=== PATIENT | male | born 1960 | race African-American/Black ===

== ENCOUNTER 2017-09-13 05:10 | Inpatient (IN) | payer MEDICAID, MEDICARE ==
[~2017-09-13] VITALS: Ht 177.8 cm; Wt 122.4 kg
[2017-09-13] VITALS (29 sets, daily range): BP systolic 115–197; BP diastolic 78–128; PULSE 125–150; RESP 14–25; TEMP 98.2–98.6; O2SAT 92–100
[~2017-09-13 05:10] MED LIST: ALDA50TA PO; ASPI325T PO; LISI20 PO; PRAV40 PO
[2017-09-13] MEDS ORDERED: SODIUM CHLORIDE 0.9% FLUSH 10 ML FLUSH IVF PRN (05:15)
--- NOTE | 2017-09-13 05:22 | PD ---
HPI Chief Complaint: Respiratory Distress Time Seen by Provider: 05:11 Travel History International Travel<30 days: No Contact w/Intl Traveler<30days: No Traveled to known affect area: No History of Present Illness HPI Patient is a 56-year-old male with history of CHF presents emergency department for evaluation for evaluation of shortness of breath. Patient obviously short of breath on arrival saturating 85% limiting history. Patient states he has been on blood thinners in the past presumably for atrial fibrillation. Denies any history of long trips long periods of stasis history of blood clots in his legs or chest. Patient states she's never taken any of his blood pressure medicine heart medicine or anticoagulation since his last admission 2 years ago which appears to be for acute stroke. After resuscitation the patient states he is chest pain-free and has not been having any chest pain. This is been short of breath over the past few days and gradually worsened until tonight when he couldn't stand it anymore. PFSH Past Medical History Heart Rhythm Problems: No Cancer: No Cardiovascular Problems: Yes High Cholesterol: Yes Congestive Heart Failure: No Cerebrovascular Accident: Yes Endocrine: No Genitourinary: No Hypertension: Yes Immune Disorder: No Musculoskeletal: No Neurologic: Yes Psychiatric: No Reproductive: No Respiratory: Yes Migraines: No Social History Alcohol Use: Yes (2 times a week) Tobacco Use: Yes (smokes one pack of cigarettes a day) Substance Use: No Allergies-Medications (Allergen,Severity, Reaction): Coded Allergies: No Known Allergies (Verified Allergy, Unknown, 09/13/17) Reported Meds & Prescriptions Reported Meds & Active Scripts Active No Active Prescriptions or Reported Medications Review of Systems Except as stated in HPI: all other systems reviewed are Neg Physical Exam Narrative GENERAL: Well-developed well-nourished, tripod position pursed lip breathing. SKIN: Focused skin assessment warm/dry. HEAD: Atraumatic. Normocephalic. EYES: Pupils equal and round. No scleral icterus. No injection or drainage. ENT: No nasal bleeding or discharge. Mucous membranes pink and moist. NECK: Trachea midline. No JVD. CARDIOVASCULAR: Regular rhythm with tachycardia.. No murmur appreciated. RESPIRATORY: No accessory muscle use. rales throughout all lung wells.. Breath sounds equal bilaterally. GASTROINTESTINAL: Abdomen soft, non-tender, nondistended. Hepatic and splenic margins not palpable. MUSCULOSKELETAL: No obvious deformities. No clubbing. No cyanosis. No edema. NEUROLOGICAL: Awake and alert. No obvious cranial nerve deficits. Motor grossly within normal limits. Normal speech. PSYCHIATRIC: Appropriate mood and affect; insight and judgment normal. Data Data Last Documented VS Vital Signs Date Time Temp Pulse Resp B/P (MAP) Pulse Ox O2 Delivery O2 Flow Rate FiO2 09/13/17 07:18 133 18 156/85 (108) 98 Nasal Cannula 4.00 09/13/17 05:13 98.6 Orders Orders Electrocardiogram (09/13/17 05:12) B-Type Natriuretic Peptide (09/13/17 05:12) Ckmb (Isoenzyme) Profile (09/13/17 05:12) Complete Blood Count With Diff (09/13/17 05:12) Comprehensive Metabolic Panel (09/13/17 05:12) Magnesium (Mg) (09/13/17 05:12) Prothrombin Time / Inr (Pt) (09/13/17 05:12) Act Partial Throm Time (Ptt) (09/13/17 05:12) Troponin I (09/13/17 05:12) Chest, Single Ap (09/13/17 05:12) Ecg Monitoring (09/13/17 05:12) Iv Access Insert/Monitor (09/13/17 05:12) Oximetry (09/13/17 05:12) Oxygen Administration (09/13/17 05:12) Sodium Chloride 0.9% Flush (Ns Flush) (09/13/17 05:15) Diltiazem Inj (Cardizem Inj) (09/13/17 06:00) Nitroglycerin Sl (Nitrostat Sl) (09/13/17 06:00) Nitroglycerin 2% Oint (Nitroglycerin 2% (09/13/17 06:00) Furosemide Inj (Lasix Inj) (09/13/17 06:00) CKMB (09/13/17 05:15) CKMB% (09/13/17 05:15) Aspirin Chew (Aspirin Chew) (09/13/17 06:15) Metoprolol Tartrate Inj (Lopressor Inj) (09/13/17 06:15) Dextrose 5% In Wate... W/Amiodarone Inj (09/13/17 07:03) Dextrose 5% In Wate... W/Amiodarone Inj (09/13/17 07:18) Admit Order (Ed Use Only) (09/13/17 ) Labs Laboratory Tests Test 09/13/17 05:15 White Blood Count 9.5 TH/MM3 Red Blood Count 4.77 MIL/MM3 Hemoglobin 12.4 GM/DL Hematocrit 38.7 % Mean Corpuscular Volume 81.2 FL Mean Corpuscular Hemoglobin 26.0 PG Mean Corpuscular Hemoglobin Concent 32.1 % Red Cell Distribution Width 16.5 % Platelet Count 258 TH/MM3 Mean Platelet Volume 8.3 FL Neutrophils (%) (Auto) 61.7 % Lymphocytes (%) (Auto) 27.4 % Monocytes (%) (Auto) 8.5 % Eosinophils (%) (Auto) 1.6 % Basophils (%) (Auto) 0.8 % Neutrophils # (Auto) 5.9 TH/MM3 Lymphocytes # (Auto) 2.6 TH/MM3 Monocytes # (Auto) 0.8 TH/MM3 Eosinophils # (Auto) 0.2 TH/MM3 Basophils # (Auto) 0.1 TH/MM3 CBC Comment DIFF FINAL Differential Comment Prothrombin Time 12.5 SEC Prothromb Time International Ratio 1.1 RATIO Activated Partial Thromboplast Time 25.6 SEC Blood Urea Nitrogen 11 MG/DL Creatinine 1.38 MG/DL Random Glucose 129 MG/DL Total Protein 7.5 GM/DL Albumin 3.5 GM/DL Calcium Level 8.7 MG/DL Magnesium Level 2.0 MG/DL Alkaline Phosphatase 64 U/L Aspartate Amino Transf (AST/SGOT) 49 U/L Alanine Aminotransferase (ALT/SGPT) 41 U/L Total Bilirubin 0.8 MG/DL Sodium Level 143 MEQ/L Potassium Level 4.5 MEQ/L Chloride Level 107 MEQ/L Carbon Dioxide Level 27.2 MEQ/L Anion Gap 9 MEQ/L Estimat Glomerular Filtration Rate 65 ML/MIN Total Creatine Kinase 438 U/L Creatine Kinase MB 5.4 NG/ML Creatine Kinase MB % 1.2 % Troponin I 0.07 NG/ML B-Type Natriuretic Peptide 229 PG/ML [facility] Medical Decision Making Medical Screen Exam Complete: Yes Emergency Medical Condition: Yes Differential Diagnosis ACS, MD, CHF, acute pulmonary edema. Narrative Course Patient roomed in emergency department, EKG consistent with atrial flutter with RVR, rales in bilateral lung wells and hypertensive consistent with acute pulmonary edema. Chest x-ray does show some pulmonary infiltrates. He was given Lasix nitroglycerin by paste and sublingual. Nasal cannula oxygen is holding his sats greater than 95%. Heart rate patient was given a loading dose of Cardizem 30 mg which had no effect on his heart rate, he was then given Lopressor 5 mg IV which again had no effect on his heart rate. Patient will be loaded therefore on amiodarone. Labs do show elevated troponin to 0.07 as well as elevations of BNP. Assessment is severe CHF with flash pulmonary edema overall status in the emergency department is improving. Awaiting [facility] to return page for placement to [facility]. Discussed with Dr. Harden for admission and he is agreeable. Amiodarone bolusing is in process. Diagnosis Primary Impression: Acute pulmonary edema Additional Impressions: Hypertensive emergency CHF (congestive heart failure) Atrial flutter with rapid ventricular response Admitting Information Admitting Physician Requests: Admit Scripts No Active Prescriptions or Reported Meds Condition: Stable Gaudencio Richter MD Sep 13, 2017 05:22
[2017-09-13 05:28] LABS: AUTOMATED NEUTROPHIL # 5.9 TH/MM3 (1.8-7.7); BASOPHIL # 0.1 TH/MM3 (0-0.2); BASOPHIL % 0.8 % (0.0-2.0); EOSINOPHIL # 0.2 TH/MM3 (0-0.4); EOSINOPHIL % 1.6 % (0.0-4.0); HEMATOCRIT 38.7 % (39.0-51.0); HEMO FLAGS DIFF FINAL; LYMPH % 27.4 % (9.0-44.0); LYMPHOCYTE # 2.6 TH/MM3 (1.0-4.8); MEAN CELL VOLUME 81.2 FL (80.0-100.0); MEAN CORPUSCULAR HGB CONC 32.1 % (32.0-36.0); MONO % 8.5 % (0.0-8.0); NEUT % 61.7 % (16.0-70.0); PLATELET COUNT 258 TH/MM3 (150-450); RED BLOOD COUNT 4.77 MIL/MM3 (4.50-5.90); RED CELL DISTRIBUTION WIDTH 16.5 % (11.6-17.2); WHITE BLOOD COUNT 9.5 TH/MM3 (4.0-11.0)
[2017-09-13 05:38] LABS: APTT (PATIENT) 25.6 SEC (24.3-30.1); INTERNATIONAL NORMALIZED RATIO 1.1 RATIO; PROTHROMBIN TIME - PATIENT 12.5 SEC (9.8-11.6)
[2017-09-13 05:47] LABS: ALT (GPT) 41 U/L (12-78)
[2017-09-13 05:54] LABS: ALKALINE PHOSPHATASE 64 U/L (45-117); ANION GAP 9 MEQ/L (5-15); AST (GOT) 49 U/L (15-37); BICARBONATE 27.2 MEQ/L (21.0-32.0); BLOOD UREA NITROGEN 11 MG/DL (7-18); CHLORIDE 107 MEQ/L (98-107); CREATINE KINASE 438 U/L (39-308); GLOMERULAR FILTRATION RATE 65 ML/MIN (>89); POTASSIUM 4.5 MEQ/L (3.5-5.1); SODIUM (NA) 143 MEQ/L (136-145); TOTAL BILIRUBIN ADULT 0.8 MG/DL (0.2-1.0)
[2017-09-13] MEDS ORDERED: DILTIAZEM HCL 25 MG/5 ML VIAL IV PUSH ONE (06:00)
[2017-09-13] MEDS ORDERED: NITROGLYCERIN 2% OINT 1 GM PACKET TOPICAL ONE (06:00)
[2017-09-13] MEDS ORDERED: FUROSEMIDE 40 MG/4 ML VIAL IV PUSH ONE (06:00)
[2017-09-13] MEDS ORDERED: NITROGLYCERIN 0.4 MG SL 25 TABS/BTL SL ONE (06:00)
--- NOTE | 2017-09-13 06:02 | RADRPT ---
EXAM DATE/TIME: 09/13/2017 05:41 [place] COMPARISON: CHEST PA & LAT, January 28, 2014, 9:01. INDICATIONS : Shortness of breath. MEDICAL HISTORY : Hypertension. Chronic obstructive pulmonary disease. SURGICAL HISTORY : None. ENCOUNTER: Initial ACUITY: 1 day PAIN SCORE: 0/10 LOCATION: Bilateral chest FINDINGS: A single AP erect view of the chest was obtained and demonstrates new hazy opacity at both lung bases . The heart size is mildly prominent with atherosclerotic changes again noted in the aorta. There is paramount blunting of left costophrenic angle. Overlying retrocardiac region noted. The bony thorax r emains intact with no pneumothorax. CONCLUSION: New infiltrate at both lung bases and possible small effusion on the left. The findin gs could represent mild congestive heart failure. Kaden Peacock MD on September 13, 2017 at 5:59 Board Certified Radiologist. This report was verified electronically.
[2017-09-13 06:06] LABS: CKMB 5.4 NG/ML (0.5-3.6)
[2017-09-13] MEDS ORDERED: ASPIRIN 81 MG CHEW TAB CHEW ONE (06:15)
[2017-09-13] MEDS ORDERED: METOPROLOL TARTRATE 5 MG/5 ML VIAL IV PUSH ONE ×2 (06:15→08:15)
[2017-09-13] MEDS ORDERED: AMIODARONE INJ 150 MG in DEXTROSE 5% IN WATER 100ML INJ 97 ML IV ONE ×2 (07:03)
[2017-09-13] MEDS ORDERED: AMIODARONE INJ 450 MG in DEXTROSE 5% IN WATE(EXCEL) INJ 241 ML IV SCH ×2 (07:18)
--- NOTE | 2017-09-13 07:59 | HHI.HP ---
[facility] No Primary Care Physician Admission Diagnosis CHF, Hypoxic Respiratory failure, Aflutter RVR Diagnoses: Chief Complaint: Shortness of breath Travel History International Travel<30 Days: No Contact w/Intl Traveler <30 Da: No Traveled to Known Affected Are: No History of Present Illness Mr. Boo is a pleasant 56-year-old [place] male with a history of hypertension, CVA who presents to the emergency department due to shortness of breath. About 2 days ago he started having dyspnea both at rest and on exertion. He reports orthopnea but no chest pain, cough, fever or chills. Apparently he was supposed to be on blood pressure medication as well as a medication for anticoagulation. However, he has not taken this medication because he does not have a primary care physician. He denies any changes in bowel or bladder habits. On arrival patient's heart rate was 150, respiration 25, temperature 98.6, blood pressure 146/98. R and his blood pressure went up to 197/128. CBC unremarkable. Chemistry panel shows BUN 11 and creatinine 1.38. BNP 229. Chest x-ray shows new infiltrates at both lung bases and possible small effusion on the left. Review of Systems Except as stated in HPI: all other systems reviewed are Neg Past Family Social History Past Medical History Hypertension CVA Past Surgical History No significant major surgery Allergies: Coded Allergies: No Known Allergies (Verified Allergy, Unknown, 09/13/17) Family History Mother - breast cancer Social History Smokes about 1 pack a day, drinks socially. Denies using any illicit drugs. Physical Exam Vital Signs Vital Signs Date Time Temp Pulse Resp B/P (MAP) Pulse Ox O2 Delivery O2 Flow Rate FiO2 09/13/17 07:18 133 18 156/85 (108) 98 Nasal Cannula 4.00 09/13/17 06:28 131 14 160/99 (119) 92 Nasal Cannula 3.00 09/13/17 06:15 135 14 170/100 (123) 93 Nasal Cannula 3.00 09/13/17 06:05 135 15 169/113 (131) 93 Nasal Cannula 3.00 09/13/17 06:01 130 15 185/109 (134) 95 Nasal Cannula 3.00 09/13/17 05:54 135 17 197/128 (151) 95 Nasal Cannula 3.00 09/13/17 05:20 137 25 96 Nasal Cannula 3.00 09/13/17 05:18 96 Nasal Cannula 3.00 09/13/17 05:18 25 96 Nasal Cannula 3.00 09/13/17 05:13 98.6 150 25 146/98 (114) 96 Physical Exam GENERAL: This is a well-nourished, well-developed patient, in no apparent distress. SKIN: No rashes, ecchymoses or lesions. Warm and dry. HEAD: Atraumatic. Normocephalic. No temporal or scalp tenderness. EYES: Pupils equal round and reactive. No injection or drainage. ENT: Nose without bleeding, purulent drainage or septal hematoma. Airway patent. NECK: Trachea midline. No lymphadenopathy. Supple, nontender, no meningeal signs. CARDIOVASCULAR: Regular rhythm, tachycardic without murmurs, gallops, or rubs. No JVD. RESPIRATORY: Clear to auscultation. Breath sounds equal bilaterally. No wheezes , rales, or rhonchi. Bibasilar crackles GASTROINTESTINAL: Abdomen soft, non-tender, nondistended. No guarding. MUSCULOSKELETAL: Extremities without clubbing, cyanosis. 1+ edema in lower extremities. NEUROLOGICAL: Awake and alert. Cranial nerves II through XII intact. No focal neurological deficits. Normal speech. Laboratory Laboratory Tests Test 09/13/17 05:15 White Blood Count 9.5 Red Blood Count 4.77 Hemoglobin 12.4 Hematocrit 38.7 Mean Corpuscular Volume 81.2 Mean Corpuscular Hemoglobin 26.0 Mean Corpuscular Hemoglobin Concent 32.1 Red Cell Distribution Width 16.5 Platelet Count 258 Mean Platelet Volume 8.3 Neutrophils (%) (Auto) 61.7 Lymphocytes (%) (Auto) 27.4 Monocytes (%) (Auto) 8.5 Eosinophils (%) (Auto) 1.6 Basophils (%) (Auto) 0.8 Neutrophils # (Auto) 5.9 Lymphocytes # (Auto) 2.6 Monocytes # (Auto) 0.8 Eosinophils # (Auto) 0.2 Basophils # (Auto) 0.1 CBC Comment DIFF FINAL Differential Comment Prothrombin Time 12.5 Prothromb Time International Ratio 1.1 Activated Partial Thromboplast Time 25.6 Blood Urea Nitrogen 11 Creatinine 1.38 Random Glucose 129 Total Protein 7.5 Albumin 3.5 Calcium Level 8.7 Magnesium Level 2.0 Alkaline Phosphatase 64 Aspartate Amino Transf (AST/SGOT) 49 Alanine Aminotransferase (ALT/SGPT) 41 Total Bilirubin 0.8 Sodium Level 143 Potassium Level 4.5 Chloride Level 107 Carbon Dioxide Level 27.2 Anion Gap 9 Estimat Glomerular Filtration Rate 65 Total Creatine Kinase 438 Creatine Kinase MB 5.4 Creatine Kinase MB % 1.2 Troponin I 0.07 B-Type Natriuretic Peptide 229 Result Diagram: 09/13/1751409/13/17514 Imaging Last Impressions Chest X-Ray 09/13/17511 Signed Impressions: Service Date/Time: Friday, September 13, 2017 05:41 - CONCLUSION: New infiltrate at both lung bases and possible small effusion on the left. The findings could represent mild congestive heart failure. Kaden Peacock MD - MRI 12/10/2015 - Multifocal areas of acute infarction throughout the left parietal lobe. - Echo 12/10/2015 - moderate LVH. EF 50-55%. Caprini VTE Risk Assessment Caprini VTE Risk Assessment: Mod/High Risk (score >= 2) Caprini Risk Assessment Model Point Value = 1 Point Value = 2 Point Value = 3 Point Value = 5 Age 41-60 Minor surgery BMI > 25 kg/m2 Swollen legs Varicose veins or History of unexplained or recurrent spontaneous Oral contraceptives or hormone replacement Sepsis (< 1 month) Serious lung disease, including pneumonia (< 1 month) Abnormal pulmonary function Acute myocardial infarction Congestive heart failure (< 1 month) History of inflammatory bowel disease Medical patient at bed rest Age 61-74 Arthroscopic surgery Major open surgery (> 45 min) Laparoscopic surgery (> 45 min) Malignancy Confined to bed (> 72 hours) Immobilizing plaster cast Central venous access Age >= 75 History of VTE Family history of VTE Factor V Leiden Prothrombin [id number] Lupus anticoagulant Anticardiolipin antibodies Elevated serum homocysteine Heparin-induced thrombocytopenia Other congenital or acquired thrombophilia Stroke (< 1 month) Elective arthroplasty Hip, pelvis, or leg fracture Acute spinal cord injury (< 1 month) Prophylaxis Regimen Total Risk Factor Score Risk Level Prophylaxis Regimen 0-1 Low Early ambulation 2 Moderate Order ONE of the following: *Sequential Compression Device (SCD) *Heparin 5000 units SQ BID 3-4 Higher Order ONE of the following medications: *Heparin 5000 units SQ TID *Enoxaparin/Lovenox 40 mg SQ daily (WT < 150 kg, CrCl > 30 mL/min) *Enoxaparin/Lovenox 30 mg SQ daily (WT < 150 kg, CrCl > 10-29 mL/min) *Enoxaparin/Lovenox 30 mg SQ BID (WT < 150 kg, CrCl > 30 mL/min) AND/OR *Sequential Compression Device (SCD) 5 or more Highest Order ONE of the following medications: *Heparin 5000 units SQ TID (Preferred with Epidurals) *Enoxaparin/Lovenox 40 mg SQ daily (WT < 150 kg, CrCl > 30 mL/min) *Enoxaparin/Lovenox 30 mg SQ daily (WT < 150 kg, CrCl > 10-29 mL/min) *Enoxaparin/Lovenox 30 mg SQ BID (WT < 150 kg, CrCl > 30 mL/min) AND *Sequential Compression Device (SCD) Assessment and Plan Problem List: (1) Acute pulmonary edema ICD Code: J81.0 - Acute pulmonary edema Status: Acute (2) Atrial flutter with rapid ventricular response ICD Code: I48.92 - Unspecified atrial flutter Status: Acute (3) HTN (hypertension) ICD Code: I10 - Essential (primary) hypertension Status: Chronic Assessment and Plan Mr. Boo is a pleasant 56-year-old [place] male with a history of hypertension, CVA who presents to the emergency department due to 2 day duration of shortness of breath. He reports orthopnea. Physical exam shows 1+ lower extremity edema as well. Chest x-ray shows bilateral pulmonary edema. - Acute pulmonary edema - Probable acute congestive heart failure, diastolic - BNP 229. Pulmonary edema is possibly due to CHF. - Slight elevation in Troponin is likely due RUPERT, HTN, CHF (Supply demand mismatch). - CXR reviewed by me on 09/13/2017 -- shows bibasilar opacity, effusion. - Patient received Lasix IV 40 mg. We'll continue Lasix IV 40 mg twice a day. - Upon discharge, we'll consider torsemide by mouth. - We'll obtain 2-D Echo Limited to evaluate LV function. Previous echo from shows EF 50-55%. - Continue O2 to maintain O2 sat > 90%. - Atrial flutter with rapid ventricular response - EKG reviewed by me on 09/13/2017 - shows Atrial flutter with RVR. - Patient received metoprolol 5 mg IV once. - Heart rate is is still in the 130s. We'll provide another 5 mg metoprolol IV. - Start metoprolol 25 mg every 8 hours. - [id number] score 3 (CVA, HTN) - We will start patient on Apixaban 5mg BID. Discussed with patient regarding Warfarin and Apixaban. Patient opted for Apixaban. - Acute kidney injury - Creatinine 1.38. Previously creatinine was 1.11 - 1.14. - Will monitor. May get worse transiently due to diuresis. - Avoid nephrotoxins. - Hypertension - After lasix, blood pressure is within reasonable range. Currently systolic BP in the 130s. - If needed, we will consider calcium channel blockers such as Amlodipine. - Tobacco abuse - Counselled patient regarding smoking. He is interested to quit smoking. - Will start him on Nicotine patch. Full code. Apixaban 5 mg twice a day. Physician Certification 2 Midnight Certification Type: Admission for Inpatient Services Order for Inpatient Services The services are ordered in accordance with Medicare regulations or non- Medicare payer requirements, as applicable. In the case of services not specified as inpatient-only, they are appropriately provided as inpatient services in accordance with the 2-midnight benchmark. Estimated LOS (days): 2 days is the estimated time the patient will need to remain in the hospital, assuming treatment plan goals are met and no additional complications. Post-Hospital Plan: Home Willis Harden DO Sep 13, 2017 7:59 am
[2017-09-13] MEDS ORDERED: ONDANSETRON HCL 4 MG/2 ML VIAL IVP PRN (08:00)
[2017-09-13] MEDS ORDERED: MAGNESIUM HYDROXIDE SUSP 30 ML CUP PO PRN (08:00)
[2017-09-13] MEDS ORDERED: ENOXAPARIN SODIUM 40 MG/0.4 ML SYRINGE SQ SCH (08:00)
[2017-09-13] MEDS ORDERED: BISACODYL 10 MG SUPP RECTAL PRN (08:00)
[2017-09-13] MEDS ORDERED: NALOXONE HCL 0.4 MG/ML AMP IV PUSH PRN (08:00)
[2017-09-13] MEDS ORDERED: ACETAMINOPHEN 325 MG TAB PO PRN (08:00)
[2017-09-13] MEDS ORDERED: SENNOSIDES 8.6 MG TAB PO PRN (08:00)
[2017-09-13] MEDS ORDERED: LACTULOSE SYRUP 20 GM/30 ML CUP PO PRN (08:00)
[2017-09-13] MEDS ORDERED: SODIUM CHLORIDE 0.9% FLUSH 10 ML FLUSH IV FLUSH PRN (08:00)
[2017-09-13] MEDS: SODIUM CHLORIDE 0.9% FLUSH 10 ML FLUSH IV FLUSH SCH ×2 (08:17→20:07)
[2017-09-13] MEDS ORDERED: METOPROLOL TARTRATE 25 MG TAB PO ONE (08:30)
[2017-09-13] MEDS: APIXABAN 5 MG TABLET PO SCH ×2 (08:48→20:07)
[2017-09-13] MEDS: NICOTINE 14 MG/24 HR PATCH T-DERMAL SCH (08:48)
[2017-09-13] MEDS ORDERED: FUROSEMIDE 40 MG/4 ML VIAL IV PUSH SCH (09:00)
[2017-09-13] MEDS: DILTIAZEM INJ 125 MG in SODIUM CHLORIDE 0.9% INJ 100 ML IV PRN ×2 (12:03→20:10)
[2017-09-13] MEDS: METOPROLOL TARTRATE 25 MG TAB PO SCH ×2 (14:13→20:07)
--- NOTE | 2017-09-13 14:31 | EKG ---
Date Performed: 09/13/2017 Time Performed: 05:13:22 PTAGE: 56 years EKG: ATRIAL FLUTTER/TACHYCARDIA WITH RAPID VENTRICULAR RESPONSE NONSPECIFIC ST & T-WAVE ABNORMAL ITY ABNORMAL RHYTHM ECG PREVIOUS TRACING : 12/10/2015 04.55 Compared to the previous tracing, previously in Sinus rhyth m DOCTOR: Devon Manzo Interpretating Date/Time 09/13/2017 14:30:34
[2017-09-13] MEDS ORDERED: DILTIAZEM HCL 60 MG TAB PO ONE (14:45)
[2017-09-13] MEDS: FUROSEMIDE 40 MG/4 ML VIAL IV PUSH SCH (17:34)
[2017-09-13] MEDS: DILTIAZEM HCL 60 MG TAB PO SCH ×2 (17:34→23:40)
[2017-09-14] VITALS (26 sets, daily range): BP systolic 97–144; BP diastolic 68–80; PULSE 60–124; RESP 18–22; TEMP 97.3–98.3; O2SAT 92–96
[2017-09-14] MEDS: METOPROLOL TARTRATE 25 MG TAB PO SCH (05:18)
[2017-09-14] MEDS: DILTIAZEM HCL 60 MG TAB PO SCH ×4 (05:18→23:56)
[2017-09-14 06:20] LABS: AUTOMATED NEUTROPHIL # 7.3 TH/MM3 (1.8-7.7); BASOPHIL # 0.1 TH/MM3 (0-0.2); BASOPHIL % 0.7 % (0.0-2.0); EOSINOPHIL % 0.4 % (0.0-4.0); HEMATOCRIT 39.7 % (39.0-51.0); HEMO FLAGS DIFF FINAL; LYMPH % 24.1 % (9.0-44.0); LYMPHOCYTE # 2.7 TH/MM3 (1.0-4.8); MEAN CELL VOLUME 81.6 FL (80.0-100.0); MEAN CORPUSCULAR HEMOGLOBIN 25.6 PG (27.0-34.0); MEAN CORPUSCULAR HGB CONC 31.3 % (32.0-36.0); MONO % 9.7 % (0.0-8.0); NEUT % 65.1 % (16.0-70.0); PLATELET COUNT 261 TH/MM3 (150-450); RED BLOOD COUNT 4.86 MIL/MM3 (4.50-5.90); WHITE BLOOD COUNT 11.1 TH/MM3 (4.0-11.0)
[2017-09-14 06:52] LABS: BICARBONATE 26.8 MEQ/L (21.0-32.0); POTASSIUM 4.4 MEQ/L (3.5-5.1)
[2017-09-14] MEDS: FUROSEMIDE 40 MG/4 ML VIAL IV PUSH SCH ×2 (08:25→19:14)
[2017-09-14] MEDS: APIXABAN 5 MG TABLET PO SCH (08:25)
[2017-09-14] MEDS: NICOTINE 14 MG/24 HR PATCH T-DERMAL SCH (08:26)
[2017-09-14] MEDS: SODIUM CHLORIDE 0.9% FLUSH 10 ML FLUSH IV FLUSH SCH ×2 (08:26→21:00)
--- NOTE | 2017-09-14 08:57 | HHI.PR ---
Subjective Remarks Follow up for Atrial flutter, pulmonary edema, HTN. Patient is currently doing well. Denies any chest pain. He is requiring 2L of O2 via NC to maintain O2 sat > 88%. No fever, chills. He wants to go home today. Objective Vitals Vital Signs Date Time Temp Pulse Resp B/P (MAP) Pulse Ox O2 Delivery O2 Flow Rate FiO2 09/14/17 06:00 117 09/14/17 05:00 121 09/14/17 04:00 Nasal Cannula 4.00 09/14/17 04:00 121 09/14/17 04:00 98.3 121 22 144/80 (101) 92 09/14/17 03:00 122 09/14/17 02:00 120 09/14/17 01:00 122 09/14/17 00:00 98.1 123 22 116/68 (84) 93 09/14/17 00:00 123 09/14/17 00:00 Nasal Cannula 4.00 09/13/17 23:00 128 09/13/17 22:00 125 09/13/17 21:00 128 09/13/17 20:10 129 115/86 09/13/17 20:00 98.2 125 22 115/86 (96) 92 09/13/17 20:00 Nasal Cannula 4.00 09/13/17 20:00 129 09/13/17 18:02 129 09/13/17 17:00 128 09/13/17 16:32 127 22 125/79 (94) 94 09/13/17 16:00 127 09/13/17 15:00 98.6 130 22 123/84 (97) 95 09/13/17 15:00 130 09/13/17 14:00 127 09/13/17 14:00 138/88 (105) 09/13/17 13:00 129 22 135/101 (112) 98 09/13/17 13:00 129 09/13/17 13:00 128 135/101 09/13/17 12:34 129 21 151/99 (116) 97 09/13/17 12:30 128 22 164/98 (120) 97 09/13/17 12:30 128 164/98 09/13/17 12:29 128 09/13/17 12:16 129 21 164/108 (126) 96 09/13/17 12:03 129 143/78 09/13/17 12:01 130 21 143/78 (99) 96 09/13/17 11:45 127 22 146/103 (117) 95 09/13/17 11:00 98.2 129 20 138/88 (105) 99 09/13/17 11:00 99 Nasal Cannula 4.00 09/13/17 11:00 129 09/13/17 10:45 128 20 155/109 (124) 100 09/13/17 09:18 125 24 135/83 (100) 95 Nasal Cannula 4.00 I/O 09/13/17 09/13/17 09/13/17 09/14/17 09/14/17 09/14/17 07:00 15:00 23:00 07:00 15:00 23:00 Intake Total 870 ml 240 ml Output Total 125 ml 900 ml Balance 745 ml -660 ml Intake Oral 720 ml 240 ml IV Total 150 ml Output Urine Total 125 ml 900 ml # Bowel Movements 0 Result Diagram: 09/14/1759 09/14/1759 Imaging Last Impressions Chest X-Ray 09/13/17511 Signed Impressions: Service Date/Time: Friday, September 13, 2017 05:41 - CONCLUSION: New infiltrate at both lung bases and possible small effusion on the left. The findings could represent mild congestive heart failure. Kaden Peacock MD Objective Remarks GENERAL: Alert, Oriented x 3, NAD. SKIN: Warm and dry. HEAD: Normocephalic. EYES: No scleral icterus. No injection or drainage. NECK: Supple, trachea midline. No JVD or lymphadenopathy. CARDIOVASCULAR: Regular rate and rhythm without murmurs, gallops, or rubs. RESPIRATORY: Breath sounds equal bilaterally. No accessory muscle use. Mild bibasilar crackles appreciated. GASTROINTESTINAL: Abdomen soft, non-tender, nondistended. MUSCULOSKELETAL: No cyanosis. 1+ lower ext edema. BACK: Nontender without obvious deformity. No CVA tenderness. Procedures None. A/P Problem List: (1) Acute pulmonary edema ICD Code: J81.0 - Acute pulmonary edema Status: Acute (2) Atrial flutter with rapid ventricular response ICD Code: I48.92 - Unspecified atrial flutter Status: Acute (3) HTN (hypertension) ICD Code: I10 - Essential (primary) hypertension Status: Chronic Assessment and Plan Mr. Boo is a pleasant 56-year-old [place] male with a history of hypertension, CVA who presents to the emergency department due to 2 day duration of shortness of breath. He reports orthopnea. Physical exam shows 1+ lower extremity edema as well. Chest x-ray shows bilateral pulmonary edema. - Acute pulmonary edema - Probable acute congestive heart failure, diastolic - BNP 229. Pulmonary edema is possibly due to CHF. - Slight elevation in Troponin is likely due RUPERT, HTN, CHF (Supply demand mismatch). - CXR reviewed by me on 09/13/2017 -- shows bibasilar opacity, effusion. - continue Lasix IV 40 mg twice a day. - Upon discharge, we'll consider torsemide by mouth. - We'll obtain 2-D Echo Limited to evaluate LV function. Previous echo from shows EF 50-55%. - Continue O2 to maintain O2 sat > 88%. - Atrial flutter with rapid ventricular response - EKG reviewed by me on 09/13/2017 - shows Atrial flutter with RVR. - Patient received metoprolol 5 mg IV twice - Heart rate is still in the 120s range. - Increase metoprolol frm 25 mg every 8 hours to 50mg Q8hrs. Continue Cardizem drip and PO. - [id number] score 3 (CVA, HTN) - Continue Apixaban 5mg BID. - Will consult Cardiology. Patient may need an EP evaluation which we may not be able to get before 09/15/2017. - Acute kidney injury - Creatinine 1.38. Previously creatinine was 1.11 - 1.14. - Creatinine 1.38 --> 1.43, likely due to diuresis. - Avoid nephrotoxins. - Hypertension - If needed, we will consider calcium channel blockers such as Amlodipine. - Currently systolic BP is in the low 100s range. - Tobacco abuse - Counselled patient regarding smoking. He is interested to quit smoking. - Nicotine patch. Full code. Apixaban 5 mg twice a day. Discharge plan: It would be inadvisable for the patient to leave the hospital without further work up and treatment as well as possible home O2 arrangements. Patient understands that leaving hospital AMA will carry significant health risks including increased morbidity and mortality. If he leaves, he can always come back for any medical concerns. Patient states that he will go home this evening. I have again told patient that it would be not advisable to leave hospital prematurely. Willis Harden DO Sep 14, 2017 8:57 am
[2017-09-14] MEDS ORDERED: METOPROLOL TARTRATE 25 MG TAB PO ONE (09:00)
--- NOTE | 2017-09-14 09:50 | PD.PN.STU ---
Subjective Remarks Patient feeling better today and wants to go home. Denies SOB, chest pain, palpitations. States he has been up and walking in his room. Still on 4 L O2 nasal canula. Per nurse, this had been temporarily decreased to 2L but O2sat dropped to less than 90 so patient was put back on 4 L. Objective Vitals Vital Signs Date Time Temp Pulse Resp B/P (MAP) Pulse Ox O2 Delivery O2 Flow Rate FiO2 09/14/17 07:30 95 Nasal Cannula 4.00 09/14/17 07:30 118 09/14/17 07:30 97.3 118 18 105/78 (87) 95 09/14/17 06:00 117 09/14/17 05:00 121 09/14/17 04:00 Nasal Cannula 4.00 09/14/17 04:00 121 09/14/17 04:00 98.3 121 22 144/80 (101) 92 09/14/17 03:00 122 09/14/17 02:00 120 09/14/17 01:00 122 09/14/17 00:00 98.1 123 22 116/68 (84) 93 09/14/17 00:00 123 09/14/17 00:00 Nasal Cannula 4.00 09/13/17 23:00 128 09/13/17 22:00 125 09/13/17 21:00 128 09/13/17 20:10 129 115/86 09/13/17 20:00 98.2 125 22 115/86 (96) 92 09/13/17 20:00 Nasal Cannula 4.00 09/13/17 20:00 129 09/13/17 18:02 129 09/13/17 17:00 128 09/13/17 16:32 127 22 125/79 (94) 94 09/13/17 16:00 127 09/13/17 15:00 98.6 130 22 123/84 (97) 95 09/13/17 15:00 130 09/13/17 14:00 127 09/13/17 14:00 138/88 (105) 09/13/17 13:00 129 22 135/101 (112) 98 09/13/17 13:00 129 09/13/17 13:00 128 135/101 09/13/17 12:34 129 21 151/99 (116) 97 09/13/17 12:30 128 22 164/98 (120) 97 09/13/17 12:30 128 164/98 09/13/17 12:29 128 09/13/17 12:16 129 21 164/108 (126) 96 09/13/17 12:03 129 143/78 09/13/17 12:01 130 21 143/78 (99) 96 09/13/17 11:45 127 22 146/103 (117) 95 09/13/17 11:00 98.2 129 20 138/88 (105) 99 09/13/17 11:00 99 Nasal Cannula 4.00 09/13/17 11:00 129 09/13/17 10:45 128 20 155/109 (124) 100 I/O 09/13/17 09/13/17 09/13/17 09/14/17 09/14/17 09/14/17 07:00 15:00 23:00 07:00 15:00 23:00 Intake Total 870 ml 240 ml Output Total 125 ml 900 ml Balance 745 ml -660 ml Intake Oral 720 ml 240 ml IV Total 150 ml Output Urine Total 125 ml 900 ml # Bowel Movements 0 Result Diagram: 09/14/17 0559 09/14/17 0559 Other Results Laboratory Tests Test 09/14/17 05:59 White Blood Count 11.1 TH/MM3 (4.0-11.0) Red Blood Count 4.86 MIL/MM3 (4.50-5.90) Hemoglobin 12.4 GM/DL (13.0-17.0) Hematocrit 39.7 % (39.0-51.0) Mean Corpuscular Volume 81.6 FL (80.0-100.0) Mean Corpuscular Hemoglobin 25.6 PG (27.0-34.0) Mean Corpuscular Hemoglobin Concent 31.3 % (32.0-36.0) Red Cell Distribution Width 17.0 % (11.6-17.2) Platelet Count 261 TH/MM3 (150-450) Mean Platelet Volume 8.4 FL (7.0-11.0) Neutrophils (%) (Auto) 65.1 % (16.0-70.0) Lymphocytes (%) (Auto) 24.1 % (9.0-44.0) Monocytes (%) (Auto) 9.7 % (0.0-8.0) Eosinophils (%) (Auto) 0.4 % (0.0-4.0) Basophils (%) (Auto) 0.7 % (0.0-2.0) Neutrophils # (Auto) 7.3 TH/MM3 (1.8-7.7) Lymphocytes # (Auto) 2.7 TH/MM3 (1.0-4.8) Monocytes # (Auto) 1.1 TH/MM3 (0-0.9) Eosinophils # (Auto) 0.0 TH/MM3 (0-0.4) Basophils # (Auto) 0.1 TH/MM3 (0-0.2) CBC Comment DIFF FINAL Differential Comment Blood Urea Nitrogen 17 MG/DL (7-18) Creatinine 1.43 MG/DL (0.60-1.30) Random Glucose 104 MG/DL (74-106) Calcium Level 8.3 MG/DL (8.5-10.1) Sodium Level 139 MEQ/L (136-145) Potassium Level 4.4 MEQ/L (3.5-5.1) Chloride Level 105 MEQ/L (98-107) Carbon Dioxide Level 26.8 MEQ/L (21.0-32.0) Anion Gap 7 MEQ/L (5-15) Estimat Glomerular Filtration Rate 62 ML/MIN (>89) Objective Remarks GENERAL: Patient sitting in chair at bedside in no apparent distress. SKIN: Warm and dry. HEAD: Normocephalic. EYES: No scleral icterus. No injection or drainage. NECK: Supple, trachea midline. No JVD or lymphadenopathy. CARDIOVASCULAR: Regular rate and rhythm without murmurs, gallops, or rubs. RESPIRATORY: Breath sounds equal bilaterally. No accessory muscle use. Few crackles in lung bases bilaterally. GASTROINTESTINAL: Abdomen soft, non-tender, nondistended. MUSCULOSKELETAL: No cyanosis. +1 pitting edema in lower extremities bilaterally. BACK: Nontender without obvious deformity. Medications and IVs Current Medications Sodium Chloride (NS Flush) 2 ml UNSCH PRN IVF FLUSH AFTER USING IV ACCESS; Start 09/13/17 at 05:15; Stop 09/13/17 at 07:53; Status DC Diltiazem HCl (Cardizem Inj) 30 mg BOLUS ONCE IV PUSH Last administered on t 06:00; Start 09/13/17 at 06:00; Stop 09/13/17 at 06:01; Status DC Nitroglycerin (Nitrostat Sl) 0.4 mg ONCE ONCE SL Last administered on 05:59; Start 09/13/17 at 06:00; Stop 09/13/17 at 06:01; Status DC Nitroglycerin (Nitroglycerin 2% Oint) 1 inch ONCE ONCE TOPICAL Last administered on 09/13/17 05:59; Start 09/13/17 at 06:00; Stop 09/13/17 at 06 :01; Status DC Furosemide (Lasix Inj) 40 mg ONCE ONCE IV PUSH Last administered on 06:07; Start 09/13/17 at 06:00; Stop 09/13/17 at 06:01; Status DC Aspirin (Aspirin Chew) 324 mg ONCE ONCE CHEW Last administered on 09/13/17 06:16; Start 09/13/17 at 06:15; Stop 09/13/17 at 06:16; Status DC Metoprolol Tartrate (Lopressor Inj) 5 mg ONCE ONCE IV PUSH Last administered on 09/13/17 06:17; Start 09/13/17 at 06:15; Stop 09/13/17 at 06:16; Status DC Amiodarone HCl 150 mg/Dextrose 100 ml @ 600 mls/hr Q10M ONCE IV Last administered on 09/13/17 08:07; Start 09/13/17 at 07:03; Stop 09/13/17 at 07 :12; Status DC Amiodarone HCl 450 mg/Dextrose 250 ml @ 33 mls/hr Q7H35M IV ; Start 09/13/17 at 07:18; Stop 09/13/17 at 08:45; Status DC Sodium Chloride (NS Flush) 2 ml UNSCH PRN IV FLUSH FLUSH AFTER USING IV ACCESS ; Start 09/13/17 at 08:00 Sodium Chloride (NS Flush) 2 ml BID IV FLUSH Last administered on 09/14/17 08 :26; Start 09/13/17 at 09:00 Acetaminophen (Tylenol) 650 mg Q4H PRN PO HEADACHE, FEVER, PAIN 1-4; Start at 08:00 Ondansetron HCl (Zofran Inj) 4 mg Q6H PRN IVP NAUSEA OR VOMITING; Start at 08:00 Enoxaparin Sodium (Lovenox Inj) 40 mg Q24H SQ ; Start 09/13/17 at 08:00; Stop 09/13/17 at 08:18; Status DC Naloxone HCl (Narcan Inj) 0.4 mg UNSCH PRN IV PUSH SEE LABEL COMMENTS; Start 09/13/17 at 08:00 Magnesium Hydroxide (Milk Of Magnesia Liq) 30 ml Q12H PRN PO Mild constipation ; Start 09/13/17 at 08:00 Sennosides (Senokot) 17.2 mg Q12H PRN PO Moderate constipation; Start at 08:00 Bisacodyl (Dulcolax Supp) 10 mg DAILY PRN RECTAL SEVERE CONSITIPATION; Start 09/13/17 at 08:00 Lactulose (Lactulose Liq) 30 ml DAILY PRN PO SEVERE CONSITIPATION; Start 09/13 at 08:00 Furosemide (Lasix Inj) 40 mg BID@18 IV PUSH ; Start 09/13/17 at 09:00; Stop 09/13/17 at 09:00; Status DC Metoprolol Tartrate (Lopressor Inj) 5 mg ONCE ONCE IV PUSH Last administered on 09/13/17 08:47; Start 09/13/17 at 08:15; Stop 09/13/17 at 08:30; Status DC Metoprolol Tartrate (Lopressor) 25 mg Q8HR PO Last administered on 09/14/17 05:18; Start 09/13/17 at 14:00; Stop 09/14/17 at 08:51; Status DC Metoprolol Tartrate (Lopressor) 25 mg ONCE ONCE PO Last administered on 08:47; Start 09/13/17 at 08:30; Stop 09/13/17 at 08:31; Status DC Apixaban (Eliquis) 5 mg BID PO Last administered on 09/14/17 08:25; Start at 09:00 Nicotine (Habitrol 14 Mg Patch.24 Hr) 1 patch DAILY T-DERMAL Last administered on 09/13/17 08:48; Start 09/13/17 at 09:00 Miscellaneous Information 1 DAILY T-DERMAL ; Start 09/14/17 at 09:00 Furosemide (Lasix Inj) 40 mg BID@09,18 IV PUSH Last administered on 09/14/17 08:25; Start 09/13/17 at 18:00 Diltiazem HCl 125 mg/Sodium Chloride 125 ml @ 5 mls/hr TITRATE PRN IV Tachycardia Last administered on 09/13/17 20:10; Start 09/13/17 at 11:30 Diltiazem HCl (Cardizem) 60 mg Q6HR PO Last administered on 09/14/17 05:18; Start 09/13/17 at 18:00 Diltiazem HCl (Cardizem) 60 mg ONCE ONCE PO Last administered on 09/13/17 14 :50; Start 09/13/17 at 14:45; Stop 09/13/17 at 14:46; Status DC Metoprolol Tartrate (Lopressor) 50 mg Q8HR PO ; Start 09/14/17 at 14:00 Metoprolol Tartrate (Lopressor) 25 mg ONCE ONCE PO Last administered on 09:14; Start 09/14/17 at 09:00; Stop 09/14/17 at 09:01; Status DC A/P Assessment and Plan Patient is a 56 yo male with a history of CHF, CVA and noncompliance with meds who presented on 09/13 with atrial flutter with RVR and pulmonary edema after several days of progressive dyspnea. Patient is adamant about discharge but counseled that he would have to leave against medical advice as his heart rate and oxygenation is not under control. Atrial flutter: persistent on telemetry, HR around 120 which is decreased from yesterday. -consider increasing metoprolol for better rate control -continue apixaban for emboli prevention -cardiology consult to evaluate persistent tachycardia, CHF, and possibility for future cardioversion - Acute pulmonary edema due to probable acute congestive heart failure: Patient appears to better clinically today. Lungs sound clearer but still with fluid in bases. - BNP 229 on admission. Pulmonary edema is possibly due to CHF. - Slight elevation in Troponin is likely due RUPERT, HTN, CHF (Supply demand mismatch). - CXR on admission showed bibasilar opacity, effusion. - Continue Lasix IV 40 mg twice a day. - Obtain Echo to evaluate CHF. - Continue O2 to maintain O2 sat > 90%. Try on 2L again.. - Acute kidney injury - Creatinine 1.43, slightly up from 1.38 yesterday. Previously creatinine was 1.11 - 1.14. - Will monitor. May be getting worse transiently due to diuresis. - Hypertension - Currently BP is under control with recent BP 105/78. -Monitor for hypotension after increase in metoprolol. - Tobacco abuse - Continue on nicotine patch Alli Menchaca M3 Sep 14, 2017 09:50
[2017-09-14] MEDS: DILTIAZEM INJ 125 MG in SODIUM CHLORIDE 0.9% INJ 100 ML IV PRN (12:26)
[2017-09-14] MEDS: METOPROLOL TARTRATE 50 MG TAB PO SCH ×2 (14:26→22:00)
[2017-09-14] MEDS ORDERED: IOHEXOL 350 MG/ML 10 ML VIAL (for RAD DIAG) IVCONTRAST ONE (18:44)
--- NOTE | 2017-09-14 18:47 | RADRPT ---
EXAM DATE/TIME: 09/14/2017 18:22 [facility] COMPARISON: No previous studies available for comparison. INDICATIONS : Shortness of breath. IV CONTRAST: 75 cc Omnipaque 350 (iohexol) IV RADIATION DOSE: 21.62 CTDIvol (mGy) MEDICAL HISTORY : Congestive heart failure. Cardiovascular disease SURGICAL HISTORY : None. ENCOUNTER: Initial ACUITY: 1 day PAIN SCALE: 8/10 LOCATION: Bilateral chest TECHNIQUE: Volumetric scanning of the chest was performed using a pulmonary embolism protocol MIP images were re constructed. Using automated exposure control and adjustment of the mA and/or kV according to patien t size, radiation dose was kept as low as reasonably achievable to obtain optimal diagnostic quality images. DICOM format image data is available electronically for review and comparison. Follow-up recommendations for detected pulmonary nodules are based at a minimum on nodule size and pa tient risk factors according to Fleischner Society Guidelines. FINDINGS: Contrast bolus is suboptimal no central filling defects are identified. There is a small right-sided pleural effusion with right basilar lung consolidation. Differential christopher gnosis includes pneumonia with parapneumonic effusion. Trace left pleural fluid and minimal atelectas is. CONCLUSION: 1. Suboptimal contrast bolus but no central pulmonary emboli identified. 2. Small to moderate right pleural effusion with right basilar lung consolidation and air bronchogram s. Differential diagnosis includes infection. Heart size enlarged. Mild anasarca. Ward Sibley MD on September 14, 2017 at 18:41 Board Certified Radiologist. This report was verified electronically.
--- NOTE | 2017-09-14 18:47 | MB ---
cc: LYNETTE JEFFREY M.D. DATE OF CONSULTATION: 09/14/2017. HISTORY OF PRESENT ILLNESS: Eamon is a very pleasant 56-year-old gentleman who presents with a chief complaint of shortness of breath. According to Kaden, the nurse, at the bedside the patient has a change in mental status. The patient is complaining of shortness of breath. He is on nasal cannula. He is oriented x3 but appears to be lethargic. He has difficulty in giving history. He denies any chest pain, fevers, chills, cough, GI or bleeding, paroxysmal nocturnal dyspnea, orthopnea, syncope or dizziness. His saturations were noted to be 85% on arrival in the emergency room. He was found to be in supraventricular tachycardia which was thought to be atrial fibrillation. He was put on a Cardizem drip. Currently he is in normal sinus rhythm. PAST MEDICAL HISTORY: His past medical history is per the history of present illness. 1. CVA. 2. Hypertension. SOCIAL HISTORY Drinks alcohol two times a week. Smokes a pack of cigarettes a day. ALLERGIES: None. MEDICATIONS IN THE HOSPITAL: 1. Toprol 50 q. 8 hours. 2. Furosemide 40 milligrams IV q. 12 hours. 3. Cardizem 60 p.o. q. 6 hours. 4. Cardizem drip IV PRN. 5. Eliquis 5 milligrams twice a day. 6. Nicotine patch. PHYSICAL EXAMINATION: VITAL SIGNS: Last recorded blood pressure 97/75, pulse is 75, normal sinus rhythm on telemetry. Saturations last recorded at 1528 were 92% on two liters nasal cannula. GENERAL: He is lethargic, oriented times three and in mild to moderate distress. NECK: The neck is supple. No jugular venous distention. No bruits. CARDIOVASCULAR EXAM: S1-S2. No murmurs, rubs or gallops. LUNGS: Decreased air movement at the bases bilaterally. ABDOMEN: The abdomen is soft, nontender and nondistended with positive bowel sounds. EXTREMITIES: Hyperpigmentation below the knee bilaterally with 1 to 2+ lower extremity edema. IMAGING STUDIES: Chest x-ray shows new infiltrate at both lung bases. possible small effusion on the left. EKGS: EKG has a lot of baseline artifact. It is a ventricular rhythm at a rate of 142 beats per minute and it appears regular. It is difficult to determine whether this is atrial flutter or sinus tach. LABORATORY DATA: White count 11.1, hemoglobin 12.4, hematocrit 39.7, platelet count 261,000. Troponin 0.07, 0.06 and 0.07. BNP is 229. AST 49, ALT 41. Sodium 143, potassium 4.5, chloride 107, bicarbonate 27.2, BUN 11, creatinine 1.38. INR 101. DIAGNOSES: He has the following diagnoses: 1. NSTEMI. 2. Congestive heart failure. 3. Decompensated congestive heart failure. 4. Hypoxia. 5. Altered mental status. 6. Tobacco use. 7. Elevated white count. 8. Anemia. 9. Chronic renal insufficiency. 10. Elevated liver function tests. DISCUSSION: At this point in time, I have discussed with Kaden the nurse at the bedside to get an social media content manager consult, a neurology consult, do a CT of the chest to rule out PE. I recommended to the patient to get a left heart catheterization and right heart catheterization. He appears to understand. He tells me he can cooperate and lie flat. As long as there are no neurologic contraindications or presence of PE, will proceed with right and left heart catheterization tomorrow. Anticoagulation will depend on his neurologic workup and the presence or absence of PE. Otherwise, agree with diuresis. I am not quite sure he has atrial fibrillation versus supraventricular tachycardia and therefore his indication for long-term anticoagulation is somewhat questionable from an atrial fibrillation standpoint. Recommend follow up BNP and will keep him NPO after midnight except for medications. MD CARO Hays/TERI /6:16 PM /6:40 PM
--- NOTE | 2017-09-14 20:45 | EKG ---
Date Performed: 09/14/2017 Time Performed: 17:47:54 PTAGE: 56 years EKG: Sinus rhythm with PAC(s). rSr'(V1) - probable normal variant Early transition Ant/septal and lateral ST-T changes are nonspecific Abnormal ECG PREVIOUS TRACING : 09/13/2017 05.13 Compared to previous tracing, sinus rhythm has replaced pos sible atrial tachycardia with 2:1 AV conduction, nonspecific anteroseptal and lateral T wave changes are now present. DOCTOR: Douglas Barrow Interpretating Date/Time 09/14/2017 20:44:14
[2017-09-15] VITALS (26 sets, daily range): BP systolic 113–134; BP diastolic 70–86; PULSE 60–82; RESP 17–20; TEMP 97.9–98.7; O2SAT 90–97
[2017-09-15] MEDS: METOPROLOL TARTRATE 50 MG TAB PO SCH ×3 (05:10→22:03)
[2017-09-15] MEDS: DILTIAZEM HCL 60 MG TAB PO SCH ×4 (05:10→23:13)
--- NOTE | 2017-09-15 08:11 | HHI.PR ---
Subjective Remarks Follow up for Atrial flutter, pulmonary edema, HTN. Patient is doing well. No chest pain, SOB, fever, chills. He is on nasal cannula. Objective Vitals Vital Signs Date Time Temp Pulse Resp B/P (MAP) Pulse Ox O2 Delivery O2 Flow Rate FiO2 09/15/17 07:45 98.0 77 17 116/85 (95) 95 09/15/17 07:45 Nasal Cannula 3.00 09/15/17 07:00 77 09/15/17 06:00 74 09/15/17 05:00 69 09/15/17 04:00 Nasal Cannula 4.00 09/15/17 04:00 67 09/15/17 04:00 98.6 67 18 113/83 (93) 95 09/15/17 03:00 69 09/15/17 02:00 65 09/15/17 01:00 61 09/15/17 00:00 98.1 60 20 115/81 (92) 93 09/15/17 00:00 Nasal Cannula 4.00 09/15/17 00:00 60 09/14/17 23:00 63 09/14/17 22:00 61 09/14/17 21:00 67 09/14/17 20:00 98.3 75 22 105/68 (80) 92 09/14/17 20:00 75 09/14/17 20:00 Nasal Cannula 4.00 09/14/17 18:33 2.00 09/14/17 18:00 60 09/14/17 17:15 78 09/14/17 17:00 120 09/14/17 16:00 122 09/14/17 15:28 123 09/14/17 15:28 98.0 123 18 97/75 (82) 92 09/14/17 15:28 92 Nasal Cannula 2.00 09/14/17 15:00 122 09/14/17 14:00 124 09/14/17 13:00 122 09/14/17 12:26 121 114/78 09/14/17 12:00 122 09/14/17 11:30 93 Nasal Cannula 2.00 09/14/17 11:30 98.0 122 18 114/76 (89) 93 09/14/17 11:30 122 09/14/17 11:00 120 09/14/17 10:00 120 09/14/17 09:00 120 I/O 09/14/17 09/14/17 09/14/17 09/15/17 09/15/17 09/15/17 07:00 15:00 23:00 07:00 15:00 23:00 Intake Total 240 ml 360 ml 1355 ml 240 ml Output Total 900 ml 400 ml 1000 ml 800 ml Balance -660 ml -40 ml 355 ml -560 ml Intake Oral 240 ml 360 ml 1200 ml 240 ml IV Total 155 ml Output Urine Total 900 ml 400 ml 1000 ml 800 ml # Bowel Movements 0 0 1 1 Result Diagram: 09/14/1759 09/14/1759 Imaging Last Impressions Chest X-Ray 09/13/17511 Signed Impressions: Service Date/Time: Friday, September 13, 2017 05:41 - CONCLUSION: New infiltrate at both lung bases and possible small effusion on the left. The findings could represent mild congestive heart failure. Kaden Peacock MD Objective Remarks GENERAL: Alert, Oriented x 3, NAD. SKIN: Warm and dry. HEAD: Normocephalic. EYES: No scleral icterus. No injection or drainage. NECK: Supple, trachea midline. No JVD or lymphadenopathy. CARDIOVASCULAR: Regular rate and rhythm without murmurs, gallops, or rubs. RESPIRATORY: Breath sounds equal bilaterally. No accessory muscle use. Mild bibasilar crackles appreciated. GASTROINTESTINAL: Abdomen soft, non-tender, nondistended. MUSCULOSKELETAL: No cyanosis. 1+ lower ext edema. BACK: Nontender without obvious deformity. No CVA tenderness. Procedures None. A/P Problem List: (1) Acute pulmonary edema ICD Code: J81.0 - Acute pulmonary edema Status: Acute (2) Atrial flutter with rapid ventricular response ICD Code: I48.92 - Unspecified atrial flutter Status: Acute (3) HTN (hypertension) ICD Code: I10 - Essential (primary) hypertension Status: Chronic Assessment and Plan Mr. Boo is a pleasant 56-year-old [place] male with a history of hypertension, CVA who presents to the emergency department due to 2 day duration of shortness of breath. He reports orthopnea. Physical exam shows 1+ lower extremity edema as well. Chest x-ray shows bilateral pulmonary edema. - Acute pulmonary edema - Probable acute congestive heart failure, diastolic - BNP 229. Pulmonary edema is possibly due to CHF. - Initial troponins were 0.07. However, earlier this AM, his troponins are elevated to 0.13, 0.21. - CXR reviewed by me on 09/13/2017 -- shows bibasilar opacity, effusion. - continue Lasix IV 40 mg twice a day. - Upon discharge, we'll consider torsemide by mouth. - We'll obtain 2-D Echo Limited to evaluate LV function. Previous echo from shows EF 50-55%. - Continue O2 to maintain O2 sat > 88%. - Atrial flutter with rapid ventricular response - EKG reviewed by me on 09/13/2017 - shows Atrial flutter with RVR. Heart rate is better controlled today - around 70-80. - Patient received metoprolol 5 mg IV twice - Continue metoprolol 50mg Q8hrs, Cardizem PO 60mg Q6hrs. Wean off Cardizem drip. - [id number] score 3 (CVA, HTN) - Continue Apixaban 5mg BID (Currently on hold due to catheterization). - Cardiology is following. - Acute kidney injury - Creatinine 1.38. Previously creatinine was 1.11 - 1.14. - Creatinine 1.38 --> 1.43, likely due to diuresis. - Avoid nephrotoxins. - Hypertension - If needed, we will consider calcium channel blockers such as Amlodipine. - Currently systolic BP is in the low 100s range. - Tobacco abuse - Counselled patient regarding smoking. He is interested to quit smoking. - Nicotine patch. Full code. Apixaban 5 mg twice a day (On hold by cardiology today). Willis Harden DO Sep 15, 2017 8:11 am
--- NOTE | 2017-09-15 08:18 | EKG ---
Date Performed: 09/15/2017 Time Performed: 05:43:06 PTAGE: 56 years EKG: Sinus rhythm Possible left atrial abnormality rSr'(V1) - probable normal variant Anterolateral T wave changes are nonspecific Borderline ECG PREVIOUS TRACING : 09/14/2017 23.50 No significant change from previous tracing noted. DOCTOR: Douglas Barrow Interpretating Date/Time 09/15/2017 08:17:35
--- NOTE | 2017-09-15 08:19 | EKG ---
Date Performed: 09/14/2017 Time Performed: 23:50:08 PTAGE: 56 years EKG: Sinus rhythm Possible left atrial abnormality rSr'(V1) - probable normal variant Anterolateral T wave changes are nonspecific Borderline ECG PREVIOUS TRACING : 09/14/2017 17.47 Compared to previous tracing, lateral T wave changes have i mproved. DOCTOR: Douglas Barrow Interpretating Date/Time 09/15/2017 08:18:41
[2017-09-15] MEDS: NICOTINE 14 MG/24 HR PATCH T-DERMAL SCH (08:58)
[2017-09-15] MEDS: REMOVE OLD PATCH T-DERMAL SCH (08:59)
[2017-09-15] MEDS: FUROSEMIDE 40 MG/4 ML VIAL IV PUSH SCH ×2 (09:03→18:00)
[2017-09-15] MEDS: SODIUM CHLORIDE 0.9% FLUSH 10 ML FLUSH IV FLUSH SCH ×3 (09:03→21:00)
[2017-09-15] MEDS ORDERED: IOHEXOL 350 MG/ML 100 ML BTL (for Cath Lab) OTHER ONE (16:14)
[2017-09-15] MEDS ORDERED: HEPARIN-NS/PF INJ 500 ML ONE (16:20)
[2017-09-15] MEDS ORDERED: MIDAZOLAM HCL 2 MG/2 ML VIAL ONE (16:20)
[2017-09-15] MEDS ORDERED: HEPARIN SODIUM - IV 10,000 UNITS/10 ML VIAL ONE (16:54)
[2017-09-15] MEDS ORDERED: FUROSEMIDE 40 MG/4 ML VIAL ONE (17:07)
[2017-09-15] MEDS ORDERED: CLOPIDOGREL 300 MG TAB ONE (17:07)
[2017-09-15] MEDS ORDERED: TIROFIBAN INFUSION INJ 250 ML IV ONE (17:08)
[2017-09-15] MEDS: TIROFIBAN INFUSION INJ 250 ML IV SCH (17:15)
[2017-09-15] MEDS ORDERED: ASPIRIN 81 MG CHEW TAB ONE (17:27)
[2017-09-15] MEDS ORDERED: MISC INFORMATION XX ONE (17:30)
[2017-09-15] MEDS ORDERED: CLOPIDOGREL 300 MG TAB PO ONE (17:30)
[2017-09-15] MEDS ORDERED: SODIUM CHLORIDE 0.9% FLUSH 10 ML FLUSH IV FLUSH PRN (17:30)
--- NOTE | 2017-09-15 17:30 | CATHPROC ---
[facility] Report Study Information Study Number Admission Scheduled Start Study Start [id number] Sep 13 2017 7:36AM 09/15/2017 Sep 15 2017 4:14PM [place] [facility] Cardiac Catheterization Admit Source Facility Department Other [facility] - Executive Sales Assistant Physician and Clinical Staff Initial Lenny Monge Grass Cutter Lisa Mcmanus BSN Other cathlab, cathlab Recorder Zach Ashford,COOLER WORKER(BS) Recorder Manfred Coleman,RT(R) Scrub Yue Luna RCIS TECH2 Procedures Performed Procedure Location (Site) Vessel Name Coronary Angiograms LCA Left Coronary Coronary Angiograms RCA Right Coronary LV Gram-hand inj. LV LV Ventricle Stent RCA Prox Right Coronary Wire insertion Fem Art (right) Femoral Art Equipment Time Records Associate Description Size Mfg Part Number Used/Scraped [id number] 17:01 [employer] CRITICAL CARE WIRE, ASASquarespace PROWATER 180CM 180CM Used *[id number] CATHETER, FR5 SWAN BLAYNE 16:15 ORLANDO KUMAR FR 5 [id number] *[id number] Used MONITOR TRANSDUCER, TRUWAVE [id number] 16:15 ORLANDO KUMAR * Used W/STOCKCOCK *[id number] 538-420 *[id number] 538-422 *[id number] *[id number] [id number] *[id number] 16:15 [employer] INDUSTRIES PACK, CCL CUSTOM * Used *[id number] 16:15 [employer] PACER PEN, SKIN DUAL W/ RULER * Used *[id number] 17:05 [employer] STENT, 3.5 12 INTEGRITY 3.5 12 Used *[id number] 17:07 [employer] MEDICAL 30 VINITA INDEFLATOR Used *[id number] 16:15 [employer] MEDICAL SHEATH, FR5.5 PRELUDE 11CM FR 5.5 Used [id number] 17:01 [employer] MEDICAL SHEATH, FR6.5 PRELUDE 11CM FR 6.5 038ACT Used *[id number] 16:25 [employer] MEDICAL WIRE, EXCHANGE 260CM .035 260CM Used *[id number] 16:15 NAMIC MANIFOLD, 4 PORT * Used *[id number] 16:15 NYCOMED OMNIPAQUE, 350 MG, 150ML 150ML [id number] Used [id number] 16:15 [employer] MEDICAL BLANKET,WARM AIR CCL * Used *[id number] 16:15 TERUMO MEDICAL SHEATH, FR4 TERUMO (10CM) FR 4 Used *[id number] Equipment Model, Serial, Lot Number and Expiration Data Description Model Number Serial Number Lot Number Expiration Date STENT, 3.5 12 INTEGRITY [id number] 02-17-2019 History: Current Medications Medication Dosage/Unit Route Frequency Last Date/Time Taken Beta Qiana History: Allergies Allergy Reaction No Known Allergies History: Risk Factors Family History of Hypertension Dyslipidemia Previous TN Previous Heart Failure Premature CAD Yes Yes No No No Prior Valve Prior PCI Prior CABG Surgery No No No Cerebrovascular Peripheral Artery Chronic Lung On Dialysis Diabetes Disease Disease Disease No Yes No No No History: Risk Factors Selection Items Current Smoker History: Symptoms/Diagnosis Selection Items SOB History: Stress Tests Stress or Imaging Studies Performed No History: Other Disease Selection Items HTN History: Other Current Smoker Yes Labs Hgb (g/dl) Hct (%) WBC (l/cumm) Platelets (thousands) 11.60-17.00 35.00-51.00 4.00-11.00 150.00-450.00 12.4 39.7 11.1 261 Glucose (mg/dl) BUN (mg/dl) Creatinine (mg/dl) BUN:Creatinine (1:x) 74.00-106.00 7.00-18.00 0.50-1.30 10.00-20.00 104 17 1.4 12.1 Na (meq/l) K (meq/l) 136.00-145.00 3.50-5.10 139 4.4 INR (PTT:PT) 0.90-1.10 1.1 Troponin I (ng/ml) CPK-MB (ng/ML) 0.02-0.05 0.50-3.60 0.21 Not Drawn Medication Medication Total Dose (Bolus/Oral) Medication Total Dosage/Unit 1% XYLOCAINE 20 mL AGGRASTAT BOLUS 62 mL ASPIRIN 162 mg FENTANYL 12.5 mcg HEPARIN 8500 units LASIX 40 mg PLAVIX 600 mg Medications (Bolus/Oral) Medication Time Given Dosage/Unit Administered By Reason 1% XYLOCAINE 09/15/2017 4:40:53 PM 20 mL Lenny Barbosa 20 mL 1% XYLOCAINE given in lab by Lenny Barbosa in Right Groin via Subcutaneous. HEPARIN 09/15/2017 5:00:34 PM 8500 units Lisa Mcmanus 8500 units HEPARIN given in lab by Lisa Mcmanus BSN via Peripheral IV. FENTANYL 09/15/2017 5:05:39 PM 12.5 mcg Lisa Mcmanus 12.5 mcg FENTANYL given in lab by Lisa Mcmanus BSN via Peripheral IV. LASIX 09/15/2017 5:10:25 PM 40 mg Lisa Mcmanus 40 mg LASIX given in lab by Lisa Mcmanus BSN via Peripheral IV. AGGRASTAT BOLUS 09/15/2017 5:11:48 PM 62 mL Lisa Mcmanus 62 mL AGGRASTAT BOLUS given in lab by Lisa Mcmanus BSN via Peripheral IV. PLAVIX 09/15/2017 5:20:00 PM 600 mg Lisa Mcmanus 600 mg PLAVIX given in lab by Lisa Mcmanus BSN via Oral. ASPIRIN 09/15/2017 5:29:38 PM 162 mg Lisa Mcmanus 162 mg ASPIRIN given in lab by Lisa Mcmanus BSN via Oral. Medication (Drip) Medication Time Given Dosage/Unit Concentration/Unit Diluent (ml) Solutio n AGGRASTAT DRIP 09/15/2017 5:15:13 PM 0.155 mcg/kg/min 12.5 mg 250 NaCl .9 0.155 mcg/kg/min AGGRASTAT DRIP given in lab by Lisa Mcmanus BSN via Peripheral IV. Pump/Drip Flow = 22.5 ml/hr using NaCl .9 with a concentration of 12.5 mg in 250 ml. IV Solutions 09/15/2017 4:14:10 PM 0 mL (IV) 500 NaCl .9 Patient arrived on IV Solutions given by red moon in Left Antecubital via Peripheral IV. Pump /Drip Flow = 20 ml/hr using NaCl .9. Ordered by Lenny Barbosa. Initial Case Assessment Cardiovascular HR Rhythm NIBP Chest Pain 70 nsr 131/83 0 Edema Present Skin color Skin Moderate Normal Warm Circulatory - Right Pulses Dorsalis Pedis Femoral 1 1 Scale (0,1,2,3,4,d) Circulatory - Left Pulses Dorsalis Pedis Femoral 1 2 Scale (0,1,2,3,4,d) Neurological State Oriented to time-place- Alert Moves all extremities person Respiration - General Respiration Rate SpO2 (%) (B/min) 16 100 Final Case Assessment Cardiovascular HR Rhythm NIBP Chest Pain 77 Sinus 124/84 0 Edema Present Skin color Skin None Normal Warm Dry Circulatory - Right Pulses Dorsalis Pedis Femoral 1 1 Scale (0,1,2,3,4,d) Circulatory - Left Pulses Dorsalis Pedis Femoral 1 2 Scale (0,1,2,3,4,d) Neurological State Oriented to time-place- Alert Moves all extremities person Respiration - General Respiration Rate SpO2 (%) O2 (lpm) (B/min) 9 95 0 Chronological Log Time Study Chronological Log 16:14:02 Patient arrived via Bed. 16:14:02 Patient Name, D.O.B, / Armband Verified By R.N. 16:14:03 Consent signed by the physician and the patient and verified by the Executive Sales Assistant staff. 16:14:04 Pre-op and post- op instructions given; patient acknowledges understanding of instructions. 16:14:04 Verbal Stimulation=2 Physical Stimulation=2 Airway=2 Respiration=2 TOTAL=8. (0=absent, 1=li mited, 2=present) 16:14:05 Presedation assessment performed by Executive Sales Assistant RN. 16:14:06 Immediate Presedation assesment performed by physician. 16:14:06 Patient has been NPO for More than 6Hrs. 16:14:07 Skin Breakdown- none per patient 16:14:08 Patient Warmer Placed on the Table. 16:14:08 Jerson Prominences Protected 16:14:10 A # 18 IV was noted in the Antecubital (left). Grade = 0 Patient arrived on IV Solutions given by cathlab, cathalyssa in Left Antecubital via Peripheral IV . Pump/Drip Flow = 20 16:14:10 ml/hr using NaCl .9. Ordered by Lenny Barbosa. 16:14:12 History and physical on the chart or being dictated. Vitals capture started with the following parameters, Patient=Adult, Interval=5 min, Initial Pr tsdiil=373 mmHg, 16:16:48 Deflation Rate=5 mmHg, Cuff placed on Left Arm 16:17:29 HR=76 bpm, KCVN=088/77 mmhg, SpO2=99.0 %, Pain=0, Stiven=10, Rodriguez=2 16:22:28 HR=75 bpm, UAQU=095/83 mmhg, PzN7=973.0 %, Resp=8 B/min, Pain=0, Stiven=10, Rodriguez=2 Assessment: Initial Case, HR=70 BPM, Rhythm=nsr, IYEW=767/83 mmhg, Chest Pain=0, Edema=Mod, Col or=Normal, Skin = Warm Right Pulses: Marcos Ped=1, Femoral=1 16:22:36 Left Pulses: Marcos Ped=1, Femoral=2 Neurological: State=Alert, Ox3, CASTELLON Respiration: Resp=16 B/min, WsE6=746 % 16:25:15 Bilateral groins prepped with 2% chlorhexidine, and draped after a 3 minute waiting time. 16:27:25 HR=65 bpm, AAZO=939/86 mmhg, BoN3=497.0 %, Resp=8 B/min, Pain=0, Stiven=10, Rodriguez=2 16:32:32 Pressure channel 1 zeroed. 16:32:49 MD paged 16:33:03 HR=70 bpm, ZOGQ=946/82 mmhg, HoI8=948.0 %, Resp=8 B/min, Pain=0, Stiven=10, Rodriguez=2 16:34:46 MD responded 16:35:24 MD arrived. 16:35:27 Contrast Scanned 16:35:28 Immediate Presedation assesment performed by physician. 16:37:27 HR=79 bpm, RPLP=133/87 mmhg, SpO2=98.0 %, Resp=8 B/min, Pain=0, Stiven=10, Rodriguez=2 16:38:37 Reference ECG taken Time Out. Correct patient, correct procedure, correct physician, power injector not loaded with contrast with surgical 16:40:33 team present. Time Out Concurred by MD and individual staff in procedure. 16:40:48 Case Start 16:40:48 Verbal Stimulation=2 Physical Stimulation=2 Airway=2 Respiration=2 TOTAL=8. (0=absent, 1=li mited, 2=present) 16:40:53 20 mL 1% XYLOCAINE given in lab by Lenny Barbosa in Right Groin via Subcutaneous. 16:41:31 Access site was Right Femoral Artery. 16:41:36 A SHEATH, FR4 TERUMO (10CM) FR 4 was advanced into the Fem Art (right) using the Percutaneo us technique. 16:41:41 Access site was Right Femoral Vein. 16:41:46 A SHEATH, FR5.5 PRELUDE 11CM FR 5.5 was advanced into the Fem Vein (right) using the Percut aneous technique. 16:42:02 A CATHETER, FR5 SWAN BLAYNE MONITOR FR 5 was inserted via Fem Vein (right) 16:42:26 HR=71 bpm, VIXC=967/77 mmhg, SpO2=96.0 %, Resp=8 B/min, Pain=0, Stiven=10, Rodriguez=2 Recorded Pressure: PCW, HR=74, Condition=Condition 1 16:46:14 (Pulmonary Capillary Wedge) PCW 3030/28 16:47:27 HR=73 bpm, BJQL=581/82 mmhg, SpO2=94.0 %, Resp=8 B/min, Pain=0, Stiven=10, Rodriguez=2 Recorded Pressure: MPA, HR=85, Condition=Condition 1 16:47:46 (Main Pulmonary Artery) MPA 16:48:18 Saturation: Site=PA (Pulmonary Artery) , O2=54.2 %, Hgb=39.7 gm/dl, Condition=Condition 1. Used in calculation. Recorded Pressure: RV, HR=74, Condition=Condition 1 16:48:44 (Right Ventricle) RV Recorded Pressure: RA, HR=75, Condition=Condition 1 16:49:04 (Right Atrium) RA 16:49:46 Saturation: Site=FA (Femoral Artery) , O2=91 %, Hgb=39.7 gm/dl, Condition=Condition 1. Used in calculation. 16:50:03 Le Claire Blayne Catheter Removed A JR 4.0 INFINITI CATHETER FR 4 was advanced over a wire. OMNIPAQUE, 350 MG, 150ML 150ML was us ed for 16:50:45 injections. 16:51:00 The LV was manually injected with 8 cc's and visualized. contrast used. Recorded Pressure: LV, HR=87, Condition=Condition 1 16:51:10 (Left Ventricle) LV 115/12/25 Recorded Pressure: LV, Ao, HR=67, Condition=Condition 1 16:51:15 (Left Ventricle) LV 118/5/26, (Aorta) Ao 101/57/84 16:51:38 The RCA was injected and visualized at various angles. OMNIPAQUE, 350 MG, 150ML 150ML used . 16:52:30 HR=70 bpm, JDOL=688/83 mmhg, SpO2=91.0 %, Resp=8 B/min, Pain=0, Stiven=10, Rodriguez=2 16:53:20 Catheter was removed A JL 4.0 INFINITI CATHETER FR 4 was advanced over a wire. OMNIPAQUE, 350 MG, 150ML 150ML was us ed for 16:54:00 injections. Recorded Pressure: Ao, HR=84, Condition=Condition 1 16:54:57 (Aorta) Ao 115/88/100 16:55:11 The LCA was injected and visualized at various angles. OMNIPAQUE, 350 MG, 150ML 150ML used . After removing the current catheter a JL 5.0 INFINITI CATHETER FR 4 was advanced over a WIRE, E XCHANGE 260CM 16:55:18 .035 260CM. 16:56:55 The LCA was injected and visualized at various angles. OMNIPAQUE, 350 MG, 150ML 150ML used . 16:57:09 Catheter was removed 16:57:29 HR=75 bpm, PLUG=100/78 mmhg, SpO2=95.0 %, Resp=8 B/min, Pain=0, Stiven=10, Rodriguez=2 A SHEATH, FR6.5 PRELUDE 11CM FR 6.5 was exchanged in the Fem Art (right). This was necessary in order to 16:58:57 accomodate a larger catheter. 17:00:34 8500 units HEPARIN given in lab by Lisa Mcmanus BSN via Peripheral IV. A JR 4.0 GUIDE CATHETER FR 6 was advanced over a wire. OMNIPAQUE, 350 MG, 150ML 150ML was used for 17:02:00 injections. 17:02:33 HR=71 bpm, SSUA=501/75 mmhg, SpO2=92.0 %, Resp=8 B/min, Pain=0, Stiven=10, Rodriguez=2 17:04:25 A WIRE, ASAHI PROWATER 180CM 180CM was inserted via Fem Art (right). 17:04:32 Interventional wire has crossed the lesion 17:05:39 12.5 mcg FENTANYL given in lab by Lisa Mcmanus BSN via Peripheral IV. An STENT, 3.5 12 INTEGRITY 3.5 12 Bare Metal Stent was inserted through a JR 4.0 GUIDE CATHETER FR 6 over a 17:06:02 WIRE, ASAHI PROWATER 180CM 180CM. A STENT, 3.5 12 INTEGRITY 3.5 12 was deployed using a 30 VINITA INDEFLATOR at 16 atmospheres for 1 4 seconds in 17:06:22 the RCA Prox. 17:07:07 Delivery device removed 17:07:16 Wire removed 17:07:19 Catheter was removed 17:07:23 Case End 17:07:27 HR=75 bpm, TPRC=960/84 mmhg, SpO2=93.0 %, Resp=8 B/min, Pain=0, Stiven=10, Rodriguez=2 17:08:00 Activated Clotting Time Drawn 17:09:10 In the Fem Art (right) the SHEATH, FR6.5 PRELUDE 11CM FR 6.[address] by Yue Luna RCIS TECH2. 17:09:27 In the Fem Vein (right) the SHEATH, FR5.5 PRELUDE 11CM FR 5.[address] by Yue Harman COOLER WORKER TECH2. 17:09:42 No case complications noted. 17:09:45 Cine recording checked. 17:10:01 A Left and Right Heart Cath was performed. Assessment: Final Case, HR=77 BPM, Rhythm=Sinus, WGAQ=813/84 mmhg, Chest Pain=0, Edema=None, Color=Normal, Skin = Warm, Dry Right Pulses: Marcos Ped=1, Femoral=1 17:10:10 Left Pulses: Marcos Ped=1, Femoral=2 Neurological: State=Alert, Ox3, CASTELLON Respiration: Resp=9 B/min, SpO2=95 %, O2=0 lpm 17:10:25 40 mg LASIX given in lab by Lisa Mcmanus BSN via Peripheral IV. 17:11:48 62 mL AGGRASTAT BOLUS given in lab by Lisa Mcmanus BSN via Peripheral IV. 17:12:29 HR=74 bpm, WMGI=475/89 mmhg, SpO2=94.0 %, Resp=8 B/min, Pain=0, Stiven=10, Rodriguez=2 17:13:48 ACT (Normal Range 90-180) = 303 0.155 mcg/kg/min AGGRASTAT DRIP given in lab by Lisa Mcmanus BSN via Peripheral IV. Pu mp/Drip Flow = 17:15:13 22.5 ml/hr using NaCl .9 with a concentration of 12.5 mg in 250 ml. 17:17:32 HR=68 bpm, VYLY=647/81 mmhg, SpO2=90.0 %, Resp=8 B/min, Pain=0, Stiven=10, Rodriguez=2 17:20:00 600 mg PLAVIX given in lab by Lisa Mcmanus BSN via Oral. 17:22:31 HR=79 bpm, QZKG=476/89 mmhg, SpO2=93.0 %, Resp=30 B/min, Pain=0, Stiven=10, Rodriguez=2 17:24:54 Sterile dressing applied to site 17:27:27 Bedside Report will be given. 17:27:29 Patient moved to stretcher 17:27:32 Vitals capture stopped. 17:29:38 162 mg ASPIRIN given in lab by Lisa Mcmanus BSN via Oral. End Study - Contrast Media Used In Study Contrast Total Opened (mL) Total Used (mL) Total Wasted (mL) Omnipaque 150 60 90 End Study - Maximum Contrast Load Max Contrast Load (mL) 432.1 End Study - Radiation Exposure Fluoro Time (minutes) 6.3 End Study - Patient Disposition Complications Transferred To Interventional Outcome No Telemetry Bed successful
--- NOTE | 2017-09-15 17:44 | ECHRPT ---
Indication: EF assessment of CHF CONCLUSIONS The left ventricular systolic function is severely reduced with an estimated ejection fraction in th e range of 30-35%. Normal left ventricular size. Mild concentric left ventricular hypertrophy. There is diffuse global hypokinesis with distinct regional wall motion abnormalities. The left atrial size is uzwo-if-lyqrxrtviw dilated. Wrion-db-bkqb mitral valve regurgitation. There is mild to moderate tricuspid valve regurgitation. The estimated pulmonary arterial pressure is 37 mmHg. No pulmonary valve regurgitation. BP: 113 / 83 HR: Rhythm: Atrial fibrillation MEASUREMENTS (Male / Female) Normal Values Technical Quality:Technically difficult study 2D ECHO LV Diastolic Diameter PLAX 5.7 cm 4.2 - 5.9 / 3.9 - 5.3 cm LV Systolic Diameter PLAX 4.2 cm IVS Diastolic Thickness 1.1 cm 0.6 - 1.0 / 0.6 - 0.9 cm LVPW Diastolic Thickness 1.1 cm 0.6 - 1.0 / 0.6 - 0.9 cm LV Relative Wall Thickness 0.4 RV Internal Dim ED PLAX 4.0 cm LVOT Diameter 1.9 cm Aortic Root Diameter 3.4 cm LA Systolic Diameter LX 5.1 cm 3.0 - 4.0 / 2.7 - 3.8 cm M-MODE AV Cusp Separation MM 2.3 cm DOPPLER AV Peak Velocity 88.2 cm/s AV Peak Gradient 3.1 mmHg AV Mean Gradient 2.0 mmHg AV Velocity Time Integral 9.9 cm LVOT Peak Velocity 57.9 cm/s LVOT Peak Gradient 1.3 mmHg LVOT Velocity Time Integral 7.6 cm AV Area Cont Eq vti 2.2 cm AV Area Cont Eq pk 1.9 cm Mitral E Point Velocity 114.0 cm/s Mitral A Point Velocity 28.1 cm/s Mitral E to A Ratio 4.1 LV E' Lateral Velocity 7.2 cm/s Mitral E to LV E' Lateral Ratio 15.7 LV E' Septal Velocity 6.3 cm/s Mitral E to LV E' Septal Ratio 18.0 TR Peak Velocity 258.0 cm/s TR Peak Gradient 26.6 mmHg Right Atrial Pressure 10.0 mmHg Pulmonary Artery Systolic Pressu 36.6 mmHg Right Ventricular Systolic Press 36.6 mmHg PV Peak Velocity 37.6 cm/s PV Peak Gradient 0.6 mmHg FINDINGS LEFT VENTRICLE The left ventricular systolic function is severely reduced with an estimated ejection fraction in th e range of 30-35%. Normal left ventricular size. Mild concentric left ventricular hypertrophy. There is diffuse global hypokinesis with distinct regional wall motion abnormalities. RIGHT VENTRICLE Normal right ventricular size and systolic function. LEFT ATRIUM The left atrial size is pfpi-lu-aqjatvkmtz dilated. RIGHT ATRIUM The right atrial size is normal. ATRIAL SEPTUM Normal atrial septal thickness without atrial level shunting by limited color doppler interrogation. AORTA The aortic root and proximal ascending aorta are normal in size on limited imaging. MITRAL VALVE Jzddk-cp-qxxg mitral valve regurgitation. AORTIC VALVE Trileaflet aortic valve. No aortic valve stenosis or regurgitation. TRICUSPID VALVE There is mild to moderate tricuspid valve regurgitation. The estimated pulmonary arterial pressure is 37 mmHg. PULMONARY VALVE No pulmonary valve regurgitation or stenosis. No pulmonary valve regurgitation. VESSELS The inferior vena cava is normal in size. PERICARDIUM No pericardial effusion. Dawson Field MD (Electronically Signed) Final Date:15 September 2017 17:43
--- NOTE | 2017-09-15 20:26 | MA ---
cc: LYNETTE JEFFREY M.D. DATE 09/15/17 PROCEDURES PERFORMED 1. Right heart catheterization. 2. left heart catheterization. 3. Left ventriculography. 4. Left coronary angiography. 5. Direct bare metal stent to the ostial right coronary artery. INDICATIONS Non-STEMI, congestive heart failure, coronary artery disease. PROCEDURE IN DETAIL The patient was brought to the cardiac catheterization laboratory, prepped and draped in the usual sterile fashion. 10 cc of 1% lidocaine was used to locally anesthetize the right common femoral artery. 4-Azerbaijani sheath placed in the right common femoral artery. 5-Azerbaijani sheath placed in the right common femoral vein. Right heart catheterization was performed first with the following findings: The pulmonary capillary wedge pressure 30/30-28. PA pressure 45/24-34. RV pressure is 47/ 10-23. RA pressure 25/24-22. On room air the FA sat 91.0%. PA sat 54.2%, RA sat 47.7%. Cardiac output by Marcela 4.8 liters per minute. Cardiac index by Marcela 2.0 liters per meter squared per minute and SVR 1043.4 dynes. Left heart catheterization was then performed with 4-Azerbaijani JR-4 and JL-5 diagnostic catheter with the following findings: LV pressure 120/24-27, EF 30,% global hypokinesis. The right coronary artery is dominant. The patient was very difficult to image due to his large body habitus. There appeared to be a preexisting long dissection in the ostial proximal segment of the right coronary artery with a 60% stenosis of the ostial proximal right coronary artery. Otherwise, there is mild disease in the mid segment up to 10% angiographically. There is a somewhat atypical anatomy with a early bifurcation of the right coronary with what looks like a ISAEL coming off the mid RCA and then a small right PDA and a secondary right posterolateral artery. Left main coronary artery is large with no significant disease angiographically. The left circumflex vessel has no significant disease angiographically. The first obtuse marginal vessel is a large vessel, approaching the apex with an ostial 75% stenosis. It has about a 45 degrees angulation off the left circumflex vessel. The distal left circumflex vessel gives off two small posterolateral arteries which were probably 1 mm in diameter. LAD is transapical. The mid-LAD has a 50% stenosis ___ medium-sized diagonal artery. The diagonal artery has an ostial 40% stenosis and a proximal 50% stenosis. DISCUSSION Due to the patient's severe cardiomyopathy with EF of 30%, cardiac index of 2.0, uncertain length of time this dissection existed in the ostial proximal right coronary artery with a 60% stenosis in the ostial proximal right coronary, I did think it was medically necessary to perform PCI as I felt that this lesion was a very high risk lesion for dissection and vessel occlusion and/or plaque rupture and instability and STEMI which again in the context of severely reduced ejection fraction cardiac index of 2.0 would be very life-threatening. Therefore, I exchanged the 4 Azerbaijani sheath with a 6-Azerbaijani sheath, 70 units per kilo of heparin was given, ACT 303. 6 Azerbaijani JR-4 guide, 0.014 guidewire and a 3 5 12 Integrity stent was used to directly stent the ostial proximal right coronary artery with one inflation 16 atmospheres for 20-seconds. Stenosis went from 60% to 0% with PAPO-III flow and there is no evidence of dissection status post stenting. CONCLUSION 1. [place] Heart Association class IV congestive heart failure with nonischemic cardiomyopathy, EF of 30-35%. Cardiac index of 2.0 liters per meter squared per minute. 2. Moderate to severe three-vessel coronary artery disease in right dominant system as detailed above. 3. 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 4. Ejection fraction of 30-35% with LV pressure 127/24-27. 5. ___ PCI bare metal stent of the ostial proximal right coronary artery from 60% to 0% with PAPO-III flow and complete resolution of the dissection. 6. Recommend diuresis until the patient is euvolemic, then initiate beta ludy and SILVA inhibitor therapy. If the patient remains short of breath on optimal medical therapy will consider PCI of the first obtuse marginal vessel, could also consider myocardial perfusion scintigraphy to assess the severity and the size of jeopardized myocardium. Strongly advised the patient stop smoking multiple times. Otherwise, will check fasting lipids, ____ NCEP guidelines. The patient will be placed on aspirin 162 milligrams daily. Will do Plavix 600 milligrams p.o. load then 75 milligrams a day for least 12 to 15 months and will need to strongly consider continuing him on Eliquis as he also has a-fib with a CHADS A2 V2 Vasc score of 3. MD CARO Hays/DRE /5:11 PM /7:43 PM
--- NOTE | 2017-09-15 21:19 | MB ---
cc: EMORY NEGRON MD DATE OF CONSULTATION 09/15/17 REASON FOR CONSULTATION Altered mental status. HISTORY OF PRESENT ILLNESS Mr. Boo is a 56-year-old -[place] male with past medical history of hypertension and stroke who presented to the [facility] Emergency Room due to shortness of breath, admitted for cardiac workup. The patient is not adherent to his blood pressure medication. The patient's heart rate on arrival was 150, respiration 25, blood pressure 197/128. The patient was noted yesterday during the daytime to have been confused and unaware of the whereabouts after he had a morning nap. He woke up and he was not sure where he was. There was no reported double vision, blurred vision, headache, speech difficulties, slurring of speech, facial droop, convulsions or weakness of extremity. The patient states that he has an abnormal sleep pattern where he has stays all night up playing video games at his [employer] and sleeps during most of the day. He was told that he snores and he has a very disturbed sleep pattern and he relates his disorientation to the lack of oxygen and disturbed sleep pattern. Neurology was consulted to further evaluate the condition. REVIEW OF SYSTEMS A 12-point review of systems is negative except for what is stated in the HPI. PAST MEDICAL HISTORY Hypertension and stroke. PAST SURGICAL HISTORY Noncontributory. ALLERGIES No known allergies. FAMILY HISTORY Noncontributory. Mother with breast cancer. SOCIAL HISTORY Smokes one-pack per day. Drinks socially one beer one to twice a week. Denies use of illicit drugs. MEDICATIONS Does no followup or take medication because he does not have a primary care physician. PHYSICAL EXAMINATION GENERAL: Awake, alert, sits on a chair, anxious with nasal canula in his nostril HEENT: Atraumatic, normocephalic. Intact hearing, intact vision. NECK: Supple. No rigidity CARDIOVASCULAR: Regular rate and rhythm, sinus tachycardia. RESPIRATORY: Clear to auscultation. No wheezes. MUSCULOSKELETAL: No cyanosis. Bilateral leg edema. NEUROLOGIC: Awake, alert, oriented to time, person and place. No dysarthria or dysphasia. Cranial nerves II-XII are grossly intact. No ptosis. No nystagmus. No diplopia. No facial asymmetry. Intact facial sensation bilateral upper and lower extremities 5/5. No abnormal movement, normal tone. Gcryct-at-bmol, kdig-vs-jyme is intact. Intact sensation throughout. PSYCHIATRIC: Normal mood and behavior. No visual hallucinations. DIAGNOSTIC STUDIES LABORATORY DATA White blood cell 11.1, hemoglobin 12.4, platelet 261. Chemistry, sodium 139, potassium 4.4, anion gap 7, BUN 17, creatinine 1.43, calcium 8.3. Troponin 0.21 , INR 1.1. DIAGNOSTIC IMPRESSION 1. Encephalopathy, resolved. Likely related to abnormal sleep pattern, sleep apnea, possible etiology is hypoxic/metabolic encephalopathy, an unlikely etiology is a central nervous system lesion or a seizure disorder. 2. Atrial flutter with RVR. 3. Hypertension. PLAN 1. Neuro checks q. four hourly. 2. Given the nonfocal neurological examination and no clinical indication of a central nervous system lesion there is no need for further neurologic workup. Please call for questions. Thank you for the opportunity to participate in the care of your patient. MD IZABELA Mayfield/DRE /8:44 PM /8:55 PM ALEX
[2017-09-16] VITALS (17 sets, daily range): BP systolic 115–124; BP diastolic 75–80; PULSE 67–77; RESP 17–18; TEMP 97.8–98; O2SAT 94–100
[2017-09-16 04:32] LABS: AUTOMATED NEUTROPHIL # 5.7 TH/MM3 (1.8-7.7); BASOPHIL # 0.1 TH/MM3 (0-0.2); BASOPHIL % 0.9 % (0.0-2.0); EOSINOPHIL # 0.1 TH/MM3 (0-0.4); EOSINOPHIL % 0.8 % (0.0-4.0); HEMATOCRIT 35.3 % (39.0-51.0); HEMO FLAGS DIFF FINAL; LYMPH % 29.5 % (9.0-44.0); LYMPHOCYTE # 2.9 TH/MM3 (1.0-4.8); MEAN CELL VOLUME 80.3 FL (80.0-100.0); MEAN CORPUSCULAR HEMOGLOBIN 26.3 PG (27.0-34.0); MEAN CORPUSCULAR HGB CONC 32.8 % (32.0-36.0); MONO % 10.1 % (0.0-8.0); NEUT % 58.7 % (16.0-70.0); PLATELET COUNT 250 TH/MM3 (150-450); RED BLOOD COUNT 4.39 MIL/MM3 (4.50-5.90); RED CELL DISTRIBUTION WIDTH 16.4 % (11.6-17.2); WHITE BLOOD COUNT 9.8 TH/MM3 (4.0-11.0)
[2017-09-16 05:07] LABS: BICARBONATE 33.6 MEQ/L (21.0-32.0); HDL CHOLESTEROL 27.5 MG/DL (40.0-60.0); POTASSIUM 3.5 MEQ/L (3.5-5.1)
[2017-09-16] MEDS: DILTIAZEM HCL 60 MG TAB PO SCH ×2 (05:36→11:36)
[2017-09-16] MEDS: METOPROLOL TARTRATE 50 MG TAB PO SCH ×2 (05:36→13:10)
[2017-09-16] MEDS: TIROFIBAN INFUSION INJ 250 ML IV SCH (05:36)
--- NOTE | 2017-09-16 08:45 | HHI.PR ---
Subjective Remarks Follow up for Atrial flutter, pulmonary edema, HTN. Objective Vitals Vital Signs Date Time Temp Pulse Resp B/P (MAP) Pulse Ox O2 Delivery O2 Flow Rate FiO2 09/16/17 08:06 2.00 09/16/17 08:06 98.0 72 18 115/75 (88) 94 09/16/17 08:00 73 09/16/17 07:00 73 09/16/17 06:02 69 09/16/17 05:00 77 09/16/17 04:00 74 09/16/17 03:00 97.8 74 124/77 (93) 100 09/16/17 03:00 75 09/16/17 02:00 70 09/16/17 01:00 70 09/16/17 00:00 72 09/15/17 23:00 98.2 77 134/70 (91) 90 09/15/17 23:00 66 09/15/17 22:55 95 09/15/17 22:00 76 09/15/17 21:00 80 09/15/17 20:00 78 09/15/17 20:00 Nasal Cannula 3.00 09/15/17 19:00 98.7 82 132/77 (95) 92 09/15/17 19:00 73 09/15/17 18:00 80 09/15/17 15:48 98.1 74 18 113/75 (88) 94 09/15/17 15:00 79 09/15/17 14:00 76 09/15/17 13:03 75 09/15/17 12:00 82 09/15/17 11:51 97.9 76 18 133/86 (102) 97 09/15/17 11:07 76 09/15/17 10:00 76 09/15/17 09:00 80 I/O 09/15/17 09/15/17 09/15/17 09/16/17 09/16/17 09/16/17 07:00 15:00 23:00 07:00 15:00 23:00 Intake Total 240 ml 0 ml 240 ml Output Total 800 ml 1100 ml 2000 ml Balance -560 ml -1100 ml -1760 ml Intake Oral 240 ml 0 ml 240 ml Output Urine Total 800 ml 1100 ml 2000 ml # Bowel Movements 1 0 Result Diagram: 09/16/1735509/16/17[address] Angiography 09/14/17 0000 Signed Impressions: Service Date/Time: Thursday, September 14, 2017 18:22 - CONCLUSION: 1. Suboptimal contrast bolus but no central pulmonary emboli identified. 2. Small to moderate right pleural effusion with right basilar lung consolidation and air bronchograms. Differential diagnosis includes infection. Heart size enlarged. Mild anasarca. Ward Sibley MD Chest X-Ray 09/13/17 0512 Signed Impressions: Service Date/Time: Wednesday, September 13, 2017 05:41 - CONCLUSION: New infiltrate at both lung bases and possible small effusion on the left. The findings could represent mild congestive heart failure. Kaden Peacock MD Objective Remarks GENERAL: Alert, Oriented x 3, NAD. SKIN: Warm and dry. HEAD: Normocephalic. EYES: No scleral icterus. No injection or drainage. NECK: Supple, trachea midline. No JVD or lymphadenopathy. CARDIOVASCULAR: Regular rate and rhythm without murmurs, gallops, or rubs. RESPIRATORY: Breath sounds equal bilaterally. No accessory muscle use. Mild bibasilar crackles appreciated. GASTROINTESTINAL: Abdomen soft, non-tender, nondistended. MUSCULOSKELETAL: No cyanosis. 1+ lower ext edema. BACK: Nontender without obvious deformity. No CVA tenderness. Procedures Cardiac catheterization 09/15/2017. 1. [place] Heart Association class IV congestive heart failure with nonischemic cardiomyopathy, EF of 30-35%. Cardiac index of 2.0 liters per meter squared per minute. 2. Moderate to severe three-vessel coronary artery disease in right dominant system as detailed above. 3. 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 4. Ejection fraction of 30-35% with LV pressure 127/24-27. 5. ___ PCI bare metal stent of the ostial proximal right coronary artery from 60% to 0% with PAPO-III flow and complete resolution of the dissection. 6. Recommend diuresis until the patient is euvolemic, then initiate beta ludy and SILVA inhibitor therapy. If the patient remains short of breath on optimal medical therapy will consider PCI of the first obtuse marginal vessel, could also consider myocardial perfusion scintigraphy to assess the severity and the size of jeopardized myocardium. Strongly advised the patient stop smoking multiple times. Otherwise, will check fasting lipids, ____ NCEP guidelines. The patient will be placed on aspirin 162 milligrams daily. Will do Plavix 600 milligrams p.o. load then 75 milligrams a day for least 12 to 15 months and will need to strongly consider continuing him on Eliquis as he also has a-fib with a CHADS A2 V2 Vasc score of 3. A/P Problem List: (1) Acute pulmonary edema ICD Code: J81.0 - Acute pulmonary edema Status: Acute (2) Atrial flutter with rapid ventricular response ICD Code: I48.92 - Unspecified atrial flutter Status: Acute (3) HTN (hypertension) ICD Code: I10 - Essential (primary) hypertension Status: Chronic Assessment and Plan Mr. Boo is a pleasant 56-year-old [place] male with a history of hypertension, CVA who presents to the emergency department due to 2 day duration of shortness of breath. He reports orthopnea. Physical exam shows 1+ lower extremity edema as well. Chest x-ray shows bilateral pulmonary edema. - Acute pulmonary edema - Probable acute congestive heart failure, diastolic - BNP 229. Pulmonary edema is possibly due to CHF. - Initial troponins were 0.07. However, earlier this AM, his troponins are elevated to 0.13, 0.21. - CXR reviewed by me on 09/13/2017 -- shows bibasilar opacity, effusion. - We'll discontinue IV Lasix and start patient on torsemide 10 mg twice a day. - echo from 11/2015 shows EF 50-55%. Echo on 09/15/2017 shows ejection fraction 30-35%. - Patient will likely need a repeat Echo outpatient to determine if he needs AICD. - Continue O2 to maintain O2 sat > 88%. - Atrial flutter with rapid ventricular response - EKG reviewed by me on 09/13/2017 - shows Atrial flutter with RVR. Heart rate is better controlled today - around 70-80. - Patient received metoprolol 5 mg IV twice - Continue metoprolol 50mg Q8hrs, Cardizem PO 60mg Q6hrs. Continue long acting Cardizem on discharge. - [id number] score 3 (CVA, HTN) - Continue Apixaban 5mg BID - Cardiology is following. - Acute kidney injury - Creatinine 1.38. Previously creatinine was 1.11 - 1.14. - Creatinine 1.38 --> 1.43 ==> 1.56. Could be due to diuresis and cath. - Avoid nephrotoxins. Will check renal function this afternoon. - If creatinine trends up, we will consider a nephrology consultation. - Hypertension - If needed, we will consider calcium channel blockers such as Amlodipine. - Currently BP 115/75. - Tobacco abuse - Counselled patient regarding smoking. He is interested to quit smoking. - Nicotine patch. Full code. Apixaban 5 mg twice a day Discharge Plan: If cleared by cardiology, we will discharge patient today. If cardiology does not clear patient and patient still wants to leave the hospital , he understands that he would have to leave the hospital against medical advice. Willis Harden DO Sep 16, 2017 8:45 am
[2017-09-16] MEDS ORDERED: DILT240C44 PO (08:52)
[2017-09-16] MEDS ORDERED: RAMI2.5C PO (08:52)
[2017-09-16] MEDS ORDERED: ASPI81 PO (08:52)
[2017-09-16] MEDS ORDERED: METO-309 PO (08:52)
[2017-09-16] MEDS ORDERED: PLAV75TA29 PO (08:52)
[2017-09-16] MEDS ORDERED: TORS5TAB2 PO (08:52)
[2017-09-16] MEDS ORDERED: APIX5TAB PO (08:52)
[2017-09-16] MEDS ORDERED: LIPI80TA PO (08:53)
[2017-09-16] MEDS: SODIUM CHLORIDE 0.9% FLUSH 10 ML FLUSH IV FLUSH SCH ×2 (09:00)
[2017-09-16] MEDS ORDERED: CLOPIDOGREL 75 MG TAB PO SCH (09:00)
[2017-09-16] MEDS: REMOVE OLD PATCH T-DERMAL SCH (09:00)
[2017-09-16] MEDS ORDERED: ASPIRIN 81 MG CHEW TAB PO SCH (09:00)
[2017-09-16] MEDS: NICOTINE 14 MG/24 HR PATCH T-DERMAL SCH (09:00)
[2017-09-16] MEDS ORDERED: TORSEMIDE 5 MG TAB PO SCH (09:00)
[2017-09-16] MEDS ORDERED: ATORVASTATIN 80 MG TAB PO ONE (09:00)
[2017-09-16] MEDS ORDERED: RAMIPRIL 2.5 MG CAP PO SCH (09:00)
[2017-09-16] MEDS ORDERED: APIXABAN 5 MG TABLET PO ONE (13:00)
--- NOTE | 2017-09-16 13:23 | PD.CARD.PN ---
Subjective Subjective Remarks alert in nad, denies chest pain or dyspnea Objective Medications Current Medications Medications (Trade) Dose Ordered Sig/Carline Route Start Time Stop Time Status Last Admin (NS Flush) 2 ml UNSCH PRN IV FLUSH 09/13/17 08:00 (NS Flush) 2 ml BID IV FLUSH 09/13/17 09:00 09/15/17 21:00 (Tylenol) 650 mg Q4H PRN PO 09/13/17 08:00 (Zofran Inj) 4 mg Q6H PRN IVP 09/13/17 08:00 (Narcan Inj) 0.4 mg UNSCH PRN IV PUSH 09/13/17 08:00 (Milk Of Magnesia Liq) 30 ml Q12H PRN PO 09/13/17 08:00 (Senokot) 17.2 mg Q12H PRN PO 09/13/17 08:00 (Dulcolax Supp) 10 mg DAILY PRN RECTAL 09/13/17 08:00 (Lactulose Liq) 30 ml DAILY PRN PO 09/13/17 08:00 (Eliquis) 5 mg BID PO 09/13/17 09:00 Future hold 09/14/17 08:25 (Habitrol 14 Mg Patch.24 Hr) 1 patch DAILY T-DERMAL 09/13/17 09:00 09/13/17 08:48 Miscellaneous Information 1 DAILY T-DERMAL 09/14/17 09:00 Diltiazem HCl 125 mg/Sodium Chloride 125 ml @ 5 mls/hr TITRATE PRN IV 09/13/17 11:30 09/14/17 12:26 (Cardizem) 60 mg Q6HR PO 09/13/17 18:00 09/16/17 11:36 (Lopressor) 50 mg Q8HR PO 09/14/17 14:00 09/16/17 13:10 (NS Flush) 2 ml UNSCH PRN IV FLUSH 09/15/17 17:30 (NS Flush) 2 ml BID IV FLUSH 09/15/17 21:00 (Aspirin Chew) 81 mg DAILY PO 09/16/17 09:00 09/16/17 10:03 (Plavix) 75 mg DAILY PO 09/16/17 09:00 09/16/17 10:02 (Altace) 2.5 mg DAILY PO 09/16/17 09:00 09/16/17 10:02 (Demadex) 10 mg BID@09,18 PO 09/16/17 09:00 09/16/17 10:04 (Lipitor) 80 mg HS PO 09/17/17 21:00 (Eliquis) 5 mg BID PO 09/16/17 21:00 Vital Signs / I&O Vital Signs Date Time Temp Pulse Resp B/P (MAP) Pulse Ox O2 Delivery O2 Flow Rate FiO2 09/16/17 12:22 97.9 67 17 123/80 (94) 94 09/16/17 11:00 67 09/16/17 08:06 2.00 09/16/17 08:06 98.0 72 18 115/75 (88) 94 09/16/17 08:00 73 09/16/17 07:00 73 09/16/17 06:02 69 09/16/17 05:00 77 09/16/17 04:00 74 09/16/17 03:00 97.8 74 124/77 (93) 100 09/16/17 03:00 75 09/16/17 02:00 70 09/16/17 01:00 70 09/16/17 00:00 72 09/15/17 23:00 98.2 77 134/70 (91) 90 09/15/17 23:00 66 09/15/17 22:55 95 09/15/17 22:00 76 09/15/17 21:00 80 09/15/17 20:00 78 09/15/17 20:00 Nasal Cannula 3.00 09/15/17 19:00 98.7 82 132/77 (95) 92 09/15/17 19:00 73 09/15/17 18:00 80 09/15/17 15:48 98.1 74 18 113/75 (88) 94 09/15/17 15:00 79 09/15/17 14:00 76 I/O 09/15/17 09/15/17 09/15/17 09/16/17 09/16/17 09/16/17 07:00 15:00 23:00 07:00 15:00 23:00 Intake Total 240 ml 0 ml 240 ml Output Total 800 ml 1100 ml 2000 ml Balance -560 ml -1100 ml -1760 ml Intake Oral 240 ml 0 ml 240 ml Output Urine Total 800 ml 1100 ml 2000 ml # Bowel Movements 1 0 Laboratory GENERAL: SKIN: Warm and dry. HEAD: Normocephalic. EYES: No scleral icterus. No injection or drainage. NECK: Supple, trachea midline. No JVD or lymphadenopathy. CARDIOVASCULAR: Regular rate and rhythm without murmurs, gallops, or rubs. RESPIRATORY: Breath sounds equal bilaterally. No accessory muscle use. GASTROINTESTINAL: Abdomen soft, non-tender, nondistended. MUSCULOSKELETAL: No cyanosis, or edema. BACK: Nontender without obvious deformity. No CVA tenderness. Laboratory Tests Test 09/16/17 03:56 White Blood Count 9.8 TH/MM3 Red Blood Count 4.39 MIL/MM3 Hemoglobin 11.6 GM/DL Hematocrit 35.3 % Mean Corpuscular Volume 80.3 FL Mean Corpuscular Hemoglobin 26.3 PG Mean Corpuscular Hemoglobin Concent 32.8 % Red Cell Distribution Width 16.4 % Platelet Count 250 TH/MM3 Mean Platelet Volume 8.6 FL Neutrophils (%) (Auto) 58.7 % Lymphocytes (%) (Auto) 29.5 % Monocytes (%) (Auto) 10.1 % Eosinophils (%) (Auto) 0.8 % Basophils (%) (Auto) 0.9 % Neutrophils # (Auto) 5.7 TH/MM3 Lymphocytes # (Auto) 2.9 TH/MM3 Monocytes # (Auto) 1.0 TH/MM3 Eosinophils # (Auto) 0.1 TH/MM3 Basophils # (Auto) 0.1 TH/MM3 CBC Comment DIFF FINAL Differential Comment Blood Urea Nitrogen 33 MG/DL Creatinine 1.56 MG/DL Random Glucose 97 MG/DL Calcium Level 8.3 MG/DL Sodium Level 141 MEQ/L Potassium Level 3.5 MEQ/L Chloride Level 102 MEQ/L Carbon Dioxide Level 33.6 MEQ/L Anion Gap 5 MEQ/L Estimat Glomerular Filtration Rate 56 ML/MIN Total Creatine Kinase 232 U/L B-Type Natriuretic Peptide 155 PG/ML Triglycerides Level 114 MG/DL Cholesterol Level 138 MG/DL LDL Cholesterol 88 MG/DL HDL Cholesterol 27.5 MG/DL Cholesterol/HDL Ratio 5.01 RATIO Assessment and Plan Problem List: (1) CAD (coronary artery disease) ICD Codes: I25.10 - Atherosclerotic heart disease of [place] coronary artery without angina pectoris (2) NSTEMI (non-ST elevated myocardial infarction) ICD Codes: I21.4 - Non-ST elevation (NSTEMI) myocardial infarction (3) CHF (congestive heart failure) ICD Codes: I50.9 - Heart failure, unspecified Status: Acute (4) Atrial flutter with rapid ventricular response ICD Codes: I48.92 - Unspecified atrial flutter Status: Acute Assessment and Plan 1.) CAD - pod #1 bms rcs, assymptomatic, continue aspirin, plavix, lipitor 2.) AF - rate controlled, assymptomatic, [id number] score = 4; restart eliquis 5 mg bid, lopressor, cardizem 3.) CHF - euvolemic, continue lopressor, altace, torsemide 4.) ok to dc from cv standpoint, f/u with me 09/17/17, d/w patient and nurse @ bedside Lenny Barbosa MD Sep 16, 2017 13:23
--- NOTE | 2017-09-16 14:41 | HHI.DS ---
Discharge Summary Admission Date Sep 13, 2017 at 7:36 am Discharge Date: Sep 16, 2017 Admitting Diagnosis CHF, Hypoxic Respiratory failure, Aflutter RVR (1) Acute pulmonary edema ICD Code: J81.0 - Acute pulmonary edema Status: Acute (2) Atrial flutter with rapid ventricular response ICD Code: I48.92 - Unspecified atrial flutter Status: Acute (3) HTN (hypertension) ICD Code: I10 - Essential (primary) hypertension Status: Chronic Procedures Cardiac catheterization 09/15/2017. 1. [place] Heart Association class IV congestive heart failure with nonischemic cardiomyopathy, EF of 30-35%. Cardiac index of 2.0 liters per meter squared per minute. 2. Moderate to severe three-vessel coronary artery disease in right dominant system as detailed above. 3. 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 4. Ejection fraction of 30-35% with LV pressure 127/24-27. 5. ___ PCI bare metal stent of the ostial proximal right coronary artery from 60% to 0% with PAPO-III flow and complete resolution of the dissection. 6. Recommend diuresis until the patient is euvolemic, then initiate beta ludy and SILVA inhibitor therapy. If the patient remains short of breath on optimal medical therapy will consider PCI of the first obtuse marginal vessel, could also consider myocardial perfusion scintigraphy to assess the severity and the size of jeopardized myocardium. Strongly advised the patient stop smoking multiple times. Otherwise, will check fasting lipids, ____ NCEP guidelines. The patient will be placed on aspirin 162 milligrams daily. Will do Plavix 600 milligrams p.o. load then 75 milligrams a day for least 12 to 15 months and will need to strongly consider continuing him on Eliquis as he also has a-fib with a CHADS A2 V2 Vasc score of 3. Brief History - From Admission Mr. Boo is a pleasant 56-year-old [place] male with a history of hypertension, CVA who presents to the emergency department due to shortness of breath. About 2 days ago he started having dyspnea both at rest and on exertion. He reports orthopnea but no chest pain, cough, fever or chills. Apparently he was supposed to be on blood pressure medication as well as a medication for anticoagulation. However, he has not taken this medication because he does not have a primary care physician. He denies any changes in bowel or bladder habits. On arrival patient's heart rate was 150, respiration 25, temperature 98.6, blood pressure 146/98. R and his blood pressure went up to 197/128. CBC unremarkable. Chemistry panel shows BUN 11 and creatinine 1.38. BNP 229. Chest x-ray shows new infiltrates at both lung bases and possible small effusion on the left. CBC/BMP: 09/16/17 0356 09/16/17 0356 Significant Findings Laboratory Tests Test 09/14/17 05:59 09/14/17 19:24 09/15/17 00:54 09/15/17 05:08 White Blood Count 11.1 TH/MM3 (4.0-11.0) Hemoglobin 12.4 GM/DL (13.0-17.0) Mean Corpuscular Hemoglobin 25.6 PG (27.0-34.0) Mean Corpuscular Hemoglobin Concent 31.3 % (32.0-36.0) Monocytes (%) (Auto) 9.7 % (0.0-8.0) Monocytes # (Auto) 1.1 TH/MM3 (0-0.9) Creatinine 1.43 MG/DL (0.60-1.30) Calcium Level 8.3 MG/DL (8.5-10.1) Estimat Glomerular Filtration Rate 62 ML/MIN (>89) Troponin I 0.07 NG/ML (0.02-0.05) 0.13 NG/ML (0.02-0.05) 0.21 NG/ML (0.02-0.05) Test 09/16/17 03:56 Red Blood Count 4.39 MIL/MM3 (4.50-5.90) Hemoglobin 11.6 GM/DL (13.0-17.0) Hematocrit 35.3 % (39.0-51.0) Mean Corpuscular Hemoglobin 26.3 PG (27.0-34.0) Monocytes (%) (Auto) 10.1 % (0.0-8.0) Monocytes # (Auto) 1.0 TH/MM3 (0-0.9) Blood Urea Nitrogen 33 MG/DL (7-18) Creatinine 1.56 MG/DL (0.60-1.30) Calcium Level 8.3 MG/DL (8.5-10.1) Carbon Dioxide Level 33.6 MEQ/L (21.0-32.0) Estimat Glomerular Filtration Rate 56 ML/MIN (>89) B-Type Natriuretic Peptide 155 PG/ML (0-100) HDL Cholesterol 27.5 MG/DL (40.0-60.0) PE at Discharge GENERAL: Alert, Oriented x 3, NAD. SKIN: Warm and dry. HEAD: Normocephalic. EYES: No scleral icterus. No injection or drainage. NECK: Supple, trachea midline. No JVD or lymphadenopathy. CARDIOVASCULAR: Regular rate and rhythm without murmurs, gallops, or rubs. RESPIRATORY: Breath sounds equal bilaterally. No accessory muscle use. Mild bibasilar crackles appreciated. GASTROINTESTINAL: Abdomen soft, non-tender, nondistended. MUSCULOSKELETAL: No cyanosis. 1+ lower ext edema. BACK: Nontender without obvious deformity. No CVA tenderness. Pt update on day of discharge Patient is doing well. No acute concerns. Denies any CP, SOB, fever, chills. Hospital Course Mr. Boo is a pleasant 56-year-old [place] male with a history of hypertension, CVA who presents to the emergency department due to 2 day duration of shortness of breath. He reports orthopnea. Physical exam shows 1+ lower extremity edema as well. Chest x-ray shows bilateral pulmonary edema. - Acute pulmonary edema - Probable acute congestive heart failure, diastolic - BNP 229. Pulmonary edema is possibly due to CHF. - Initial troponins were 0.07. However, earlier this AM, his troponins are elevated to 0.13, 0.21. - CXR reviewed by me on 09/13/2017 -- shows bibasilar opacity, effusion. - We'll discontinue IV Lasix and start patient on torsemide 10 mg twice a day. - echo from 11/2015 shows EF 50-55%. Echo on 09/15/2017 shows ejection fraction 30-35%. - Patient will likely need a repeat Echo outpatient to determine if he needs AICD. - Continue O2 to maintain O2 sat > 88%. - We walked patient without oxygen. He remains completely asymptomatic and walked at a decent speed. His O2 sat never went down below 92-93% on room air while walking. - Atrial flutter with rapid ventricular response - EKG reviewed by me on 09/13/2017 - shows Atrial flutter with RVR. Heart rate is better controlled today - around 70-80. - Patient received metoprolol 5 mg IV twice - Continue metoprolol 50mg Q8hrs, Cardizem PO 60mg Q6hrs. Continue long acting Cardizem on discharge. - [id number] score 4 (, Heart failureCVA, HTN) - Continue Apixaban 5mg BID - Cardiology cleared for discharge. - Acute kidney injury - Creatinine 1.38. Previously creatinine was 1.11 - 1.14. - Creatinine 1.38 --> 1.43 ==> 1.56. Could be due to diuresis and cath. - Avoid nephrotoxins. - Hypertension - If needed, we will consider calcium channel blockers such as Amlodipine. - Currently BP 115/75. - Tobacco abuse - Counselled patient regarding smoking. He is interested to quit smoking. - Nicotine patch. Full code. Apixaban 5 mg twice a day Pt Condition on Discharge: Good Discharge Disposition: Discharge Home Discharge Time: > 30 minutes Discharge Instructions DIET: Follow Instructions for: Heart Healthy Diet Activities you can perform: Regular-No Restrictions Follow up Referrals: Cardiology - 2 Weeks with Lenny Barbosa MD PCP Follow-up - 1 Week New Medications: Atorvastatin (Lipitor) 80 Mg Tab 80 MG PO HS for Cholesterol Management, #90 TAB 3 Refills Diltiazem CD 24 HR (Diltiazem CD 24 HR) 240 Mg Caper 240 MG PO DAILY, #30 CAP 5 Refills Apixaban (Eliquis) 5 Mg Tab 5 MG PO BID for Atrial Flutter, #60 TAB 5 Refills Aspirin (Tgt Aspirin) 81 Mg Chw 81 MG PO DAILY for Blood Clot Prevention, #30 EA Clopidogrel (Plavix) 75 Mg Tab 75 MG PO DAILY for Heart, #90 TAB 3 Refills Metoprolol Tartrate (Lopressor) 50 Mg Tab 50 MG PO Q8HR for Atrial flutter, #90 TAB 3 Refills Ramipril (Ramipril) 2.5 Mg Cap 2.5 MG PO DAILY for Heart, #90 CAP 3 Refills Torsemide (Torsemide) 5 Mg Tab 10 MG PO BID@,18 for Heart, #60 TAB 5 Refills Willis Harden DO Sep 16, 2017 14:41
[2017-09-16 16:16] LABS: BICARBONATE 32.9 MEQ/L (21.0-32.0); POTASSIUM 3.9 MEQ/L (3.5-5.1)
--- NOTE | 2017-09-16 16:30 | EKG ---
Date Performed: 09/16/2017 Time Performed: 05:28:14 PTAGE: 56 years EKG: Sinus rhythm rSr'(V1) - probable normal variant Anterior T wave changes are nonspecific Borderline ECG No signifi cant change from prior electrocardiogram. PREVIOUS TRACING : 09/15/2017 05.43 DOCTOR: Willis Chavarria Interpretating Date/Time 09/16/2017 16:30:14
[2017-09-16] MEDS ORDERED: APIXABAN 5 MG TABLET PO SCH (21:00)
[2017-09-17] MEDS ORDERED: ATORVASTATIN 80 MG TAB PO SCH (21:00)
--- NOTE | 2017-09-23 15:40 | PQ ---
Physician Query Response Document PATIENT: SALMA HEALY : 1960 ADMIT DATE: 09/13/2017 7:36 AM DISCH DATE: 09/16/2017 4:36 PM RESPONDING PROVIDER #: [email or web address] QUERY TEXT: Clarification of Clinical Diagnostic Findings Please clarify documentation or clinical relevance for the clinical / diagnostic findings or whether those are insignificant or unable to be further specified. CONCERNIG ELEVATED TROPONIN LEVELS 1)patient did not have NSTEMI 2)patient had NSTEMI present on admission 3)patient had NSTEMI after admission 4)elevated troponin due to other reason(PLEASE SPECIFY) 5)elevated troponin/unknown etiology The patient's Clinical Indicators include: Dr. Harden, please clarify. Your discharge summary documentes increased troponin.Troponin on admission was 0.07 and increased to a maximun of 0.21. Cardiology documents NSTEMI as reason for heart catherization. Attending does not mention NSTEMI. please review the question below and answer to the best of your ability THANK YOU Query created by: Jimmy Hill on 09/17/2017 8:28 AM RESPONSE TEXT: Patient had NSTEMI (elevated troponins) after admission. Initial troponins 0.06, 0.07 thought to be u nremarkable. However, later on troponin elevated to 0.21 - this was significant and likely NSTEMI. Electronically signed by: Ezequiel Harden DO 09/23/2017 3:36 PM
== END 2017-09-16 16:36 | disposition home or self-care (01) | DRG 248 ==
LOC: NEPC 05:10 → NEDA 07:36 → HCPC 10:45
PROVIDERS: ADMIT Hospitalist; ATTEND Hospitalist
PROC: 3E0F7GC Introduction of Other Therapeutic Substance into Respiratory Tract, Via Natural or Artificial Opening (ICD-10-PCS; principal; 2017-09-13)
PROC: 02703DZ Dilation of Coronary Artery, One Artery with Intraluminal Device, Percutaneous Approach (ICD-10-PCS; 2017-09-15)
PROC: 4A023N8 Measurement of Cardiac Sampling and Pressure, Bilateral, Percutaneous Approach (ICD-10-PCS; 2017-09-15)
PROC: B2111ZZ Fluoroscopy of Multiple Coronary Arteries using Low Osmolar Contrast (ICD-10-PCS; 2017-09-15)
PROC: B2151ZZ Fluoroscopy of Left Heart using Low Osmolar Contrast (ICD-10-PCS; 2017-09-15)
DX: I50.31 Acute diastolic (congestive) heart failure (principal); J96.91 Respiratory failure, unspecified with hypoxia; I21.4 Non-ST elevation (NSTEMI) myocardial infarction; I11.0 Hypertensive heart disease with heart failure; G93.40 Encephalopathy, unspecified; I16.1 Hypertensive emergency; N17.9 Acute kidney failure, unspecified; I48.92 Unspecified atrial flutter; I42.9 Cardiomyopathy, unspecified; I13.0 Hypertensive heart and chronic kidney disease with heart failure and stage 1 through stage 4 chronic kidney disease, or unspecified chronic kidney disease; F17.210 Nicotine dependence, cigarettes, uncomplicated; Z86.73 Personal history of transient ischemic attack (TIA), and cerebral infarction without residual deficits; E78.00 Pure hypercholesterolemia, unspecified; I48.91 Unspecified atrial fibrillation; G47.30 Sleep apnea, unspecified; I25.10 Atherosclerotic heart disease of native coronary artery without angina pectoris; I25.2 Old myocardial infarction; Z91.14 Patient's other noncompliance with medication regimen; Z80.3 Family history of malignant neoplasm of breast; N18.9 Chronic kidney disease, unspecified
CPT/HCPCS: 71010; 71275; 76937; 80048; 80053; 80061; 80069; 82550; 82552; 82810; 83735; 83880; 84484; 85002; 85025; 85610; 85730; 92928; 93005; 93308; 93460; 94620; 96374; 96375; C1769; C1876; C1887; C1893; J0282; J1644; J1940; J2250; J3010; J3246; Q9967

== ENCOUNTER 2017-10-26 14:08 | Inpatient (IN) | payer MEDICAID, MEDICARE ==
[2017-10-26] VITALS (17 sets, daily range): BP systolic 79–130; BP diastolic 52–67; PULSE 19–148; RESP 19–28; TEMP 98.6–101.3; O2SAT 96–100
[~2017-10-26] VITALS: Ht 182.9 cm; Wt 113.0 kg
[~2017-10-26 14:08] MED LIST changes: -ALDA50TA PO; +APIX5TAB PO; -ASPI325T PO; +ASPI81 PO; +DILT240C44 PO; +LIPI80TA PO; -LISI20 PO; +METO-309 PO; +PLAV75TA29 PO; -PRAV40 PO; +RAMI2.5C PO; +TORS5TAB2 PO
[2017-10-26] MEDS ORDERED: PIPERACIL-TAZO 3.375 GM PREMIX 50 ML IV ONE (14:45)
[2017-10-26] MEDS ORDERED: ACETAMINOPHEN 650 MG SUPP RECTAL ONE (14:45)
[2017-10-26] MEDS ORDERED: DILTIAZEM HCL 25 MG/5 ML VIAL IV ONE ×2 (14:45→16:45)
[2017-10-26] MEDS ORDERED: ACETAMINOPHEN 325 MG SUPP RECTAL ONE (14:45)
--- NOTE | 2017-10-26 14:49 | PD ---
HPI Chief Complaint: Respiratory Distress Time Seen by Provider: 14:25 Travel History International Travel<30 days: No Contact w/Intl Traveler<30days: No Traveled to known affect area: No History of Present Illness HPI This patient is brought in by paramedics complaining of shortness of breath. Duration is 2 days. He's had a dry hacking cough and fever. Current temp 101. Denies chest pain. He presents in A. fib with RVR with a rate of 160. He is minimally verbal and not really able to provide much in the way of review of systems or history beyond that. Symptoms are severe. PFSH Past Medical History Medical History: Unable to Obtain Anxiety: No Depression: No Heart Rhythm Problems: No Cancer: No Cardiovascular Problems: Yes High Cholesterol: Yes Chest Pain: No Congestive Heart Failure: No Cerebrovascular Accident: Yes (2013) Endocrine: No Genitourinary: No Hypertension: Yes Immune Disorder: No Musculoskeletal: No Neurologic: Yes Psychiatric: No Reproductive: No Respiratory: Yes Migraines: No Sleep Apnea: No Tetanus Vaccination: Unknown Past Surgical History Surgical History: Unable to Obtain Other Surgery: No Social History Alcohol Use: Yes (2 times a week) Tobacco Use: Yes (smokes one pack of cigarettes a day) Substance Use: No Allergies-Medications (Allergen,Severity, Reaction): Coded Allergies: No Known Allergies (Verified Allergy, Unknown, 09/13/17) Reported Meds & Prescriptions Reported Meds & Active Scripts Active Lipitor (Atorvastatin Calcium) 80 Mg Tab 80 Mg PO HS Torsemide 5 Mg Tab 10 Mg PO BID@09,18 Tgt Aspirin (Aspirin) 81 Mg Chw 81 Mg PO DAILY Ramipril 2.5 Mg Cap 2.5 Mg PO DAILY Diltiazem CD 24 HR 240 Mg Caper 240 Mg PO DAILY Lopressor (Metoprolol Tartrate) 50 Mg Tab 50 Mg PO Q8HR Plavix (Clopidogrel Bisulfate) 75 Mg Tab 75 Mg PO DAILY Eliquis (Apixaban) 5 Mg Tab 5 Mg PO BID Review of Systems ROS Limitations: Clinical Condition, Altered Mental Status, Poor Historian Physical Exam Narrative GENERAL: Well-nourished, well-developed patient with tachycardia and fever and decreased mental status . SKIN: Focused skin assessment reveals no rash and nodules. Skin is Warm and dry. HEAD: Atraumatic. Normocephalic. EYES: Pupils equal and round. No scleral icterus. No injection or drainage. ENT: No nasal bleeding or discharge. Mucous membranes pink and moist. NECK: Trachea midline. No JVD. CARDIOVASCULAR: Irregularly irregular rhythm. No murmur appreciated. Heart rate 160 RESPIRATORY: No accessory muscle use. Clear to auscultation. Breath sounds equal bilaterally. GASTROINTESTINAL: Abdomen soft, non-tender, nondistended. Hepatic and splenic margins not palpable. MUSCULOSKELETAL: No obvious deformities. No clubbing. No cyanosis. No edema. NEUROLOGICAL: Awake but lethargic. Normal gag reflex. Controlling his airway. No obvious cranial nerve deficits. Motor and sensory exams challenging to obtain given limited participation from the patient. Difficult to understand speech. Does some grunting. PSYCHIATRIC: Difficult to assess mood and affect; insight and judgment poor . Data Data Last Documented VS Vital Signs Date Time Temp Pulse Resp B/P (MAP) Pulse Ox O2 Delivery O2 Flow Rate FiO2 10/26/17 15:46 144 117/64 10/26/17 15:06 28 96 Nasal Cannula 2.00 10/26/17 14:15 101.3 Orders Orders Iv Access Insert/Monitor (10/26/17 14:37) Complete Blood Count With Diff (10/26/17 14:37) Basic Metabolic Panel (Bmp) (10/26/17 14:37) Ckmb (Isoenzyme) Profile (10/26/17 14:37) Troponin I (10/26/17 14:37) Lactic Acid (10/26/17 14:37) Blood Culture (10/26/17 14:37) Chest, Single Ap (10/26/17 ) Electrocardiogram (10/26/17 ) Welder First Class / Telemetry OCHOA.Q8H (10/26/17 14:37) Diltiazem Inj (Cardizem Inj) (10/26/17 14:45) Acetaminophen Supp (Tylenol Supp) (10/26/17 14:45) Acetaminophen Supp (Tylenol Supp) (10/26/17 14:45) Piperacil-Tazo 3.375 Gm Premix (Zosyn 3. (10/26/17 14:45) Diltiazem Inj (Cardizem Inj) (10/26/17 15:30) Digoxin Inj (Lanoxin Inj) (10/26/17 15:30) CKMB (10/26/17 14:40) CKMB% (10/26/17 14:40) Type And Screen (10/26/17 15:28) Red Blood Cells (Rbc) (10/26/17 15:40) Blood Product Administration (10/26/17 15:40) Sodium Chlor 0.9% 250 Ml Inj (Ns 250 Ml (10/26/17 15:45) Admit Order (Ed Use Only) (10/26/17 15:45) Labs Laboratory Tests Test 10/26/17 14:40 White Blood Count 13.5 TH/MM3 Red Blood Count 1.81 MIL/MM3 Hemoglobin 4.3 GM/DL Hematocrit 13.9 % Mean Corpuscular Volume 76.7 FL Mean Corpuscular Hemoglobin 23.8 PG Mean Corpuscular Hemoglobin Concent 31.0 % Red Cell Distribution Width 16.2 % Platelet Count 175 TH/MM3 Mean Platelet Volume 8.9 FL Neutrophils (%) (Auto) 80.5 % Lymphocytes (%) (Auto) 12.5 % Monocytes (%) (Auto) 6.5 % Eosinophils (%) (Auto) 0.1 % Basophils (%) (Auto) 0.4 % Neutrophils # (Auto) 10.9 TH/MM3 Lymphocytes # (Auto) 1.7 TH/MM3 Monocytes # (Auto) 0.9 TH/MM3 Eosinophils # (Auto) 0.0 TH/MM3 Basophils # (Auto) 0.0 TH/MM3 CBC Comment DIFF FINAL Differential Comment Blood Urea Nitrogen 44 MG/DL Creatinine 1.23 MG/DL Random Glucose 134 MG/DL Calcium Level 8.0 MG/DL Sodium Level 153 MEQ/L Potassium Level 3.7 MEQ/L Chloride Level 115 MEQ/L Carbon Dioxide Level 31.2 MEQ/L Anion Gap 7 MEQ/L Estimat Glomerular Filtration Rate 74 ML/MIN Lactic Acid Level 3.6 mmol/L Total Creatine Kinase 145 U/L Creatine Kinase MB 1.3 NG/ML Troponin I 0.14 NG/ML [facility] Medical Decision Making Medical Screen Exam Complete: Yes Emergency Medical Condition: Yes Medical Record Reviewed: Yes Differential Diagnosis A. fib with RVR, CHF, pneumonia Narrative Course I have reviewed the patient's electronic medical record. Patient has extensive complicated medical history. Was admitted in August and had heart catheterization. He has stage IV [place] heart associated classification classification heart failure.. And stenting in August. 2 IVs placed I gave him 20 g IV Cardizem to try to achieve rate control Blood pressure initially 112 systolic and will be watched closely Holding off on IV fluid given his severe heart failure with some lower extremity edema already CBC shows critical hemoglobin of 4.3 Metabolic profile shows hypernatremia and elevated BUN CK is normal Troponin is 0.14 I reviewed his chest x-ray which shows cardiomegaly with some bibasilar infiltrates suggesting edema or pneumonia. I reviewed his EKG which shows A. fib with RVR at 160 Extended cardiac monitoring reveals A. fib with RVR Lactate elevated at 3.6 Rectal exam shows prominent melena in the rectal vault Patient is unstable critically ill and has GI bleed on anticoagulants so I have ordered 4 units of emergency release blood He is on a second unit now Blood pressure is holding steady at twin 110 and 120 systolic However he remains in A. fib with RVR despite Cardizem drip I'm ordering a second bolus of 20 mg IV Cardizem Gave him a dose of IV digoxin Placed a call to the visual merchandiser for intensive care admission This is a complex critically ill patient After about 90 minutes of the above care the patient is significantly improved from a mental status standpoint He is now alert and talking and answering questions appropriately He he is quite definitive that he does not want to be coded should his heart stop. He does not want a ventilator or CPR or defibrillation. Given his extensive severe chronic diseases this is not unreasonable. I have made him a DO NOT RESUSCITATE patient. Critical Care Narrative Aggregate critical care time was 82 minutes. Time to perform other separately billable procedures was not included in the critical care time. My time did not include minutes spent treating any other patients simultaneously or on activities that did not directly contribute to the patient's treatment. The services I provided to this patient were to treat and/or prevent clinically significant deterioration that could result in: Cardiopulmonary arrest, cardiac arrhythmia, respiratory collapse I provided critical care services requiring my management, as noted below: Chart data review, documentation time, medication orders and management, vital sign assessments/reviewing monitor data, ordering and reviewing lab tests, ordering and interpreting/reviewing x-rays and diagnostic studies, care of the patient and discussion of the patient with the admitting physicians. Diagnosis Primary Impression: Atrial fibrillation with RVR Additional Impressions: GI bleed Qualified Codes: K92.1 - Melena Anemia Qualified Codes: D64.9 - Anemia, unspecified Altered mental status, unspecified Qualified Codes: R40.0 - Somnolence Acute hypernatremia Admitting Information Admitting Physician Requests: Admit David Currie MD Oct 26, 2017 14:49
[2017-10-26 15:05] LABS: AUTOMATED NEUTROPHIL # 10.9 TH/MM3 (1.8-7.7); BASOPHIL % 0.4 % (0.0-2.0); EOSINOPHIL % 0.1 % (0.0-4.0); LYMPH % 12.5 % (9.0-44.0); LYMPHOCYTE # 1.7 TH/MM3 (1.0-4.8); MEAN CELL VOLUME 76.7 FL (80.0-100.0); MEAN CORPUSCULAR HEMOGLOBIN 23.8 PG (27.0-34.0); MEAN PLATELET VOLUME 8.9 FL (7.0-11.0); MONO % 6.5 % (0.0-8.0); MONOCYTE # 0.9 TH/MM3 (0-0.9); NEUT % 80.5 % (16.0-70.0); PLATELET COUNT 175 TH/MM3 (150-450); RED BLOOD COUNT 1.81 MIL/MM3 (4.50-5.90); RED CELL DISTRIBUTION WIDTH 16.2 % (11.6-17.2); WHITE BLOOD COUNT 13.5 TH/MM3 (4.0-11.0)
[2017-10-26 15:24] LABS: BICARBONATE 31.2 MEQ/L (21.0-32.0); BLOOD UREA NITROGEN 44 MG/DL (7-18); CHLORIDE 115 MEQ/L (98-107); CREATININE 1.23 MG/DL (0.60-1.30); GLOMERULAR FILTRATION RATE 74 ML/MIN (>89); GLUCOSE,RANDOM 134 MG/DL (74-106); SODIUM (NA) 153 MEQ/L (136-145)
[2017-10-26 15:26] LABS: HEMATOCRIT 13.9 % (39.0-51.0); HEMOGLOBIN 4.3 GM/DL (13.0-17.0)
[2017-10-26 15:27] LABS: TROPONIN I 0.14 NG/ML (0.02-0.05)
[2017-10-26] MEDS ORDERED: DILTIAZEM INJ 125 MG in SODIUM CHLORIDE 0.9% INJ 100 ML IV PRN (15:30)
[2017-10-26] MEDS ORDERED: DIGOXIN 0.5 MG/2 ML VIAL IV PUSH ONE ×2 (15:30→19:00)
[2017-10-26] MEDS ORDERED: SODIUM CHLOR 0.9% 250 ML INJ 250 ML IV ONE (15:45)
--- NOTE | 2017-10-26 16:25 | RADRPT ---
EXAM DATE/TIME: 10/26/2017 15:13 [facility] COMPARISON: CHEST SINGLE AP, September 13, 2017, 5:41. INDICATIONS : Shortness of breath MEDICAL HISTORY : Myocardial infarction. Hypercholesterolemia. Hypertension. Stroke. SURGICAL HISTORY : None. ENCOUNTER: Initial ACUITY: 1 day PAIN SCORE: Non-responsive. LOCATION: Bilateral chest FINDINGS: The cardiac silhouette is enlarged in transverse diameter. There is bibasilar edema versus pneumonia. No pleural effusions are identified. Upper lung zones are clear. CONCLUSION: 1. Cardiomegaly. Bibasilar edema versus pneumonia Lex Burdick MD on October 26, 2017 at 16:22 Board Certified Radiologist. This report was verified electronically.
[2017-10-26] MEDS ORDERED: POTASSIUM PHOSPHATE INJ 30 MMOL in SODIUM CHLOR 0.9% 250 ML INJ 250 ML IV PRN (17:00)
[2017-10-26] MEDS ORDERED: POTASSIUM PHOSPHATE MONOBASIC 500 MG TAB PO/TUBE PRN (17:00)
[2017-10-26] MEDS ORDERED: POTASSIUM PHOSPHATE MONOBASIC 500 MG TAB PO PRN (17:00)
[2017-10-26] MEDS ORDERED: POTASSIUM CHLORIDE 25 MEQ EFFERVESCENT TAB PO PRN (17:00)
[2017-10-26] MEDS ORDERED: POTASSIUM CHLOR 20 MEQ PREMIX 100 ML IV PRN ×2 (17:00)
[2017-10-26] MEDS ORDERED: CHLORHEXIDINE GLUCONATE 2 % 1 PACK (2 CLOTHS) TOP PRN (17:00)
[2017-10-26] MEDS ORDERED: MAGNESIUM OXIDE 400 MG TAB PO PRN (17:00)
[2017-10-26] MEDS ORDERED: POTASSIUM CHLOR 40 MEQ PREMIX 100 ML IV PRN ×2 (17:00)
[2017-10-26] MEDS ORDERED: RESP: ALBUTEROL 2.5 MG/IPRATROPIUM 0.5 MG NEB (PRN) INH (17:00)
[2017-10-26] MEDS ORDERED: MAGNESIUM SULFATE INJ 4 GM in SODIUM CHLORIDE 0.9% INJ 92 ML IV PRN (17:00)
[2017-10-26] MEDS ORDERED: ONDANSETRON HCL 4 MG/2 ML VIAL IV PUSH PRN (17:00)
[2017-10-26] MEDS ORDERED: MAGNESIUM SULFATE INJ 2 GM in SODIUM CHLORIDE 0.9% INJ 96 ML IV PRN (17:00)
[2017-10-26] MEDS ORDERED: MISCELLANEOUS NURSING INFORMATION XX SCH (17:00)
[2017-10-26] MEDS ORDERED: SODIUM PHOSPHATE INJ 30 MMOL in SODIUM CHLOR 0.9% 250 ML INJ 240 ML IV PRN (17:00)
--- NOTE | 2017-10-26 18:54 | HHI.HP ---
[facility] Service Critical Care Medicine Primary Care Physician Lenny Barbosa MD Admission Diagnosis afib with rvr,gi bleed on anticoagulation,AMS Diagnosis: Chief Complaint: fatigue Travel History International Travel<30 Days: No Contact w/Intl Traveler <30 Da: No Traveled to Known Affected Are: No History of Present Illness this is a 56yM with baseline NYHA Class IV heart failure with EF 30% who sees Dr. Barbosa who has felt worse over the last few days with worsening shortness of breath. he also describes having bloody bowel movements with dark black and some bloody stools. he states it is hard to eat and he loses his appetite with some associated nausea and epigastric pain. denies vomiting. states his dyspnea at rest has not changed significantly. denies fever, chills. denies productive sputum or cough. states he cannot afford to follow up with any of his outpatient doctors, so he does not have additional appointments scheduled. he states he has felt short of breath for a "long time", even before his recent hospitalizations. In the emergency room, he was found to have a hgb 4, tachycardic in afib RVR, and per the ER physician report, he had a large amount of surekha melena in the rectal vault. he was given 4 units prbc in the ER. he states his fatigue may be "some better." The patient is a very poor historian, and a full history and ROS is difficult to obtain. he is admitted for active and hemodynamically significant GI bleed. Review of Systems ROS Limitations: Poor Historian Constitutional: DENIES: Diaphoretic episodes, Fatigue, Fever, Chills Respiratory: COMPLAINS OF: Shortness of breath, DENIES: Cough, Wheezing, Hemoptysis, Sputum production Cardiovascular: COMPLAINS OF: Dyspnea on Exertion, PND, Lower Extremity Edema, Orthopnea, DENIES: Chest pain, Palpitations, Syncope, Claudication Gastrointestinal: COMPLAINS OF: Abdominal pain, Black stools, Bloody stools, Nausea, Anorexia, DENIES: Constipation, Diarrhea, Vomiting, Difficulty Swallowing Neurologic: DENIES: Abnormal gait, Headache Past Family Social History Allergies: Coded Allergies: No Known Allergies (Verified Allergy, Unknown, 09/13/17) Past Medical History Hypertension CVA x 2 prior Hyperlipidemia atrial fibrillation NYHA Class IV CHF, EF 30% Past Surgical History No significant major surgery Reported Medications Lipitor (Atorvastatin Calcium) 80 Mg Tab 80 Mg PO HS Torsemide 5 Mg Tab 10 Mg PO BID@,18 Tgt Aspirin (Aspirin) 81 Mg Chw 81 Mg PO DAILY Ramipril 2.5 Mg Cap 2.5 Mg PO DAILY Diltiazem CD 24 HR 240 Mg Caper 240 Mg PO DAILY Lopressor (Metoprolol Tartrate) 50 Mg Tab 50 Mg PO Q8HR Plavix (Clopidogrel Bisulfate) 75 Mg Tab 75 Mg PO DAILY Eliquis (Apixaban) 5 Mg Tab 5 Mg PO BID Active Ordered Medications See MAR Family History reviewed and found to be noncontributory to his acute illness Social History Smokes about 1 pack a day, drinks socially. Denies using any illicit drugs. Physical Exam Vital Signs Vital Signs Date Time Temp Pulse Resp B/P (MAP) Pulse Ox O2 Delivery O2 Flow Rate FiO2 10/26/17 18:00 10/26/17 17:30 99.2 141 24 109/56 10/26/17 17:15 99.2 141 24 109/58 97 10/26/17 17:06 142 106/57 10/26/17 17:00 99.0 142 22 106/57 10/26/17 16:45 99.0 143 23 101/56 98 10/26/17 16:31 99.0 144 24 130/63 98 10/26/17 16:15 99.3 144 20 121/67 10/26/17 16:11 143 124/67 10/26/17 16:00 100.0 143 24 124/67 97 10/26/17 15:48 144 24 117/64 (81) 100 Nasal Cannula 2.00 10/26/17 15:46 144 117/64 10/26/17 15:06 145 28 113/63 (80) 96 Nasal Cannula 2.00 10/26/17 14:40 145 28 96 Nasal Cannula 2.00 10/26/17 14:15 101.3 148 28 112/65 (81) 100 Physical Exam GENERAL: Obese middle-aged male, lying in bed, mild distress due to dyspnea HEENT: Normocephalic. Atraumatic. Pupils equal, round, reactive, conjugate. Mucous membranes are moist NECK: Trachea is midline. +JVD CHEST: Equal chest rise. Mildly tachypneic. Mildly labored. Nasal cannula oxygen CARDIOVASCULAR: Tachycardic rate, irregularly irregular rhythm. A. fib by telemetry. Heart rate in the 140s ABDOMEN: Soft, nontender, nondistended. No guarding. MUSCULOSKELETAL: Pulses 2+. 3+ peripheral edema NEUROLOGICAL: RASS 0. CAM -. Follows commands. GCS 15. No focal deficits. Laboratory Laboratory Tests Test 10/26/17 14:40 White Blood Count 13.5 Red Blood Count 1.81 Hemoglobin 4.3 Hematocrit 13.9 Mean Corpuscular Volume 76.7 Mean Corpuscular Hemoglobin 23.8 Mean Corpuscular Hemoglobin Concent 31.0 Red Cell Distribution Width 16.2 Platelet Count 175 Mean Platelet Volume 8.9 Neutrophils (%) (Auto) 80.5 Lymphocytes (%) (Auto) 12.5 Monocytes (%) (Auto) 6.5 Eosinophils (%) (Auto) 0.1 Basophils (%) (Auto) 0.4 Neutrophils # (Auto) 10.9 Lymphocytes # (Auto) 1.7 Monocytes # (Auto) 0.9 Eosinophils # (Auto) 0.0 Basophils # (Auto) 0.0 CBC Comment DIFF FINAL Differential Comment Blood Urea Nitrogen 44 Creatinine 1.23 Random Glucose 134 Calcium Level 8.0 Sodium Level 153 Potassium Level 3.7 Chloride Level 115 Carbon Dioxide Level 31.2 Anion Gap 7 Estimat Glomerular Filtration Rate 74 Lactic Acid Level 3.6 Total Creatine Kinase 145 Creatine Kinase MB 1.3 Troponin I 0.14 Date/Time Source Procedure Growth Status 10/26/17 14:45 Blood Peripheral Aerobic Blood Culture Pending Received 10/26/17 14:45 Blood Peripheral Anaerobic Blood Culture Pending Received Result Diagram: 10/26/17 1440 10/26/17 1440 Imaging Last Impressions Chest X-Ray 10/26/17 0000 Signed Impressions: Service Date/Time: Thursday, October 26, 2017 15:13 - CONCLUSION: 1. Cardiomegaly. Bibasilar edema versus pneumonia Lex Burdick MD Septic Shock Reassessment Septic shock perfusion: reassessment completed Caprini VTE Risk Assessment Caprini VTE Risk Assessment: Mod/High Risk (score >= 2) VTE Pharm Contraindication: Active bleeding Caprini Risk Assessment Model Point Value = 1 Point Value = 2 Point Value = 3 Point Value = 5 Age 41-60 Minor surgery BMI > 25 kg/m2 Swollen legs Varicose veins or History of unexplained or recurrent spontaneous Oral contraceptives or hormone replacement Sepsis (< 1 month) Serious lung disease, including pneumonia (< 1 month) Abnormal pulmonary function Acute myocardial infarction Congestive heart failure (< 1 month) History of inflammatory bowel disease Medical patient at bed rest Age 61-74 Arthroscopic surgery Major open surgery (> 45 min) Laparoscopic surgery (> 45 min) Malignancy Confined to bed (> 72 hours) Immobilizing plaster cast Central venous access Age >= 75 History of VTE Family history of VTE Factor V Leiden Prothrombin [id number] Lupus anticoagulant Anticardiolipin antibodies Elevated serum homocysteine Heparin-induced thrombocytopenia Other congenital or acquired thrombophilia Stroke (< 1 month) Elective arthroplasty Hip, pelvis, or leg fracture Acute spinal cord injury (< 1 month) Prophylaxis Regimen Total Risk Factor Score Risk Level Prophylaxis Regimen 0-1 Low Early ambulation 2 Moderate Order ONE of the following: *Sequential Compression Device (SCD) *Heparin 5000 units SQ BID 3-4 Higher Order ONE of the following medications: *Heparin 5000 units SQ TID *Enoxaparin/Lovenox 40 mg SQ daily (WT < 150 kg, CrCl > 30 mL/min) *Enoxaparin/Lovenox 30 mg SQ daily (WT < 150 kg, CrCl > 10-29 mL/min) *Enoxaparin/Lovenox 30 mg SQ BID (WT < 150 kg, CrCl > 30 mL/min) AND/OR *Sequential Compression Device (SCD) 5 or more Highest Order ONE of the following medications: *Heparin 5000 units SQ TID (Preferred with Epidurals) *Enoxaparin/Lovenox 40 mg SQ daily (WT < 150 kg, CrCl > 30 mL/min) *Enoxaparin/Lovenox 30 mg SQ daily (WT < 150 kg, CrCl > 10-29 mL/min) *Enoxaparin/Lovenox 30 mg SQ BID (WT < 150 kg, CrCl > 30 mL/min) AND *Sequential Compression Device (SCD) Assessment and Plan Assessment and Plan Assessment: 56-year-old male with [place] Heart Association class IV symptoms and at baseline EF of 30% without significant access to follow-up medical care presents with hemodynamically significant GI bleed on aspirin, Plavix, therapeutic oral anticoagulation. Unclear if his lactate elevation is secondary to severe anemia, or CHF with cardiac shock, versus septic shock. Clinically he does not appear to be septic, and his extremities are cool and poorly perfused, and his clinical history is one of new-onset GI bleed in the setting of recent addition of anticoagulation. Will consult GI, check serial h&h , keep NPO. unclear exactly his volume status, and may need additional lasix with the significant volume of blood product administration. agree with admission to ICU for close monitoring as he is high risk for decompensation. Per the discussions with Dr. Limon the ER physician, the patient would want aggressive medical care, but would prefer to be DNR/DNI in case he should clinically decline, which given his baseline CHF symptoms, I think is an appropriate decision. Active GI bleed s/p 4 units prbc serial h&h hold anticoagulation GI consult protonix drip Atrial Fibrillation with Rapid Ventricular Response s/p cardizem bolus continue cardizem drip continue home cardizem and metoprolol received digoxin 0.25mg iv push x 1 in ER, will repeat one additional 0.25mg iv x 1. NYHA Class IV CHF, systolic type sees Dr. Barbosa as outpatient. will consult to follow along. hold ACEI given renal insufficiency and active gi bleed Lactic Acidosis most likely secondary to severe anemia and poor oxygen delivery repeat after blood transfusion unlikely to be sepsis given clinical scenario hold abx for now Hyperlipidemia continue home statin Prior CVA certainly at risk of additional strokes, I have explained this to the patient and he and his expressed understanding. given hemodynamically significant GI bleed, will hold ASA, Plavix, anticoagulation for afib. SCDs, protonix drip, hold pharmacologic DVT prophylaxis given GI bleed Admit to ICU. Prieto Mackay MD Oct 26, 2017 18:54
[2017-10-26] MEDS: PANTOPRAZOLE INJ 80 MG in SODIUM CHLORIDE 0.9% INJ 100 ML IV SCH (21:47)
[2017-10-26] MEDS: METOPROLOL TARTRATE 50 MG TAB PO SCH (21:50)
[2017-10-26] MEDS: ATORVASTATIN 80 MG TAB PO SCH (22:05)
[2017-10-26] MEDS: CHLORHEXIDINE GLUCONATE 2 % 1 PACK (2 CLOTHS) TOP SCH (22:06)
[2017-10-26 22:13] LABS: HEMATOCRIT 21.2 % (39.0-51.0); HEMOGLOBIN 7.1 GM/DL (13.0-17.0)
[2017-10-27] VITALS (38 sets, daily range): BP systolic 87–145; BP diastolic 47–94; PULSE 103–135; RESP 11–29; TEMP 97.3–99.4; O2SAT 63–100
[2017-10-27] MEDS ORDERED: TERBUTALINE INJ 1 MG/ML AMP SQ PRN
[2017-10-27] MEDS ORDERED: PHENYLEPHRINE INJ 40 MG in DEXTROSE 5% IN WATE 500 ML INJ 496 ML IV PRN ×2
[2017-10-27] MEDS: SODIUM CHLOR 0.9% 1000 ML INJ 1,000 ML IV SCH ×2 (00:15→01:00)
--- NOTE | 2017-10-27 00:28 | PD.PROCEDR ---
Procedure Note Procedure Sense line placement A time-out was completed verifying correct patient, procedure, site, positioning , and special equipment if applicable. The patient was placed in a dependent position appropriate for central line placement based on the vein to be cannulated. The patients right neck was prepped and draped in sterile fashion. 1% Lidocaine was used to anesthetize the surrounding skin area. A triple lumen 9 -Anguillan Cordis catheter was introduced into the the internal jugular vein using the Seldinger technique and under ultrasound guidance. The catheter was threaded smoothly over the guide wire and appropriate blood return was obtained. Each lumen of the catheter was evacuated of air and flushed with sterile saline. The catheter was then sutured in place to the skin and a sterile dressing applied. Perfusion to the extremity distal to the point of catheter insertion was checked and found to be adequate. Estimated Blood Loss: 1ml The patient tolerated the procedure well and there were no complications. Neil Cifuentes MD Oct 27, 2017 00:28
--- NOTE | 2017-10-27 00:51 | RADRPT ---
EXAM DATE/TIME: 10/27/2017 00:25 [facility] COMPARISON: CHEST SINGLE AP, October 26, 2017, 15:13. INDICATIONS : Right internal jugular central line placement. MEDICAL HISTORY : Myocardial infarction. Hypercholesterolemia. Hypertension. Stroke SURGICAL HISTORY : None. ENCOUNTER: Subsequent ACUITY: 2 days PAIN SCORE: 0/10 LOCATION: Right chest FINDINGS: The cardiac silhouette is enlarged in transverse diameter. There is right lower lobe atelectasis vers us pneumonia. The findings have worsened when compared with the prior examination. A right sided inte rnal jugular vein catheter is in place without pneumothorax with its tip in the superior vena cava. CONCLUSION: 1. Uncomplicated line placement. No evidence of pneumothorax. 2. Right lower lobe atelectasis versus pneumonia. The findings have worsened when compared with the p rior examination. Lex Burdick MD on October 27, 2017 at 0:49 Board Certified Radiologist. This report was verified electronically.
[2017-10-27 03:39] LABS: MEAN CELL VOLUME 75.7 FL (80.0-100.0); MEAN CORPUSCULAR HEMOGLOBIN 24.6 PG (27.0-34.0); MEAN CORPUSCULAR HGB CONC 32.6 % (32.0-36.0); MEAN PLATELET VOLUME 8.8 FL (7.0-11.0); PLATELET COUNT 150 TH/MM3 (150-450); RED BLOOD COUNT 2.66 MIL/MM3 (4.50-5.90); RED CELL DISTRIBUTION WIDTH 19.4 % (11.6-17.2); WHITE BLOOD COUNT 14.8 TH/MM3 (4.0-11.0)
[2017-10-27 04:04] LABS: HEMATOCRIT 20.1 % (39.0-51.0); HEMOGLOBIN 6.6 GM/DL (13.0-17.0)
[2017-10-27 04:24] LABS: BICARBONATE 32.4 MEQ/L (21.0-32.0); CALCIUM 7.3 MG/DL (8.5-10.1); CREATININE 0.91 MG/DL (0.60-1.30)
[2017-10-27 04:40] LABS: CALCIUM-PROTEIN CORRECTED 8.5 MG/DL (8.5-10.1)
[2017-10-27] MEDS: METOPROLOL TARTRATE 50 MG TAB PO SCH ×2 (05:38→14:42)
[2017-10-27] MEDS ORDERED: DEXTROSE 5% IN WATE 1000ML INJ 1,000 ML IV SCH (08:15)
--- NOTE | 2017-10-27 08:34 | HHI.CCPN ---
Subjective Remarks/Hospital Course this is a 56yM with baseline NYHA Class IV heart failure with EF 30% who sees Dr. Barbosa who has felt worse over the last few days with worsening shortness of breath. he also describes having bloody bowel movements with dark black and some bloody stools. he states it is hard to eat and he loses his appetite with some associated nausea and epigastric pain. denies vomiting. states his dyspnea at rest has not changed significantly. denies fever, chills. denies productive sputum or cough. states he cannot afford to follow up with any of his outpatient doctors, so he does not have additional appointments scheduled. he states he has felt short of breath for a "long time", even before his recent hospitalizations. In the emergency room, he was found to have a hgb 4, tachycardic in afib RVR, and per the ER physician report, he had a large amount of surekha melena in the rectal vault. he was given 4 units prbc in the ER. he states his fatigue may be "some better." The patient is a very poor historian, and a full history and ROS is difficult to obtain. he is admitted for active and hemodynamically significant GI bleed. 10/27 Patient was given 2L NS blouses overnight for hypotension , right IJ CVP line placed. Hgb 6.6 this morning scheduled to 3 units PRBC total. For EGD today / On Protonix drip. Objective Vital Signs Date Time Temp Pulse Resp B/P (MAP) Pulse Ox O2 Delivery O2 Flow Rate FiO2 10/27/17 06:26 97.3 135 23 102/70 10/27/17 06:00 100 10/26/17 20:56 Nasal Cannula 2.00 Intake and Output 10/27/17 10/27/17 10/27/17 07:59 15:59 23:59 Intake Total 1205 ml Output Total 800 ml Balance 405 ml Result Diagram: 10/27/17 0251 10/27/17 0310 Other Results Laboratory Tests Test 10/26/17 14:40 10/26/17 18:10 10/26/17 21:17 10/27/17 02:51 White Blood Count 13.5 TH/MM3 14.8 TH/MM3 Red Blood Count 1.81 MIL/MM3 2.66 MIL/MM3 Hemoglobin 4.3 GM/DL 7.1 GM/DL 6.6 GM/DL Hematocrit 13.9 % 21.2 % 20.1 % Mean Corpuscular Volume 76.7 FL 75.7 FL Mean Corpuscular Hemoglobin 23.8 PG 24.6 PG Mean Corpuscular Hemoglobin Concent 31.0 % 32.6 % Red Cell Distribution Width 16.2 % 19.4 % Platelet Count 175 TH/MM3 150 TH/MM3 Mean Platelet Volume 8.9 FL 8.8 FL Neutrophils (%) (Auto) 80.5 % Lymphocytes (%) (Auto) 12.5 % Monocytes (%) (Auto) 6.5 % Eosinophils (%) (Auto) 0.1 % Basophils (%) (Auto) 0.4 % Neutrophils # (Auto) 10.9 TH/MM3 Lymphocytes # (Auto) 1.7 TH/MM3 Monocytes # (Auto) 0.9 TH/MM3 Eosinophils # (Auto) 0.0 TH/MM3 Basophils # (Auto) 0.0 TH/MM3 CBC Comment DIFF FINAL Differential Comment Blood Urea Nitrogen 44 MG/DL Creatinine 1.23 MG/DL Random Glucose 134 MG/DL Calcium Level 8.0 MG/DL Sodium Level 153 MEQ/L Potassium Level 3.7 MEQ/L Chloride Level 115 MEQ/L Carbon Dioxide Level 31.2 MEQ/L Anion Gap 7 MEQ/L Estimat Glomerular Filtration Rate 74 ML/MIN Lactic Acid Level 3.6 mmol/L 1.1 mmol/L Total Creatine Kinase 145 U/L Creatine Kinase MB 1.3 NG/ML Troponin I 0.14 NG/ML Nasal Screen MRSA (PCR) MRSA NOT DETECTED Test 10/27/17 03:10 Blood Urea Nitrogen 35 MG/DL Creatinine 0.91 MG/DL Random Glucose 88 MG/DL Total Protein 5.0 GM/DL Calcium Level 7.3 MG/DL Sodium Level 156 MEQ/L Potassium Level 4.3 MEQ/L Chloride Level 120 MEQ/L Carbon Dioxide Level 32.4 MEQ/L Anion Gap 4 MEQ/L Estimat Glomerular Filtration Rate 104 ML/MIN Protein Corrected Calcium 8.5 MG/DL Imaging Last Impressions Chest X-Ray 10/27/17 0000 Signed Impressions: Service Date/Time: Friday, October 27, 2017 00:25 - CONCLUSION: 1. Uncomplicated line placement. No evidence of pneumothorax. 2. Right lower lobe atelectasis versus pneumonia. The findings have worsened when compared with the prior examination. Lex Burdick MD Objective Remarks GENERAL: Obese middle-aged male, lying in bed, mild distress due to dyspnea HEENT: Normocephalic. Atraumatic. Pupils equal, round, reactive, conjugate. Mucous membranes are moist NECK: Trachea is midline. +JVD CHEST: Equal chest rise. Mildly tachypneic. Mildly labored. Nasal cannula oxygen CARDIOVASCULAR: Tachycardic rate, irregularly irregular rhythm. A. fib by telemetry. ABDOMEN: Soft, nontender, nondistended. No guarding. MUSCULOSKELETAL: Pulses 2+. 3+ peripheral edema NEUROLOGICAL: RASS 0. CAM -. Follows commands. GCS 15. No focal deficits. A/P Assessment and Plan 1) Resp Insuff 2)GI bleed 3)Severe anemia 2nd acute blood loss 4)CMP- EF 30% 5)Afib RVR 6)Lactic acidemia- resolved 7)Hypernatremia 8)Leukocytosis.. 9)Hyperlipidemia 10)Hx CVA Plan Neuro: Awake and alert. Pulm: Continue with oxygen keep sat >92% Bronchodilators CV: Monitor HR and BP keep MAP>65mmHg On Cardizem CD 240mg daily, Lopressor 50mg Q8, Lipitor 80mg qhs Echo from 09/05 showed EF 30-35%. Cards consulted - Dr. Barbosa Hold ACEI given renal insufficiency ASA,Plavix, AC for Afib held for GI bleed. GI: Active GI bleed s/p 4 units prbc, scheduled to recieve 3 additional units PRBC serial h&h. Continue with Protonix drip. GI consulted for EGD today. : Monitor renal function, electrolytes replacement as needed, Place on D5W@84ml/hr, monitor sodium level. ID: Monitor for signs of infections ( Fever, WBC). Add Zosyn given worsening leukocytosis and CXR this morning showed RLL atelectasis vs pneumonia BC 10/26: NGTD. Check UA with cx if indicated, check sputum cx Heme: Monitor CBC, check coags. For additional transfusion 3units PRBC this morning Endo: SSI if needed for glycemic control GI prophylaxis- on Protonix drip. DVT prophylaxis- SCD.. Not on chemical AC prophylaxis due to GI bleed Lines: Right IJ placed this morning. Level 3 Katiuska Fregoso MD Oct 27, 2017 08:34
[2017-10-27] MEDS ORDERED: DEXTROSE 50% IN WATER 50 ML VIAL(D50) IV PUSH PRN (08:45)
[2017-10-27] MEDS ORDERED: GLUCAGON 1 MG/ML VIAL OTHER PRN (08:45)
[2017-10-27] MEDS: PANTOPRAZOLE INJ 80 MG in SODIUM CHLORIDE 0.9% INJ 100 ML IV SCH ×2 (08:46→20:40)
[2017-10-27] MEDS ORDERED: DILTIAZEM-CD 240 MG CAP ER PO SCH (09:00)
--- NOTE | 2017-10-27 09:38 | PD.CONS ---
HPI History of Present Illness This is a 56 year old male with NYHA class IV heart failure who presented with worsening SOB and 1 week history of blood in stool and black tarry stool. Prior to onset 1 week ago he has never had GIB before. Per EMR he was found to be tachycardic in AF with RVR and melanotic stool found on rectal exam. He is s/p 4 x PRBC. Has never had EGD or colonoscopy. Denies abd pain, n/v, blood thinners, NSAIDs. Pt is poor historian, hx mostly obtained from EMR. PFS Past Medical History denies any medical problems but per EMR has NYHA class IV heart failure Past Surgical History denies Coded Allergies: No Known Allergies (Verified Allergy, Unknown, 09/13/17) Family History unk Social History hx drinking and cigarettes but denies recent use no illicit drug use Review of Systems Gastrointestinal: COMPLAINS OF: Black stools, Bloody stools, DENIES: Abdominal pain, Nausea, Vomiting, Hematemesis otherwise noncontributory GI Exam Vitals I&O Vital Signs Date Time Temp Pulse Resp B/P (MAP) Pulse Ox O2 Delivery O2 Flow Rate FiO2 10/27/17 09:14 98.2 132 26 112/58 10/27/17 09:02 132 16 96/63 10/27/17 06:26 97.3 135 23 102/70 10/27/17 06:00 97.4 135 20 105/58 (74) 100 10/27/17 06:00 132 10/27/17 05:00 134 17 108/68 (81) 99 10/27/17 04:00 134 10/27/17 04:00 98.2 134 14 105/68 (80) 97 10/27/17 03:00 133 11 109/64 (79) 99 10/27/17 02:00 133 10/27/17 02:00 132 16 107/71 (83) 100 10/27/17 01:00 132 17 106/69 (81) 100 10/27/17 00:33 132 98/54 10/27/17 00:00 132 21 137/94 (108) 100 10/27/17 00:00 132 10/26/17 23:24 133 79/58 10/26/17 23:03 133 99/53 10/26/17 23:00 132 21 79/52 (61) 100 10/26/17 23:00 132 10/26/17 22:00 139 10/26/17 22:00 140 25 104/59 (74) 99 10/26/17 21:00 138 22 100/57 (71) 100 10/26/17 20:56 100 Nasal Cannula 2.00 10/26/17 20:00 98.6 140 10/26/17 20:00 140 10/26/17 20:00 98.6 19 19 95/54 (68) 100 10/26/17 19:00 98.6 141 20 94/60 (71) 100 10/26/17 18:15 98.7 142 22 98/59 (72) 100 10/26/17 18:00 10/26/17 17:30 99.2 141 24 109/56 10/26/17 17:15 99.2 141 24 109/58 97 10/26/17 17:06 142 106/57 10/26/17 17:00 99.0 142 22 106/57 10/26/17 16:45 99.0 143 23 101/56 98 10/26/17 16:31 99.0 144 24 130/63 98 10/26/17 16:15 99.3 144 20 121/67 10/26/17 16:11 143 124/67 10/26/17 16:00 100.0 143 24 124/67 97 10/26/17 15:48 144 24 117/64 (81) 100 Nasal Cannula 2.00 10/26/17 15:46 144 117/64 10/26/17 15:06 145 28 113/63 (80) 96 Nasal Cannula 2.00 10/26/17 14:40 145 28 96 Nasal Cannula 2.00 10/26/17 14:15 101.3 148 28 112/65 (81) 100 I/O 10/26/17 10/26/17 10/26/17 10/27/17 10/27/17 10/27/17 07:00 15:00 23:00 07:00 15:00 23:00 Intake Total 2050 ml 1205 ml 100 ml Output Total 350 ml 800 ml Balance 1700 ml 405 ml 100 ml Intake Oral 50 ml IV Total 100 ml 1105 ml 100 ml Packed Cells 1600 ml Blood Product IV Normal Saline Flush 350 ml 50 ml Output Urine Total 350 ml 800 ml Stool Total 0 ml # Voids 1 Imaging Last Impressions Chest X-Ray 10/27/17 0000 Signed Impressions: Service Date/Time: Friday, October 27, 2017 00:25 - CONCLUSION: 1. Uncomplicated line placement. No evidence of pneumothorax. 2. Right lower lobe atelectasis versus pneumonia. The findings have worsened when compared with the prior examination. Lex Burdick MD Laboratory Test 10/26/17 14:40 10/26/17 18:10 10/26/17 21:17 10/27/17 02:51 White Blood Count 13.5 TH/MM3 14.8 TH/MM3 Red Blood Count 1.81 MIL/MM3 2.66 MIL/MM3 Hemoglobin 4.3 GM/DL 7.1 GM/DL 6.6 GM/DL Hematocrit 13.9 % 21.2 % 20.1 % Mean Corpuscular Volume 76.7 FL 75.7 FL Mean Corpuscular Hemoglobin 23.8 PG 24.6 PG Mean Corpuscular Hemoglobin Concent 31.0 % 32.6 % Red Cell Distribution Width 16.2 % 19.4 % Platelet Count 175 TH/MM3 150 TH/MM3 Mean Platelet Volume 8.9 FL 8.8 FL Neutrophils (%) (Auto) 80.5 % Lymphocytes (%) (Auto) 12.5 % Monocytes (%) (Auto) 6.5 % Eosinophils (%) (Auto) 0.1 % Basophils (%) (Auto) 0.4 % Neutrophils # (Auto) 10.9 TH/MM3 Lymphocytes # (Auto) 1.7 TH/MM3 Monocytes # (Auto) 0.9 TH/MM3 Eosinophils # (Auto) 0.0 TH/MM3 Basophils # (Auto) 0.0 TH/MM3 CBC Comment DIFF FINAL Differential Comment Blood Urea Nitrogen 44 MG/DL Creatinine 1.23 MG/DL Random Glucose 134 MG/DL Calcium Level 8.0 MG/DL Sodium Level 153 MEQ/L Potassium Level 3.7 MEQ/L Chloride Level 115 MEQ/L Carbon Dioxide Level 31.2 MEQ/L Anion Gap 7 MEQ/L Estimat Glomerular Filtration Rate 74 ML/MIN Lactic Acid Level 3.6 mmol/L 1.1 mmol/L Total Creatine Kinase 145 U/L Creatine Kinase MB 1.3 NG/ML Troponin I 0.14 NG/ML Nasal Screen MRSA (PCR) MRSA NOT DETECTED Test 10/27/17 03:10 Blood Urea Nitrogen 35 MG/DL Creatinine 0.91 MG/DL Random Glucose 88 MG/DL Total Protein 5.0 GM/DL Calcium Level 7.3 MG/DL Sodium Level 156 MEQ/L Potassium Level 4.3 MEQ/L Chloride Level 120 MEQ/L Carbon Dioxide Level 32.4 MEQ/L Anion Gap 4 MEQ/L Estimat Glomerular Filtration Rate 104 ML/MIN Protein Corrected Calcium 8.5 MG/DL Date/Time Source Procedure Growth Status 10/26/17 14:45 Blood Peripheral Aerobic Blood Culture Pending Received 10/26/17 14:45 Blood Peripheral Anaerobic Blood Culture Pending Received Physical Examination HEENT: PERRL; normocephalic; atraumatic; no jaundice. CHEST: Coarse CARDIAC: tachy ABDOMEN: Soft,distended, nontender; bowel sounds are present in all four quadrants. EXTREMITIES: No clubbing, cyanosis, or edema. SKIN: Normal; no rash; no jaundice. WINDOWS SERVER ADMINISTRATOR: No focal deficits; alert and oriented times three. Assessment and Plan Plan ASSESSMENT - anemia with 1 week hx melena, hematochezia - hypochromic microcytic anemia. UGIB. hgb 4.3 on admission. denies blood thinners, NSAIDS will do EGD. on protonix gtt - AF RVR, respiratory insufficiency, hypernatremia, heart failure, per [facility] PLAN - EGD today with cardiac clearance - obtain consent - NPO - continue protonix - monitor labs - transfuse as needed - further recs to follow pt seen by myself and Dr Strickland and this note on her behalf Claudia Noonan Oct 27, 2017 09:38
[2017-10-27] MEDS ORDERED: KETAMINE HCL 500 MG/5 ML VIAL ONE (12:02)
--- NOTE | 2017-10-27 12:22 | GIPROC ---
[facility] [address] [facility]. [facility], [address] EGD PROCEDURE REPORT EXAM DATE: 10/27/2017 PATIENT NAME: Eamon Boo MR #: [id number] BIRTHDATE: 1960 ATTENDING: Sarah Strickland MD ORDER #: [id number] DIETETIC INTERN: Isabel Kan RN STATUS: inpatient INDICATIONS: The patient is a 56 yr old male here for an EGD due to severe anemia, gi bleeding PROCEDURE PERFORMED: EGD w/ biopsy MEDICATIONS: None and Per Anesthesia. TOPICAL ANESTHETIC: none CONSENT: The patient understands the risks and benefits of the procedure and understands that these risks include, but are not limited to: sedation, allergic reaction, infection, perforation and/or bleeding. Alternative means of evaluation and treatment include, among others: physical exam, x-rays, and/or surgical intervention. The patient elects to proceed with this endoscopic procedure. medical equipment was checked for proper function. Hand hygiene and appropriate measures for infection prevention was taken. After the risks, benefits and alternatives of the procedure were thoroughly explained, Informed consent was verified, confirmed and timeout was successfully executed by the treatment team. The patient was anesthetized with topical anesthesia and the endoscope was introduced through the mouth and advanced to the second portion of the duodenum. Retroflexed views revealed a hiatal hernia The gastroscope was then slowly withdrawn and removed. Clean base ulcer antrum-1 cm -biopsy no active bleeding , no vissible vessel gastritis antrum portal gastropathy blood in oropharynx. ADVERSE EVENTS: There were no complications. IMPRESSIONS: 1. Clean base ulcer antrum-1 cm -biopsy no active bleeding , no vissible vessel gastritis antrum portal gastropathy blood in oropharynx 2. Retroflexed views revealed a hiatal hernia RECOMMENDATIONS: 1. Await biopsy results. Biopsy results will not be ready for 7-10 days. If you don't hear from us in two weeks, call our office for biopsy results. 2. Anti-reflux regimen 3. Continue PPI 4. Carafate 1 gm po bid ent consult clear liquid diet colonoscopy in 1-[address] abdomen/pelvis PATIENT CONDITION: stable DISPOSITION: Inpatient REPEAT EXAM: Return 6 weeks EGD Sarah Strickland MD eSigned: Sarah Strickland MD 10/27/2017 12:22 PM cc: PATIENT NAME: Eamon Boo MR#: [id number]
[2017-10-27] MEDS: INSULIN NovoLIN REGULAR SUPPLEMENTAL SCALE SQ SCH ×4 (12:45→23:48)
[2017-10-27 12:54] LABS: HEMATOCRIT 24.8 % (39.0-51.0); HEMOGLOBIN 8.3 GM/DL (13.0-17.0)
[2017-10-27 13:00] LABS: INTERNATIONAL NORMALIZED RATIO 1.2 RATIO
--- NOTE | 2017-10-27 13:10 | PD.CONS ---
HPI Consult Requested By Primary Care Physician Lenny Barbosa MD History of Present Illness 56-year-old male with a past medical history of CHF (nonischemic cardiomyopathy per chart), A. fib, CAD, HLD who presented for GI bleeding. Previous catheterization with bare metal stent by Dr. Barbosa in August. Was started on Eliquis at that time for atrial fibrillation. The patient presented with GI bleeding. Anticoagulants and antiplatelets currently held. Currently transfused 5 units PRBCs. Had EGD with GI today. The patient denies any chest pain, shortness of breath, or palpitations. He feels well and is asking to go home. Telemetry shows sinus tachycardia versus atrial flutter with rate 130. (Poli Marquez) Review of Systems Negative except as stated in the history of present illness. (Poli Marquez) Past Family Social History Allergies: Coded Allergies: No Known Allergies (Verified Allergy, Unknown, 09/13/17) Past Medical History Hypertension CVA x 2 prior Hyperlipidemia atrial fibrillation NYHA Class IV CHF, EF 30% Past Surgical History Cardiac catheterization 09/15/17 with direct bare metal stent to the ostial right coronary artery Reported Medications Reported Meds & Active Scripts Active Lipitor (Atorvastatin Calcium) 80 Mg Tab 80 Mg PO HS Torsemide 5 Mg Tab 10 Mg PO BID@09,18 Tgt Aspirin (Aspirin) 81 Mg Chw 81 Mg PO DAILY Ramipril 2.5 Mg Cap 2.5 Mg PO DAILY Diltiazem CD 24 HR 240 Mg Caper 240 Mg PO DAILY Lopressor (Metoprolol Tartrate) 50 Mg Tab 50 Mg PO Q8HR Plavix (Clopidogrel Bisulfate) 75 Mg Tab 75 Mg PO DAILY Eliquis (Apixaban) 5 Mg Tab 5 Mg PO BID Active Ordered Medications Current Medications Medications (Trade) Dose Ordered Sig/Carline Route Start Time Stop Time Status Last Admin Potassium Chloride 100 ml @ 50 mls/hr Q2H PRN IV 10/26/17 17:00 Potassium Chloride 100 ml @ 50 mls/hr Q2H PRN IV 10/26/17 17:00 (K-Lyte Cl Eff) 50 meq UNSCH PRN PO 10/26/17 17:00 Potassium Chloride 100 ml @ 25 mls/hr UNSCH PRN IV 10/26/17 17:00 Potassium Chloride 100 ml @ 50 mls/hr Q2H PRN IV 10/26/17 17:00 Magnesium Sulfate 4 gm/Sodium Chloride 100 ml @ 50 mls/hr UNSCH PRN IV 10/26/17 17:00 (Mag-Ox) 800 mg UNSCH PRN PO 10/26/17 17:00 Magnesium Sulfate 2 gm/Sodium Chloride 100 ml @ 50 mls/hr UNSCH PRN IV 10/26/17 17:00 (K-Phos) 2,000 mg Q4H PRN PO 10/26/17 17:00 Sodium Phosphate 30 mmol/Sodium Chloride 250 ml @ 42 mls/hr UNSCH PRN IV 10/26/17 17:00 (K-Phos) 2,000 mg UNSCH PRN PO/TUBE 10/26/17 17:00 Potassium Phosphate 30 mmol/ Sodium Chloride 260 ml @ 42 mls/hr UNSCH PRN IV 10/26/17 17:00 (Zofran Inj) 4 mg Q6H PRN IV PUSH 10/26/17 17:00 (Duoneb Neb) 1 ampule Q2HR NEB PRN INH 10/26/17 17:00 Miscellaneous Information 1 Q361D XX 10/26/17 17:00 (Chlorhexidine 2% Cloth) 3 pack Taper DAILY@04 TOP 10/27/17 04:00 10/23/18 03:59 10/26/17 22:06 (Chlorhexidine 2% Cloth) 3 pack UNSCH PRN TOP 10/26/17 17:00 (Lipitor) 80 mg HS PO 10/26/17 21:00 10/26/17 22:05 (Cardizem Cd) 240 mg DAILY PO 10/27/17 09:00 10/27/17 08:19 (Lopressor) 50 mg Q8HR PO 10/26/17 22:00 10/27/17 05:38 Pantoprazole Sodium 80 mg/ Sodium Chloride 100 ml @ 10 mls/hr Q10H IV 10/26/17 21:00 10/27/17 08:46 Phenylephrine HCl 40 mg/Dextrose 500 ml @ 30 mls/hr TITRATE PRN IV 10/27/17 00:00 10/27/17 00:33 (Brethine Inj) 1 mg UNSCH PRN SQ 10/27/17 00:00 Dextrose 1,000 ml @ 84 mls/hr [id number] IV 10/27/17 08:15 Piperacillin Sod/ Tazobactam Sod 100 ml @ 200 mls/hr Q6H IV 10/27/17 09:00 (D50w (Vial) Inj) 50 ml UNSCH PRN IV PUSH 10/27/17 08:45 (Glucagon Inj) 1 mg UNSCH PRN OTHER 10/27/17 08:45 (NovoLIN R SUPPLEMENTAL SCALE) 1 Q4H SQ 10/27/17 08:45 (Carafate Liq) 1 gm ACHS PO 10/27/17 17:00 Family History Noncontributory Social History Smokes about 1 pack a day, drinks socially. Denies using any illicit drugs. (Poli Marquez) Physical Exam Vital Signs Vital Signs Date Time Temp Pulse Resp B/P (MAP) Pulse Ox O2 Delivery O2 Flow Rate FiO2 10/27/17 11:46 97.5 133 16 95/66 97 10/27/17 11:44 97.5 133 16 95/66 98 10/27/17 10:30 132 10/27/17 10:30 132 17 105/61 (76) 100 10/27/17 10:30 132 10/27/17 10:00 131 10/27/17 10:00 131 24 95/50 (65) 100 10/27/17 10:00 131 10/27/17 09:30 132 10/27/17 09:30 132 17 99/57 (71) 97 10/27/17 09:30 132 10/27/17 09:14 98.2 132 26 112/58 10/27/17 09:02 132 16 96/63 10/27/17 09:00 132 10/27/17 09:00 132 18 96/63 (74) 10/27/17 09:00 132 10/27/17 08:30 130 10/27/17 08:30 130 17 100/73 (82) 10/27/17 08:30 130 10/27/17 08:00 100 Nasal Cannula 2.00 10/27/17 08:00 133 10/27/17 08:00 98.1 133 21 93/47 (62) 10/27/17 08:00 133 10/27/17 07:30 135 10/27/17 07:30 135 15 94/58 (70) 100 10/27/17 07:30 135 10/27/17 07:00 135 10/27/17 07:00 135 11 102/71 (81) 100 10/27/17 07:00 135 10/27/17 06:26 97.3 135 23 102/70 10/27/17 06:00 97.4 135 20 105/58 (74) 100 10/27/17 06:00 132 10/27/17 05:00 134 17 108/68 (81) 99 10/27/17 04:00 134 10/27/17 04:00 98.2 134 14 105/68 (80) 97 10/27/17 03:00 133 11 109/64 (79) 99 10/27/17 02:00 133 10/27/17 02:00 132 16 107/71 (83) 100 10/27/17 01:00 132 17 106/69 (81) 100 10/27/17 00:33 132 98/54 10/27/17 00:00 132 21 137/94 (108) 100 10/27/17 00:00 132 10/26/17 23:24 133 79/58 10/26/17 23:03 133 99/53 10/26/17 23:00 132 21 79/52 (61) 100 10/26/17 23:00 132 10/26/17 22:00 139 10/26/17 22:00 140 25 104/59 (74) 99 10/26/17 21:00 138 22 100/57 (71) 100 10/26/17 20:56 100 Nasal Cannula 2.00 10/26/17 20:00 98.6 140 10/26/17 20:00 140 10/26/17 20:00 98.6 19 19 95/54 (68) 100 10/26/17 19:00 98.6 141 20 94/60 (71) 100 10/26/17 18:15 98.7 142 22 98/59 (72) 100 10/26/17 18:00 10/26/17 17:30 99.2 141 24 109/56 10/26/17 17:15 99.2 141 24 109/58 97 10/26/17 17:06 142 106/57 10/26/17 17:00 99.0 142 22 106/57 10/26/17 16:45 99.0 143 23 101/56 98 10/26/17 16:31 99.0 144 24 130/63 98 10/26/17 16:15 99.3 144 20 121/67 10/26/17 16:11 143 124/67 10/26/17 16:00 100.0 143 24 124/67 97 10/26/17 15:48 144 24 117/64 (81) 100 Nasal Cannula 2.00 10/26/17 15:46 144 117/64 10/26/17 15:06 145 28 113/63 (80) 96 Nasal Cannula 2.00 10/26/17 14:40 145 28 96 Nasal Cannula 2.00 10/26/17 14:15 101.3 148 28 112/65 (81) 100 Physical Exam GENERAL: Well-developed well-nourished. In no acute distress. NECK: No carotid bruits. No JVD. CARDIOVASCULAR: Regular tachycardic rate and regular rhythm. No murmur appreciated. RESPIRATORY: No accessory muscle use. Clear to auscultation. Breath sounds equal bilaterally. MUSCULOSKELETAL: No clubbing or cyanosis. No edema. NEUROLOGICAL: Awake and alert. Normal speech. Laboratory Laboratory Tests Test 10/26/17 14:40 10/26/17 18:10 10/26/17 21:17 10/27/17 02:51 White Blood Count 13.5 14.8 Red Blood Count 1.81 2.66 Hemoglobin 4.3 7.1 6.6 Hematocrit 13.9 21.2 20.1 Mean Corpuscular Volume 76.7 75.7 Mean Corpuscular Hemoglobin 23.8 24.6 Mean Corpuscular Hemoglobin Concent 31.0 32.6 Red Cell Distribution Width 16.2 19.4 Platelet Count 175 150 Mean Platelet Volume 8.9 8.8 Neutrophils (%) (Auto) 80.5 Lymphocytes (%) (Auto) 12.5 Monocytes (%) (Auto) 6.5 Eosinophils (%) (Auto) 0.1 Basophils (%) (Auto) 0.4 Neutrophils # (Auto) 10.9 Lymphocytes # (Auto) 1.7 Monocytes # (Auto) 0.9 Eosinophils # (Auto) 0.0 Basophils # (Auto) 0.0 CBC Comment DIFF FINAL Differential Comment Blood Urea Nitrogen 44 Creatinine 1.23 Random Glucose 134 Calcium Level 8.0 Sodium Level 153 Potassium Level 3.7 Chloride Level 115 Carbon Dioxide Level 31.2 Anion Gap 7 Estimat Glomerular Filtration Rate 74 Lactic Acid Level 3.6 1.1 Total Creatine Kinase 145 Creatine Kinase MB 1.3 Troponin I 0.14 Nasal Screen MRSA (PCR) MRSA NOT DETECTED Test 10/27/17 03:10 10/27/17 11:15 Blood Urea Nitrogen 35 Creatinine 0.91 Random Glucose 88 Total Protein 5.0 Calcium Level 7.3 Sodium Level 156 Potassium Level 4.3 Chloride Level 120 Carbon Dioxide Level 32.4 Anion Gap 4 Estimat Glomerular Filtration Rate 104 Protein Corrected Calcium 8.5 Hemoglobin 8.3 Hematocrit 24.8 Prothrombin Time 12.0 Prothromb Time International Ratio 1.2 Activated Partial Thromboplast Time 27.2 Date/Time Source Procedure Growth Status 10/26/17 14:45 Blood Peripheral Aerobic Blood Culture - Preliminary NO GROWTH IN 1 DAY Resulted 10/26/17 14:45 Blood Peripheral Anaerobic Blood Culture - Preliminary NO GROWTH IN 1 DAY Resulted (Poli Marquez) Result Diagram: 10/27/17 1115 10/27/17 0310 Imaging Last Impressions Chest X-Ray 10/27/17 0000 Signed Impressions: Service Date/Time: Friday, October 27, 2017 00:25 - CONCLUSION: 1. Uncomplicated line placement. No evidence of pneumothorax. 2. Right lower lobe atelectasis versus pneumonia. The findings have worsened when compared with the prior examination. Lex Burdick MD (Poli Marquez) Assessment and Plan Assessment and Plan 56-year-old male with a past medical history of CHF (nonischemic cardiomyopathy per chart), A. fib, CAD, HLD who presented for GI bleeding. Previous catheterization with bare metal stent by Dr. Barbosa in August. Was started on Eliquis at that time for atrial fibrillation. The patient presented with GI bleeding. GI bleeding/anemia: Status post transfusion 5 units PRBCs with no signs of volume overload at this time. Anticoagulant/antiplatelet on hold. Hemoglobin is improving. GI workup in progress. History of atrial fibrillation: Chadsvasc 2 for hypertension and prior stroke. Eliquis on hold with bleeding as above. Currently on diltiazem 240 mg daily and metoprolol 50 mg 3 times a day. Chronic systolic CHF/nonischemic cardiomyopathy: Previous echo in August with EF 30-35%. Watch for signs of volume overload transfusions, diuresis needed. CAD: Status post stenting 09/05. Aspirin and Plavix currently on hold with bleeding as above. Continue statin and beta ludy. (Poli Marquez) Assessment and Plan Agree with above. Predominetly non-ischemic cardiomyopathy per report. EF 30%. CAD s/p PCI BMS by Dr. Barbosa in Aug 2017 5 weeks since BMS placed. Ok to hold plavix for now, but restart as soon as cleared to do so by GI. There is risk for stent thrombosis and myocardial infarction, although > 4 weeks post BMS should be endothelialized. Now with gastric ulcer and GIB. aflutter - RVR. DC BB due to hypotension. Change CCB to q6hrs to avoid long acting antihypertensive therapy in setting of GIB. no anticoagulant. Digoxin IV +PO. Cr normal. Follow dig level (Flex Fuentes MD) Poli Marquez Oct 27, 2017 13:10 Flex Fuentes MD Oct 27, 2017 16:29
[2017-10-27] MEDS ORDERED: SODIUM CHLOR 0.9% 1000 ML INJ 1,000 ML IV SCH (13:33)
[2017-10-27] MEDS ORDERED: oxyCODONE/ACETAMINOPHEN 5 MG/325 MG TAB PO PRN ×2 (13:45)
[2017-10-27] MEDS ORDERED: ATROPINE SULFATE 1 MG/ML VIAL IV PUSH PRN (13:45)
[2017-10-27] MEDS ORDERED: BACITRACIN OINT 0.9 GM PKT TOP ONE (13:45)
[2017-10-27] MEDS ORDERED: LIDOCAINE HCL 1% 50 ML VIAL INFIL PRN (13:45)
[2017-10-27] MEDS ORDERED: SODIUM CHLOR 0.9% 250 ML INJ 250 ML IV PRN (13:45)
[2017-10-27] MEDS ORDERED: LORazepam 2 MG/ML VIAL IV PUSH PRN (13:45)
[2017-10-27] MEDS ORDERED: MISC INFORMATION XX ONE (13:45)
[2017-10-27] MEDS: PIPERACIL-TAZO 4.5 GM PREMIX 100 ML IV SCH ×2 (14:42→20:40)
[2017-10-27] MEDS ORDERED: DIGOXIN 0.5 MG/2 ML VIAL IVS STA (16:21)
[2017-10-27 16:45] LABS: HEMATOCRIT 26.2 % (39.0-51.0); HEMOGLOBIN 8.9 GM/DL (13.0-17.0)
[2017-10-27] MEDS: SUCRALFATE 1 GM/10 ML CUP PO SCH ×2 (17:33→20:40)
[2017-10-27] MEDS ORDERED: DIATRIZOATE MEGLUM/DIATRIZOATE SOD 9 ML CUP PO ONE (18:29)
[2017-10-27] MEDS: DILTIAZEM HCL 90 MG TAB PO SCH ×2 (18:54→23:48)
--- NOTE | 2017-10-27 19:12 | EKG ---
Date Performed: 10/26/2017 Time Performed: 14:16:07 PTAGE: 56 years EKG: ATRIAL FLUTTER/TACHYCARDIA WITH RAPID VENTRICULAR RESPONSE WITH ABERRANT CONDUCTION OR VENT RICULAR PREMATURE COMPLEXES POSSIBLE RIGHT VENTRICULAR CONDUCTION DELAY NONSPECIFIC ST & T-WAVE ABNOR MALITY Compared to previous tracing, the patient is now in atrial flutter with rapid ventricular rate ABNORMAL ECG PREVIOUS TRACING : 09/16/2017 05.28 DOCTOR: Trixie Urban Interpretating Date/Time 10/27/2017 19:10:37
[2017-10-27] MEDS: ATORVASTATIN 80 MG TAB PO SCH (20:40)
[2017-10-28] VITALS (26 sets, daily range): BP systolic 89–160; BP diastolic 57–107; PULSE 102–130; RESP 15–25; TEMP 97.7–98.7; O2SAT 87–99
[2017-10-28] MEDS ORDERED: IOHEXOL 350 MG/ML 10 ML VIAL (for RAD DIAG) IVCONTRAST ONE (02:03)
--- NOTE | 2017-10-28 02:13 | RADRPT ---
EXAM DATE/TIME: 10/28/2017 01:40 [facility] COMPARISON: No previous studies available for comparison. INDICATIONS : Anemia; possible GI bleed. IV CONTRAST: 97 cc Omnipaque 350 (iohexol) IV ORAL CONTRAST: Partial prescribed oral contrast ingested. RADIATION DOSE: 18.80 CTDIvol (mGy) MEDICAL HISTORY : Cardiovascular disease. Cerebrovascular disease. Hypertension. SURGICAL HISTORY : None. ENCOUNTER: Initial ACUITY: 2 days PAIN SCALE: 5/10 LOCATION: abdomen TECHNIQUE: Volumetric scanning of the abdomen and pelvis was performed. Using automated exposure control and ad justment of the mA and/or kV according to patient size, radiation dose was kept as low as reasonably achievable to obtain optimal diagnostic quality images. DICOM format image data is available electro nically for review and comparison. FINDINGS: A small right sided effusion is present. There is bilateral lower lobe atelectasis versus pneumonia right greater than left. Small amount of ascites is present over the dome of the liver. The liver and spleen are normal in size and no focal defects are identified. The gallbladder and pancreas are unre markable. No intrahepatic or extrahepatic ductal dilatation is seen. The adrenal glands and kidneys a ppear normal bilaterally. No hydronephrosis or mass lesions are identified. Examination of the pelvis demonstrates no evidence of free fluid or pelvic mass. No abnormally enlarg ed inguinal or retroperitoneal lymph nodes are present. The bladder is unremarkable. CONCLUSION: 1. No evidence of acute abdominal or pelvic process. No masses are identified. 2. Trace ascites 3. Right lower lobe atelectasis versus pneumonia. Lex Burdick MD on October 28, 2017 at 2:07 Board Certified Radiologist. This report was verified electronically.
[2017-10-28] MEDS: CHLORHEXIDINE GLUCONATE 2 % 1 PACK (2 CLOTHS) TOP SCH (02:28)
[2017-10-28] MEDS: PANTOPRAZOLE INJ 80 MG in SODIUM CHLORIDE 0.9% INJ 100 ML IV SCH (03:00)
[2017-10-28] MEDS: INSULIN NovoLIN REGULAR SUPPLEMENTAL SCALE SQ SCH ×5 (04:06→20:45)
[2017-10-28] MEDS: PIPERACIL-TAZO 4.5 GM PREMIX 100 ML IV SCH ×4 (04:06→22:04)
[2017-10-28 04:51] LABS: HEMATOCRIT 26.4 % (39.0-51.0); HEMOGLOBIN 8.6 GM/DL (13.0-17.0); MEAN CELL VOLUME 78.8 FL (80.0-100.0); MEAN CORPUSCULAR HEMOGLOBIN 25.6 PG (27.0-34.0); MEAN CORPUSCULAR HGB CONC 32.5 % (32.0-36.0); MEAN PLATELET VOLUME 8.7 FL (7.0-11.0); PLATELET COUNT 145 TH/MM3 (150-450); RED BLOOD COUNT 3.36 MIL/MM3 (4.50-5.90); RED CELL DISTRIBUTION WIDTH 19.4 % (11.6-17.2); WHITE BLOOD COUNT 12.8 TH/MM3 (4.0-11.0)
[2017-10-28] MEDS: DILTIAZEM HCL 90 MG TAB PO SCH ×4 (05:30→23:42)
[2017-10-28 05:39] LABS: BICARBONATE 30.2 MEQ/L (21.0-32.0); CALCIUM 7.7 MG/DL (8.5-10.1); CREATININE 0.95 MG/DL (0.60-1.30); DIGOXIN 1.1 NG/ML (0.8-2.0)
--- NOTE | 2017-10-28 08:00 | HHI.CCPN ---
Subjective Remarks/Hospital Course this is a 56yM with baseline NYHA Class IV heart failure with EF 30% who sees Dr. Barbosa who has felt worse over the last few days with worsening shortness of breath. he also describes having bloody bowel movements with dark black and some bloody stools. he states it is hard to eat and he loses his appetite with some associated nausea and epigastric pain. denies vomiting. states his dyspnea at rest has not changed significantly. denies fever, chills. denies productive sputum or cough. states he cannot afford to follow up with any of his outpatient doctors, so he does not have additional appointments scheduled. he states he has felt short of breath for a "long time", even before his recent hospitalizations. In the emergency room, he was found to have a hgb 4, tachycardic in afib RVR, and per the ER physician report, he had a large amount of surekha melena in the rectal vault. he was given 4 units prbc in the ER. he states his fatigue may be "some better." The patient is a very poor historian, and a full history and ROS is difficult to obtain. he is admitted for active and hemodynamically significant GI bleed. 10/27 Patient was given 2L NS blouses overnight for hypotension , right IJ CVP line placed. Hgb 6.6 this morning scheduled to 3 units PRBC total. For EGD today / On Protonix drip. 10/28 No events overnight, s/p EGD yesterday showed clean base ulcer antrum-1 cm - biopsy no active bleeding , no visible vessel, gastritis, portal gastropathy and hiatal hernia. Remains on Protonix drip. Hgb 8.6 this morning. Objective Vital Signs Date Time Temp Pulse Resp B/P (MAP) Pulse Ox O2 Delivery O2 Flow Rate FiO2 10/28/17 06:00 129 10/28/17 04:00 97.7 20 114/78 (90) 92 10/28/17 03:59 Nasal Cannula 4.00 Intake and Output 10/28/17 10/28/17 10/29/17 08:00 16:00 00:00 Intake Total 1700 ml Output Total 225 ml Balance 1475 ml Result Diagram: 10/28/17 0400 10/28/17 0400 Other Results Laboratory Tests Test 10/27/17 11:15 10/27/17 15:56 10/28/17 04:00 Hemoglobin 8.3 GM/DL 8.9 GM/DL 8.6 GM/DL Hematocrit 24.8 % 26.2 % 26.4 % Prothrombin Time 12.0 SEC Prothromb Time International Ratio 1.2 RATIO Activated Partial Thromboplast Time 27.2 SEC White Blood Count 12.8 TH/MM3 Red Blood Count 3.36 MIL/MM3 Mean Corpuscular Volume 78.8 FL Mean Corpuscular Hemoglobin 25.6 PG Mean Corpuscular Hemoglobin Concent 32.5 % Red Cell Distribution Width 19.4 % Platelet Count 145 TH/MM3 Mean Platelet Volume 8.7 FL Blood Urea Nitrogen 18 MG/DL Creatinine 0.95 MG/DL Random Glucose 105 MG/DL Calcium Level 7.7 MG/DL Sodium Level 146 MEQ/L Potassium Level 3.9 MEQ/L Chloride Level 110 MEQ/L Carbon Dioxide Level 30.2 MEQ/L Anion Gap 6 MEQ/L Estimat Glomerular Filtration Rate 99 ML/MIN Digoxin Level 1.1 NG/ML Imaging Last Impressions Chest X-Ray 10/27/17 0000 Signed Impressions: Service Date/Time: Friday, October 27, 2017 00:25 - CONCLUSION: 1. Uncomplicated line placement. No evidence of pneumothorax. 2. Right lower lobe atelectasis versus pneumonia. The findings have worsened when compared with the prior examination. Lex Burdick MD Abdomen/Pelvis CT 10/27/17 0000 Signed Impressions: Service Date/Time: Saturday, October 28, 2017 01:40 - CONCLUSION: 1. No evidence of acute abdominal or pelvic process. No masses are identified. 2. Trace ascites 3. Right lower lobe atelectasis versus pneumonia. Lex Burdick MD Objective Remarks GENERAL: Obese middle-aged male, lying in bed, mild distress due to dyspnea HEENT: Normocephalic. Atraumatic. Pupils equal, round, reactive, conjugate. Mucous membranes are moist NECK: Trachea is midline. +JVD CHEST: Equal chest rise. Mildly tachypneic. Mildly labored. Nasal cannula oxygen CARDIOVASCULAR: Tachycardic rate, irregularly irregular rhythm. A. fib by telemetry. ABDOMEN: Soft, nontender, nondistended. No guarding. MUSCULOSKELETAL: Pulses 2+. 3+ peripheral edema NEUROLOGICAL: RASS 0. CAM -. Follows commands. GCS 15. No focal deficits. A/P Assessment and Plan 1) Resp Insuff 2)GI bleed 3)Anemia 2nd acute blood loss 4)CMP- EF 30% 5)Afib RVR 6)Lactic acidemia- resolved 7)Hypernatremia- improved 8)Leukocytosis.. 9)Hyperlipidemia 10)Hx CVA Plan Neuro: Awake and alert. Pulm: Continue with oxygen keep sat >92% Bronchodilators CV: Monitor HR and BP keep MAP>65mmHg On Cardizem 90mg Q6, Digoxin 0.25mg daily, Lipitor 80mg qhs Echo from 09/05 showed EF 30-35%. Cards is following-Dr. Fuentes Hold ACEI given renal insufficiency ASA,Plavix, AC for Afib held for GI bleed. GI: Active GI bleed s/p 7 units prbc total since admission Change Protonix drip to 40mg IV BID. s/p EGD yesterday showed clean base ulcer antrum-1 cm -biopsy no active bleeding , no visible vessel, gastritis, portal gastropathy and hiatal hernia. : Monitor renal function, electrolytes replacement as needed, d/c IVF, on clear liquid diet ID: Monitor for signs of infections ( Fever, WBC). On Zosyn, CXR yesterday showed RLL atelectasis vs pneumonia BC 10/26: NGTD., check sputum cx Heme: Monitor CBC, coags. s/p transfusion 7u PRBC total. Endo: SSI if needed for glycemic control GI prophylaxis- on Protonix drip. DVT prophylaxis- SCD.. Not on chemical AC prophylaxis due to GI bleed Lines: Right IJ placed 10/28 Level 3 Katiuska Fregoso MD Oct 28, 2017 08:00
--- NOTE | 2017-10-28 08:18 | PD.CARD.PN ---
Subjective Subjective Remarks No chest pain, shortness breath, palpitations, leg swelling. Heart rate remains atrial flutter rate 127. Objective Medications Current Medications Medications (Trade) Dose Ordered Sig/Carline Route Start Time Stop Time Status Last Admin Potassium Chloride 100 ml @ 50 mls/hr Q2H PRN IV 10/26/17 17:00 Potassium Chloride 100 ml @ 50 mls/hr Q2H PRN IV 10/26/17 17:00 (K-Lyte Cl Eff) 50 meq UNSCH PRN PO 10/26/17 17:00 Potassium Chloride 100 ml @ 25 mls/hr UNSCH PRN IV 10/26/17 17:00 Potassium Chloride 100 ml @ 50 mls/hr Q2H PRN IV 10/26/17 17:00 Magnesium Sulfate 4 gm/Sodium Chloride 100 ml @ 50 mls/hr UNSCH PRN IV 10/26/17 17:00 (Mag-Ox) 800 mg UNSCH PRN PO 10/26/17 17:00 Magnesium Sulfate 2 gm/Sodium Chloride 100 ml @ 50 mls/hr UNSCH PRN IV 10/26/17 17:00 (K-Phos) 2,000 mg Q4H PRN PO 10/26/17 17:00 Sodium Phosphate 30 mmol/Sodium Chloride 250 ml @ 42 mls/hr UNSCH PRN IV 10/26/17 17:00 (K-Phos) 2,000 mg UNSCH PRN PO/TUBE 10/26/17 17:00 Potassium Phosphate 30 mmol/ Sodium Chloride 260 ml @ 42 mls/hr UNSCH PRN IV 10/26/17 17:00 (Zofran Inj) 4 mg Q6H PRN IV PUSH 10/26/17 17:00 (Duoneb Neb) 1 ampule Q2HR NEB PRN INH 10/26/17 17:00 Miscellaneous Information 1 Q361D XX 10/26/17 17:00 (Chlorhexidine 2% Cloth) 3 pack Taper DAILY@04 TOP 10/27/17 04:00 10/23/18 03:59 10/28/17 02:28 (Chlorhexidine 2% Cloth) 3 pack UNSCH PRN TOP 10/26/17 17:00 (Lipitor) 80 mg HS PO 10/26/17 21:00 10/27/17 20:40 (Brethine Inj) 1 mg UNSCH PRN SQ 10/27/17 00:00 Piperacillin Sod/ Tazobactam Sod 100 ml @ 200 mls/hr Q6H IV 10/27/17 09:00 10/28/17 04:06 (D50w (Vial) Inj) 50 ml UNSCH PRN IV PUSH 10/27/17 08:45 (Glucagon Inj) 1 mg UNSCH PRN OTHER 10/27/17 08:45 (NovoLIN R SUPPLEMENTAL SCALE) 1 Q4H SQ 10/27/17 08:45 10/27/17 20:58 (Carafate Liq) 1 gm ACHS PO 10/27/17 17:00 10/27/17 20:40 (Lanoxin) 0.25 mg DAILY PO 10/28/17 09:00 (Cardizem) 90 mg Q6HR PO 10/27/17 18:00 10/28/17 05:30 (Protonix Inj) 40 mg Q12H IV PUSH 10/28/17 09:00 Vital Signs / I&O Vital Signs Date Time Temp Pulse Resp B/P (MAP) Pulse Ox O2 Delivery O2 Flow Rate FiO2 10/28/17 06:00 129 10/28/17 04:00 123 10/28/17 04:00 97.7 123 20 114/78 (90) 92 10/28/17 03:59 95 Nasal Cannula 4.00 10/28/17 02:00 120 10/28/17 00:00 98.4 124 18 108/70 (83) 95 10/28/17 00:00 124 10/27/17 23:59 97 Nasal Cannula 4.00 10/27/17 22:00 103 10/27/17 20:00 121 10/27/17 20:00 99.4 121 24 109/59 (76) 97 10/27/17 19:45 98 Nasal Cannula 4.00 10/27/17 18:00 119 22 87/49 (62) 90 10/27/17 18:00 119 10/27/17 17:30 120 28 104/67 (79) 92 10/27/17 17:00 124 15 96/60 (72) 92 10/27/17 17:00 125 10/27/17 16:00 126 10/27/17 16:00 98.6 126 18 112/66 (81) 89 10/27/17 15:00 129 10/27/17 15:00 129 19 109/90 (96) 10/27/17 14:43 131 18 145/77 (99) 10/27/17 14:00 130 10/27/17 14:00 130 29 101/77 (85) 10/27/17 13:00 129 15 89/65 (73) 10/27/17 13:00 129 10/27/17 12:38 130 21 99/70 (80) 100 10/27/17 12:36 98.4 130 23 112/63 (79) 100 10/27/17 11:46 97.5 133 16 95/66 97 10/27/17 11:44 97.5 133 16 95/66 98 10/27/17 11:44 133 16 95/66 (76) 95 10/27/17 11:30 133 26 109/68 (82) 63 10/27/17 11:00 131 10/27/17 11:00 131 15 104/79 (87) 100 10/27/17 10:30 132 10/27/17 10:30 132 17 105/61 (76) 100 10/27/17 10:30 132 10/27/17 10:00 131 10/27/17 10:00 131 24 95/50 (65) 100 10/27/17 10:00 131 10/27/17 09:30 132 10/27/17 09:30 132 17 99/57 (71) 97 10/27/17 09:30 132 10/27/17 09:14 98.2 132 26 112/58 10/27/17 09:02 132 16 96/63 10/27/17 09:00 132 10/27/17 09:00 132 18 96/63 (74) 10/27/17 09:00 132 10/27/17 08:30 130 10/27/17 08:30 130 17 100/73 (82) 10/27/17 08:30 130 I/O 10/27/17 10/27/17 10/27/17 10/28/17 10/28/17 10/28/17 07:00 15:00 23:00 07:00 15:00 23:00 Intake Total 1205 ml 900 ml 2880 ml 1700 ml Output Total 800 ml 800 ml 225 ml Balance 405 ml 900 ml 2080 ml 1475 ml Intake Oral 50 ml 2880 ml 1200 ml IV Total 1105 ml 100 ml 500 ml Packed Cells 800 ml Blood Product IV Normal Saline Flush 50 ml Output Urine Total 800 ml 800 ml 225 ml Stool Total 0 ml 0 ml # Voids 1 # Bowel Movements 1 Physical Exam GENERAL: Well-developed well-nourished. In no acute distress. NECK: No carotid bruits. No JVD. CARDIOVASCULAR: Tachycardic irregular rate and irregular rhythm. No murmur appreciated. RESPIRATORY: No accessory muscle use. Clear to auscultation. Breath sounds equal bilaterally. MUSCULOSKELETAL: No clubbing or cyanosis. No edema. NEUROLOGICAL: Awake and alert. Normal speech. Laboratory Laboratory Tests Test 10/27/17 11:15 10/27/17 15:56 10/28/17 04:00 Hemoglobin 8.3 GM/DL 8.9 GM/DL 8.6 GM/DL Hematocrit 24.8 % 26.2 % 26.4 % Prothrombin Time 12.0 SEC Prothromb Time International Ratio 1.2 RATIO Activated Partial Thromboplast Time 27.2 SEC White Blood Count 12.8 TH/MM3 Red Blood Count 3.36 MIL/MM3 Mean Corpuscular Volume 78.8 FL Mean Corpuscular Hemoglobin 25.6 PG Mean Corpuscular Hemoglobin Concent 32.5 % Red Cell Distribution Width 19.4 % Platelet Count 145 TH/MM3 Mean Platelet Volume 8.7 FL Blood Urea Nitrogen 18 MG/DL Creatinine 0.95 MG/DL Random Glucose 105 MG/DL Calcium Level 7.7 MG/DL Sodium Level 146 MEQ/L Potassium Level 3.9 MEQ/L Chloride Level 110 MEQ/L Carbon Dioxide Level 30.2 MEQ/L Anion Gap 6 MEQ/L Estimat Glomerular Filtration Rate 99 ML/MIN Digoxin Level 1.1 NG/ML Imaging Last Impressions Chest X-Ray 10/27/17 0000 Signed Impressions: Service Date/Time: Friday, October 27, 2017 00:25 - CONCLUSION: 1. Uncomplicated line placement. No evidence of pneumothorax. 2. Right lower lobe atelectasis versus pneumonia. The findings have worsened when compared with the prior examination. Lex Burdick MD Abdomen/Pelvis CT 10/27/17 0000 Signed Impressions: Service Date/Time: Saturday, October 28, 2017 01:40 - CONCLUSION: 1. No evidence of acute abdominal or pelvic process. No masses are identified. 2. Trace ascites 3. Right lower lobe atelectasis versus pneumonia. Lex Burdick MD Assessment and Plan Assessment and Plan 56-year-old male with a past medical history of CHF (nonischemic cardiomyopathy per chart), A. fib, CAD, HLD who presented for GI bleeding. Previous catheterization with bare metal stent by Dr. Barbosa in August. Was started on Eliquis at that time for atrial fibrillation. The patient presented with GI bleeding. GI bleeding/anemia: Status post transfusion 6 units PRBCs with no signs of volume overload at this time. Anticoagulant/antiplatelet on hold. Hemoglobin improved. Workup in progress. Atrial flutter with RVR: Diltiazem 90 mg. Digoxin loaded, continue oral. No anticoagulant with bleeding. BP soft.?tavares/dcc an option if tachycardia persists. Chronic systolic CHF/nonischemic cardiomyopathy: Predominately nonischemic cardiomyopathy per report. Previous echo in August with EF 30-35%. Watch for signs of volume overload transfusions, diuresis as needed. CAD: Status post stenting 09/05. hold plavix for now, but will need to restart Plavix as soon as cleared to do so to reduce risk of in-stent thrombosis. Continue statin. Poli Marquez Oct 28, 2017 08:18
[2017-10-28] MEDS: SUCRALFATE 1 GM/10 ML CUP PO SCH ×4 (08:58→22:04)
[2017-10-28] MEDS: DIGOXIN 0.25 MG TAB PO SCH (08:58)
[2017-10-28] MEDS: PANTOPRAZOLE SODIUM 40 MG VIAL IV PUSH SCH ×2 (08:59→22:04)
--- NOTE | 2017-10-28 13:17 | HHI.GIFU ---
Subjective Remarks Pt resting in bed, wants lunch (Claudia Noonan) Objective Vitals I&O Vital Signs Date Time Temp Pulse Resp B/P (MAP) Pulse Ox O2 Delivery O2 Flow Rate FiO2 10/28/17 10:00 124 20 100/65 (77) 95 10/28/17 10:00 126 10/28/17 09:22 97 Nasal Cannula 3.00 10/28/17 09:00 125 10/28/17 09:00 125 15 120/58 (78) 96 10/28/17 08:00 126 10/28/17 08:00 98.5 127 20 113/82 (92) 97 10/28/17 07:00 127 10/28/17 07:00 127 22 126/89 (101) 99 10/28/17 06:00 129 10/28/17 04:00 123 10/28/17 04:00 97.7 123 20 114/78 (90) 92 10/28/17 03:59 95 Nasal Cannula 4.00 10/28/17 02:00 120 10/28/17 00:00 98.4 124 18 108/70 (83) 95 10/28/17 00:00 124 10/27/17 23:59 97 Nasal Cannula 4.00 10/27/17 22:00 103 10/27/17 20:00 121 10/27/17 20:00 99.4 121 24 109/59 (76) 97 10/27/17 19:45 98 Nasal Cannula 4.00 10/27/17 18:00 119 22 87/49 (62) 90 10/27/17 18:00 119 10/27/17 17:30 120 28 104/67 (79) 92 10/27/17 17:00 124 15 96/60 (72) 92 10/27/17 17:00 125 10/27/17 16:00 126 10/27/17 16:00 98.6 126 18 112/66 (81) 89 10/27/17 15:00 129 10/27/17 15:00 129 19 109/90 (96) 10/27/17 14:43 131 18 145/77 (99) 10/27/17 14:00 130 10/27/17 14:00 130 29 101/77 (85) I/O 1/8/18 110/27/17 10/28/17 10/28/17 10/28/17 07:00 15:00 23:00 07:00 15:00 23:00 Intake Total 1205 ml 900 ml 2880 ml 1700 ml Output Total 800 ml 800 ml 225 ml Balance 405 ml 900 ml 2080 ml 1475 ml Intake Oral 50 ml 2880 ml 1200 ml IV Total 1105 ml 100 ml 500 ml Packed Cells 800 ml Blood Product IV Normal Saline Flush 50 ml Output Urine Total 800 ml 800 ml 225 ml Stool Total 0 ml 0 ml # Voids 1 # Bowel Movements 1 Laboratory Laboratory Tests Test 10/27/17 15:56 10/28/17 04:00 Hemoglobin 8.9 8.6 Hematocrit 26.2 26.4 White Blood Count 12.8 Red Blood Count 3.36 Mean Corpuscular Volume 78.8 Mean Corpuscular Hemoglobin 25.6 Mean Corpuscular Hemoglobin Concent 32.5 Red Cell Distribution Width 19.4 Platelet Count 145 Mean Platelet Volume 8.7 Blood Urea Nitrogen 18 Creatinine 0.95 Random Glucose 105 Calcium Level 7.7 Sodium Level 146 Potassium Level 3.9 Chloride Level 110 Carbon Dioxide Level 30.2 Anion Gap 6 Estimat Glomerular Filtration Rate 99 Digoxin Level 1.1 Date/Time Source Procedure Growth Status 10/26/17 14:45 Blood Peripheral Aerobic Blood Culture - Preliminary NO GROWTH IN 2 DAYS Resulted 10/26/17 14:45 Blood Peripheral Anaerobic Blood Culture - Preliminary NO GROWTH IN 2 DAYS Resulted Imaging Last Impressions Chest X-Ray 10/27/17 0000 Signed Impressions: Service Date/Time: Friday, October 27, 2017 00:25 - CONCLUSION: 1. Uncomplicated line placement. No evidence of pneumothorax. 2. Right lower lobe atelectasis versus pneumonia. The findings have worsened when compared with the prior examination. Lex Burdick MD Abdomen/Pelvis CT 10/27/17 0000 Signed Impressions: Service Date/Time: Saturday, October 28, 2017 01:40 - CONCLUSION: 1. No evidence of acute abdominal or pelvic process. No masses are identified. 2. Trace ascites 3. Right lower lobe atelectasis versus pneumonia. Lex Burdick MD Physical Exam HEENT: PERRL; normocephalic; atraumatic; no jaundice. CHEST: CTA CARDIAC: RRR ABDOMEN: Soft,distended, nontender; no hepatosplenomegaly; bowel sounds are present in all four quadrants. EXTREMITIES: No clubbing, cyanosis, or edema. SKIN: Normal; no rash; no jaundice. 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 UGIB. hgb 4.3 on admission. denies blood thinners, NSAIDS s/p EGD found clean based ulcer no bleeding or visible vessel, portal gastropathy, blood in oropharynx, ENT consulted. colonoscopy recommended but pt refusing. CT showed trace ascites, no acute abd findings. no active bleeding. - AF RVR, respiratory insufficiency, hypernatremia, heart failure, per [facility] - await ENT consult - continue protonix - monitor labs - transfuse as needed -supportive care pt seen by myself and Dr Strickland and this note on her behalf (Claudia Noonan) Claudia Noonan Oct 28, 2017 13:16 Sarah Strickland MD Oct 28, 2017 18:46
[2017-10-28] MEDS ORDERED: FUROSEMIDE 40 MG/4 ML VIAL IV PUSH ONE (14:30)
[2017-10-28] MEDS: ATORVASTATIN 80 MG TAB PO SCH (22:04)
[2017-10-29] VITALS (30 sets, daily range): BP systolic 100–178; BP diastolic 53–93; PULSE 105–135; RESP 11–33; TEMP 98.7–99.5; O2SAT 79–100
[2017-10-29] MEDS: INSULIN NovoLIN REGULAR SUPPLEMENTAL SCALE SQ SCH ×6 (00:45→20:45)
[2017-10-29] MEDS: PIPERACIL-TAZO 4.5 GM PREMIX 100 ML IV SCH ×4 (03:29→21:39)
[2017-10-29] MEDS: CHLORHEXIDINE GLUCONATE 2 % 1 PACK (2 CLOTHS) TOP SCH (03:29)
[2017-10-29 03:46] LABS: AUTOMATED NEUTROPHIL # 8.5 TH/MM3 (1.8-7.7); BASOPHIL # 0.1 TH/MM3 (0-0.2); BASOPHIL % 0.6 % (0.0-2.0); EOSINOPHIL # 0.4 TH/MM3 (0-0.4); EOSINOPHIL % 3.3 % (0.0-4.0); HEMATOCRIT 29.6 % (39.0-51.0); HEMOGLOBIN 9.6 GM/DL (13.0-17.0); LYMPH % 15.1 % (9.0-44.0); LYMPHOCYTE # 1.8 TH/MM3 (1.0-4.8); MEAN CELL VOLUME 79.1 FL (80.0-100.0); MEAN CORPUSCULAR HEMOGLOBIN 25.6 PG (27.0-34.0); MEAN CORPUSCULAR HGB CONC 32.4 % (32.0-36.0); MEAN PLATELET VOLUME 7.4 FL (7.0-11.0); MONO % 9.7 % (0.0-8.0); MONOCYTE # 1.1 TH/MM3 (0-0.9); NEUT % 71.3 % (16.0-70.0); PLATELET COUNT 182 TH/MM3 (150-450); RED BLOOD COUNT 3.74 MIL/MM3 (4.50-5.90); RED CELL DISTRIBUTION WIDTH 19.3 % (11.6-17.2); WHITE BLOOD COUNT 11.9 TH/MM3 (4.0-11.0)
[2017-10-29 04:00] LABS: BICARBONATE 32.8 MEQ/L (21.0-32.0); CALCIUM 7.8 MG/DL (8.5-10.1); CREATININE 0.97 MG/DL (0.60-1.30)
[2017-10-29] MEDS: DILTIAZEM HCL 90 MG TAB PO SCH ×4 (05:02→23:55)
--- NOTE | 2017-10-29 08:09 | PD.CARD.PN ---
Subjective Subjective Remarks No chest pain, shortness breath, palpitations, leg swelling. Heart rate remains atrial flutter rate ~130. Ready to try full diet today. Wants to go home. (Poli Marquez) Objective Medications Current Medications Medications (Trade) Dose Ordered Sig/Carline Route Start Time Stop Time Status Last Admin Potassium Chloride 100 ml @ 50 mls/hr Q2H PRN IV 10/26/17 17:00 Potassium Chloride 100 ml @ 50 mls/hr Q2H PRN IV 10/26/17 17:00 (K-Lyte Cl Eff) 50 meq UNSCH PRN PO 10/26/17 17:00 Potassium Chloride 100 ml @ 25 mls/hr UNSCH PRN IV 10/26/17 17:00 Potassium Chloride 100 ml @ 50 mls/hr Q2H PRN IV 10/26/17 17:00 Magnesium Sulfate 4 gm/Sodium Chloride 100 ml @ 50 mls/hr UNSCH PRN IV 10/26/17 17:00 (Mag-Ox) 800 mg UNSCH PRN PO 10/26/17 17:00 Magnesium Sulfate 2 gm/Sodium Chloride 100 ml @ 50 mls/hr UNSCH PRN IV 10/26/17 17:00 (K-Phos) 2,000 mg Q4H PRN PO 10/26/17 17:00 Sodium Phosphate 30 mmol/Sodium Chloride 250 ml @ 42 mls/hr UNSCH PRN IV 10/26/17 17:00 (K-Phos) 2,000 mg UNSCH PRN PO/TUBE 10/26/17 17:00 Potassium Phosphate 30 mmol/ Sodium Chloride 260 ml @ 42 mls/hr UNSCH PRN IV 10/26/17 17:00 (Zofran Inj) 4 mg Q6H PRN IV PUSH 10/26/17 17:00 (Duoneb Neb) 1 ampule Q2HR NEB PRN INH 10/26/17 17:00 Miscellaneous Information 1 Q361D XX 10/26/17 17:00 (Chlorhexidine 2% Cloth) 3 pack Taper DAILY@04 TOP 10/27/17 04:00 10/23/18 03:59 10/29/17 03:29 (Chlorhexidine 2% Cloth) 3 pack UNSCH PRN TOP 10/26/17 17:00 (Lipitor) 80 mg HS PO 10/26/17 21:00 1/9/18 22:04 (Brethine Inj) 1 mg UNSCH PRN SQ 10/27/17 00:00 Piperacillin Sod/ Tazobactam Sod 100 ml @ 200 mls/hr Q6H IV 10/27/17 09:00 10/29/17 03:29 (D50w (Vial) Inj) 50 ml UNSCH PRN IV PUSH 10/27/17 08:45 (Glucagon Inj) 1 mg UNSCH PRN OTHER 10/27/17 08:45 (NovoLIN R SUPPLEMENTAL SCALE) 1 Q4H SQ 10/27/17 08:45 10/27/17 20:58 (Carafate Liq) 1 gm ACHS PO 10/27/17 17:00 10/28/17 22:04 (Lanoxin) 0.25 mg DAILY PO 10/28/17 09:00 10/28/17 08:58 (Cardizem) 90 mg Q6HR PO 10/27/17 18:00 10/29/17 05:02 (Protonix Inj) 40 mg Q12H IV PUSH 10/28/17 09:00 10/28/17 22:04 Vital Signs / I&O Vital Signs Date Time Temp Pulse Resp B/P (MAP) Pulse Ox O2 Delivery O2 Flow Rate FiO2 10/29/17 06:00 127 10/29/17 04:00 132 10/29/17 04:00 98.8 132 21 128/76 (93) 93 10/29/17 02:00 132 10/29/17 00:03 98.8 132 23 144/92 (109) 94 10/29/17 00:00 132 10/28/17 22:00 129 10/28/17 20:01 98.7 105 23 89/57 (68) 87 10/28/17 20:00 126 10/28/17 19:50 93 21 10/28/17 18:00 130 10/28/17 17:00 129 17 134/86 (102) 93 10/28/17 17:00 129 10/28/17 16:30 127 22 119/58 (78) 93 10/28/17 16:00 102 10/28/17 16:00 98.1 102 15 118/61 (80) 92 10/28/17 15:00 127 24 118/85 (96) 88 10/28/17 15:00 127 10/28/17 14:30 129 24 108/60 (76) 89 10/28/17 14:00 126 20 124/60 (81) 91 10/28/17 14:00 126 10/28/17 13:00 130 10/28/17 13:00 130 19 121/69 (86) 89 10/28/17 12:30 129 24 146/97 (113) 91 10/28/17 12:30 129 10/28/17 12:00 98.4 129 25 132/88 (103) 96 10/28/17 12:00 129 10/28/17 11:30 127 25 130/90 (103) 95 10/28/17 11:30 127 10/28/17 11:00 124 10/28/17 11:00 124 22 122/66 (84) 94 10/28/17 10:00 124 20 100/65 (77) 95 10/28/17 10:00 126 10/28/17 09:22 97 Nasal Cannula 3.00 10/28/17 09:00 125 10/28/17 09:00 125 15 120/58 (78) 96 I/O 10/28/17 10/28/17 10/28/17 10/29/17 10/29/17 10/29/17 07:00 15:00 23:00 07:00 15:00 23:00 Intake Total 1700 ml 200 ml 1960 ml 820 ml Output Total 225 ml 2075 ml 1650 ml Balance 1475 ml 200 ml -115 ml -830 ml Intake Oral 1200 ml 1860 ml 720 ml IV Total 500 ml 200 ml 100 ml 100 ml Output Urine Total 225 ml 2075 ml 1650 ml # Voids 1 4 # Bowel Movements 1 1 Physical Exam GENERAL: Well-developed well-nourished. In no acute distress. NECK: No carotid bruits. No JVD. CARDIOVASCULAR: Tachycardic irregular rate and irregular rhythm. No murmur appreciated. RESPIRATORY: No accessory muscle use. Clear to auscultation. Breath sounds equal bilaterally. MUSCULOSKELETAL: No clubbing or cyanosis. No edema. NEUROLOGICAL: Awake and alert. Normal speech. Laboratory Laboratory Tests Test 10/29/17 03:30 White Blood Count 11.9 TH/MM3 Red Blood Count 3.74 MIL/MM3 Hemoglobin 9.6 GM/DL Hematocrit 29.6 % Mean Corpuscular Volume 79.1 FL Mean Corpuscular Hemoglobin 25.6 PG Mean Corpuscular Hemoglobin Concent 32.4 % Red Cell Distribution Width 19.3 % Platelet Count 182 TH/MM3 Mean Platelet Volume 7.4 FL Neutrophils (%) (Auto) 71.3 % Lymphocytes (%) (Auto) 15.1 % Monocytes (%) (Auto) 9.7 % Eosinophils (%) (Auto) 3.3 % Basophils (%) (Auto) 0.6 % Neutrophils # (Auto) 8.5 TH/MM3 Lymphocytes # (Auto) 1.8 TH/MM3 Monocytes # (Auto) 1.1 TH/MM3 Eosinophils # (Auto) 0.4 TH/MM3 Basophils # (Auto) 0.1 TH/MM3 CBC Comment DIFF FINAL Differential Comment Blood Urea Nitrogen 11 MG/DL Creatinine 0.97 MG/DL Random Glucose 102 MG/DL Calcium Level 7.8 MG/DL Sodium Level 144 MEQ/L Potassium Level 3.4 MEQ/L Chloride Level 105 MEQ/L Carbon Dioxide Level 32.8 MEQ/L Anion Gap 6 MEQ/L Estimat Glomerular Filtration Rate 97 ML/MIN Imaging Last Impressions Chest X-Ray 10/27/17 0000 Signed Impressions: Service Date/Time: Friday, October 27, 2017 00:25 - CONCLUSION: 1. Uncomplicated line placement. No evidence of pneumothorax. 2. Right lower lobe atelectasis versus pneumonia. The findings have worsened when compared with the prior examination. Lex Burdick MD Abdomen/Pelvis CT 10/27/17 0000 Signed Impressions: Service Date/Time: Saturday, October 28, 2017 01:40 - CONCLUSION: 1. No evidence of acute abdominal or pelvic process. No masses are identified. 2. Trace ascites 3. Right lower lobe atelectasis versus pneumonia. Lex Burdick MD (Poli Marquez) Assessment and Plan Assessment and Plan 56-year-old male with a past medical history of CHF (nonischemic cardiomyopathy per chart), A. fib, CAD, HLD who presented for GI bleeding. Previous catheterization with bare metal stent by Dr. Barbosa in August. Was started on Eliquis at that time for atrial fibrillation. The patient presented with GI bleeding. GI bleeding/anemia: Status post transfusion 7 units PRBCs with no signs of volume overload at this time. Anticoagulant/antiplatelet on hold. Hemoglobin improved. Workup in progress. Atrial flutter with RVR: Diltiazem 90 mg. Digoxin loaded, continue oral. No anticoagulant with bleeding. BP soft.?tavares/dcc an option if tachycardia persists. Chronic systolic CHF/nonischemic cardiomyopathy: Predominately nonischemic cardiomyopathy per report. Previous echo in August with EF 30-35%. Watch for signs of volume overload transfusions, diuresis as needed. CAD: Status post stenting 09/05. hold plavix for now, but will need to restart Plavix as soon as cleared to do so to reduce risk of in-stent thrombosis. Continue statin. (Poli Marquez) Assessment and Plan still RVR. add metoprolol 25 BID need GI clearance to add plavix back to regimen and at least asa 325, or anticoagulant NPO p MN. If still tachycardiac in am, plan for TAVARES/DCC and amiodarone. cannot chemically convert without TAVARES due to risk of cardioemboli. (Flex Fuentes MD) Poli Marquez Oct 29, 2017 08:09 Flex Fuentes MD Oct 29, 2017 08:24
--- NOTE | 2017-10-29 08:26 | HHI.CCPN ---
Subjective Remarks/Hospital Course this is a 56yM with baseline NYHA Class IV heart failure with EF 30% who sees Dr. Barbosa who has felt worse over the last few days with worsening shortness of breath. he also describes having bloody bowel movements with dark black and some bloody stools. he states it is hard to eat and he loses his appetite with some associated nausea and epigastric pain. denies vomiting. states his dyspnea at rest has not changed significantly. denies fever, chills. denies productive sputum or cough. states he cannot afford to follow up with any of his outpatient doctors, so he does not have additional appointments scheduled. he states he has felt short of breath for a "long time", even before his recent hospitalizations. In the emergency room, he was found to have a hgb 4, tachycardic in afib RVR, and per the ER physician report, he had a large amount of surekha melena in the rectal vault. he was given 4 units prbc in the ER. he states his fatigue may be "some better." The patient is a very poor historian, and a full history and ROS is difficult to obtain. he is admitted for active and hemodynamically significant GI bleed. 10/27 Patient was given 2L NS blouses overnight for hypotension , right IJ CVP line placed. Hgb 6.6 this morning scheduled to 3 units PRBC total. For EGD today / On Protonix drip. 10/28 No events overnight, s/p EGD yesterday showed clean base ulcer antrum-1 cm - biopsy no active bleeding , no visible vessel, gastritis, portal gastropathy and hiatal hernia. Remains on Protonix drip. Hgb 8.6 this morning. 10/29 Patient is lying in bed in NAD. H/H stable. Objective Vital Signs Date Time Temp Pulse Resp B/P (MAP) Pulse Ox O2 Delivery O2 Flow Rate FiO2 10/29/17 06:00 127 10/29/17 04:00 98.8 21 128/76 (93) 93 10/28/17 19:50 21 10/28/17 09:22 Nasal Cannula 3.00 Intake and Output 10/29/17 10/29/17 10/30/17 08:00 16:00 00:00 Intake Total 820 ml Output Total 1650 ml Balance -830 ml Result Diagram: 10/29/17 0330 10/29/17 0330 Other Results Laboratory Tests Test 10/29/17 03:30 White Blood Count 11.9 TH/MM3 Red Blood Count 3.74 MIL/MM3 Hemoglobin 9.6 GM/DL Hematocrit 29.6 % Mean Corpuscular Volume 79.1 FL Mean Corpuscular Hemoglobin 25.6 PG Mean Corpuscular Hemoglobin Concent 32.4 % Red Cell Distribution Width 19.3 % Platelet Count 182 TH/MM3 Mean Platelet Volume 7.4 FL Neutrophils (%) (Auto) 71.3 % Lymphocytes (%) (Auto) 15.1 % Monocytes (%) (Auto) 9.7 % Eosinophils (%) (Auto) 3.3 % Basophils (%) (Auto) 0.6 % Neutrophils # (Auto) 8.5 TH/MM3 Lymphocytes # (Auto) 1.8 TH/MM3 Monocytes # (Auto) 1.1 TH/MM3 Eosinophils # (Auto) 0.4 TH/MM3 Basophils # (Auto) 0.1 TH/MM3 CBC Comment DIFF FINAL Differential Comment Blood Urea Nitrogen 11 MG/DL Creatinine 0.97 MG/DL Random Glucose 102 MG/DL Calcium Level 7.8 MG/DL Sodium Level 144 MEQ/L Potassium Level 3.4 MEQ/L Chloride Level 105 MEQ/L Carbon Dioxide Level 32.8 MEQ/L Anion Gap 6 MEQ/L Estimat Glomerular Filtration Rate 97 ML/MIN Imaging Last Impressions Chest X-Ray 10/27/17 0000 Signed Impressions: Service Date/Time: Friday, October 27, 2017 00:25 - CONCLUSION: 1. Uncomplicated line placement. No evidence of pneumothorax. 2. Right lower lobe atelectasis versus pneumonia. The findings have worsened when compared with the prior examination. Lex Burdick MD Abdomen/Pelvis CT 10/27/17 0000 Signed Impressions: Service Date/Time: Saturday, October 28, 2017 01:40 - CONCLUSION: 1. No evidence of acute abdominal or pelvic process. No masses are identified. 2. Trace ascites 3. Right lower lobe atelectasis versus pneumonia. Lex Burdick MD Objective Remarks GENERAL: Obese middle-aged male, lying in bed, mild distress due to dyspnea HEENT: Normocephalic. Atraumatic. Pupils equal, round, reactive, conjugate. Mucous membranes are moist NECK: Trachea is midline. +JVD CHEST: Equal chest rise. Mildly tachypneic. Mildly labored. Nasal cannula oxygen CARDIOVASCULAR: Tachycardic rate, irregularly irregular rhythm. A. fib by telemetry. ABDOMEN: Soft, nontender, nondistended. No guarding. MUSCULOSKELETAL: Pulses 2+. 3+ peripheral edema NEUROLOGICAL: RASS 0. CAM -. Follows commands. GCS 15. No focal deficits. A/P Assessment and Plan 1) Resp Insuff 2)GI bleed 3)Anemia 2nd acute blood loss 4)CMP- EF 30% 5)Afib RVR 6)Lactic acidemia- resolved 7)Hypernatremia- improved 8)Leukocytosis.. 9)Hyperlipidemia 10)Hx CVA Plan Neuro: Awake and alert. Pulm: Continue with oxygen keep sat >92% Bronchodilators CV: Monitor HR and BP keep MAP>65mmHg On Cardizem 90mg Q6, Digoxin 0.25mg daily, Lipitor 80mg qhs. Dig level 1.1 on 10/28 Add Lopressor 25mg BID Echo from 09/05 showed EF 30-35%. Cards is following-Dr. Fuentes ASA,Plavix, AC for Afib held for GI bleed. Resume once cleared by GI. GI: On clear liquid diet advance as reinaldo if ok with GI s/p 7 units prbc total since admission Protonix drip 40mg IV BID. s/p EGD 10/27 showed clean base ulcer antrum-1 cm -biopsy no active bleeding , no visible vessel, gastritis, portal gastropathy and hiatal hernia. : Monitor renal function, electrolytes replacement as needed, d/c IVF, on clear liquid diet ID: Monitor for signs of infections ( Fever, WBC). On Zosyn, CXR 10/27 showed RLL atelectasis vs pneumonia. Check CXR today BC 10/26: NGTD., Heme: Monitor CBC, coags. s/p transfusion 7u PRBC total. Endo: SSI if needed for glycemic control GI prophylaxis- on Protonix 40mg BID DVT prophylaxis- SCD.. Not on chemical AC prophylaxis due to GI bleed Lines: Right IJ placed 10/28, d/c central line and place peripheral IV's Level 2 Katiuska Fregoso MD Oct 29, 2017 08:26
[2017-10-29] MEDS: DIGOXIN 0.25 MG TAB PO SCH (08:59)
[2017-10-29] MEDS: PANTOPRAZOLE SODIUM 40 MG VIAL IV PUSH SCH ×2 (08:59→21:40)
[2017-10-29] MEDS: SUCRALFATE 1 GM/10 ML CUP PO SCH ×4 (08:59→21:39)
[2017-10-29] MEDS ORDERED: METOPROLOL TARTRATE 25 MG TAB PO SCH (09:00)
[2017-10-29 09:32] LABS: ALBUMIN 2.2 GM/DL (3.4-5.0); DIRECT BILIRUBIN ADULT 0.3 MG/DL (0.0-0.2)
[2017-10-29 09:34] LABS: INDIRECT BILIRUBIN 0.5 MG/DL (0.0-0.8); TOTAL BILIRUBIN ADULT 0.8 MG/DL (0.2-1.0); TOTAL PROTEIN 5.7 GM/DL (6.4-8.2)
--- NOTE | 2017-10-29 10:29 | RADRPT ---
EXAM DATE/TIME: 10/29/2017 09:23 [place] COMPARISON: CT ABDOMEN & PELVIS W CONTRAST, October 28, 2017, 1:40. CHEST SINGLE AP, October 27, 2017, 0:25. INDICATIONS : Evaluate atelectasis. MEDICAL HISTORY : Hypertension. Hypercholesterolemia. Myocardial infarction. Stroke SURGICAL HISTORY : None. ENCOUNTER: Initial ACUITY: 4 - 6 days PAIN SCORE: 0/10 LOCATION: chest FINDINGS: Stable right IJ central line. The right lower lung zone airspace disease appears more consolidated ce ntrally. Probable trace right pleural effusion. Mild airspace disease in the left lower lung zone con sistent with atelectasis. Cardiomediastinal contours are stable. Remainder of the exam is unchanged. CONCLUSION: 1. Right lower lung zone airspace disease appears more consolidated centrally with stable associated trace right pleural effusion. Differential considerations include pneumonia/aspiration versus evolvin g rounded atelectasis. Stiven Gloria MD on October 29, 2017 at 10:24 Board Certified Radiologist. This report was verified electronically.
[2017-10-29] MEDS: METOPROLOL TARTRATE 25 MG TAB PO SCH ×2 (11:17→21:40)
--- NOTE | 2017-10-29 12:20 | HHI.GIFU ---
Subjective Remarks Pt resting in bed, now asking about colonoscopy and considering proceeding. No active bleeding. (Claudia Noonan) Objective Vitals I&O Vital Signs Date Time Temp Pulse Resp B/P (MAP) Pulse Ox O2 Delivery O2 Flow Rate FiO2 10/29/17 11:31 131 14 124/53 (76) 93 10/29/17 11:00 133 19 134/75 (94) 92 10/29/17 10:35 135 28 137/93 (108) 88 10/29/17 10:00 134 10/29/17 10:00 134 19 135/84 (101) 91 10/29/17 09:30 131 33 128/78 (95) 96 10/29/17 09:12 94 10/29/17 09:00 129 19 137/65 (89) 92 10/29/17 08:58 132 16 137/74 (95) 93 10/29/17 08:00 128 10/29/17 08:00 99.5 128 27 92 10/29/17 07:31 129 12 178/75 (109) 92 10/29/17 07:00 110 11 144/84 (104) 88 10/29/17 06:00 127 10/29/17 04:00 132 10/29/17 04:00 98.8 132 21 128/76 (93) 93 10/29/17 02:00 132 10/29/17 00:03 98.8 132 23 144/92 (109) 94 10/29/17 00:00 132 10/28/17 22:00 129 10/28/17 20:01 98.7 105 23 89/57 (68) 87 10/28/17 20:00 126 10/28/17 19:50 93 21 10/28/17 18:00 130 10/28/17 17:00 129 17 134/86 (102) 93 10/28/17 17:00 129 10/28/17 16:30 127 22 119/58 (78) 93 10/28/17 16:00 102 10/28/17 16:00 98.1 102 15 118/61 (80) 92 10/28/17 15:00 127 24 118/85 (96) 88 10/28/17 15:00 127 10/28/17 14:30 129 24 108/60 (76) 89 10/28/17 14:00 126 20 124/60 (81) 91 10/28/17 14:00 126 10/28/17 13:00 130 10/28/17 13:00 130 19 121/69 (86) 89 10/28/17 12:30 129 24 146/97 (113) 91 10/28/17 12:30 129 I/O 10/28/17 10/28/17 10/28/17 10/29/17 10/29/17 10/29/17 07:00 15:00 23:00 07:00 15:00 23:00 Intake Total 1700 ml 200 ml 1960 ml 820 ml Output Total 225 ml 2075 ml 1650 ml Balance 1475 ml 200 ml -115 ml -830 ml Intake Oral 1200 ml 1860 ml 720 ml IV Total 500 ml 200 ml 100 ml 100 ml Output Urine Total 225 ml 2075 ml 1650 ml # Voids 1 4 # Bowel Movements 1 1 Laboratory Laboratory Tests Test 10/29/17 03:30 White Blood Count 11.9 Red Blood Count 3.74 Hemoglobin 9.6 Hematocrit 29.6 Mean Corpuscular Volume 79.1 Mean Corpuscular Hemoglobin 25.6 Mean Corpuscular Hemoglobin Concent 32.4 Red Cell Distribution Width 19.3 Platelet Count 182 Mean Platelet Volume 7.4 Neutrophils (%) (Auto) 71.3 Lymphocytes (%) (Auto) 15.1 Monocytes (%) (Auto) 9.7 Eosinophils (%) (Auto) 3.3 Basophils (%) (Auto) 0.6 Neutrophils # (Auto) 8.5 Lymphocytes # (Auto) 1.8 Monocytes # (Auto) 1.1 Eosinophils # (Auto) 0.4 Basophils # (Auto) 0.1 CBC Comment DIFF FINAL Differential Comment Blood Urea Nitrogen 11 Creatinine 0.97 Random Glucose 102 Calcium Level 7.8 Sodium Level 144 Potassium Level 3.4 Chloride Level 105 Carbon Dioxide Level 32.8 Anion Gap 6 Estimat Glomerular Filtration Rate 97 Total Bilirubin 0.8 Direct Bilirubin 0.3 Indirect Bilirubin 0.5 Aspartate Amino Transf (AST/SGOT) 32 Alanine Aminotransferase (ALT/SGPT) 21 Alkaline Phosphatase 46 Total Protein 5.7 Albumin 2.2 Date/Time Source Procedure Growth Status 10/26/17 14:45 Blood Peripheral Aerobic Blood Culture - Preliminary NO GROWTH IN 3 DAYS Resulted 10/26/17 14:45 Blood Peripheral Anaerobic Blood Culture - Preliminary NO GROWTH IN 3 DAYS Resulted Imaging Last Impressions Chest X-Ray 10/29/17 0000 Signed Impressions: Service Date/Time: Sunday, October 29, 2017 09:23 - CONCLUSION: 1. Right lower lung zone airspace disease appears more consolidated centrally with stable associated trace right pleural effusion. Differential considerations include pneumonia/aspiration versus evolving rounded atelectasis. Stiven Gloria MD Abdomen/Pelvis CT 10/27/17 0000 Signed Impressions: Service Date/Time: Saturday, October 28, 2017 01:40 - CONCLUSION: 1. No evidence of acute abdominal or pelvic process. No masses are identified. 2. Trace ascites 3. Right lower lobe atelectasis versus pneumonia. Lex Burdick MD Physical Exam HEENT: PERRL; normocephalic; atraumatic; no jaundice. CHEST: CTA CARDIAC: irr HR, tachy ABDOMEN: Soft,distended, nontender; no hepatosplenomegaly; bowel sounds are present in all four quadrants. EXTREMITIES: No clubbing, cyanosis, or edema. SKIN: Normal; no rash; no jaundice. RUBBER [employer]ER: alert (Claudia Noonan) Assessment and Plan Plan ASSESSMENT - anemia with 1 week hx melena, hematochezia - hypochromic microcytic anemia. UGIB. hgb 4.3 on admission. denies blood thinners, NSAIDS s/p EGD found clean based ulcer no bleeding or visible vessel, portal gastropathy, blood in oropharynx, ENT consult pending CT showed trace ascites, no acute abd findings. colonoscopy recommended and pt originally refused but now is interested, cardiology possibly planning procedure and want to restart anticoag. HH improved - AF RVR, respiratory insufficiency, hypernatremia, heart failure, [facility] - ok to restart ASA, plavix - colonoscopy with cardiac clearance, before d/c - await ENT consult - continue protonix - monitor labs - transfuse as needed -supportive care pt seen by myself and Dr Strickland and this note on her behalf (Claudia Noonan) Physician Comments agree with above (Sarah Strickland MD) Claudia Noonan Oct 29, 2017 12:20 Sarah Strickland MD Oct 29, 2017 15:05
[2017-10-29] MEDS: ATORVASTATIN 80 MG TAB PO SCH (21:40)
[2017-10-30] VITALS (43 sets, daily range): BP systolic 120–169; BP diastolic 59–103; PULSE 78–132; RESP 9–29; TEMP 97.8–98.7; O2SAT 81–100
[2017-10-30] MEDS: INSULIN NovoLIN REGULAR SUPPLEMENTAL SCALE SQ SCH ×6 (00:45→20:45)
[2017-10-30] MEDS: CHLORHEXIDINE GLUCONATE 2 % 1 PACK (2 CLOTHS) TOP SCH (04:00)
[2017-10-30] MEDS: PIPERACIL-TAZO 4.5 GM PREMIX 100 ML IV SCH ×4 (04:36→20:59)
[2017-10-30] MEDS: DILTIAZEM HCL 90 MG TAB PO SCH ×4 (05:15→23:17)
[2017-10-30 07:51] LABS: AUTOMATED NEUTROPHIL # 8.9 TH/MM3 (1.8-7.7); BASOPHIL # 0.1 TH/MM3 (0-0.2); BASOPHIL % 0.5 % (0.0-2.0); EOSINOPHIL # 0.3 TH/MM3 (0-0.4); EOSINOPHIL % 2.2 % (0.0-4.0); HEMATOCRIT 27.2 % (39.0-51.0); HEMOGLOBIN 8.9 GM/DL (13.0-17.0); LYMPH % 16.3 % (9.0-44.0); LYMPHOCYTE # 2.1 TH/MM3 (1.0-4.8); MEAN CELL VOLUME 79.8 FL (80.0-100.0); MEAN CORPUSCULAR HGB CONC 32.6 % (32.0-36.0); MEAN PLATELET VOLUME 8.5 FL (7.0-11.0); MONO % 11.4 % (0.0-8.0); MONOCYTE # 1.5 TH/MM3 (0-0.9); NEUT % 69.6 % (16.0-70.0); PLATELET COUNT 227 TH/MM3 (150-450); RED BLOOD COUNT 3.41 MIL/MM3 (4.50-5.90); RED CELL DISTRIBUTION WIDTH 19.6 % (11.6-17.2); WHITE BLOOD COUNT 12.9 TH/MM3 (4.0-11.0)
--- NOTE | 2017-10-30 07:59 | HHI.CCPN ---
Subjective Remarks/Hospital Course this is a 56yM with baseline NYHA Class IV heart failure with EF 30% who sees Dr. Barbosa who has felt worse over the last few days with worsening shortness of breath. he also describes having bloody bowel movements with dark black and some bloody stools. he states it is hard to eat and he loses his appetite with some associated nausea and epigastric pain. denies vomiting. states his dyspnea at rest has not changed significantly. denies fever, chills. denies productive sputum or cough. states he cannot afford to follow up with any of his outpatient doctors, so he does not have additional appointments scheduled. he states he has felt short of breath for a "long time", even before his recent hospitalizations. In the emergency room, he was found to have a hgb 4, tachycardic in afib RVR, and per the ER physician report, he had a large amount of surekha melena in the rectal vault. he was given 4 units prbc in the ER. he states his fatigue may be "some better." The patient is a very poor historian, and a full history and ROS is difficult to obtain. he is admitted for active and hemodynamically significant GI bleed. 10/27 Patient was given 2L NS blouses overnight for hypotension , right IJ CVP line placed. Hgb 6.6 this morning scheduled to 3 units PRBC total. For EGD today / On Protonix drip. 10/28 No events overnight, s/p EGD yesterday showed clean base ulcer antrum-1 cm - biopsy no active bleeding , no visible vessel, gastritis, portal gastropathy and hiatal hernia. Remains on Protonix drip. Hgb 8.6 this morning. 10/29 Patient is lying in bed in NAD. H/H stable. 10/30 No events overnight Patient still tachycardiac in Afib/flutter. For possible KARINA/DCC today Objective Vital Signs Date Time Temp Pulse Resp B/P (MAP) Pulse Ox O2 Delivery O2 Flow Rate FiO2 10/30/17 06:00 128 10/30/17 04:01 98.7 26 148/91 (110) 85 10/29/17 20:54 21 10/28/17 09:22 Nasal Cannula 3.00 Intake and Output 10/30/17 10/30/17 10/31/17 08:00 16:00 00:00 Intake Total 340 ml Output Total 500 ml Balance -160 ml Result Diagram: 10/30/17 0516 10/29/17 0330 Other Results Laboratory Tests Test 10/30/17 05:16 White Blood Count 12.9 TH/MM3 Red Blood Count 3.41 MIL/MM3 Hemoglobin 8.9 GM/DL Hematocrit 27.2 % Mean Corpuscular Volume 79.8 FL Mean Corpuscular Hemoglobin 26.0 PG Mean Corpuscular Hemoglobin Concent 32.6 % Red Cell Distribution Width 19.6 % Platelet Count 227 TH/MM3 Mean Platelet Volume 8.5 FL Neutrophils (%) (Auto) 69.6 % Lymphocytes (%) (Auto) 16.3 % Monocytes (%) (Auto) 11.4 % Eosinophils (%) (Auto) 2.2 % Basophils (%) (Auto) 0.5 % Neutrophils # (Auto) 8.9 TH/MM3 Lymphocytes # (Auto) 2.1 TH/MM3 Monocytes # (Auto) 1.5 TH/MM3 Eosinophils # (Auto) 0.3 TH/MM3 Basophils # (Auto) 0.1 TH/MM3 CBC Comment DIFF FINAL Differential Comment Imaging Last Impressions Chest X-Ray 10/29/17 0000 Signed Impressions: Service Date/Time: Sunday, October 29, 2017 09:23 - CONCLUSION: 1. Right lower lung zone airspace disease appears more consolidated centrally with stable associated trace right pleural effusion. Differential considerations include pneumonia/aspiration versus evolving rounded atelectasis. Stiven Gloria MD Abdomen/Pelvis CT 10/27/17 0000 Signed Impressions: Service Date/Time: Saturday, October 28, 2017 01:40 - CONCLUSION: 1. No evidence of acute abdominal or pelvic process. No masses are identified. 2. Trace ascites 3. Right lower lobe atelectasis versus pneumonia. Lex Burdick MD Objective Remarks GENERAL: Obese middle-aged male, lying in bed, mild distress due to dyspnea HEENT: Normocephalic. Atraumatic. Pupils equal, round, reactive, conjugate. Mucous membranes are moist NECK: Trachea is midline. +JVD CHEST: Equal chest rise. Mildly tachypneic. Mildly labored. Nasal cannula oxygen CARDIOVASCULAR: Tachycardic rate, irregularly irregular rhythm. A. fib by telemetry. ABDOMEN: Soft, nontender, nondistended. No guarding. MUSCULOSKELETAL: Pulses 2+. 3+ peripheral edema NEUROLOGICAL: RASS 0. CAM -. Follows commands. GCS 15. No focal deficits. A/P Assessment and Plan 1) Resp Insuff 2)GI bleed 3)Anemia 2nd acute blood loss 4)CMP- EF 30% 5)Afib RVR 6)Lactic acidemia- resolved 7)Hypernatremia- improved 8)Leukocytosis.. 9)Hyperlipidemia 10)Hx CVA Plan Neuro: Awake and alert. Pulm: Continue with oxygen keep sat >92% Bronchodilators CV: Monitor HR and BP keep MAP>65mmHg On Cardizem 90mg Q6, Digoxin 0.25mg daily, Lipitor 80mg qhs. Dig level 1.1 on 10/28 Lopressor 25mg BID Echo from 09/05 showed EF 30-35%. Cards is following-Dr. Fuentes Discussed with GI ok to restart ASA and Plavix. Plan for colonoscopy first prior to resuming Eliquis. For KARINA/DCC today GI: NPO for KARINA today s/p 7 units prbc total since admission Protonix drip 40mg IV BID. s/p EGD 10/27 showed clean base ulcer antrum-1 cm -biopsy no active bleeding , no visible vessel, gastritis, portal gastropathy and hiatal hernia. : Monitor renal function, electrolytes replacement as needed, ID: Monitor for signs of infections ( Fever, WBC). On Zosyn, CXR 10/27 showed RLL atelectasis vs pneumonia. BC 10/26: NGTD., Heme: Monitor CBC, coags. s/p transfusion 7u PRBC total. Endo: SSI if needed for glycemic control GI prophylaxis- on Protonix 40mg BID DVT prophylaxis- SCD.. Not on chemical AC prophylaxis due to GI bleed Lines: peripheral IV's Level 3 Katiuska Fregoso MD Oct 30, 2017 07:59
[2017-10-30] MEDS: SUCRALFATE 1 GM/10 ML CUP PO SCH ×4 (08:00→20:58)
[2017-10-30 08:04] LABS: BICARBONATE 31.3 MEQ/L (21.0-32.0); CREATININE 1.05 MG/DL (0.60-1.30); MAGNESIUM 2.3 MG/DL (1.5-2.5)
[2017-10-30 08:05] LABS: PHOSPHORUS 2.5 MG/DL (2.5-4.9)
--- NOTE | 2017-10-30 08:12 | MB ---
cc: JAE FARAH MD DATE OF CONSULTATION: 10/30/2017 CHIEF COMPLAINT Hemoptysis. HISTORY OF PRESENT ILLNESS This is a 56-year-old male with significant congestive heart failure. Approximately over the last week he started having difficulty with shortness of breath and was subsequently admitted and noted to have significant decrease in his hemoglobin and upon further workup was thought to have a GI bleed and subsequently admitted for workup and treatment of this. During his gastrology consult and endoscopy he was noted to have some blood in his oropharynx as well and therefore an ENT consult was placed. The patient is resting comfortably in bed, a little belligerent about wanting to go home but otherwise in no acute distress. He is denying any dysphagia. Denies any odynophagia. Reports occasional hoarseness. Denies any otalgia. Denies any weight loss and has no throat pain. REVIEW OF SYSTEMS Review of systems are as per the HPI. PAST MEDICAL HISTORY Significant for: 1. Hypertension. 2. Cerebrovascular accidents. 3. Hyperlipidemia. 4. Atrial fibrillation. 5. Congestive heart failure. PAST SURGICAL HISTORY He has no significant surgical history. MEDICATION Medications are per MR. SOCIAL HISTORY He does drink alcohol and smoked one pack per day tobacco. He denies any illicit drugs. PHYSICAL EXAMINATION GENERAL: He is alert and oriented x3, in no acute distress. VITAL SIGNS: He is afebrile. Vital signs are stable. HEENT: Exam today shows the oral cavity with pink mucosa. No lesions or lacerations noted. The nose shows some excoriations likely from nasal cannula oxygen, but no bleeding noted at this time. Flexible laryngoscopy at bedside shows no lesions of the oropharynx, hypopharynx or endolarynx. His endolarynx is erythematous. There is no masses, no lesions, no ulcerations. Of note, in the hypopharynx near the esophageal inlet there is a little bit of blood stained mucus but there is no obvious bleeding or lesion noted. NECK: Exam reveals no palpable lymphadenopathy. ASSESSMENT/PLAN Patient with no obvious pathology to account for his blood loss. I have advised him to stop his tobacco intake to decrease his risk of laryngeal cancer. Will defer the remaining portion of the workup to his primary support team in the intensive care unit. Thank you for this consultation. Jae Farah AT/TLL /7:42 AM /7:52 AM
--- NOTE | 2017-10-30 08:37 | PD.CARD.PN ---
Subjective Subjective Remarks patient remains in RVR. resting comfortably. denies chest pain. KARINA planned for this morning. (Lashawn Johnson) Objective Medications Current Medications Medications (Trade) Dose Ordered Sig/Carline Route Start Time Stop Time Status Last Admin Potassium Chloride 100 ml @ 50 mls/hr Q2H PRN IV 10/26/17 17:00 Potassium Chloride 100 ml @ 50 mls/hr Q2H PRN IV 10/26/17 17:00 (K-Lyte Cl Eff) 50 meq UNSCH PRN PO 10/26/17 17:00 Potassium Chloride 100 ml @ 25 mls/hr UNSCH PRN IV 10/26/17 17:00 Potassium Chloride 100 ml @ 50 mls/hr Q2H PRN IV 10/26/17 17:00 Magnesium Sulfate 4 gm/Sodium Chloride 100 ml @ 50 mls/hr UNSCH PRN IV 10/26/17 17:00 (Mag-Ox) 800 mg UNSCH PRN PO 10/26/17 17:00 Magnesium Sulfate 2 gm/Sodium Chloride 100 ml @ 50 mls/hr UNSCH PRN IV 10/26/17 17:00 (K-Phos) 2,000 mg Q4H PRN PO 10/26/17 17:00 Sodium Phosphate 30 mmol/Sodium Chloride 250 ml @ 42 mls/hr UNSCH PRN IV 10/26/17 17:00 (K-Phos) 2,000 mg UNSCH PRN PO/TUBE 10/26/17 17:00 Potassium Phosphate 30 mmol/ Sodium Chloride 260 ml @ 42 mls/hr UNSCH PRN IV 10/26/17 17:00 (Zofran Inj) 4 mg Q6H PRN IV PUSH 10/26/17 17:00 (Duoneb Neb) 1 ampule Q2HR NEB PRN INH 10/26/17 17:00 Miscellaneous Information 1 Q361D XX 10/26/17 17:00 (Chlorhexidine 2% Cloth) 3 pack Taper DAILY@04 TOP 10/27/17 04:00 10/23/18 03:59 10/30/17 04:00 (Chlorhexidine 2% Cloth) 3 pack UNSCH PRN TOP 10/26/17 17:00 (Lipitor) 80 mg HS PO 10/26/17 21:00 10/29/17 21:40 (Brethine Inj) 1 mg UNSCH PRN SQ 10/27/17 00:00 Piperacillin Sod/ Tazobactam Sod 100 ml @ 200 mls/hr Q6H IV 10/27/17 09:00 10/30/17 04:36 (D50w (Vial) Inj) 50 ml UNSCH PRN IV PUSH 10/27/17 08:45 (Glucagon Inj) 1 mg UNSCH PRN OTHER 10/27/17 08:45 (NovoLIN R SUPPLEMENTAL SCALE) 1 Q4H SQ 10/27/17 08:45 10/27/17 20:58 (Carafate Liq) 1 gm ACHS PO 10/27/17 17:00 10/29/17 21:39 (Lanoxin) 0.25 mg DAILY PO 10/28/17 09:00 10/29/17 08:59 (Cardizem) 90 mg Q6HR PO 10/27/17 18:00 10/30/17 05:15 (Protonix Inj) 40 mg Q12H IV PUSH 10/28/17 09:00 10/29/17 21:40 (Lopressor) 25 mg Q12HR PO 10/29/17 09:00 10/29/17 21:40 Vital Signs / I&O Vital Signs Date Time Temp Pulse Resp B/P (MAP) Pulse Ox O2 Delivery O2 Flow Rate FiO2 10/30/17 06:00 128 10/30/17 04:01 98.7 129 26 148/91 (110) 85 10/30/17 04:00 128 10/30/17 02:00 121 10/30/17 00:02 98.6 119 26 129/69 (89) 98 10/30/17 00:00 100 10/29/17 22:00 105 10/29/17 20:54 98 21 10/29/17 20:00 98.7 108 25 100/53 (69) 98 10/29/17 20:00 108 10/29/17 18:00 127 10/29/17 16:00 131 10/29/17 16:00 98.7 131 18 104/65 (78) 100 10/29/17 15:30 132 20 108/67 (81) 96 10/29/17 15:00 132 17 118/63 (81) 100 10/29/17 14:30 128 15 122/67 (85) 98 10/29/17 14:00 130 15 111/75 (87) 93 10/29/17 14:00 129 10/29/17 13:31 126 20 118/59 (78) 99 10/29/17 13:01 133 30 156/66 (96) 86 10/29/17 13:00 133 25 79 10/29/17 12:31 132 24 114/66 (82) 90 10/29/17 12:00 131 10/29/17 12:00 99.3 131 12 123/58 (79) 92 10/29/17 11:31 131 14 124/53 (76) 93 10/29/17 11:00 133 19 134/75 (94) 92 10/29/17 10:35 135 28 137/93 (108) 88 10/29/17 10:00 134 10/29/17 10:00 134 19 135/84 (101) 91 10/29/17 09:30 131 33 128/78 (95) 96 10/29/17 09:12 94 10/29/17 09:00 129 19 137/65 (89) 92 10/29/17 08:58 132 16 137/74 (95) 93 I/O 10/29/17 10/29/17 10/29/17 10/30/17 10/30/17 10/30/17 07:00 15:00 23:00 07:00 15:00 23:00 Intake Total 820 ml 100 ml 840 ml 340 ml Output Total 1650 ml 650 ml 500 ml Balance -830 ml 100 ml 190 ml -160 ml Intake Oral 720 ml 640 ml 240 ml IV Total 100 ml 100 ml 200 ml 100 ml Output Urine Total 1650 ml 650 ml 500 ml # Bowel Movements 0 1 Physical Exam GENERAL: SKIN: Warm and dry. HEAD: Atraumatic. Normocephalic. EYES: Pupils equal and round. No scleral icterus. No injection or drainage. ENT: No nasal bleeding or discharge. Mucous membranes pink and moist. NECK: Trachea midline. No JVD. CARDIOVASCULAR: tachycardic, no murmurs RESPIRATORY: No accessory muscle use. coarse breath sounds bilateral bases GASTROINTESTINAL: Abdomen soft, non-tender, nondistended. MUSCULOSKELETAL: Extremities without clubbing, cyanosis, or edema. No obvious deformities. NEUROLOGICAL: Awake and alert. Normal speech. PSYCHIATRIC: Appropriate mood and affect; insight and judgment normal. Laboratory Laboratory Tests Test 10/30/17 05:16 White Blood Count 12.9 TH/MM3 Red Blood Count 3.41 MIL/MM3 Hemoglobin 8.9 GM/DL Hematocrit 27.2 % Mean Corpuscular Volume 79.8 FL Mean Corpuscular Hemoglobin 26.0 PG Mean Corpuscular Hemoglobin Concent 32.6 % Red Cell Distribution Width 19.6 % Platelet Count 227 TH/MM3 Mean Platelet Volume 8.5 FL Neutrophils (%) (Auto) 69.6 % Lymphocytes (%) (Auto) 16.3 % Monocytes (%) (Auto) 11.4 % Eosinophils (%) (Auto) 2.2 % Basophils (%) (Auto) 0.5 % Neutrophils # (Auto) 8.9 TH/MM3 Lymphocytes # (Auto) 2.1 TH/MM3 Monocytes # (Auto) 1.5 TH/MM3 Eosinophils # (Auto) 0.3 TH/MM3 Basophils # (Auto) 0.1 TH/MM3 CBC Comment DIFF FINAL Differential Comment Blood Urea Nitrogen 9 MG/DL Creatinine 1.05 MG/DL Random Glucose 72 MG/DL Calcium Level 8.0 MG/DL Phosphorus Level 2.5 MG/DL Magnesium Level 2.3 MG/DL Sodium Level 142 MEQ/L Potassium Level 3.6 MEQ/L Chloride Level 104 MEQ/L Carbon Dioxide Level 31.3 MEQ/L Anion Gap 7 MEQ/L Estimat Glomerular Filtration Rate 88 ML/MIN (Lashawn Johnson) Assessment and Plan Problem List: (1) CAD (coronary artery disease) ICD Codes: I25.10 - Atherosclerotic heart disease of [place] coronary artery without angina pectoris (2) Atrial fibrillation with RVR ICD Codes: I48.91 - Unspecified atrial fibrillation Status: Acute (3) GI bleed ICD Codes: K92.2 - Gastrointestinal hemorrhage, unspecified Status: Acute Assessment and Plan 57 yo M with non-ischemic cardiomyopathy EF 30-35%, CAD recent BMS RCA placed by Dr. Barbosa in 08/2017, CHF and afib with recent GI bleed. blood thinners have been held. s/p transfusion, anemia slowly improving afib- remains in RVR. KARINA planned for this morning. BP tolerating ccb and bb digoxin level normal GI cleared patient to resume asa/ plavix colonoscopy before discharge (Lashawn Johnson) Assessment and Plan KARINA DCC now NSR amio bolus & drip. hold BB for now so he doesnt get bradycardiac (Flex Fuentes MD) Problem Qualifiers (1) GI bleed: Qualified Codes: K92.1 - Lashawn Head Oct 30, 2017 08:37 Flex Fuentes MD Oct 30, 2017 11:07
[2017-10-30] MEDS ORDERED: PROPOFOL 500 MG/50 ML INJ 50 ML ONE (08:47)
[2017-10-30] MEDS ORDERED: MIDAZOLAM HCL 5 MG/ML VIAL (1 ML) ONE (08:55)
[2017-10-30] MEDS ORDERED: FLUMAZENIL 0.5 MG/5 ML VIAL ONE (09:11)
--- NOTE | 2017-10-30 10:23 | ECHRPT ---
Indication: A FLUTTER CONCLUSIONS Normal left ventricular size and wall thickness. The left ventricular systolic function is normal wi th an estimated ejection fraction in the range of 60-65%. Left ventricular diastolic function parameters a re normal. The left atrial size is mildly dilated. Mild thickening of the mitral valve leaflets. [id number] mitral valve regurgitation. No mitral valve stenosis. Mild thickening of the tricuspid valve leaflets. There is mild tricuspid valve regurgitation. No tri cuspid valve stenosis. BP: / HR: Rhythm: MEASUREMENTS (Male / Female) Normal Values Technical Quality: DOPPLER TR Peak Velocity 266.0 cm/s TR Peak Gradient 28.3 mmHg Medications Complications There were no complications prior to, during or in recovery from the transesophag eal echocardiogram.. Proc. Components Follwing procedure patient underwent 200 J direct current cardioversion from atri al fibrillation to normal sinus rhythm. FINDINGS LEFT VENTRICLE Normal left ventricular size and wall thickness. The left ventricular systolic function is normal wi th an estimated ejection fraction in the range of 60-65%. Left ventricular diastolic function parameters a re normal. RIGHT VENTRICLE Normal right ventricular size and systolic function. LEFT ATRIUM The left atrial size is mildly dilated. RIGHT ATRIUM The right atrial size is normal. ATRIAL APPENDAGES Normal left atrial appendage size with no evidence of thrombus formation. ATRIAL SEPTUM Normal atrial septal thickness without atrial level shunting by limited color doppler interrogation. AORTA The aortic root and proximal ascending aorta are normal in size on limited imaging. MITRAL VALVE Mild thickening of the mitral valve leaflets. [id number] mitral valve regurgitation. No mitral valve stenosis. AORTIC VALVE Trileaflet aortic valve. No aortic valve stenosis or regurgitation. TRICUSPID VALVE Mild thickening of the tricuspid valve leaflets. There is mild tricuspid valve regurgitation. No tri cuspid valve stenosis. VESSELS The inferior vena cava is normal in size. PULMONARY VALVE The pulmonary valve is not well visualized. PERICADIUM No pericardial effusion. Flex Fuentes MD, FACC (Electronically Signed) Final Date:30 October 2017 10:22 Amended: 30 October 2017 10:28
--- NOTE | 2017-10-30 11:04 | HHI.GIFU ---
Subjective Remarks Pt resting in bed, s/p KARINA and cardioversion. Slept through exam. Objective Vitals I&O Vital Signs Date Time Temp Pulse Resp B/P (MAP) Pulse Ox O2 Delivery O2 Flow Rate FiO2 10/30/17 10:00 86 10/30/17 09:31 83 11 146/81 (102) 100 10/30/17 09:30 84 9 100 10/30/17 09:27 97 Non-Rebreather 15.00 100 10/30/17 09:15 78 12 100 10/30/17 09:00 79 21 127/80 (96) 96 10/30/17 08:58 132 14 133/85 (101) 96 10/30/17 08:45 132 22 10/30/17 08:30 130 15 168/93 (118) 99 10/30/17 08:15 129 17 100 10/30/17 08:00 132 10/30/17 08:00 98.3 127 12 144/89 (107) 100 10/30/17 07:45 126 14 100 10/30/17 07:30 127 13 151/91 (111) 100 10/30/17 07:15 129 17 100 10/30/17 07:07 132 27 145/93 (110) 81 10/30/17 07:00 130 17 142/103 (116) 100 10/30/17 06:00 128 10/30/17 04:01 98.7 129 26 148/91 (110) 85 10/30/17 04:00 128 10/30/17 02:00 121 10/30/17 00:02 98.6 119 26 129/69 (89) 98 10/30/17 00:00 100 10/29/17 22:00 105 10/29/17 20:54 98 21 10/29/17 20:00 98.7 108 25 100/53 (69) 98 10/29/17 20:00 108 10/29/17 18:00 127 10/29/17 16:00 131 10/29/17 16:00 98.7 131 18 104/65 (78) 100 10/29/17 15:30 132 20 108/67 (81) 96 10/29/17 15:00 132 17 118/63 (81) 100 10/29/17 14:30 128 15 122/67 (85) 98 10/29/17 14:00 130 15 111/75 (87) 93 10/29/17 14:00 129 10/29/17 13:31 126 20 118/59 (78) 99 10/29/17 13:01 133 30 156/66 (96) 86 10/29/17 13:00 133 25 79 10/29/17 12:31 132 24 114/66 (82) 90 10/29/17 12:00 131 10/29/17 12:00 99.3 131 12 123/58 (79) 92 10/29/17 11:31 131 14 124/53 (76) 93 I/O 10/29/17 10/29/17 10/29/17 10/30/17 10/30/17 10/30/17 07:00 15:00 23:00 07:00 15:00 23:00 Intake Total 820 ml 100 ml 840 ml 340 ml Output Total 1650 ml 650 ml 500 ml Balance -830 ml 100 ml 190 ml -160 ml Intake Oral 720 ml 640 ml 240 ml IV Total 100 ml 100 ml 200 ml 100 ml Output Urine Total 1650 ml 650 ml 500 ml # Bowel Movements 0 1 Laboratory Laboratory Tests Test 10/30/17 05:16 White Blood Count 12.9 Red Blood Count 3.41 Hemoglobin 8.9 Hematocrit 27.2 Mean Corpuscular Volume 79.8 Mean Corpuscular Hemoglobin 26.0 Mean Corpuscular Hemoglobin Concent 32.6 Red Cell Distribution Width 19.6 Platelet Count 227 Mean Platelet Volume 8.5 Neutrophils (%) (Auto) 69.6 Lymphocytes (%) (Auto) 16.3 Monocytes (%) (Auto) 11.4 Eosinophils (%) (Auto) 2.2 Basophils (%) (Auto) 0.5 Neutrophils # (Auto) 8.9 Lymphocytes # (Auto) 2.1 Monocytes # (Auto) 1.5 Eosinophils # (Auto) 0.3 Basophils # (Auto) 0.1 CBC Comment DIFF FINAL Differential Comment Blood Urea Nitrogen 9 Creatinine 1.05 Random Glucose 72 Calcium Level 8.0 Phosphorus Level 2.5 Magnesium Level 2.3 Sodium Level 142 Potassium Level 3.6 Chloride Level 104 Carbon Dioxide Level 31.3 Anion Gap 7 Estimat Glomerular Filtration Rate 88 Date/Time Source Procedure Growth Status 10/26/17 14:45 Blood Peripheral Aerobic Blood Culture - Preliminary NO GROWTH IN 3 DAYS Resulted 10/26/17 14:45 Blood Peripheral Anaerobic Blood Culture - Preliminary NO GROWTH IN 3 DAYS Resulted Imaging Last Impressions Chest X-Ray 10/29/17 0000 Signed Impressions: Service Date/Time: Sunday, October 29, 2017 09:23 - CONCLUSION: 1. Right lower lung zone airspace disease appears more consolidated centrally with stable associated trace right pleural effusion. Differential considerations include pneumonia/aspiration versus evolving rounded atelectasis. Stiven Gloria MD Abdomen/Pelvis CT 10/27/17 0000 Signed Impressions: Service Date/Time: Saturday, October 28, 2017 01:40 - CONCLUSION: 1. No evidence of acute abdominal or pelvic process. No masses are identified. 2. Trace ascites 3. Right lower lobe atelectasis versus pneumonia. Lex Burdick MD Physical Exam HEENT: PERRL; normocephalic; atraumatic; no jaundice. CHEST: CTA CARDIAC:RRR ABDOMEN: Soft,distended, nontender; no hepatosplenomegaly; bowel sounds are present in all four quadrants. EXTREMITIES: No clubbing, cyanosis, or edema. SKIN: Normal; no rash; no jaundice. BELT GLASS SANDER: sleeping Assessment and Plan Plan ASSESSMENT - anemia with 1 week hx melena, hematochezia - hypochromic microcytic anemia. UGIB. hgb 4.3 on admission. denies blood thinners, NSAIDS s/p EGD found clean based ulcer no bleeding or visible vessel, portal gastropathy, blood in oropharynx, ENT consult appreciated, no bleeding lesions seen CT showed trace ascites, no acute abd findings. colonoscopy recommended and pt originally refused but yesterday agreed had KARINA today, s/p cardioversion, needs to restart anticoag. HH mild decline today, no obvious bleeding. d/w cardiology and he is cleared for cscope - AF RVR, respiratory insufficiency, hypernatremia, heart failure, per [facility] - colonoscopy tomorrow, ok per cardiology - obtain consent - Clear liquids - NPO after midnight - GoLytely - continue protonix - monitor labs - transfuse as needed -supportive care pt seen by myself and Dr Strickland and this note on her behalf Claudia Noonan Oct 30, 2017 11:04
[2017-10-30] MEDS: DIGOXIN 0.25 MG TAB PO SCH (12:17)
[2017-10-30] MEDS: PANTOPRAZOLE SODIUM 40 MG VIAL IV PUSH SCH ×2 (12:17→20:58)
[2017-10-30] MEDS: CLOPIDOGREL 75 MG TAB PO SCH (12:17)
[2017-10-30] MEDS ORDERED: LORazepam 2 MG/ML VIAL IV PUSH ONE (15:15)
[2017-10-30] MEDS ORDERED: HALOPERIDOL LACTATE 5 MG/ML AMP IV PUSH ONE (15:15)
[2017-10-30] MEDS ORDERED: PEG (High)/E-LYTE SOLN 4000 ML BTL PO ONE (16:00)
--- NOTE | 2017-10-30 19:13 | RADRPT ---
EXAM DATE/TIME: 10/30/2017 18:41 [place] COMPARISON: MRI BRAIN W/O CONTRAST, December 10, 2015, 7:50. CT BRAIN W/O CONTRAST, December 10, 2015, 6:24. INDICATIONS : Altered mental status RADIATION DOSE: 42.30 CTDIvol (mGy) MEDICAL HISTORY : Cerebrovascular disease. Cardiovascular disease Hypertension. SURGICAL HISTORY : None. ENCOUNTER: Initial ACUITY: 1 day PAIN SCALE: 4/10 LOCATION: Bilateral cranial TECHNIQUE: Multiple contiguous axial images were obtained of the head. Using automated exposure control and adj ustment of the mA and/or kV according to patient size, radiation dose was kept as low as reasonably a chievable to obtain optimal diagnostic quality images. DICOM format image data is available electro nically for review and comparison. FINDINGS: CEREBRUM: The ventricles are normal for age. No evidence of midline shift, mass lesion, hemorrhage or acute in farction. No extra-axial fluid collections are seen. Old right posterior frontal lobe cortical infar ct again noted. There are chronic lacunar changes of bilateral cerebral hemisphere basal ganglia and periventricular white matter POSTERIOR FOSSA: The cerebellum and brainstem are intact. The 4th ventricle is midline. The cerebellopontine angle i s unremarkable. EXTRACRANIAL: The visualized portion of the orbits is intact. SKULL: The calvaria is intact. No evidence of skull fracture. CONCLUSION: No acute intracranial abnormality. Old infarct/ischemic changes are again noted. Miah Guillory MD on October 30, 2017 at 19:09 Board Certified Radiologist. This report was verified electronically.
[2017-10-30] MEDS: ATORVASTATIN 80 MG TAB PO SCH (20:58)
[2017-10-31] VITALS (15 sets, daily range): BP systolic 113–149; BP diastolic 62–79; PULSE 77–106; RESP 16–28; TEMP 97.4–99.3; O2SAT 91–98
[2017-10-31] MEDS: INSULIN NovoLIN REGULAR SUPPLEMENTAL SCALE SQ SCH ×7 (00:01→23:19)
[2017-10-31] MEDS: PIPERACIL-TAZO 4.5 GM PREMIX 100 ML IV SCH ×4 (02:18→19:50)
[2017-10-31] MEDS: CHLORHEXIDINE GLUCONATE 2 % 1 PACK (2 CLOTHS) TOP SCH (03:58)
[2017-10-31] MEDS: DILTIAZEM HCL 90 MG TAB PO SCH ×4 (05:14→23:21)
[2017-10-31 05:16] LABS: HEMATOCRIT 27.5 % (39.0-51.0); HEMOGLOBIN 8.9 GM/DL (13.0-17.0); MEAN CELL VOLUME 79.9 FL (80.0-100.0); MEAN CORPUSCULAR HGB CONC 32.5 % (32.0-36.0); MEAN PLATELET VOLUME 8.5 FL (7.0-11.0); PLATELET COUNT 259 TH/MM3 (150-450); RED BLOOD COUNT 3.44 MIL/MM3 (4.50-5.90); RED CELL DISTRIBUTION WIDTH 19.4 % (11.6-17.2); WHITE BLOOD COUNT 13.9 TH/MM3 (4.0-11.0)
[2017-10-31 05:21] LABS: BICARBONATE 33.1 MEQ/L (21.0-32.0); CREATININE 1.04 MG/DL (0.60-1.30)
--- NOTE | 2017-10-31 07:58 | PD.CARD.PN ---
Subjective Subjective Remarks awake and alert. requesting to go home. resting comfortably. denies chest pain or sob. (Lashawn Johnson) Objective Medications Current Medications Medications (Trade) Dose Ordered Sig/Carline Route Start Time Stop Time Status Last Admin Potassium Chloride 100 ml @ 50 mls/hr Q2H PRN IV 10/26/17 17:00 Potassium Chloride 100 ml @ 50 mls/hr Q2H PRN IV 10/26/17 17:00 (K-Lyte Cl Eff) 50 meq UNSCH PRN PO 10/26/17 17:00 Potassium Chloride 100 ml @ 25 mls/hr UNSCH PRN IV 10/26/17 17:00 Potassium Chloride 100 ml @ 50 mls/hr Q2H PRN IV 10/26/17 17:00 Magnesium Sulfate 4 gm/Sodium Chloride 100 ml @ 50 mls/hr UNSCH PRN IV 10/26/17 17:00 (Mag-Ox) 800 mg UNSCH PRN PO 10/26/17 17:00 Magnesium Sulfate 2 gm/Sodium Chloride 100 ml @ 50 mls/hr UNSCH PRN IV 10/26/17 17:00 (K-Phos) 2,000 mg Q4H PRN PO 10/26/17 17:00 Sodium Phosphate 30 mmol/Sodium Chloride 250 ml @ 42 mls/hr UNSCH PRN IV 10/26/17 17:00 (K-Phos) 2,000 mg UNSCH PRN PO/TUBE 10/26/17 17:00 Potassium Phosphate 30 mmol/ Sodium Chloride 260 ml @ 42 mls/hr UNSCH PRN IV 10/26/17 17:00 (Zofran Inj) 4 mg Q6H PRN IV PUSH 10/26/17 17:00 (Duoneb Neb) 1 ampule Q2HR NEB PRN INH 10/26/17 17:00 Miscellaneous Information 1 Q361D XX 10/26/17 17:00 (Chlorhexidine 2% Cloth) 3 pack Taper DAILY@04 TOP 10/27/17 04:00 10/23/18 03:59 10/31/17 03:58 (Chlorhexidine 2% Cloth) 3 pack UNSCH PRN TOP 10/26/17 17:00 (Lipitor) 80 mg HS PO 10/26/17 21:00 10/30/17 20:58 (Brethine Inj) 1 mg UNSCH PRN SQ 10/27/17 00:00 Piperacillin Sod/ Tazobactam Sod 100 ml @ 200 mls/hr Q6H IV 10/27/17 09:00 10/31/17 02:18 (D50w (Vial) Inj) 50 ml UNSCH PRN IV PUSH 10/27/17 08:45 (Glucagon Inj) 1 mg UNSCH PRN OTHER 10/27/17 08:45 (NovoLIN R SUPPLEMENTAL SCALE) 1 Q4H SQ 10/27/17 08:45 10/27/17 20:58 (Carafate Liq) 1 gm ACHS PO 10/27/17 17:00 10/30/17 20:58 (Lanoxin) 0.25 mg DAILY PO 10/28/17 09:00 10/30/17 12:17 (Cardizem) 90 mg Q6HR PO 10/27/17 18:00 10/31/17 05:14 (Protonix Inj) 40 mg Q12H IV PUSH 10/28/17 09:00 10/30/17 20:58 (Ecotrin Ec) 81 mg DAILY PO 10/30/17 09:45 (Plavix) 75 mg DAILY PO 10/30/17 09:45 10/30/17 12:17 Vital Signs / I&O Vital Signs Date Time Temp Pulse Resp B/P (MAP) Pulse Ox O2 Delivery O2 Flow Rate FiO2 10/31/17 06:00 95 10/31/17 04:00 88 10/31/17 04:00 99.3 88 16 149/79 (102) 98 10/31/17 02:00 90 10/31/17 00:00 97 10/31/17 00:00 98.1 97 19 118/62 (80) 91 10/30/17 22:00 96 10/30/17 20:23 96 Nasal Cannula 2.00 10/30/17 20:00 97 10/30/17 20:00 97.9 97 19 132/59 (83) 90 10/30/17 18:00 107 10/30/17 16:31 93 18 133/62 (85) 100 10/30/17 16:01 98.3 103 22 142/67 (92) 100 10/30/17 16:00 104 10/30/17 16:00 104 29 99 10/30/17 15:31 100 120/80 (93) 96 10/30/17 15:01 103 129/77 (94) 100 10/30/17 15:00 102 99 10/30/17 14:31 100 143/89 (107) 99 10/30/17 14:00 96 10/30/17 14:00 96 21 157/88 (111) 99 10/30/17 13:31 94 24 152/86 (108) 99 10/30/17 13:01 86 19 169/92 (117) 97 10/30/17 13:00 90 16 97 10/30/17 12:30 90 12 120/70 (87) 99 10/30/17 12:00 97.8 91 15 141/86 (104) 97 10/30/17 12:00 91 10/30/17 11:31 86 12 129/94 (106) 96 10/30/17 11:01 86 11 137/90 (106) 100 10/30/17 11:00 87 12 100 10/30/17 10:30 88 10 146/84 (104) 100 10/30/17 10:00 86 10/30/17 10:00 86 10 143/80 (101) 100 10/30/17 09:31 83 11 146/81 (102) 100 10/30/17 09:30 84 9 100 10/30/17 09:27 97 Non-Rebreather 15.00 100 10/30/17 09:15 78 12 100 10/30/17 09:00 79 21 127/80 (96) 96 10/30/17 08:58 132 14 133/85 (101) 96 10/30/17 08:45 132 22 10/30/17 08:30 130 15 168/93 (118) 99 10/30/17 08:15 129 17 100 10/30/17 08:00 132 10/30/17 08:00 98.3 127 12 144/89 (107) 100 I/O 10/30/17 10/30/17 10/30/17 10/31/17 10/31/17 10/31/17 07:00 15:00 23:00 07:00 15:00 23:00 Intake Total 340 ml 100 ml 340 ml 460 ml Output Total 500 ml 850 ml 710 ml Balance -160 ml 100 ml -510 ml -250 ml Intake Oral 240 ml 240 ml 260 ml IV Total 100 ml 100 ml 100 ml 200 ml Output Urine Total 500 ml 850 ml 710 ml # Voids 2 # Bowel Movements 1 0 2 Physical Exam GENERAL: SKIN: Warm and dry. HEAD: Atraumatic. Normocephalic. EYES: Pupils equal and round. ENT: No nasal bleeding or discharge. NECK: Trachea midline. No JVD. CARDIOVASCULAR: normal rate and rhythm. no murmurs RESPIRATORY: No accessory muscle use. coarse breath sounds bilateral bases GASTROINTESTINAL: Abdomen soft, non-tender, nondistended. MUSCULOSKELETAL: Extremities without clubbing, cyanosis, or edema. NEUROLOGICAL: Awake and alert. Normal speech. PSYCHIATRIC: Appropriate mood and affect; insight and judgment normal. Laboratory Laboratory Tests Test 10/30/17 16:40 10/31/17 04:00 Blood Gas Puncture Site RT RADIAL Blood Gas Patient Temperature 98.6 Blood Gas HCO3 30 mmol/L Blood Gas Base Excess 4.5 mmol/L Blood Gas Oxygen Saturation 93 % Arterial Blood pH 7.37 Arterial Blood Partial Pressure CO2 52 mmHg Arterial Blood Partial Pressure O2 81 mmHg Arterial Blood Oxygen Content 11.6 Vol % Arterial Blood Carboxyhemoglobin 1.6 % Arterial Blood Methemoglobin 1.2 % Blood Gas Hemoglobin 8.8 G/DL Oxygen Delivery Device NASAL CANNULA Blood Gas Liter Flow 2 L/M White Blood Count 13.9 TH/MM3 Red Blood Count 3.44 MIL/MM3 Hemoglobin 8.9 GM/DL Hematocrit 27.5 % Mean Corpuscular Volume 79.9 FL Mean Corpuscular Hemoglobin 26.0 PG Mean Corpuscular Hemoglobin Concent 32.5 % Red Cell Distribution Width 19.4 % Platelet Count 259 TH/MM3 Mean Platelet Volume 8.5 FL Hematology Comments Blood Urea Nitrogen 7 MG/DL Creatinine 1.04 MG/DL Random Glucose 88 MG/DL Calcium Level 8.0 MG/DL Sodium Level 144 MEQ/L Potassium Level 4.2 MEQ/L Chloride Level 107 MEQ/L Carbon Dioxide Level 33.1 MEQ/L Anion Gap 4 MEQ/L Estimat Glomerular Filtration Rate 89 ML/MIN (Lashawn Johnson) Assessment and Plan Problem List: (1) CAD (coronary artery disease) ICD Codes: I25.10 - Atherosclerotic heart disease of [place] coronary artery without angina pectoris (2) Atrial fibrillation with RVR ICD Codes: I48.91 - Unspecified atrial fibrillation Status: Acute (3) GI bleed ICD Codes: K92.2 - Gastrointestinal hemorrhage, unspecified Status: Acute Assessment and Plan 57 yo M with non-ischemic cardiomyopathy EF 30-35%, CAD recent BMS RCA placed by Dr. Barbosa in 08/2017, CHF and afib with recent GI bleed. s/p transfusion, anemia slowly improving afib- s/p KARINA/DCC 10/30/17 now remains in NSR, rate improved digoxin level normal resumed asa and plavix colonoscopy before discharge SBP normal (Lashawn Johnson) Assessment and Plan s/p DCC yest. still NSR. amio bolus, but no drip given. will start amio PO 400 daily to maintain NSR cont dig and CCB. monitor periodic dig levels asa plavix secondary to recent PCI BMS no obvious bleeding possible colonoscopy today or tomorrow will sign off call with further questions FU with PCP on DC He is not a [facility] patient. He is a [facility] on-call patient. (Flex Fuentes MD) Problem Qualifiers (1) GI bleed: Qualified Codes: K92.1 - Lashawn Head Oct 31, 2017 07:58 lFex Fuentes MD Oct 31, 2017 08:51
--- NOTE | 2017-10-31 08:37 | HHI.CCPN ---
Subjective Remarks/Hospital Course this is a 56yM with baseline NYHA Class IV heart failure with EF 30% who sees Dr. Barbosa who has felt worse over the last few days with worsening shortness of breath. he also describes having bloody bowel movements with dark black and some bloody stools. he states it is hard to eat and he loses his appetite with some associated nausea and epigastric pain. denies vomiting. states his dyspnea at rest has not changed significantly. denies fever, chills. denies productive sputum or cough. states he cannot afford to follow up with any of his outpatient doctors, so he does not have additional appointments scheduled. he states he has felt short of breath for a "long time", even before his recent hospitalizations. In the emergency room, he was found to have a hgb 4, tachycardic in afib RVR, and per the ER physician report, he had a large amount of surekha melena in the rectal vault. he was given 4 units prbc in the ER. he states his fatigue may be "some better." The patient is a very poor historian, and a full history and ROS is difficult to obtain. he is admitted for active and hemodynamically significant GI bleed. 10/27 Patient was given 2L NS blouses overnight for hypotension , right IJ CVP line placed. Hgb 6.6 this morning scheduled to 3 units PRBC total. For EGD today / On Protonix drip. 10/28 No events overnight, s/p EGD yesterday showed clean base ulcer antrum-1 cm - biopsy no active bleeding , no visible vessel, gastritis, portal gastropathy and hiatal hernia. Remains on Protonix drip. Hgb 8.6 this morning. 10/29 Patient is lying in bed in NAD. H/H stable. 10/30 No events overnight Patient still tachycardiac in Afib/flutter. For possible KARINA/DCC today 10/31 Patient s/p KARINA/DCC yesterday now in NSR. NPO for colonoscopy today. CT brain showed no acute intracranial findings. Objective Vital Signs Date Time Temp Pulse Resp B/P (MAP) Pulse Ox O2 Delivery O2 Flow Rate FiO2 10/31/17 06:00 95 10/31/17 04:00 99.3 16 149/79 (102) 98 10/30/17 20:23 Nasal Cannula 2.00 10/30/17 09:27 100 Intake and Output 10/31/17 10/31/17 10/31/17 07:59 15:59 23:59 Intake Total 460 ml Output Total 710 ml Balance -250 ml Result Diagram: 10/31/17 0400 10/31/17 0400 Other Results Laboratory Tests Test 10/30/17 16:40 10/31/17 04:00 Blood Gas Puncture Site RT RADIAL Blood Gas Patient Temperature 98.6 Blood Gas HCO3 30 mmol/L Blood Gas Base Excess 4.5 mmol/L Blood Gas Oxygen Saturation 93 % Arterial Blood pH 7.37 Arterial Blood Partial Pressure CO2 52 mmHg Arterial Blood Partial Pressure O2 81 mmHg Arterial Blood Oxygen Content 11.6 Vol % Arterial Blood Carboxyhemoglobin 1.6 % Arterial Blood Methemoglobin 1.2 % Blood Gas Hemoglobin 8.8 G/DL Oxygen Delivery Device NASAL CANNULA Blood Gas Liter Flow 2 L/M White Blood Count 13.9 TH/MM3 Red Blood Count 3.44 MIL/MM3 Hemoglobin 8.9 GM/DL Hematocrit 27.5 % Mean Corpuscular Volume 79.9 FL Mean Corpuscular Hemoglobin 26.0 PG Mean Corpuscular Hemoglobin Concent 32.5 % Red Cell Distribution Width 19.4 % Platelet Count 259 TH/MM3 Mean Platelet Volume 8.5 FL Hematology Comments Blood Urea Nitrogen 7 MG/DL Creatinine 1.04 MG/DL Random Glucose 88 MG/DL Calcium Level 8.0 MG/DL Sodium Level 144 MEQ/L Potassium Level 4.2 MEQ/L Chloride Level 107 MEQ/L Carbon Dioxide Level 33.1 MEQ/L Anion Gap 4 MEQ/L Estimat Glomerular Filtration Rate 89 ML/MIN Imaging Last Impressions Head CT 10/30/17 0000 Signed Impressions: Service Date/Time: October 18:41 - CONCLUSION: No acute intracranial abnormality. Old infarct/ischemic changes are again noted. Miah Guillory MD Chest X-Ray 10/29/17 0000 Signed Impressions: Service Date/Time: Sunday, October 29, 2017 09:23 - CONCLUSION: 1. Right lower lung zone airspace disease appears more consolidated centrally with stable associated trace right pleural effusion. Differential considerations include pneumonia/aspiration versus evolving rounded atelectasis. Stiven Gloria MD Abdomen/Pelvis CT 10/27/17 0000 Signed Impressions: Service Date/Time: Saturday, October 28, 2017 01:40 - CONCLUSION: 1. No evidence of acute abdominal or pelvic process. No masses are identified. 2. Trace ascites 3. Right lower lobe atelectasis versus pneumonia. Lex Burdick MD Objective Remarks GENERAL: Obese middle-aged male, lying in bed, mild distress due to dyspnea HEENT: Normocephalic. Atraumatic. Pupils equal, round, reactive, conjugate. Mucous membranes are moist NECK: Trachea is midline. +JVD CHEST: Equal chest rise. Mildly tachypneic. Mildly labored. Nasal cannula oxygen CARDIOVASCULAR: Tachycardic rate, irregularly irregular rhythm. A. fib by telemetry. ABDOMEN: Soft, nontender, nondistended. No guarding. MUSCULOSKELETAL: Pulses 2+. 3+ peripheral edema NEUROLOGICAL: RASS 0. CAM -. Follows commands. GCS 15. No focal deficits. A/P Assessment and Plan 1) Resp Insuff 2)GI bleed 3)Anemia 2nd acute blood loss 4)CMP- EF 30% 5)Afib RVR 6)Lactic acidemia- resolved 7)Hypernatremia- improved 8)Leukocytosis.. 9)Hyperlipidemia 10)Hx CVA Plan Neuro: Awake and alert. CT brain 10/30 :No acute intracranial abnormality. Old infarct/ ischemic changes are again noted. Pulm: Continue with oxygen keep sat >92% Bronchodilators, IS CV: Monitor HR and BP keep MAP>65mmHg On Cardizem 90mg Q6, Digoxin 0.25mg daily, Lipitor 80mg qhs. Dig level 1.1 on 10/28 Echo from 09/05 showed EF 30-35%. Cards is following-Dr. Fuentes Continue ASA and Plavix. Plan for colonoscopy today first prior to resuming Eliquis. s/p KARINA/DCC 08/30 now in NSR GI: NPO for colonoscopy today s/p 7 units prbc total since admission Protonix drip 40mg IV BID. s/p EGD 10/27 showed clean base ulcer antrum-1 cm -biopsy no active bleeding , no visible vessel, gastritis, portal gastropathy and hiatal hernia. : Monitor renal function, electrolytes replacement as needed, ID: Monitor for signs of infections ( Fever, WBC). On Zosyn, CXR 10/27 showed RLL atelectasis vs pneumonia. BC 10/26: NGTD., Heme: Monitor CBC, coags. s/p transfusion 7u PRBC total. Endo: SSI if needed for glycemic control GI prophylaxis- on Protonix 40mg BID DVT prophylaxis- SCD.. Not on chemical AC prophylaxis due to GI bleed/severe anemia on arrival. For colonoscopy today Lines: peripheral IV's Level 3 Katiuska Fregoso MD Oct 31, 2017 08:37
[2017-10-31] MEDS: SUCRALFATE 1 GM/10 ML CUP PO SCH ×4 (10:46→19:50)
[2017-10-31] MEDS: CLOPIDOGREL 75 MG TAB PO SCH (10:47)
[2017-10-31] MEDS: DIGOXIN 0.25 MG TAB PO SCH (10:47)
[2017-10-31] MEDS: AMIODARONE 200 MG TAB PO SCH (10:47)
[2017-10-31] MEDS: PANTOPRAZOLE SODIUM 40 MG VIAL IV PUSH SCH ×2 (10:48→19:50)
[2017-10-31] MEDS: ASPIRIN EC 81 MG TABEC PO SCH ×2 (10:48→10:49)
--- NOTE | 2017-10-31 12:20 | HHI.GIFU ---
Subjective Remarks attempting to drink GoLYTELY prep this a.m., only able to drink 1 glass during the early a.m. hours. Awake, simple responses Weak Monitored in the intensive care setting (Yumiko Lopez) Objective Vitals I&O Vital Signs Date Time Temp Pulse Resp B/P (MAP) Pulse Ox O2 Delivery O2 Flow Rate FiO2 10/31/17 09:50 95 Nasal Cannula 2.00 10/31/17 06:00 95 10/31/17 04:00 88 10/31/17 04:00 99.3 88 16 149/79 (102) 98 10/31/17 02:00 90 10/31/17 00:00 97 10/31/17 00:00 98.1 97 19 118/62 (80) 91 10/30/17 22:00 96 10/30/17 20:23 96 Nasal Cannula 2.00 10/30/17 20:00 97 10/30/17 20:00 97.9 97 19 132/59 (83) 90 10/30/17 18:00 107 10/30/17 16:31 93 18 133/62 (85) 100 10/30/17 16:01 98.3 103 22 142/67 (92) 100 10/30/17 16:00 104 10/30/17 16:00 104 29 99 10/30/17 15:31 100 120/80 (93) 96 10/30/17 15:01 103 129/77 (94) 100 10/30/17 15:00 102 99 10/30/17 14:31 100 143/89 (107) 99 10/30/17 14:00 96 10/30/17 14:00 96 21 157/88 (111) 99 10/30/17 13:31 94 24 152/86 (108) 99 10/30/17 13:01 86 19 169/92 (117) 97 10/30/17 13:00 90 16 97 10/30/17 12:30 90 12 120/70 (87) 99 I/O 10/30/17 10/30/17 10/30/17 10/31/17 10/31/17 10/31/17 07:00 15:00 23:00 07:00 15:00 23:00 Intake Total 340 ml 100 ml 340 ml 460 ml Output Total 500 ml 850 ml 710 ml Balance -160 ml 100 ml -510 ml -250 ml Intake Oral 240 ml 240 ml 260 ml IV Total 100 ml 100 ml 100 ml 200 ml Output Urine Total 500 ml 850 ml 710 ml # Voids 2 # Bowel Movements 1 0 2 Laboratory Laboratory Tests Test 10/30/17 16:40 10/31/17 04:00 Blood Gas Puncture Site RT RADIAL Blood Gas Patient Temperature 98.6 Blood Gas HCO3 30 Blood Gas Base Excess 4.5 Blood Gas Oxygen Saturation 93 Arterial Blood pH 7.37 Arterial Blood Partial Pressure CO2 52 Arterial Blood Partial Pressure O2 81 Arterial Blood Oxygen Content 11.6 Arterial Blood Carboxyhemoglobin 1.6 Arterial Blood Methemoglobin 1.2 Blood Gas Hemoglobin 8.8 Oxygen Delivery Device NASAL CANNULA Blood Gas Liter Flow 2 White Blood Count 13.9 Red Blood Count 3.44 Hemoglobin 8.9 Hematocrit 27.5 Mean Corpuscular Volume 79.9 Mean Corpuscular Hemoglobin 26.0 Mean Corpuscular Hemoglobin Concent 32.5 Red Cell Distribution Width 19.4 Platelet Count 259 Mean Platelet Volume 8.5 Hematology Comments Blood Urea Nitrogen 7 Creatinine 1.04 Random Glucose 88 Calcium Level 8.0 Sodium Level 144 Potassium Level 4.2 Chloride Level 107 Carbon Dioxide Level 33.1 Anion Gap 4 Estimat Glomerular Filtration Rate 89 Date/Time Source Procedure Growth Status 10/26/17 14:45 Blood Peripheral Aerobic Blood Culture - Final NO GROWTH IN 5 DAYS Complete 10/26/17 14:45 Blood Peripheral Anaerobic Blood Culture - Final NO GROWTH IN 5 DAYS Complete Imaging Last Impressions Head CT 10/30/17 0000 Signed Impressions: Service Date/Time: October 18:41 - CONCLUSION: No acute intracranial abnormality. Old infarct/ischemic changes are again noted. Miah Guillory MD Chest X-Ray 10/29/17 0000 Signed Impressions: Service Date/Time: Sunday, October 29, 2017 09:23 - CONCLUSION: 1. Right lower lung zone airspace disease appears more consolidated centrally with stable associated trace right pleural effusion. Differential considerations include pneumonia/aspiration versus evolving rounded atelectasis. Stiven Gloria MD Abdomen/Pelvis CT 10/27/17 0000 Signed Impressions: Service Date/Time: Saturday, October 28, 2017 01:40 - CONCLUSION: 1. No evidence of acute abdominal or pelvic process. No masses are identified. 2. Trace ascites 3. Right lower lobe atelectasis versus pneumonia. Lex Burdick MD Physical Exam HEENT: PERRL; normocephalic; atraumatic; obese CHEST: CTA CARDIAC:RRR ABDOMEN: Large, taut, mild distended, nontender; bowel sounds are present EXTREMITIES: Mild LE edema. 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 UGIB. hgb 4.3 on admission. denies blood thinners, NSAIDS s/p EGD found clean based ulcer no bleeding or visible vessel, portal gastropathy, ENT consult appreciated, no bleeding lesions seen CT showed trace ascites, no acute abd findings. colonoscopy scheduled for 10/06 but patient did not obtain enough prep. Only drank 1 cup during the a.m. hours and is attempting to drink this a.m. for possible colonoscopy. KARINA today, s/p cardioversion, d/w cardiology and he is cleared for cscope, but will need his blood thinners after GI testing completed PLAN - We will plan for colonoscopy tomorrow - obtain reconsent - Clear liquids today maintaining, continue to drink GoLYTELY and prep today - NPO after midnight - PPI IV - monitor labs - transfuse as needed -supportive care pt seen by myself and Dr Strickland, note on her behalf (Yumiko Lopez) Physician Comments seen, examined later in the day he stated he wanted to eat and was unable to finish prep will do colonoscopy op ok to restart anticoagulation from gi point, including eliquis egd /colonoscopy op in 6-8 weeks (Sarah Strickland MD) Yumiko Lopez Oct 31, 2017 12:20 Sarah Strickland MD Oct 31, 2017 21:43
--- NOTE | 2017-10-31 14:45 | EKG ---
Date Performed: 10/31/2017 Time Performed: 09:27:54 PTAGE: 57 years EKG: Sinus rhythm . rSr'(V1) - probable normal variant Anteroseptal T wave changes are nonspecific Borderline ECG PREVIOUS TRACING : 10/26/2017 14.16 Compared to prior tracing, patient is now in normal sinus r hythm. DOCTOR: Lenny Barbosa Interpretating Date/Time 10/31/2017 14:44:41
[2017-10-31] MEDS ORDERED: PEG (High)/E-LYTE SOLN 4000 ML BTL PO ONE (18:47)
[2017-10-31] MEDS: ATORVASTATIN 80 MG TAB PO SCH (19:51)
[2017-11-01] VITALS (13 sets, daily range): BP systolic 110–166; BP diastolic 57–87; PULSE 79–99; RESP 16–25; TEMP 98.1–100.6; O2SAT 92–98
[2017-11-01] MEDS: CHLORHEXIDINE GLUCONATE 2 % 1 PACK (2 CLOTHS) TOP SCH (01:15)
[2017-11-01] MEDS: PIPERACIL-TAZO 4.5 GM PREMIX 100 ML IV SCH ×4 (03:14→19:55)
[2017-11-01] MEDS: INSULIN NovoLIN REGULAR SUPPLEMENTAL SCALE SQ SCH ×5 (04:06→20:15)
--- NOTE | 2017-11-01 04:33 | RADRPT ---
EXAM DATE/TIME: 11/01/2017 03:24 [facility] COMPARISON: CHEST SINGLE AP, October 29, 2017, 9:23. INDICATIONS : Shortness of breath, possible pulmonary disease. MEDICAL HISTORY : Hypertension. Hypercholesterolemia. Myocardial infarction. Stroke SURGICAL HISTORY : None. ENCOUNTER: Subsequent ACUITY: 1 week PAIN SCORE: 0/10 LOCATION: Bilateral chest FINDINGS: Compared to the prior exam there is an increasing infiltrate in the right lower lung. There is also i ncreasing infiltrate in the left lung base. The heart size is stable. There is no pneumothorax. The b peggy structures are stable. CONCLUSION: Increasing bibasilar infiltrates Isma Ortega MD on November 01, 2017 at 4:30 Board Certified Radiologist. This report was verified electronically.
[2017-11-01] MEDS: DILTIAZEM HCL 90 MG TAB PO SCH ×4 (05:38→23:56)
[2017-11-01 05:39] LABS: AUTOMATED NEUTROPHIL # 7.9 TH/MM3 (1.8-7.7); BASOPHIL # 0.1 TH/MM3 (0-0.2); BASOPHIL % 0.5 % (0.0-2.0); EOSINOPHIL # 0.3 TH/MM3 (0-0.4); EOSINOPHIL % 2.6 % (0.0-4.0); HEMATOCRIT 26.8 % (39.0-51.0); HEMOGLOBIN 8.6 GM/DL (13.0-17.0); LYMPH % 12.5 % (9.0-44.0); LYMPHOCYTE # 1.3 TH/MM3 (1.0-4.8); MEAN CELL VOLUME 80.6 FL (80.0-100.0); MEAN CORPUSCULAR HEMOGLOBIN 25.7 PG (27.0-34.0); MEAN CORPUSCULAR HGB CONC 31.9 % (32.0-36.0); MEAN PLATELET VOLUME 7.7 FL (7.0-11.0); MONO % 11.4 % (0.0-8.0); MONOCYTE # 1.2 TH/MM3 (0-0.9); PLATELET COUNT 349 TH/MM3 (150-450); RED BLOOD COUNT 3.33 MIL/MM3 (4.50-5.90); RED CELL DISTRIBUTION WIDTH 19.9 % (11.6-17.2); WHITE BLOOD COUNT 10.8 TH/MM3 (4.0-11.0)
[2017-11-01 06:03] LABS: BICARBONATE 34.9 MEQ/L (21.0-32.0); CALCIUM 8.1 MG/DL (8.5-10.1); CREATININE 0.98 MG/DL (0.60-1.30)
[2017-11-01 06:17] LABS: DIGOXIN 1.2 NG/ML (0.8-2.0)
[2017-11-01] MEDS: DIGOXIN 0.25 MG TAB PO SCH (09:00)
[2017-11-01] MEDS: CLOPIDOGREL 75 MG TAB PO SCH (10:53)
[2017-11-01] MEDS: PANTOPRAZOLE SODIUM 40 MG VIAL IV PUSH SCH (10:53)
[2017-11-01] MEDS: ASPIRIN EC 81 MG TABEC PO SCH (10:53)
[2017-11-01] MEDS: AMIODARONE 200 MG TAB PO SCH (10:54)
[2017-11-01] MEDS: SUCRALFATE 1 GM/10 ML CUP PO SCH ×4 (10:54→19:55)
--- NOTE | 2017-11-01 19:36 | HHI.CCPN ---
Subjective Remarks/Hospital Course this is a 56yM with baseline NYHA Class IV heart failure with EF 30% who sees Dr. aBrbosa who has felt worse over the last few days with worsening shortness of breath. he also describes having bloody bowel movements with dark black and some bloody stools. he states it is hard to eat and he loses his appetite with some associated nausea and epigastric pain. denies vomiting. states his dyspnea at rest has not changed significantly. denies fever, chills. denies productive sputum or cough. states he cannot afford to follow up with any of his outpatient doctors, so he does not have additional appointments scheduled. he states he has felt short of breath for a "long time", even before his recent hospitalizations. In the emergency room, he was found to have a hgb 4, tachycardic in afib RVR, and per the ER physician report, he had a large amount of surekha melena in the rectal vault. he was given 4 units prbc in the ER. he states his fatigue may be "some better." The patient is a very poor historian, and a full history and ROS is difficult to obtain. he is admitted for active and hemodynamically significant GI bleed. 10/27 Patient was given 2L NS blouses overnight for hypotension , right IJ CVP line placed. Hgb 6.6 this morning scheduled to 3 units PRBC total. For EGD today / On Protonix drip. 10/28 No events overnight, s/p EGD yesterday showed clean base ulcer antrum-1 cm - biopsy no active bleeding , no visible vessel, gastritis, portal gastropathy and hiatal hernia. Remains on Protonix drip. Hgb 8.6 this morning. 10/29 Patient is lying in bed in NAD. H/H stable. 10/30 No events overnight Patient still tachycardiac in Afib/flutter. For possible KARINA/DCC today 10/31 Patient s/p KARINA/DCC yesterday now in NSR. NPO for colonoscopy today. CT brain showed no acute intracranial findings. Subjective 11/01: Afebrile. On room air. Remains in normal sinus rhythm. Tolerating diet. Asking to go home. Objective Vital Signs Date Time Temp Pulse Resp B/P (MAP) Pulse Ox O2 Delivery O2 Flow Rate FiO2 11/01/17 18:00 94 11/01/17 16:00 98.4 19 121/57 (78) 97 10/31/17 21:30 Nasal Cannula 2.00 10/30/17 09:27 100 Intake and Output 11/01/17 11/01/17 11/01/17 07:59 15:59 23:59 Intake Total 880 ml 100 ml 650 ml Output Total 425 ml 650 ml Balance 455 ml 100 ml 0 ml Result Diagram: 11/01/17 0430 11/01/17 0430 Other Results Microbiology Date/Time Source Procedure Growth Status 10/26/17 14:45 Blood Peripheral Aerobic Blood Culture - Final NO GROWTH IN 5 DAYS Complete 10/26/17 14:45 Blood Peripheral Anaerobic Blood Culture - Final NO GROWTH IN 5 DAYS Complete Imaging Last Impressions Chest X-Ray 11/01/17 0000 Signed Impressions: Service Date/Time: Wednesday, November 01, 2017 03:24 - CONCLUSION: Increasing bibasilar infiltrates Isma Ortega MD Head CT 10/30/17 0000 Signed Impressions: Service Date/Time: October 18:41 - CONCLUSION: No acute intracranial abnormality. Old infarct/ischemic changes are again noted. Miah Guillory MD Abdomen/Pelvis CT 10/27/17 0000 Signed Impressions: Service Date/Time: Saturday, October 28, 2017 01:40 - CONCLUSION: 1. No evidence of acute abdominal or pelvic process. No masses are identified. 2. Trace ascites 3. Right lower lobe atelectasis versus pneumonia. Lex Burdick MD Objective Remarks GENERAL: 57-year-old AA male currently resting in bed on room air distress HEENT: Normocephalic. Atraumatic. Pupils equal, round, reactive, conjugate. Mucous membranes are moist NECK: Trachea is midline. +JVD CHEST: Currently in room air. Essentially clear but distant. No wheezing CARDIOVASCULAR: RRR. S1, S2 no S4 without murmur ABDOMEN: Soft, nontender, slightly protuberant. Hypoactive bowel sounds are appreciated. No guarding. MUSCULOSKELETAL: 2+ peripheral edema. NEUROLOGICAL: Cranial nerves II through XII grossly intact. Strength is equal symmetric. Normal sensation to light touch and pinprick. A/P Assessment and Plan Neuro/Psych: History of CVA - right parietal, left parietal and frontal, basal ganglia and PVWM Awake and alert. CT brain 1/11 :No acute intracranial abnormality. Old infarct/ischemic changes are as above are noted. Continue aspirin 81 mg daily and Prilosec 5 mg by mouth daily Pulm: Continue with nasal cannula oxygen keep sat >92% Albuterol/ipratropium aerosols every 6 hours with albuterol aerosols every 2 hours. Dyspnea CV: Atrial fibrillation status post DCCV currently normal sinus rhythm Hypertension Dyslipidemia Ischemic cardiopathy ejection fraction 30% Monitor HR and BP keep MAP>65mmHg On diltiazem 90mg Q6, Digoxin 0.25mg daily, atorvastatin 80mg qhs. Dig level 1.1 on 10/28 Continue amiodarone 400 mg by mouth daily Echo from 09/05 showed EF 30-35%. Cards is following-Dr. Fuentes Continue ASA 81 mg daily and clopidogrel 75 mg daily. Plan for colonoscopy outpatient. He has been cleared from GI standpoint to resume apixaban 5 mg twice a day s/p KARINA/DCC 08/30 now in NSR Holding ramipril 2.5 mg daily. Resume when clinically indicated Resuming torsemide at 5 mill grams twice a day/patient is on 10 miiligrams twice a day at home GI: 1 cm antrum ulcer Portal gastropathy Erosive gastritis Tolerating heart healthy diet Outpatient colonoscopy planned s/p 7 units prbc total since admission Pantoprazole 40 mg by mouth twice a day s/p EGD 10/27 showed clean base ulcer antrum-1 cm -biopsy no active bleeding , no visible vessel, gastritis, portal gastropathy and hiatal hernia. FEN/Renal/: Monitor renal function, electrolytes replacement as needed, ID: Monitor for signs of infections ( Fever, WBC). On piperacillin/tazobactam 7 days, CXR 10/27 showed RLL atelectasis vs pneumonia. BC 10/26: NGTD Heme: Normocytic anemia Chronic Apixaban use Monitor CBC, coags. s/p transfusion 7u PRBC total. Endo: SSI with Novulin R with Accu-Cheks before meals/at bedtime to maintain euglycemia/low regimen for glycemic control GI prophylaxis- on pantoprazole 40mg BID DVT prophylaxis- SCD.. Apixaban initiated in a.m. 11/02 Lines: peripheral IV's Level II followup. Patient is stable from a critical care medicine standpoint. Assign care to hospitalist in a.m. 11/02. Transfer From ICU Juan Luis Davila MD Nov 01, 2017 19:36
[2017-11-01] MEDS: PANTOPRAZOLE SOD 40 MG DELAYED RELEASE TAB PO SCH (19:54)
[2017-11-01] MEDS: ATORVASTATIN 80 MG TAB PO SCH (19:55)
[2017-11-01] MEDS: APIXABAN 5 MG TABLET PO SCH (20:14)
[2017-11-02] VITALS (9 sets, daily range): BP systolic 116–142; BP diastolic 58–74; PULSE 50–133; RESP 24–29; TEMP 98.7–99.1; O2SAT 92–98
[2017-11-02] MEDS: CHLORHEXIDINE GLUCONATE 2 % 1 PACK (2 CLOTHS) TOP SCH (03:08)
[2017-11-02] MEDS: PIPERACIL-TAZO 4.5 GM PREMIX 100 ML IV SCH ×2 (03:08→08:09)
--- NOTE | 2017-11-02 04:42 | RADRPT ---
EXAM DATE/TIME: 11/02/2017 03:15 [facility] COMPARISON: CHEST SINGLE AP, November 01, 2017, 3:24. INDICATIONS : Shortness of breath, possible pulmonary disease. MEDICAL HISTORY : Hypertension. Hypercholesterolemia. Myocardial infarction. Stroke SURGICAL HISTORY : None. ENCOUNTER: Subsequent ACUITY: 1 week PAIN SCORE: Non-responsive. LOCATION: Bilateral chest FINDINGS: There continues to be diffuse patchy infiltrates in both lower lungs, right greater than left. The in filtrates are stable compared to the prior study. The heart size is stable. There is no pneumothorax. Bony structures are stable. CONCLUSION: No significant interval change in the bilateral pulmonary infiltrates. Isma Ortega MD on November 02, 2017 at 4:40 Board Certified Radiologist. This report was verified electronically.
[2017-11-02 04:59] LABS: AUTOMATED NEUTROPHIL # 7.2 TH/MM3 (1.8-7.7); BASOPHIL # 0.1 TH/MM3 (0-0.2); BASOPHIL % 0.9 % (0.0-2.0); EOSINOPHIL # 0.3 TH/MM3 (0-0.4); EOSINOPHIL % 2.8 % (0.0-4.0); HEMATOCRIT 26.2 % (39.0-51.0); HEMOGLOBIN 8.6 GM/DL (13.0-17.0); LYMPH % 15.9 % (9.0-44.0); LYMPHOCYTE # 1.7 TH/MM3 (1.0-4.8); MEAN CELL VOLUME 79.9 FL (80.0-100.0); MEAN CORPUSCULAR HEMOGLOBIN 26.2 PG (27.0-34.0); MEAN CORPUSCULAR HGB CONC 32.8 % (32.0-36.0); MEAN PLATELET VOLUME 7.5 FL (7.0-11.0); MONOCYTE # 1.4 TH/MM3 (0-0.9); NEUT % 67.4 % (16.0-70.0); PLATELET COUNT 408 TH/MM3 (150-450); RED BLOOD COUNT 3.28 MIL/MM3 (4.50-5.90); WHITE BLOOD COUNT 10.7 TH/MM3 (4.0-11.0)
[2017-11-02 05:24] LABS: AST (GOT) 23 U/L (15-37); BICARBONATE 36.7 MEQ/L (21.0-32.0); BLOOD UREA NITROGEN 9 MG/DL (7-18); CALCIUM 7.9 MG/DL (8.5-10.1); CHLORIDE 103 MEQ/L (98-107); CREATININE 0.93 MG/DL (0.60-1.30); GLOMERULAR FILTRATION RATE 102 ML/MIN (>89); GLUCOSE,RANDOM 84 MG/DL (74-106); MAGNESIUM 2.2 MG/DL (1.5-2.5); SODIUM (NA) 142 MEQ/L (136-145)
[2017-11-02 05:25] LABS: ALT (GPT) 24 U/L (12-78)
[2017-11-02 05:38] LABS: ALKALINE PHOSPHATASE 56 U/L (45-117); DIGOXIN 0.8 NG/ML (0.8-2.0); PHOSPHORUS 1.9 MG/DL (2.5-4.9); TOTAL BILIRUBIN ADULT 0.4 MG/DL (0.2-1.0); TOTAL PROTEIN 6.3 GM/DL (6.4-8.2)
[2017-11-02] MEDS: DILTIAZEM HCL 90 MG TAB PO SCH ×2 (06:45→11:21)
[2017-11-02] MEDS: INSULIN NovoLIN REGULAR SUPPLEMENTAL SCALE SQ SCH ×2 (08:00→11:20)
[2017-11-02] MEDS: ASPIRIN EC 81 MG TABEC PO SCH (08:09)
[2017-11-02] MEDS: SUCRALFATE 1 GM/10 ML CUP PO SCH ×2 (08:10→11:21)
[2017-11-02] MEDS: AMIODARONE 200 MG TAB PO SCH (08:10)
[2017-11-02] MEDS: CLOPIDOGREL 75 MG TAB PO SCH (08:10)
[2017-11-02] MEDS: DIGOXIN 0.25 MG TAB PO SCH (08:10)
[2017-11-02] MEDS: APIXABAN 5 MG TABLET PO SCH (08:10)
[2017-11-02] MEDS: PANTOPRAZOLE SOD 40 MG DELAYED RELEASE TAB PO SCH (08:10)
[2017-11-02] MEDS ORDERED: TORSEMIDE 5 MG TAB PO SCH (09:00)
[2017-11-02] MEDS ORDERED: DIGOXIN 0.5 MG/2 ML VIAL IV PUSH ONE (12:15)
[2017-11-02] MEDS ORDERED: POTASSIUM PHOSPHATE INJ 30 MMOL in SODIUM CHLOR 0.9% 250 ML INJ 250 ML IV ONE (12:15)
--- NOTE | 2017-11-02 12:18 | HHI.CCPN ---
Subjective Remarks/Hospital Course this is a 56yM with baseline NYHA Class IV heart failure with EF 30% who sees Dr. Barbosa who has felt worse over the last few days with worsening shortness of breath. he also describes having bloody bowel movements with dark black and some bloody stools. he states it is hard to eat and he loses his appetite with some associated nausea and epigastric pain. denies vomiting. states his dyspnea at rest has not changed significantly. denies fever, chills. denies productive sputum or cough. states he cannot afford to follow up with any of his outpatient doctors, so he does not have additional appointments scheduled. he states he has felt short of breath for a "long time", even before his recent hospitalizations. In the emergency room, he was found to have a hgb 4, tachycardic in afib RVR, and per the ER physician report, he had a large amount of surekha melena in the rectal vault. he was given 4 units prbc in the ER. he states his fatigue may be "some better." The patient is a very poor historian, and a full history and ROS is difficult to obtain. he is admitted for active and hemodynamically significant GI bleed. 10/27 Patient was given 2L NS blouses overnight for hypotension , right IJ CVP line placed. Hgb 6.6 this morning scheduled to 3 units PRBC total. For EGD today / On Protonix drip. 10/28 No events overnight, s/p EGD yesterday showed clean base ulcer antrum-1 cm - biopsy no active bleeding , no visible vessel, gastritis, portal gastropathy and hiatal hernia. Remains on Protonix drip. Hgb 8.6 this morning. 10/29 Patient is lying in bed in NAD. H/H stable. 10/30 No events overnight Patient still tachycardiac in Afib/flutter. For possible KARINA/DCC today 10/31 Patient s/p KARINA/DCC yesterday now in NSR. NPO for colonoscopy today. CT brain showed no acute intracranial findings. 11/01: Afebrile. On room air. Remains in normal sinus rhythm. Tolerating diet. Asking to go home. Subjective 11/02: Currently on 2 L nasal cannula. Went back into A. fib/flutter this morning. Wants to go home. Restarted oral anticoagulate this morning. Objective Vital Signs Date Time Temp Pulse Resp B/P (MAP) Pulse Ox O2 Delivery O2 Flow Rate FiO2 11/02/17 10:00 50 11/02/17 09:20 98 21 11/02/17 08:00 98.7 29 137/66 (89) 10/31/17 21:30 Nasal Cannula 2.00 Intake and Output 11/02/17 11/02/17 11/03/17 08:00 16:00 00:00 Intake Total 580 ml Output Total 700 ml Balance -120 ml Result Diagram: 11/02/17 0350 11/02/17 0350 Other Results Microbiology Date/Time Source Procedure Growth Status 10/26/17 14:45 Blood Peripheral Aerobic Blood Culture - Final NO GROWTH IN 5 DAYS Complete 10/26/17 14:45 Blood Peripheral Anaerobic Blood Culture - Final NO GROWTH IN 5 DAYS Complete Imaging Last Impressions Chest X-Ray 11/02/17 0600 Signed Impressions: Service Date/Time: Thursday, November 02, 2017 03:15 - CONCLUSION: No significant interval change in the bilateral pulmonary infiltrates. Isma Ortega MD Head CT 10/30/17 0000 Signed Impressions: Service Date/Time: October 18:41 - CONCLUSION: No acute intracranial abnormality. Old infarct/ischemic changes are again noted. Miah Guillory MD Abdomen/Pelvis CT 10/27/17 0000 Signed Impressions: Service Date/Time: Saturday, October 28, 2017 01:40 - CONCLUSION: 1. No evidence of acute abdominal or pelvic process. No masses are identified. 2. Trace ascites 3. Right lower lobe atelectasis versus pneumonia. Lex Burdick MD Objective Remarks GENERAL: 57-year-old AA male currently resting in bed on room air distress HEENT: Normocephalic. Atraumatic. Pupils equal, round, reactive, conjugate. Mucous membranes are moist NECK: Trachea is midline. +JVD CHEST: Currently in room air. Essentially clear but distant. No wheezing CARDIOVASCULAR: Tachycardia, IR. S1, S2 no S4 without murmur ABDOMEN: Soft, nontender, slightly protuberant. Hypoactive bowel sounds are appreciated. No guarding. MUSCULOSKELETAL: 2+ peripheral edema. NEUROLOGICAL: Cranial nerves II through XII grossly intact. Strength is equal symmetric. Normal sensation to light touch and pinprick. A/P Assessment and Plan Neuro/Psych: History of CVA - right parietal, left parietal and frontal, basal ganglia and PVWM Awake and alert. CT brain 10/30 :No acute intracranial abnormality. Old infarct/ischemic changes are as above are noted. Continue aspirin 81 mg daily and clopidogrel 75 mg by mouth daily Pulm: Continue with nasal cannula oxygen keep sat >92% Albuterol/ipratropium aerosols every 6 hours with albuterol aerosols every 2 hours. Dyspnea CV: Atrial fibrillation status post DCCV currently back in atrial fibrillation Hypertension Dyslipidemia Ischemic cardiopathy ejection fraction 30% Monitor HR and BP keep MAP>65mmHg On diltiazem 90mg Q6, Digoxin 0.25mg daily, atorvastatin 80mg qhs. Dig level 0.8 on 11/02 Continue amiodarone 400 mg by mouth daily Echo from 09/05 showed EF 30-35%. Cards is following-Dr. Fuentes Continue ASA 81 mg daily and clopidogrel 75 mg daily. Plan for colonoscopy outpatient. He has been cleared from GI standpoint to resume apixaban 5 mg twice a day s/p KARINA/DCC 08/30 PAC normal sinus rhythm currently back in A. fib Holding ramipril 2.5 mg daily. Resume when clinically indicated Resuming torsemide at 5 mill grams twice a day/patient is on 10 miiligrams twice a day at home GI: 1 cm antrum ulcer Portal gastropathy Erosive gastritis Elevated BMI Tolerating heart healthy diet Outpatient colonoscopy planned s/p 7 units prbc total since admission Pantoprazole 40 mg by mouth twice a day s/p EGD 10/27 showed clean base ulcer antrum-1 cm -biopsy no active bleeding , no visible vessel, gastritis, portal gastropathy and hiatal hernia. FEN/Renal/: Hypophosphatemia Monitor renal function, electrolytes replacement as needed, Potassium phosphate 15 mmol 1 now ID: Monitor for signs of infections ( Fever, WBC). On piperacillin/tazobactam 7 days, CXR 10/27 showed RLL atelectasis vs pneumonia. BC 10/26: NGTD Heme: Normocytic anemia Chronic Apixaban use Monitor CBC, coags. s/p transfusion 7u PRBC total. Resumed Apixaban 5 mg twice a day Endo: SSI with Novulin R with Accu-Cheks before meals/at bedtime to maintain euglycemia/low regimen for glycemic control GI prophylaxis- on pantoprazole 40mg BID DVT prophylaxis- SCD.. Apixaban initiated . 11/02 Lines: peripheral IV's Level II followup. Patient is stable from a critical care medicine standpoint. Assign care to hospitalist in a.m. 11/02. Transfer From ICU Juan Luis Davila MD Nov 02, 2017 12:18
[2017-11-02] MEDS ORDERED: DILTIAZEM HCL 25 MG/5 ML VIAL IV ONE (12:30)
[2017-11-02] MEDS ORDERED: METOPROLOL TARTRATE 5 MG/5 ML VIAL IV PUSH ONE (12:30)
== END 2017-11-02 16:25 | disposition left against medical advice (07) | DRG 377 ==
LOC: NEPC 14:08 → NEDA 15:46 → HIME 18:05
PROVIDERS: ADMIT Internal Medicine Critical Care Medicine; ATTEND Internal Medicine Critical Care Medicine
PROC: B24BZZ4 Ultrasonography of Heart with Aorta, Transesophageal (ICD-10-PCS; 2017-10-26)
PROC: 30233N1 Transfusion of Nonautologous Red Blood Cells into Peripheral Vein, Percutaneous Approach (ICD-10-PCS; 2017-10-26)
PROC: 02HV33Z Insertion of Infusion Device into Superior Vena Cava, Percutaneous Approach (ICD-10-PCS; 2017-10-27)
PROC: B548ZZA Ultrasonography of Superior Vena Cava, Guidance (ICD-10-PCS; 2017-10-27)
PROC: 0DB68ZX Excision of Stomach, Via Natural or Artificial Opening Endoscopic, Diagnostic (ICD-10-PCS; principal; 2017-10-27 12:01)
PROC: 5A2204Z Restoration of Cardiac Rhythm, Single (ICD-10-PCS; 2017-10-30)
DX: K92.2 Gastrointestinal hemorrhage, unspecified (principal); J18.9 Pneumonia, unspecified organism; I11.0 Hypertensive heart disease with heart failure; E87.2 Acidosis; E87.0 Hyperosmolality and hypernatremia; I95.9 Hypotension, unspecified; I50.22 Chronic systolic (congestive) heart failure; I42.9 Cardiomyopathy, unspecified; D62 Acute posthemorrhagic anemia; I48.92 Unspecified atrial flutter; J98.11 Atelectasis; I48.91 Unspecified atrial fibrillation; K25.9 Gastric ulcer, unspecified as acute or chronic, without hemorrhage or perforation; D50.9 Iron deficiency anemia, unspecified; K29.70 Gastritis, unspecified, without bleeding; K31.89 Other diseases of stomach and duodenum; K44.9 Diaphragmatic hernia without obstruction or gangrene; I25.10 Atherosclerotic heart disease of native coronary artery without angina pectoris; Z95.5 Presence of coronary angioplasty implant and graft; F17.210 Nicotine dependence, cigarettes, uncomplicated; E78.5 Hyperlipidemia, unspecified; N28.9 Disorder of kidney and ureter, unspecified; R06.89 Other abnormalities of breathing; E66.9 Obesity, unspecified; Z68.33 Body mass index [BMI] 33.0-33.9, adult; E83.39 Other disorders of phosphorus metabolism; Z86.73 Personal history of transient ischemic attack (TIA), and cerebral infarction without residual deficits
CPT/HCPCS: 36430; 36556; 36600; 70450; 71045; 74177; 76937; 80048; 80053; 80076; 80162; 82550; 82552; 82805; 82948; 83605; 83735; 84100; 84155; 84484; 85014; 85018; 85025; 85027; 85610; 85730; 86850; 86900; 86901; 86920; 87040; 87641; 88305; 88312; 92960; 93005; 93312; 93320; 93325; 94150; 94640; 94667; 94668; 96365; 96375; 99292; C9113; J1160; J1630; J1940; J2060; J2250; J2370; J2543; J3010; J7030; J7050; J7060; P9016; Q9963; Q9967

== ENCOUNTER 2017-11-10 00:08 | Inpatient (IN) | payer MEDICAID ==
[2017-11-10] VITALS (31 sets, daily range): BP systolic 77–164; BP diastolic 36–90; PULSE 52–105; RESP 14–30; TEMP 96–98.6; O2SAT 91–100
[~2017-11-10] VITALS: Ht 180.3 cm; Wt 125.0 kg
[2017-11-10] MEDS ORDERED: SODIUM CHLOR 0.9% 1000 ML INJ 1,000 ML IV ONE ×2 (00:19→00:50)
[2017-11-10] MEDS ORDERED: SODIUM CHLORIDE 0.9% FLUSH 10 ML FLUSH IVF PRN ×2 (00:30→01:00)
[2017-11-10] MEDS ORDERED: ASPIRIN 300 MG SUPP RECTAL ONE (00:30)
[2017-11-10] MEDS ORDERED: SODIUM CHLOR 0.9% 250 ML INJ 250 ML IV ONE (00:30)
--- NOTE | 2017-11-10 00:36 | PD ---
HPI Chief Complaint: STEMI Alert Time Seen by Provider: 00:17 Travel History International Travel<30 days: No Contact w/Intl Traveler<30days: No Traveled to known affect area: No History of Present Illness HPI The patient is a 57 year old male who presents to the [facility] emergency department with a history of altered mentation that it been present for approximately 2 hours prior to ambulance services arrival according to the patient's . The patient on arrival to this facility is noted to be altered , repeatedly saying that he "fell out". The patient on ambulance services arrival was noted to have a systolic blood pressure of 53. The patient's blood sugar was noted to be 147. According to ambulance services the patient has a history of prior cerebrovascular accident with residual left-sided weakness and hypertension. The patient had IV access obtained prior to arrival and normal saline IV fluids were started, less than 100 mL were administered prior to arrival. An EKG was reportedly done prior to arrival that showed a right bundle branch block. There also appeared to be ST segment elevation in inferior leads. An EKG was repeated on arrival and the patient was a STEMI alert due to ST segment elevation in 2, 3, and aVF. These altered mentation, the patient is unable to provide any other significant history. I asked the patient whether he had any chest pain and he shook his head no. The patient on arrival has O2 saturations of 99%. Due to his altered mentation the patient was urgently taken to CT for CT scan of the brain. [facility] Past Medical History Narrative Medical The patient's electronic medical record was reviewed for his history. The patient according to the record left AGAINST MEDICAL ADVICE on November 02, 2017. The patient was in the hospital with a GI bleed that on endoscopy revealed an ulcer of the antrum, associated gastritis and portal gastropathy with a hemoglobin of 6.6 that was transfused up to a hemoglobin of 8.6. The patient also according to the record has a history of coronary artery disease with a nonischemic cardiomyopathy. The patient had an RCA bare-metal stent placed by his telephone order supervisor, Dr. Barbosa in August 2017, history of atrial fibrillation, hypertension, dyslipidemia, history of an ejection fraction of 30% , history of a prior stroke. Anxiety: No Depression: No Heart Rhythm Problems: No Cancer: No Cardiovascular Problems: Yes High Cholesterol: Yes Chest Pain: No Congestive Heart Failure: No Cerebrovascular Accident: Yes (2013) Endocrine: No Genitourinary: No Hypertension: Yes Immune Disorder: No Musculoskeletal: No Neurologic: Yes Psychiatric: No Reproductive: No Respiratory: Yes Migraines: No Sleep Apnea: No Tetanus Vaccination: Unknown Past Surgical History Narrative Surgical The patient's past surgical history is unable to be obtained Surgical History: Unable to Obtain Other Surgery: No Social History Alcohol Use: Yes (2 times a week) Tobacco Use: Yes (smokes one pack of cigarettes a day) Substance Use: No Allergies-Medications (Allergen,Severity, Reaction): Coded Allergies: No Known Allergies (Verified Allergy, Unknown, 09/13/17) Reported Meds & Prescriptions Reported Meds & Active Scripts Active Lipitor (Atorvastatin Calcium) 80 Mg Tab 80 Mg PO HS Torsemide 5 Mg Tab 10 Mg PO BID@,18 Tgt Aspirin (Aspirin) 81 Mg Chw 81 Mg PO DAILY Ramipril 2.5 Mg Cap 2.5 Mg PO DAILY Diltiazem CD 24 HR 240 Mg Caper 240 Mg PO DAILY Lopressor (Metoprolol Tartrate) 50 Mg Tab 50 Mg PO Q8HR Plavix (Clopidogrel Bisulfate) 75 Mg Tab 75 Mg PO DAILY Eliquis (Apixaban) 5 Mg Tab 5 Mg PO BID Review of Systems ROS Limitations: Clinical Condition, Altered Mental Status, Poor Historian HENT: Positive: Lightheadedness Cardiovascular: No: Chest Pain or Discomfort Neurologic: Positive: Change in Mentation Physical Exam Narrative General: The patient is a well-developed well-nourished male, uncomfortable appearing on arrival, repeating the same phrase over and over. The patient reports that he fell out. Head and Neck exam: Head is normocephalic atraumatic. Eyes: EOMI, pupils are equal round and reactive to light. Nose: Midline septum with pink mucous membranes Mouth: Most of the patient's teeth are missing. Moist mucus membranes. Posterior oropharynx is not erythematous. No tonsillar hypertrophy. Uvula midline. Airway patent. Neck: No palpable lymphadenopathy. No nuchal rigidity. No thyromegaly. Cardiovascular: Regular rate and rhythm without murmurs, gallops, or rubs. No pulse deficit to the extremities on simultaneous auscultation and palpation of his radial artery. Lungs: Decreased breath sounds in bilateral bases. No rhonchi, no crackles. Abdomen: Soft, without tenderness to palpation in all 4 quadrants of the abdomen. No guarding, rebound, or rigidity. Normal bowel sounds are audible. No tenderness on palpation of McBurney's point. Extremities: No clubbing or cyanosis. The patient has 1+ edema bilateral lower extremities. 2+ pulses in all 4 extremities. Back: No costovertebral angle tenderness to palpation. Neurologic Exam: The patient is able to state his name. The patient is otherwise not oriented to place or time. The patient repeats the same phrase. The patient is uncooperative with formal neurologic testing, however the patient is noted to spontaneously move all extremities. Ambulance services reported that the patient does have residual weakness of the left upper and left lower extremity from a prior stroke. No evidence of facial asymmetry. Skin Exam: No rash noted. Intact skin that is warm and dry. Data Data Last Documented VS Vital Signs Date Time Temp Pulse Resp B/P (MAP) Pulse Ox O2 Delivery O2 Flow Rate FiO2 11/10/17 01:06 70 14 89/53 (65) 91 Ventilator 100 11/10/17 00:58 97.2 11/10/17 00:46 4.00 Orders Orders Troponin I (11/10/17:19) Ckmb (Isoenzyme) Profile (11/10/17:19) Complete Blood Count With Diff (11/10/17:) I-Stat Profile (11/10/17:19) I-Stat Creatinine (11/10/17:19) Calcium (11/10/17 00:19) Magnesium (Mg) (11/10/17:19) Prothrombin Time / Inr (Pt) (11/10/17:19) Act Partial Throm Time (Ptt) (11/10/17:19) B-Type Natriuretic Peptide (11/10/17:19) Chest, Single Ap (11/10/17:19) Electrocardiogram (11/10/17:19) Oxygen Administration (11/10/17:19) Iv Access Insert/Monitor (11/10/17:19) Oximetry (11/10/17:19) Sodium Chlor 0.9% 1000 Ml Inj (Ns 1000 M (11/10/17 00:19) Sodium Chloride 0.9% Flush (Ns Flush) (11/10/17 00:30) Aspirin Supp (Aspirin Supp) (11/10/17 00:30) Ct Brain W/O Iv Contrast(Rout) (11/10/17 00:22) Type And Screen (11/10/17 00:30) Red Blood Cells (Rbc) (11/10/17 00:30) Blood Product Administration (11/10/17 00:30) Sodium Chlor 0.9% 250 Ml Inj (Ns 250 Ml (11/10/17 00:30) ^ Lab Follow Up (11/10/17 00:43) Phytonadione Inj (Vitamin K Inj) (11/10/17 00:45) Prothrombin Complex Conc Inj (Kcentra In (11/10/17 01:15) Arterial Blood Gas (Abg) (11/10/17 00:20) Etomidate Inj (Amidate Inj) (11/10/17 01:00) Succinylcholine Inj (Quelicin Inj) (11/10/17 01:00) Albuterol-Ipratropium Neb (Duoneb Neb) (11/10/17 01:00) Sodium Chloride 0.9% Flush (Ns Flush) (11/10/17 01:00) Sodium Chlor 0.9% 1000 Ml Inj (Ns 1000 M (11/10/17 00:50) Succinylcholine Inj (Quelicin Inj) (11/10/17 00:51) Admit Order (Ed Use Only) (11/10/17 01:05) Labs Laboratory Tests Test 11/10/17 00:20 White Blood Count 15.9 TH/MM3 Red Blood Count 2.17 MIL/MM3 Hemoglobin 5.1 GM/DL Bedside Hemoglobin 5.8 G/DL Hematocrit 17.2 % Bedside Hematocrit 17.0 % Mean Corpuscular Volume 79.0 FL Mean Corpuscular Hemoglobin 23.6 PG Mean Corpuscular Hemoglobin Concent 29.9 % Red Cell Distribution Width 22.2 % Platelet Count 732 TH/MM3 Mean Platelet Volume 7.7 FL Neutrophils (%) (Auto) 60.5 % Lymphocytes (%) (Auto) 28.9 % Monocytes (%) (Auto) 9.1 % Eosinophils (%) (Auto) 1.0 % Basophils (%) (Auto) 0.5 % Neutrophils # (Auto) 9.6 TH/MM3 Lymphocytes # (Auto) 4.6 TH/MM3 Monocytes # (Auto) 1.4 TH/MM3 Eosinophils # (Auto) 0.2 TH/MM3 Basophils # (Auto) 0.1 TH/MM3 CBC Comment AUTO DIFF Differential Total Cells Counted 100 Neutrophils % (Manual) 70 % Lymphocytes % 22 % Monocytes % 4 % Eosinophils % 3 % Neutrophils # (Manual) 11.3 TH/MM3 Metamyelocytes 1 % Nucleated Red Blood Cells 7 /100 WBC Differential Comment FINAL DIFF MANUAL Platelet Estimate HIGH Platelet Morphology Comment NORMAL Polychromasia 5.2 % Ovalocytes 1+ Acanthocytes OCC Keratocytes OCC Prothrombin Time 12.0 SEC Prothromb Time International Ratio 1.2 RATIO Activated Partial Thromboplast Time 24.7 SEC Blood Gas Puncture Site RT FEMORAL Blood Gas Patient Temperature 98.6 Blood Gas HCO3 18 mmol/L Blood Gas Base Excess -4.0 mmol/L Blood Gas Oxygen Saturation 96 % Arterial Blood pH 7.53 Arterial Blood Partial Pressure CO2 22 mmHg Arterial Blood Partial Pressure O2 126 mmHG Arterial Blood Oxygen Content 6.6 Vol % Arterial Blood Carboxyhemoglobin 3.4 % Arterial Blood Methemoglobin 0.3 % Blood Gas Hemoglobin 4.6 G/DL Oxygen Delivery Device NASAL CANNULA Blood Gas Liter Flow 4 L/M Bedside Sodium 142 MMOL/L Bedside Potassium 3.8 MMOL/L Bedside Chloride 103 MMOL/L Bedside Blood Urea Nitrogen 19 MG/DL Bedside Creatinine 1.0 MG/DL Bedside Glucose 224 MG/DL Calcium Level 7.7 MG/DL Magnesium Level 2.1 MG/DL Total Creatine Kinase 63 U/L Troponin I 0.12 NG/ML B-Type Natriuretic Peptide 104 PG/ML MDM Medical Decision Making Medical Screen Exam Complete: Yes Emergency Medical Condition: Yes Medical Record Reviewed: Yes Interpretation(s) Last Impressions Head CT 11/10/1721 Signed Impressions: Service Date/Time: Friday, November 10, 2017 00:22 - CONCLUSION: 1. Interval development of right highest convexity parietal hypodensity which could represent a enlarged sulcus. Since this is a new finding since 10/30/17, a consider further characterization with MRI to evaluate for subacute infarction. 2. Stable right mid and low parietal encephalomalacia. Joaquin Bravo MD Chest X-Ray 11/10/17 0019 Signed Impressions: Service Date/Time: Friday, November 10, 2017 00:28 - CONCLUSION: The lungs are clear. Joaquin Bravo MD Chest X-Ray 11/10/17 0000 Signed Impressions: Service Date/Time: Friday, November 10, 2017 02:03 - CONCLUSION: 1. Small residual infiltrate right base. 2. Lines and tubes in good position. Joaquin Bravo MD Differential Diagnosis Hypotension related to hemorrhagic shock, versus STEMI causing cardiogenic shock , versus sepsis Narrative Course During the course of the patients emergency department visit, the patients history, examination, and differential diagnosis were reviewed with the patient. The patient was placed on a publication director with oximetry and frequent blood pressure monitoring. The patient had IV access obtained and blood work sent for analysis. The patient was placed on normal saline wide open by pressure bag given his history of hypotension prior to arrival and altered mentation while additional information was collected. The patient had an ECG done which showed an acute ST segment elevation NH involving the inferior leads. A STEMI alert was called at 12:18 AM. A call was placed out to the patient's telephone order supervisor of record, Dr. Barbosa, however Dr. Barraza was reportedly covering for him, therefore he was paged. No call was returned back within 5 minutes, therefore the STEMI alert doctor, was called. I explained the patient's presenting findings and ABG which reveals a hemoglobin of 4.6 and a review of the electronic medical record that reveals that the patient was just admitted to the hospital and signed out AMA after having a GI bleed. He recommended resuscitation of the patient. He explained that the patient was not a candidate for the cardiac catheterization lab given his current unstable status. Given the patient's history of recent GI bleed and recurrent anemia the patient was given emergency release blood, 2 units while the patient was typed and crossmatched for additional blood administration. recommended I speak to Dr. Greene the telephone order supervisor on-call for other cardiac problems. I then spoke to him at 12:39 AM. As the patient was previously on according to the record, Apixaban for A. fib with RVR he recommended the administration of case and try and addition to blood administration to further stabilize the patient. A call was then placed out to Dr. Cifuentes, the administrative and program specialist. He called back at approximately 12:50 AM. I explained that the patient appears to be having a decline in his mentation and will be intubated for protection of his airway. He agreed to the plan to admit the patient to the intensive care unit did come down to the emergency department to evaluate the patient. He started the patient on Protonix. Given the patient's altered mentation, CT scan of the brain was ordered. The patients laboratory studies were reviewed and remarkable for an i-STAT with creatinine that reveals a sodium of 142, potassium 3.8, chloride 103, BUN 19, glucose 224, hemoglobin 5.8, creatinine 1.0. CBC is remarkable for a white count of 15.9, hemoglobin of 5.1, platelets 732 with 70 neutrophils, 22 lymphocytes, troponin I 0.12, CPK 63, BNP 104, PT 12, INR 1.2, PTT 24.7. Radiology studies were reviewed and remarkable for a CT scan of the brain that shows interval development of a right high convexity parietal hypodensity which could represent an enlarged sulcus. This is new as a finding compared to October 30, 2017 further characterization with MRI to evaluate for subacute infarct is recommended. Chest x-ray showed no acute abnormality. The patients results were discussed with the patient, including the plan of care. I explained that further testing and/ or monitoring is indicated based on the patients history, examination, and/ or laboratory findings. Therefore, I recommended admission for additional evaluation. The patient expressed understanding and was agreeable with this plan. The patient was admitted to the hospital in critical condition and sent to a bed under the care of the administrative and program specialist service. Critical Care Narrative Aggregate critical care time was 41 minutes. Time to perform other separately billable procedures was not included in the critical care time. My time did not include minutes spent treating any other patients simultaneously or on activities that did not directly contribute to the patient's treatment. The services I provided to this patient were to treat and/or prevent clinically significant deterioration that could result in: Hypoxic brain injury, versus fluid overload related to crystalloid resuscitation for hypotension, versus cardiovascular collapse from cardiac arrhythmia I provided critical care services requiring my management, as noted below: Chart data review, documentation time, medication orders and management, vital sign assessments/reviewing monitor data, ordering and reviewing lab tests, ordering and interpreting/reviewing x-rays and diagnostic studies, care of the patient and discussion of the patient with the admitting physicians. Procedures Procedure Narrative After the risks and benefits were discussed the following procedure was performed: INTUBATION: The patient was put in optimal position for the procedure. Rapid sequence intubation was initiated by me using 20 milligrams of etomidate IV and 100 milligrams of succinylcholine IV. The patient was intubated with an 8 cuffed endotracheal tube using the [facility]. Tube placement was confirmed by visualization of the tube and balloon passing through the cords, capnometry and subsequent chest x-ray. Breath sounds were equal and well aerated bilaterally postintubation. No breath sounds over stomach. Patient tolerated procedure well. Sepsis Criteria Severe Sepsis (+one): Hypotension Physician Communication Physician Communication A call was placed out to the patient's telephone order supervisor, Dr. Barbosa. He was noted by minute chemical unit operator that he is not lactation consultant, therefore the covering physician, Dr. Barraza was called however I never received a call back. Due to the acute nature of the patient's condition a call was emergently placed out to the telephone order supervisor on-call for STEMI's. The patient's case including history, pertinent physical examination findings, and laboratory studies were discussed with Dr Barrow, the telephone order supervisor on-call for STEMI's at 00:24. Given the patient 's altered mentation and anemia with hemoglobin on his ABG of 4.6, and on his i- STAT of 5.8, Dr. Barrow reported that he was not stable for being taken acutely to the Survey Research Professor. The patient's case including history, pertinent physical examination findings, and laboratory studies were discussed with Dr. Cifuentes. It was agreed that the patient would be admitted to the Food T[facility] service. Diagnosis Primary Impression: STEMI (ST elevation myocardial infarction) Qualified Codes: I21.3 - ST elevation (STEMI) myocardial infarction of unspecified site Additional Impressions: Hypotension Qualified Codes: I95.9 - Hypotension, unspecified Anemia Qualified Codes: D50.0 - Iron deficiency anemia secondary to blood loss ( chronic) GI bleed Qualified Codes: K92.2 - Gastrointestinal hemorrhage, unspecified Admitting Information Admitting Physician Requests: Admit Darcie Field MD Nov 10, 2017 00:36
[2017-11-10] MEDS ORDERED: PHYTONADIONE INJ 10 MG in SODIUM CHLORIDE 0.9% INJ 50 ML IV ONE (00:45)
[2017-11-10 00:50] LABS: CALCIUM 7.7 MG/DL (8.5-10.1)
[2017-11-10] MEDS ORDERED: SUCCINYLCHOLINE CHLORIDE 200 MG/10 ML VIAL ONE (00:51)
--- NOTE | 2017-11-10 00:51 | RADRPT ---
EXAM DATE/TIME: 11/10/2017 00:28 [facility] COMPARISON: CHEST SINGLE AP, November 02, 2017, 3:15. INDICATIONS : Chest pain. MEDICAL HISTORY : Hypertension. Hypercholesterolemia. Myocardial infarction. Stroke SURGICAL HISTORY : None. ENCOUNTER: Initial ACUITY: 1 day PAIN SCORE: Non-responsive. LOCATION: Bilateral chest FINDINGS: A single view of the chest demonstrates the lungs to be symmetrically aerated without evidence of mas s, infiltrate or effusion. Previously noted bilateral lower lobe infiltrates have cleared. The card iomediastinal contours are unremarkable. Osseous structures are intact. CONCLUSION: The lungs are clear. Joaquin Bravo MD on November 10, 2017 at 0:49 Board Certified Radiologist. This report was verified electronically.
[2017-11-10 00:56] LABS: MAGNESIUM 2.1 MG/DL (1.5-2.5)
[2017-11-10 00:58] LABS: TROPONIN I 0.12 NG/ML (0.02-0.05)
[2017-11-10] MEDS ORDERED: SUCCINYLCHOLINE CHLORIDE 200 MG/10 ML VIAL IV PUSH ONE (01:00)
[2017-11-10] MEDS ORDERED: ETOMIDATE 20 MG/10 ML VIAL IVP ONE (01:00)
--- NOTE | 2017-11-10 01:03 | RADRPT ---
EXAM DATE/TIME: 11/10/2017 00:22 [facility] COMPARISON: MRI BRAIN W/O CONTRAST, December 10, 2015, 7:50. CT BRAIN W/O CONTRAST, October 30, 2017, 18:41. INDICATIONS : Altered mental status. RADIATION DOSE: 52.13 CTDIvol (mGy) MEDICAL HISTORY : Cerebrovascular disease. Myocardial infarction. Hypertension. SURGICAL HISTORY : None. ENCOUNTER: Initial ACUITY: 1 day PAIN SCALE: Non-responsive LOCATION: cranial TECHNIQUE: Multiple contiguous axial images were obtained of the head. Using automated exposure control and adj ustment of the mA and/or kV according to patient size, radiation dose was kept as low as reasonably a chievable to obtain optimal diagnostic quality images. DICOM format image data is available electro nically for review and comparison. FINDINGS: CEREBRUM: The ventricles are normal for age. No evidence of mass effect, acute hemorrhage, or extra-axial flui d. Encephalomalacia in the right mid convexity parietal region is similar to prior CT weren't taken into account differences in positioning. At the highest convexity right parasagittal parietal region , there is a hypodensity which was not present on prior CT and has an appearance visit of a enlarged sulcus... No extra-axial fluid collections are seen. POSTERIOR FOSSA: The cerebellum and brainstem are intact. The 4th ventricle is midline. The cerebellopontine angle i s unremarkable. EXTRACRANIAL: The visualized portion of the orbits is intact. SKULL: The calvaria is intact. No evidence of skull fracture. CONCLUSION: 1. Interval development of right highest convexity parietal hypodensity which could represent a enlar ged sulcus. Since this is a new finding since 10/30/17, a consider further characterization with MRI to evaluate for subacute infarction. 2. Stable right mid and low parietal encephalomalacia. Joaquin Bravo MD on November 10, 2017 at 0:55 Board Certified Radiologist. This report was verified electronically.
[2017-11-10] MEDS ORDERED: PROTHROMBIN COMPLEX CONC INJ 2,500 UNITS in SYRINGE/BAG 1 EA IV ONE (01:15)
[2017-11-10] MEDS ORDERED: fentaNYL DRIP 250 ML ONE (01:24)
[2017-11-10] MEDS ORDERED: MIDAZOLAM 100 MG/100 ML INJ 100 ML ONE (01:24)
[2017-11-10] MEDS: RESP: ALBUTEROL 2.5 MG/IPRATROPIUM 0.5 MG NEB (SCH) INH ×6 (01:28→20:13)
[2017-11-10] MEDS ORDERED: fentaNYL DRIP 250 ML IV PRN (01:30)
[2017-11-10 01:35] LABS: AUTOMATED NEUTROPHIL # 9.6 TH/MM3 (1.8-7.7); BASOPHIL # 0.1 TH/MM3 (0-0.2); BASOPHIL % 0.5 % (0.0-2.0); EOSINOPHIL # 0.2 TH/MM3 (0-0.4); LYMPH % 28.9 % (9.0-44.0); LYMPHOCYTE # 4.6 TH/MM3 (1.0-4.8); MEAN CORPUSCULAR HEMOGLOBIN 23.6 PG (27.0-34.0); MEAN PLATELET VOLUME 7.7 FL (7.0-11.0); MONO % 9.1 % (0.0-8.0); MONOCYTE # 1.4 TH/MM3 (0-0.9); NEUT % 60.5 % (16.0-70.0); PLATELET COUNT 732 TH/MM3 (150-450); RED BLOOD COUNT 2.17 MIL/MM3 (4.50-5.90); RED CELL DISTRIBUTION WIDTH 22.2 % (11.6-17.2); WHITE BLOOD COUNT 15.9 TH/MM3 (4.0-11.0)
[2017-11-10] MEDS ORDERED: SODIUM CHLOR 0.9% 1000 ML INJ 1,000 ML IV SCH (01:37)
[2017-11-10 01:41] LABS: MEAN CORPUSCULAR HGB CONC 29.9 % (32.0-36.0)
[2017-11-10 01:43] LABS: HEMATOCRIT 17.2 % (39.0-51.0); HEMOGLOBIN 5.1 GM/DL (13.0-17.0)
[2017-11-10] MEDS ORDERED: MISCELLANEOUS NURSING INFORMATION XX SCH (01:45)
[2017-11-10] MEDS ORDERED: MIDAZOLAM HCL 2 MG/2 ML VIAL IV PUSH PRN (01:45)
[2017-11-10] MEDS ORDERED: MORPHINE SULFATE 2 MG/ML INJ IV PUSH PRN (01:45)
[2017-11-10] MEDS ORDERED: CHLORHEXIDINE GLUCONATE 2 % 1 PACK (2 CLOTHS) TOP PRN (01:45)
[2017-11-10] MEDS ORDERED: LACTULOSE SYRUP 20 GM/30 ML CUP PO PRN (01:45)
[2017-11-10] MEDS ORDERED: RESP: ALBUTEROL 2.5 MG/IPRATROPIUM 0.5 MG NEB (PRN) INH (01:45)
[2017-11-10] MEDS ORDERED: BISACODYL 10 MG SUPP RECTAL PRN (01:45)
[2017-11-10] MEDS ORDERED: MAGNESIUM HYDROXIDE SUSP 30 ML CUP PO PRN (01:45)
[2017-11-10] MEDS ORDERED: SENNOSIDES 8.6 MG TAB PO PRN (01:45)
[2017-11-10] MEDS ORDERED: PANTOPRAZOLE SODIUM 40 MG VIAL IV PUSH SCH (01:45)
[2017-11-10] MEDS ORDERED: ONDANSETRON HCL 4 MG/2 ML VIAL IV PUSH PRN (01:45)
[2017-11-10] MEDS ORDERED: ACETAMINOPHEN 325 MG TAB PO PRN (01:45)
[2017-11-10 01:51] LABS: INTERNATIONAL NORMALIZED RATIO 1.2 RATIO
[2017-11-10] MEDS ORDERED: NOREPINEPHRINE 4 MG/4 ML AMP ONE (02:02)
[2017-11-10 02:13] LABS: CORRECTED NUCLEATED RBC 7 /100 WBC (0-0); LYMPHOCYTES 22 % (9-44); METAMYELOCYTES 1 % (0-1); MONOCYTES 4 % (0-8); NEUTROPHIL # MANUAL DIFF 11.3 TH/MM3 (1.8-7.7); NUCLEATED RED BLOOD CELL 7 (0-0); POLYS (SEG NEUTROPHILS) 70 % (16-70)
[2017-11-10 02:15] LABS: ACANTHOCYTES OCC (NORMAL); OVALOCYTES 1+ (NORMAL); POLYCHROMASIA 5.2 % (0.0-1.9)
--- NOTE | 2017-11-10 02:15 | RADRPT ---
EXAM DATE/TIME: 11/10/2017 02:03 [facility] COMPARISON: CHEST SINGLE AP, November 02, 2017, 3:15. CHEST SINGLE AP, November 10, 2017, 0:28. INDICATIONS : Intubation and central line placement. MEDICAL HISTORY : Hypertension. Hypercholesterolemia. Myocardial infarction. Stroke SURGICAL HISTORY : None. ENCOUNTER: Subsequent ACUITY: 1 day PAIN SCORE: 0/10 LOCATION: Bilateral chest FINDINGS: Lower lateral chest is not included on the [id number]. Endotracheal tube tip well above the william a. Right internal jugular catheter tip projects over the distal superior vena cava. Gastric tube ti p and side-port project within the stomach. Prior chest x-ray 11/02/17 demonstrated bilateral lower l kevin consolidative infiltrates. There is a small residual infiltrate at the right base; the remainder of the right lung is clear. Right hemidiaphragm is well below. On the left side, no definite infil trates seen of the left hemidiaphragm is well delineated. Moderate cardiomegaly, stable. CONCLUSION: 1. Small residual infiltrate right base. 2. Lines and tubes in good position. Joaquin Bravo MD on November 10, 2017 at 2:11 Board Certified Radiologist. This report was verified electronically.
[2017-11-10 02:16] LABS: KERATOCYTES OCC (NORMAL)
[2017-11-10] MEDS ORDERED: ETOMIDATE 40 MG/20 ML VIAL ONE (02:27)
[2017-11-10] MEDS ORDERED: EPINEPHrine HCL (1:1000) 1 MG/ML VIAL ONE (02:28)
[2017-11-10] MEDS ORDERED: ATROPINE SULFATE 1 MG/10 ML SYRINGE ONE ×2 (02:28→10:53)
[2017-11-10] MEDS ORDERED: TERBUTALINE INJ 1 MG/ML AMP SQ PRN (02:45)
--- NOTE | 2017-11-10 03:20 | HHI.HP ---
HPI Service Critical Care Medicine Primary Care Physician No Primary Care Physician Admission Diagnosis STEMI, Anemia, hypotension Diagnosis: Travel History International Travel<30 Days: No Contact w/Intl Traveler <30 Da: No Traveled to Known Affected Are: No History of Present Illness 57 year old male presents with a history of altered mentation that it been present for approximately 2 hours prior to ambulance services arrival according to the patient's significant other. The patient on arrival was noted to be altered, repeatedly saying that he "fell out". The patient on ambulance services arrival was noted to have a systolic blood pressure of 53. He was admitted here October 26, 2017 with a GI bleed and diagnosis of gastric ulcer per endoscopy findings. At that time he left AGAINST MEDICAL ADVICE. He also has a history of prior cerebrovascular accident with residual left-sided weakness and hypertension, as well as ischemic cardiomyopathy with ejection fraction of 30%. He underwent cardiac catheterization in August 2017 with a placement of bare-metal stent to the ostial proximal right coronary artery. An EKG was reportedly done prior to arrival that showed a right bundle branch block. There also appeared to be ST segment elevation in inferior leads. An EKG was repeated on arrival and the patient was a STEMI alert due to ST segment elevation in 2, 3, and aVF. In the emergency department he was altered unable to provide any meaningful history and was intubated by ED attending for an airway protection. His hemoglobin was found to be 5.4 and emergent release blood transfusion was initiated. The case was discussed with the bilingual hr generalist on-call, however due to significant anemia and hemodynamic instability the patient is not a candidate for emergent cardiac catheterization. Also his ST changes are most likely due to severe anemia. Review of Systems ROS Unobtainable patient is sedated and intubated Past Family Social History Allergies: Coded Allergies: No Known Allergies (Verified Allergy, Unknown, 09/13/17) Past Medical History Hypertension CVA x 2 prior Hyperlipidemia Atrial fibrillation NYHA Class IV CHF, EF 30% Gastric ulcer disease 10/26/2017 Past Surgical History Cardiac catheterization in August 2017 with a bare metal stent placement in to the ostial proximal right coronary Reported Medications Reported Meds & Active Scripts Active Lipitor (Atorvastatin Calcium) 80 Mg Tab 80 Mg PO HS Torsemide 5 Mg Tab 10 Mg PO BID@,18 Tgt Aspirin (Aspirin) 81 Mg Chw 81 Mg PO DAILY Ramipril 2.5 Mg Cap 2.5 Mg PO DAILY Diltiazem CD 24 HR 240 Mg Caper 240 Mg PO DAILY Lopressor (Metoprolol Tartrate) 50 Mg Tab 50 Mg PO Q8HR Plavix (Clopidogrel Bisulfate) 75 Mg Tab 75 Mg PO DAILY Eliquis (Apixaban) 5 Mg Tab 5 Mg PO BID Active Ordered Medications Current Medications Medications (Trade) Dose Ordered Sig/Carline Route PRN Reason Start Time Stop Time Status Last Admin Dose Admin Sodium Chloride 250 ml @ 15 mls/hr ONCE ONCE IV 11/10/17 00:30 11/10/17 17:09 Fentanyl Citrate 250 ml @ 10 mls/hr TITRATE PRN IV SEDATION 11/10/17 01:30 11/10/17 02:08 Atorvastatin Calcium (Lipitor) 80 mg HS PO 11/10/17 21:00 Sodium Chloride 1,000 ml @ 84 mls/hr [id number] IV 11/10/17 01:37 11/10/17 02:16 Sodium Chloride (NS Flush) 2 ml UNSCH PRN IV FLUSH FLUSH AFTER USING IV ACCESS 11/10/17 01:45 Sodium Chloride (NS Flush) 2 ml BID IV FLUSH 11/10/17 09:00 Acetaminophen (Tylenol) 650 mg Q6H PRN PO PAIN 1-5 AND/OR FEVER >101F 11/10/17 01:45 Morphine Sulfate (Morphine Inj) 2 mg Q2H PRN IV PUSH PAIN SCALE 6 TO 10 11/10/17 01:45 Pantoprazole Sodium (Protonix Inj) 40 mg Q12H IV PUSH 11/10/17 01:45 Midazolam HCl (Versed Inj) 2 mg Q1H PRN IV PUSH SEDATION 11/10/17 01:45 Artificial Tears (Tears Naturale Opth Soln) 1 drop TID EACH EYE 11/10/17 09:00 Ondansetron HCl (Zofran Inj) 4 mg Q6H PRN IV PUSH NAUSEA OR VOMITING 11/10/17 01:45 Albuterol/ Ipratropium (Duoneb Neb) 1 ampule Q6HR NEB INH 11/10/17 04:00 Albuterol/ Ipratropium (Duoneb Neb) 1 ampule Q2HR NEB PRN INH WHEEZING 11/10/17 01:45 Miscellaneous Information 1 [id number] XX 11/10/17 01:45 Chlorhexidine Gluconate (Chlorhexidine 2% Cloth) 3 pack Taper DAILY@04 TOP 11/10/17 04:00 11/06/18 03:59 Chlorhexidine Gluconate (Chlorhexidine 2% Cloth) 3 pack UNSCH PRN TOP HYGIENIC CARE 11/10/17 01:45 Senna/Docusate Sodium (Naomy-Colace) 1 tab BID PO 11/10/17 09:00 Magnesium Hydroxide (Milk Of Magnesia Liq) 30 ml Q12H PRN PO Mild constipation 11/10/17 01:45 Sennosides (Senokot) 17.2 mg Q12H PRN PO Moderate constipation 11/10/17 01:45 Bisacodyl (Dulcolax Supp) 10 mg DAILY PRN RECTAL SEVERE CONSITIPATION/ IF NPO 11/10/17 01:45 Lactulose (Lactulose Liq) 30 ml DAILY PRN PO SEVERE CONSITIPATION/ IF PO 11/10/17 01:45 Chlorhexidine Gluconate (Peridex 0.12% Liq) 15 ml BID@08,20 MT 11/10/17 08:00 Norepinephrine Bitartrate 4 mg/ Sodium Chloride 250 ml @ 7.5 mls/hr TITRATE PRN IV Blood pressure management 11/10/17 02:45 Terbutaline Sulfate (Brethine Inj) 1 mg UNSCH PRN SQ For Extravasation 11/10/17 02:45 Family History reviewed and found to be noncontributory to his acute illness Social History Smokes about 1 pack a day, drinks socially. Denies using any illicit drugs. Physical Exam Vital Signs Vital Signs Date Time Temp Pulse Resp B/P (MAP) Pulse Ox O2 Delivery O2 Flow Rate FiO2 11/10/17 02:45 96.0 57 18 90/49 (63) 96 11/10/17 02:20 100 100 11/10/17 02:17 53 18 77/45 (56) 93 Ventilator 11/10/17 02:12 53 18 78/47 (57) 93 Ventilator 11/10/17 02:11 53 14 82/36 (51) 91 Ventilator 100 11/10/17 02:10 11/10/17 01:17 98.2 74 14 117/57 92 11/10/17 01:06 70 14 89/53 (65) 91 Ventilator 100 11/10/17 01:02 100 11/10/17 01:02 91 100 11/10/17 00:58 97.2 67 30 102/55 92 11/10/17 00:46 69 30 112/55 (74) 100 Nasal Cannula 4.00 11/10/17 00:29 97 Nasal Cannula 4.00 11/10/17 00:29 61 24 116/58 (77) 97 Nasal Cannula 11/10/17 00:27 99 Room Air 4.00 11/10/17 00:18 99 Nasal Cannula 4.00 11/10/17 00:18 99 4.00 11/10/17 00:16 98.2 64 22 89/51 (64) 99 Physical Exam GENERAL: Obese middle-aged male, lying in bed, sedated and intubated HEENT: Normocephalic. Atraumatic. Pupils equal, round, reactive, conjugate. Mucous membranes are moist NECK: Trachea is midline. No JVD CHEST: Equal chest rise. Mildly tachypneic. Endotracheally intubated CARDIOVASCULAR: Bradycardic rate, irregularly irregular rhythm. Heart rate in 50s ABDOMEN: Soft, nontender, nondistended. No guarding. MUSCULOSKELETAL: Pulses 2+. 3+ peripheral edema NEUROLOGICAL: RASS -2. Sedated and intubated Laboratory Laboratory Tests Test 11/10/17 00:20 11/10/17 02:10 11/10/17 02:51 11/10/17 02:55 White Blood Count 15.9 Red Blood Count 2.17 Hemoglobin 5.1 Bedside Hemoglobin 5.8 Hematocrit 17.2 Bedside Hematocrit 17.0 Mean Corpuscular Volume 79.0 Mean Corpuscular Hemoglobin 23.6 Mean Corpuscular Hemoglobin Concent 29.9 Red Cell Distribution Width 22.2 Platelet Count 732 Mean Platelet Volume 7.7 Neutrophils (%) (Auto) 60.5 Lymphocytes (%) (Auto) 28.9 Monocytes (%) (Auto) 9.1 Eosinophils (%) (Auto) 1.0 Basophils (%) (Auto) 0.5 Neutrophils # (Auto) 9.6 Lymphocytes # (Auto) 4.6 Monocytes # (Auto) 1.4 Eosinophils # (Auto) 0.2 Basophils # (Auto) 0.1 CBC Comment AUTO DIFF Differential Total Cells Counted 100 Neutrophils % (Manual) 70 Lymphocytes % 22 Monocytes % 4 Eosinophils % 3 Neutrophils # (Manual) 11.3 Metamyelocytes 1 Nucleated Red Blood Cells 7 Differential Comment FINAL DIFF MANUAL Platelet Estimate HIGH Platelet Morphology Comment NORMAL Polychromasia 5.2 Ovalocytes 1+ Acanthocytes OCC Keratocytes OCC Prothrombin Time 12.0 Prothromb Time International Ratio 1.2 Activated Partial Thromboplast Time 24.7 Blood Gas Puncture Site RT FEMORAL RT FEMORAL Blood Gas Patient Temperature 98.6 98.6 Blood Gas HCO3 18 17 Blood Gas Base Excess -4.0 -8.1 Blood Gas Oxygen Saturation 96 98 Arterial Blood pH 7.53 7.33 Arterial Blood Partial Pressure CO2 22 33 Arterial Blood Partial Pressure O2 126 523 Arterial Blood Oxygen Content 6.6 10.7 Arterial Blood Carboxyhemoglobin 3.4 2.2 Arterial Blood Methemoglobin 0.3 0.5 Blood Gas Hemoglobin 4.6 6.7 Oxygen Delivery Device NASAL CANNULA VENTILATOR Blood Gas Liter Flow 4 Bedside Sodium 142 Bedside Potassium 3.8 Bedside Chloride 103 Bedside Blood Urea Nitrogen 19 Bedside Creatinine 1.0 Bedside Glucose 224 Calcium Level 7.7 Magnesium Level 2.1 Total Creatine Kinase 63 Troponin I 0.12 B-Type Natriuretic Peptide 104 Blood Gas Ventilator Setting Blood Gas Inspired Oxygen 100 Result Diagram: 11/10/17 0020 Imaging Last [address] 11/10/17 0022 Signed Impressions: Service Date/Time: Friday, November 10, 2017 00:22 - CONCLUSION: 1. Interval development of right highest convexity parietal hypodensity which could represent a enlarged sulcus. Since this is a new finding since 10/30/17, a consider further characterization with MRI to evaluate for subacute infarction. 2. Stable right mid and low parietal encephalomalacia. Joaquin Bravo MD Chest X-Ray 11/10/17 0019 Signed Impressions: Service Date/Time: Friday, November 10, 2017 00:28 - CONCLUSION: The lungs are clear. Joaquin Bravo MD Chest X-Ray 11/10/17 0000 Signed Impressions: Service Date/Time: Friday, November 10, 2017 02:03 - CONCLUSION: 1. Small residual infiltrate right base. 2. Lines and tubes in good position. Joaquin Bravo MD Septic Shock Reassessment Septic shock perfusion: reassessment completed Caprini VTE Risk Assessment Caprini VTE Risk Assessment: Mod/High Risk (score >= 2) VTE Pharm Contraindication: Hemorrhage Caprini Risk Assessment Model Point Value = 1 Point Value = 2 Point Value = 3 Point Value = 5 Age 41-60 Minor surgery BMI > 25 kg/m2 Swollen legs Varicose veins or History of unexplained or recurrent spontaneous Oral contraceptives or hormone replacement Sepsis (< 1 month) Serious lung disease, including pneumonia (< 1 month) Abnormal pulmonary function Acute myocardial infarction Congestive heart failure (< 1 month) History of inflammatory bowel disease Medical patient at bed rest Age 61-74 Arthroscopic surgery Major open surgery (> 45 min) Laparoscopic surgery (> 45 min) Malignancy Confined to bed (> 72 hours) Immobilizing plaster cast Central venous access Age >= 75 History of VTE Family history of VTE Factor V Leiden Prothrombin [id number] Lupus anticoagulant Anticardiolipin antibodies Elevated serum homocysteine Heparin-induced thrombocytopenia Other congenital or acquired thrombophilia Stroke (< 1 month) Elective arthroplasty Hip, pelvis, or leg fracture Acute spinal cord injury (< 1 month) Prophylaxis Regimen Total Risk Factor Score Risk Level Prophylaxis Regimen 0-1 Low Early ambulation 2 Moderate Order ONE of the following: *Sequential Compression Device (SCD) *Heparin 5000 units SQ BID 3-4 Higher Order ONE of the following medications: *Heparin 5000 units SQ TID *Enoxaparin/Lovenox 40 mg SQ daily (WT < 150 kg, CrCl > 30 mL/min) *Enoxaparin/Lovenox 30 mg SQ daily (WT < 150 kg, CrCl > 10-29 mL/min) *Enoxaparin/Lovenox 30 mg SQ BID (WT < 150 kg, CrCl > 30 mL/min) AND/OR *Sequential Compression Device (SCD) 5 or more Highest Order ONE of the following medications: *Heparin 5000 units SQ TID (Preferred with Epidurals) *Enoxaparin/Lovenox 40 mg SQ daily (WT < 150 kg, CrCl > 30 mL/min) *Enoxaparin/Lovenox 30 mg SQ daily (WT < 150 kg, CrCl > 10-29 mL/min) *Enoxaparin/Lovenox 30 mg SQ BID (WT < 150 kg, CrCl > 30 mL/min) AND *Sequential Compression Device (SCD) Assessment and Plan Assessment and Plan Gastrointestinal bleed - Nothing by mouth - Intubated for airway protection - Protonix IV twice a day - Gastroenterology consultation - Emergent blood transfusion - IV fluids resuscitation Respiratory failure - Intubated for an airway protection - No weaning until neurologically and hemodynamically improved - Vent bundle - CXR and ABG daily Altered mental status - Due to severe anemia - CT head negative - Supportive care Acute coronary syndrome - ST elevations in inferior leads most likely due to severe anemia - Emergent blood transfusion - Monitor trends and EKG - Unable to start antiplatelet or anticoagulation due to active GI bleed - Cardiology consultation Metabolic acidosis - Due to blood loss - Sodium bicarbonate IV infusion - Frequent ABGs Hypotension/shock - Hypovolemic - Aggressive IV fluids resuscitation - Blood transfusions - Flowtrack - Centerline/a line - Levophed to keep MEP above 65 Hyperglycemia - Insulin sliding scale Congestive heart failure - No acute exacerbation - Telemetry DVT GI prophylaxis - Teds SCDs - No pharmacological DVT prophylaxis due to active GI bleed - Protonix IV twice a day Critical Care: The total critical care time was 35 minutes. Time to perform other separately billable procedures was not included in the critical care time. Neil Cifuentes MD Nov 10, 2017 3:20 am
[2017-11-10] MEDS ORDERED: SODIUM BICARBONATE 8.4% INJ 50 MEQ/50 ML SYR IV PUSH ONE (03:30)
[2017-11-10] MEDS: CHLORHEXIDINE GLUCONATE 2 % 1 PACK (2 CLOTHS) TOP SCH (04:00)
[2017-11-10] MEDS: VASOPRESSIN INJ 40 UNITS in DEXTROSE 5% IN WATER 100ML INJ 98 ML IV SCH ×4 (04:34→22:05)
[2017-11-10] MEDS: SODIUM BICARBONATE 8.4% INJ 150 MEQ in DEXTROSE 5% IN WATE 1000ML INJ 1,000 ML IV SCH ×4 (04:36→15:41)
[2017-11-10] MEDS: NOREPINEPHRINE INJ 4 MG in SODIUM CHLOR 0.9% 250 ML INJ 246 ML IV PRN ×2 (04:36→14:51)
--- NOTE | 2017-11-10 04:40 | PD.PROCEDR ---
Procedure Note Procedure Central line placement A time-out was completed verifying correct patient, procedure, site, positioning , and special equipment if applicable. The patient was placed in a dependent position appropriate for central line placement based on the vein to be cannulated. The patients right neck was prepped and draped in sterile fashion. 1% Lidocaine was used to anesthetize the surrounding skin area. A triple lumen 9 -[place] Cordis catheter was introduced into the the internal jugular vein using the Seldinger technique and under ultrasound guidance. The catheter was threaded smoothly over the guide wire and appropriate blood return was obtained. Each lumen of the catheter was evacuated of air and flushed with sterile saline. The catheter was then sutured in place to the skin and a sterile dressing applied. Perfusion to the extremity distal to the point of catheter insertion was checked and found to be adequate. Estimated Blood Loss: 1ml The patient tolerated the procedure well and there were no complications. Neil Cifuentes MD Nov 10, 2017 4:40 am
--- NOTE | 2017-11-10 04:40 | PD.PROCEDR ---
Procedure Note Procedure Arterial line placement A time-out was completed verifying correct patient, procedure, site, positioning , and special equipment if applicable. Allens test was performed to ensure adequate perfusion. The patients right elbow was prepped and draped in sterile fashion. 1% Lidocaine was used to anesthetize the area. A 18G Arrow arterial line was introduced into the brachial artery. The catheter was threaded over the guide wire and the needle was removed with appropriate pulsatile blood return. The catheter was then sutured in place to the skin and a sterile dressing applied. Perfusion to the extremity distal to the point of catheter insertion was checked and found to be adequate. Estimated Blood Loss: 1ml The patient tolerated the procedure well and there were no complications. Neil Cifuentes MD Nov 10, 2017 4:40 am
[2017-11-10] MEDS ORDERED: DEXTROSE 50% IN WATER 50 ML VIAL(D50) IV PUSH PRN (04:45)
[2017-11-10] MEDS ORDERED: GLUCAGON 1 MG/ML VIAL OTHER PRN (04:45)
[2017-11-10 05:07] LABS: BACTERIA, URINE RARE /hpf; BILIRUBIN, URINE NEG (NEG); BLOOD, URINE NEG (NEG); GLUCOSE,URINE NEG (NEG); HYALINE CAST, URINE 3 /lpf (RARE); KETONE, URINE NEG (NEG); NITRITE,URINE NEG (NEG); PH, URINE 6.5 (5.0-8.5); RENAL EPITHELIAL CELLS 8 /hpf; URINE COLOR YELLOW (YELLW/STRAW); URINE LEUKOCYTE ESTERASE NEG (NEG)
[2017-11-10 07:01] LABS: HEMATOCRIT 25.7 % (39.0-51.0); HEMOGLOBIN 8.3 GM/DL (13.0-17.0)
--- NOTE | 2017-11-10 07:59 | PD.CONS ---
HPI Consult Requested By Primary Care Physician No Primary Care Physician History of Present Illness 57 year old male presents with altered mentation and low BP in the setting of SEVERE ANEMIA. He was admitted here October 26, 2017 with a GI bleed and diagnosis of gastric ulcer per endoscopy findings. At that time he left AGAINST MEDICAL ADVICE. PMHx significant for CVA, hypertension, ischemic cardiomyopathy, ejection fraction of 30%, PCI/BMS on 08/2017 to RCA. EKG on arrival showed ST segment elevation in 2, 3, and aVF. His hemoglobin was found to be 5.4. Cardiology consulted for further management and evaluation. Past Family Social History Allergies: Coded Allergies: No Known Allergies (Verified Allergy, Unknown, 09/13/17) Past Medical History Hypertension CVA x 2 prior Hyperlipidemia Atrial fibrillation NYHA Class IV CHF, EF 30% Gastric ulcer disease 10/26/2017 Past Surgical History Cardiac catheterization in August 2017 with a bare metal stent placement in to the ostial proximal right coronary Reported Medications Reported Meds & Active Scripts Active Lipitor (Atorvastatin Calcium) 80 Mg Tab 80 Mg PO HS Torsemide 5 Mg Tab 10 Mg PO BID@,18 Tgt Aspirin (Aspirin) 81 Mg Chw 81 Mg PO DAILY Ramipril 2.5 Mg Cap 2.5 Mg PO DAILY Diltiazem CD 24 HR 240 Mg Caper 240 Mg PO DAILY Lopressor (Metoprolol Tartrate) 50 Mg Tab 50 Mg PO Q8HR Plavix (Clopidogrel Bisulfate) 75 Mg Tab 75 Mg PO DAILY Eliquis (Apixaban) 5 Mg Tab 5 Mg PO BID Active Ordered Medications Current Medications Medications (Trade) Dose Ordered Sig/Carline Route Start Time Stop Time Status Last Admin Sodium Chloride 250 ml @ 15 mls/hr ONCE ONCE IV 11/10/17 00:30 11/10/17 17:09 Fentanyl Citrate 250 ml @ 10 mls/hr TITRATE PRN IV 11/10/17 01:30 11/10/17 02:08 (Lipitor) 80 mg HS PO 11/10/17 21:00 (NS Flush) 2 ml UNSCH PRN IV FLUSH 11/10/17 01:45 (NS Flush) 2 ml BID IV FLUSH 11/10/17 09:00 (Tylenol) 650 mg Q6H PRN PO 11/10/17 01:45 (Morphine Inj) 2 mg Q2H PRN IV PUSH 11/10/17 01:45 (Protonix Inj) 40 mg Q12H IV PUSH 11/10/17 01:45 (Versed Inj) 2 mg Q1H PRN IV PUSH 11/10/17 01:45 (Tears Naturale Opth Soln) 1 drop TID EACH EYE 11/10/17 09:00 (Zofran Inj) 4 mg Q6H PRN IV PUSH 11/10/17 01:45 (Duoneb Neb) 1 ampule Q6HR NEB INH 11/10/17 04:00 (Duoneb Neb) 1 ampule Q2HR NEB PRN INH 11/10/17 01:45 11/10/17 04:20 Miscellaneous Information 1 [id number] XX 11/10/17 01:45 (Chlorhexidine 2% Cloth) 3 pack Taper DAILY@04 TOP 11/10/17 04:00 11/06/18 03:59 (Chlorhexidine 2% Cloth) 3 pack UNSCH PRN TOP 11/10/17 01:45 (Naomy-Colace) 1 tab BID PO 11/10/17 09:00 (Milk Of Magnesia Liq) 30 ml Q12H PRN PO 11/10/17 01:45 (Senokot) 17.2 mg Q12H PRN PO 11/10/17 01:45 (Dulcolax Supp) 10 mg DAILY PRN RECTAL 11/10/17 01:45 (Lactulose Liq) 30 ml DAILY PRN PO 11/10/17 01:45 (Peridex 0.12% Liq) 15 ml BID@08,20 MT 11/10/17 08:00 Norepinephrine Bitartrate 4 mg/ Sodium Chloride 250 ml @ 7.5 mls/hr TITRATE PRN IV 11/10/17 02:45 11/10/17 04:36 (Brethine Inj) 1 mg UNSCH PRN SQ 11/10/17 02:45 Sodium Bicarbonate 150 meq/Dextrose 1,150 ml @ 100 mls/hr [id number] IV 11/10/17 04:00 11/10/17 04:36 Vasopressin 40 units/Dextrose 100 ml @ 1.5 mls/hr Q24H IV 11/10/17 03:20 11/10/17 04:34 (D50w (Vial) Inj) 50 ml UNSCH PRN IV PUSH 11/10/17 04:45 (Glucagon Inj) 1 mg UNSCH PRN OTHER 11/10/17 04:45 (NovoLIN R SUPPLEMENTAL SCALE) 1 ACHS SLIDING SCALE SQ 11/10/17 08:00 Pantoprazole Sodium 80 mg/ Sodium Chloride 100 ml @ 10 mls/hr Q10H IV 11/10/17 09:00 Octreotide Acetate 500 mcg/ Sodium Chloride 500 ml @ 25 mls/hr Q20H IV 11/10/17 08:00 Family History reviewed and found to be noncontributory to his acute illness Social History Smokes about 1 pack a day, drinks socially. Denies using any illicit drugs. Physical Exam Vital Signs Vital Signs Date Time Temp Pulse Resp B/P (MAP) Pulse Ox O2 Delivery O2 Flow Rate FiO2 11/10/17 06:00 61 11/10/17 04:36 61 94/53 11/10/17 04:34 62 96/58 11/10/17 04:12 97 60 11/10/17 04:00 97.1 59 94/52 (66) 100 94/52 (66) 11/10/17 04:00 59 11/10/17 03:41 97.1 59 19 118/65 100 11/10/17 02:45 96.0 57 18 90/49 (63) 96 11/10/17 02:20 100 100 11/10/17 02:17 53 18 77/45 (56) 93 Ventilator 11/10/17 02:12 53 18 78/47 (57) 93 Ventilator 11/10/17 02:11 53 14 82/36 (51) 91 Ventilator 100 11/10/17 02:10 11/10/17 01:17 98.2 74 14 117/57 92 11/10/17 01:06 70 14 89/53 (65) 91 Ventilator 100 11/10/17 01:02 100 11/10/17 01:02 91 100 11/10/17 00:58 97.2 67 30 102/55 92 11/10/17 00:46 69 30 112/55 (74) 100 Nasal Cannula 4.00 11/10/17 00:29 97 Nasal Cannula 4.00 11/10/17 00:29 61 24 116/58 (77) 97 Nasal Cannula 11/10/17 00:27 99 Room Air 4.00 1/22/18 00:18 99 Nasal Cannula 4.00 11/10/17 00:18 99 4.00 11/10/17 00:16 98.2 64 22 89/51 (64 99 Physical Exam GENERAL: Well-nourished, well-developed patient, sedated, intubated SKIN: Warm and dry. HEAD: Normocephalic. EYES: No scleral icterus. No injection or drainage. NECK: Supple, trachea midline. No JVD or lymphadenopathy. CARDIOVASCULAR: Regular rate and rhythm without murmurs, gallops, or rubs. RESPIRATORY: Breath sounds equal bilaterally. No accessory muscle use. GASTROINTESTINAL: Abdomen soft, non-tender, nondistended. EXTREMITIES: No cyanosis, or edema. Laboratory Laboratory Tests Test 11/10/17 00:20 11/10/17 01:10 11/10/17 02:10 11/10/17 02:51 White Blood Count 15.9 Red Blood Count 2.17 Hemoglobin 5.1 Bedside Hemoglobin 5.8 Hematocrit 17.2 Bedside Hematocrit 17.0 Mean Corpuscular Volume 79.0 Mean Corpuscular Hemoglobin 23.6 Mean Corpuscular Hemoglobin Concent 29.9 Red Cell Distribution Width 22.2 Platelet Count 732 Mean Platelet Volume 7.7 Neutrophils (%) (Auto) 60.5 Lymphocytes (%) (Auto) 28.9 Monocytes (%) (Auto) 9.1 Eosinophils (%) (Auto) 1.0 Basophils (%) (Auto) 0.5 Neutrophils # (Auto) 9.6 Lymphocytes # (Auto) 4.6 Monocytes # (Auto) 1.4 Eosinophils # (Auto) 0.2 Basophils # (Auto) 0.1 CBC Comment AUTO DIFF Differential Total Cells Counted 100 Neutrophils % (Manual) 70 Lymphocytes % 22 Monocytes % 4 Eosinophils % 3 Neutrophils # (Manual) 11.3 Metamyelocytes 1 Nucleated Red Blood Cells 7 Differential Comment FINAL DIFF MANUAL Platelet Estimate HIGH Platelet Morphology Comment NORMAL Polychromasia 5.2 Ovalocytes 1+ Acanthocytes OCC Keratocytes OCC Prothrombin Time 12.0 Prothromb Time International Ratio 1.2 Activated Partial Thromboplast Time 24.7 Blood Gas Puncture Site RT FEMORAL RT FEMORAL Blood Gas Patient Temperature 98.6 98.6 Blood Gas HCO3 18 17 Blood Gas Base Excess -4.0 -8.1 Blood Gas Oxygen Saturation 96 98 Arterial Blood pH 7.53 7.33 Arterial Blood Partial Pressure CO2 22 33 Arterial Blood Partial Pressure O2 126 523 Arterial Blood Oxygen Content 6.6 10.7 Arterial Blood Carboxyhemoglobin 3.4 2.2 Arterial Blood Methemoglobin 0.3 0.5 Blood Gas Hemoglobin 4.6 6.7 Oxygen Delivery Device NASAL CANNULA VENTILATOR Blood Gas Liter Flow 4 Bedside Sodium 142 Bedside Potassium 3.8 Bedside Chloride 103 Bedside Blood Urea Nitrogen 19 Bedside Creatinine 1.0 Bedside Glucose 224 Calcium Level 7.7 Magnesium Level 2.1 Total Creatine Kinase 63 Troponin I 0.12 0.20 B-Type Natriuretic Peptide 104 Urine Color YELLOW Urine Turbidity CLEAR Urine pH 6.5 Urine Specific [place] 1.016 Urine Protein NEG Urine Glucose (UA) NEG Urine Ketones NEG Urine Occult Blood NEG Urine Nitrite NEG Urine Bilirubin NEG Urine Urobilinogen LESS THAN 2.0 Urine Leukocyte Esterase NEG Urine RBC 1 Urine WBC 1 Urine Renal Epithelial Cells 8 Urine Bacteria RARE Urine Hyaline Casts 3 Microscopic Urinalysis Comment CATH-CULTURE IND Blood Gas Ventilator Setting Blood Gas Inspired Oxygen 100 Test 11/10/17 02:55 11/10/17 03:27 11/10/17 06:36 Nasal Screen MRSA (PCR) MRSA NOT DETECTED Blood Gas Puncture Site DWAYNE Blood Gas Patient Temperature 98.6 Blood Gas HCO3 15 Blood Gas Base Excess -11.0 Blood Gas Oxygen Saturation 97 Arterial Blood pH 7.26 Arterial Blood Partial Pressure CO2 34 Arterial Blood Partial Pressure O2 247 Arterial Blood Oxygen Content 9.6 Arterial Blood Carboxyhemoglobin 1.5 Arterial Blood Methemoglobin 1.3 Blood Gas Hemoglobin 6.6 Oxygen Delivery Device VENTILATOR Blood Gas Ventilator Setting SEE COMMENT Blood Gas Inspired Oxygen 60 Hemoglobin 8.3 Hematocrit 25.7 Date/Time Source Procedure Growth Status 11/10/17 01:10 Urine Catheterized Urine Urine Culture Pending Received Result Diagram: 11/10/17 0636 Imaging Last Impressions Head CT 11/10/17 0022 Signed Impressions: Service Date/Time: Friday, November 10, 2017 00:22 - CONCLUSION: 1. Interval development of right highest convexity parietal hypodensity which could represent a enlarged sulcus. Since this is a new finding since 10/30/17, a consider further characterization with MRI to evaluate for subacute infarction. 2. Stable right mid and low parietal encephalomalacia. Joaquin Bravo MD Chest X-Ray 11/10/17 0019 Signed Impressions: Service Date/Time: Friday, November 10, 2017 00:28 - CONCLUSION: The lungs are clear. Joaquin Bravo MD Assessment and Plan Problem List: (1) GI bleed ICD Codes: K92.2 - Gastrointestinal hemorrhage, unspecified Status: Acute Plan: 57 y/o M admitted with hypovolemic shock in the setting of GIB. He remains on pressors, intubated. From CV standpoint he does have a hx of CAD, ICMP, Low EF and PCi/BMS. EKG on admission concerning for inferior STEMI however this changes likely related to severe Anemia. EKG AM changes have resolved. Troponin minimally elevated. Given active GIB he is not a candidate for any cardiac invasive interventions and/or DAPT or Heparin. Regarding other cardiac medications will depend on BP. Recommendations 1. Cont medical management for CAD as tolerated by BP and HR 2. Start ASA when stable from GI standpoint 3. GIB management per GI Thank you for the opportunity to participate int he care of this patient Will be available on a PRN basis for any questions or concerns (2) HTN (hypertension) ICD Codes: I10 - Essential (primary) hypertension Status: Chronic (3) CAD (coronary artery disease) ICD Codes: I25.10 - Atherosclerotic heart disease of [place] coronary artery without angina pectoris (4) Anemia ICD Codes: D64.9 - Anemia, unspecified Status: Acute (5) Hypotension ICD Codes: I95.9 - Hypotension, unspecified Status: Acute Problem Qualifiers (1) GI bleed: Qualified Codes: K92.2 - Gastrointestinal hemorrhage, unspecified (2) Anemia: Qualified Codes: D50.0 - Iron deficiency anemia secondary to blood loss ( chronic) (3) Hypotension: Qualified Codes: I95.9 - Hypotension, unspecified Dhiraj Copeland MD Nov 10, 2017 07:59
[2017-11-10] MEDS: INSULIN NovoLIN REGULAR SUPPLEMENTAL SCALE SQ SCH ×4 (08:00→22:03)
[2017-11-10] MEDS: CHLORHEXIDINE 0.12% (ORAL KIT) 15 ML CUP MT SCH ×2 (08:00→20:00)
--- NOTE | 2017-11-10 08:37 | PD.CONS ---
HPI History of Present Illness This is a 57 year old male with prior hx GIB, CVA, CHF, cardiac stent placement 08/2017, known to us from recent admission who per EMR presented with AMS, rectal bleeding and was found to be severely anemic with hgb 5.1. HE also was noted to have ST changes. Per nursing staff he was having rectal bleeding when he left AMA a week ago. He had EGD on 10/27/[address] Strickland found clean based ulcer, portal gastropathy, no visible bleeding but blood seen oropharynx. ENT was consulted and they did not discover any bleeding lesions. Plan was to do colonoscopy but pt did not take prep and left AMA. Pt on vent, hx obtained from EMR. (Claudia Noonan) PFSH Past Medical History CHF gastric ulcer portal gastropathy Past Surgical History cardiac stent placement 08/2017 (Claudia Noonan) Coded Allergies: No Known Allergies (Verified Allergy, Unknown, 09/13/17) Family History noncontributory Social History smokes 1ppd social etoh no reported illicit drug use (Claudia Noonan) Review of Systems noncontributory (Claudia Noonan) GI Exam Vitals I&O Vital Signs Date Time Temp Pulse Resp B/P (MAP) Pulse Ox O2 Delivery O2 Flow Rate FiO2 11/10/17 07:43 97 60 11/10/17 06:00 61 11/10/17 05:30 61 109/47 11/10/17 04:36 61 94/53 11/10/17 04:34 62 96/58 11/10/17 04:12 97 60 11/10/17 04:00 97.1 59 94/52 (66) 100 94/52 (66) 11/10/17 04:00 59 11/10/17 03:41 97.1 59 19 118/65 100 11/10/17 02:45 96.0 57 18 90/49 (63) 96 11/10/17 02:20 100 100 11/10/17 02:17 53 18 77/45 (56) 93 Ventilator 11/10/17 02:12 53 18 78/47 (57) 93 Ventilator 11/10/17 02:11 53 14 82/36 (51) 91 Ventilator 100 11/10/17 02:10 11/10/17 01:17 98.2 74 14 117/57 92 11/10/17 01:06 70 14 89/53 (65) 91 Ventilator 100 11/10/17 01:02 100 11/10/17 01:02 91 100 11/10/17 00:58 97.2 67 30 102/55 92 11/10/17 00:46 69 30 112/55 (74) 100 Nasal Cannula 4.00 11/10/17 00:29 97 Nasal Cannula 4.00 11/10/17 00:29 61 24 116/58 (77) 97 Nasal Cannula 11/10/17 00:27 99 Room Air 4.00 11/10/17 00:18 99 Nasal Cannula 4.00 11/10/17 00:18 99 4.00 11/10/17 00:16 98.2 64 22 89/51 (64) 99 I/O 11/09/17 11/09/17 11/09/17 11/10/17 11/10/17 11/10/17 07:00 15:00 23:00 07:00 15:00 23:00 Intake Total 4425 ml Output Total 600 ml Balance 3825 ml Intake IV Total 3180 ml Packed Cells 1200 ml Blood Product IV Normal Saline Flush 45 ml Output Urine Total 50 ml Gastric Drainage Total 550 ml # Bowel Movements 0 Imaging Last Impressions Head CT 11/10/17 0022 Signed Impressions: Service Date/Time: Friday, November 10, 2017 00:22 - CONCLUSION: 1. Interval development of right highest convexity parietal hypodensity which could represent a enlarged sulcus. Since this is a new finding since 10/30/17, a consider further characterization with MRI to evaluate for subacute infarction. 2. Stable right mid and low parietal encephalomalacia. Joaquin Bravo MD Chest X-Ray 11/10/17 0019 Signed Impressions: Service Date/Time: Friday, November 10, 2017 00:28 - CONCLUSION: The lungs are clear. Joaquin Bravo MD Laboratory Test 11/10/17 00:20 11/10/17 01:10 11/10/17 02:10 11/10/17 02:51 White Blood Count 15.9 TH/MM3 Red Blood Count 2.17 MIL/MM3 Hemoglobin 5.1 GM/DL Bedside Hemoglobin 5.8 G/DL Hematocrit 17.2 % Bedside Hematocrit 17.0 % Mean Corpuscular Volume 79.0 FL Mean Corpuscular Hemoglobin 23.6 PG Mean Corpuscular Hemoglobin Concent 29.9 % Red Cell Distribution Width 22.2 % Platelet Count 732 TH/MM3 Mean Platelet Volume 7.7 FL Neutrophils (%) (Auto) 60.5 % Lymphocytes (%) (Auto) 28.9 % Monocytes (%) (Auto) 9.1 % Eosinophils (%) (Auto) 1.0 % Basophils (%) (Auto) 0.5 % Neutrophils # (Auto) 9.6 TH/MM3 Lymphocytes # (Auto) 4.6 TH/MM3 Monocytes # (Auto) 1.4 TH/MM3 Eosinophils # (Auto) 0.2 TH/MM3 Basophils # (Auto) 0.1 TH/MM3 CBC Comment AUTO DIFF Differential Total Cells Counted 100 Neutrophils % (Manual) 70 % Lymphocytes % 22 % Monocytes % 4 % Eosinophils % 3 % Neutrophils # (Manual) 11.3 TH/MM3 Metamyelocytes 1 % Nucleated Red Blood Cells 7 /100 WBC Differential Comment FINAL DIFF MANUAL Platelet Estimate HIGH Platelet Morphology Comment NORMAL Polychromasia 5.2 % Ovalocytes 1+ Acanthocytes OCC Keratocytes OCC Prothrombin Time 12.0 SEC Prothromb Time International Ratio 1.2 RATIO Activated Partial Thromboplast Time 24.7 SEC Blood Gas Puncture Site RT FEMORAL RT FEMORAL Blood Gas Patient Temperature 98.6 98.6 Blood Gas HCO3 18 mmol/L 17 mmol/L Blood Gas Base Excess -4.0 mmol/L -8.1 mmol/L Blood Gas Oxygen Saturation 96 % 98 % Arterial Blood pH 7.53 7.33 Arterial Blood Partial Pressure CO2 22 mmHg 33 mmHg Arterial Blood Partial Pressure O2 126 mmHG 523 mmHG Arterial Blood Oxygen Content 6.6 Vol % 10.7 Vol % Arterial Blood Carboxyhemoglobin 3.4 % 2.2 % Arterial Blood Methemoglobin 0.3 % 0.5 % Blood Gas Hemoglobin 4.6 G/DL 6.7 G/DL Oxygen Delivery Device NASAL CANNULA VENTILATOR Blood Gas Liter Flow 4 L/M Bedside Sodium 142 MMOL/L Bedside Potassium 3.8 MMOL/L Bedside Chloride 103 MMOL/L Bedside Blood Urea Nitrogen 19 MG/DL Bedside Creatinine 1.0 MG/DL Bedside Glucose 224 MG/DL Calcium Level 7.7 MG/DL Magnesium Level 2.1 MG/DL Total Creatine Kinase 63 U/L Troponin I 0.12 NG/ML 0.20 NG/ML B-Type Natriuretic Peptide 104 PG/ML Urine Color YELLOW Urine Turbidity CLEAR Urine pH 6.5 Urine Specific [place] 1.016 Urine Protein NEG mg/dL Urine Glucose (UA) NEG mg/dL Urine Ketones NEG mg/dL Urine Occult Blood NEG Urine Nitrite NEG Urine Bilirubin NEG Urine Urobilinogen LESS THAN 2.0 MG/DL Urine Leukocyte Esterase NEG Urine RBC 1 /hpf Urine WBC 1 /hpf Urine Renal Epithelial Cells 8 /hpf Urine Bacteria RARE /hpf Urine Hyaline Casts 3 /lpf Microscopic Urinalysis Comment CATH-CULTURE IND Blood Gas Ventilator Setting Blood Gas Inspired Oxygen 100 % Test 11/10/17 02:55 11/10/17 03:27 11/10/17 06:36 Nasal Screen MRSA (PCR) MRSA NOT DETECTED Blood Gas Puncture Site DWAYNE Blood Gas Patient Temperature 98.6 Blood Gas HCO3 15 mmol/L Blood Gas Base Excess -11.0 mmol/L Blood Gas Oxygen Saturation 97 % Arterial Blood pH 7.26 Arterial Blood Partial Pressure CO2 34 mmHg Arterial Blood Partial Pressure O2 247 mmHg Arterial Blood Oxygen Content 9.6 Vol % Arterial Blood Carboxyhemoglobin 1.5 % Arterial Blood Methemoglobin 1.3 % Blood Gas Hemoglobin 6.6 G/DL Oxygen Delivery Device VENTILATOR Blood Gas Ventilator Setting SEE COMMENT Blood Gas Inspired Oxygen 60 % Hemoglobin 8.3 GM/DL Hematocrit 25.7 % Date/Time Source Procedure Growth Status 11/10/17 01:10 Urine Catheterized Urine Urine Culture Pending Received Physical Examination HEENT: normocephalic; atraumatic; no jaundice. intubated. NGT with some scant dark blood CHEST: CTA CARDIAC: RRR ABDOMEN: Soft, obese, nontender; no hepatosplenomegaly; bowel sounds are present in all four quadrants. EXTREMITIES: No clubbing, cyanosis; + BLE edema. SKIN: Normal; no rash; no jaundice. 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 had EGD 10/27/17 found clean based ulcer, portal gastropathy, no visible active bleeding but blood seen in oropharynx. sandostatin and protonix gtt have been initiated. - anemia - Hgb 5.1 on admission, improved to 8.6 s/p 3 x PRBC. 2/2 above. was 8.3 11/02/17. In august hgb was 12. - respiratory failure, AMS, CHF, ACS, hypotension per CCM, cardiology consulted PLAN - EGD today - NPO - obtain consent - attempted to contact Noy Cadena significant other today 0830 no answer - colonoscopy tomorrow - GoL[facility] via NGT - continue protonix gtt - continue sandostatin - monitor HH - transfuse as needed - further recs to follow pt seen by myself and Dr Orellana and this note is written on his behalf (Claudia Noonan) Physician Comments Seen and examined with RONNIE. Acute gi bleeding with acute STEMI. Discussed with Dr. Dooley, emergency egd planned. Cardiac has requested GI wall prior to proceeding with cardiac cath.. Overall very high risk due to multiple co morbidities. IV PPI. Transfuse as needed. Thank you (Jarod Orellana MD) Claudia Noonan Nov 10, 2017 08:37 Jarod Orellana MD Nov 10, 2017 13:36
[2017-11-10] MEDS: OCTREOTIDE INJ 500 MCG in SODIUM CHLORID 0.9% 500 ML INJ 499.5 ML IV SCH (09:31)
[2017-11-10] MEDS: PANTOPRAZOLE INJ 80 MG in SODIUM CHLORIDE 0.9% INJ 100 ML IV SCH ×2 (09:32→17:47)
[2017-11-10] MEDS: SODIUM CHLORIDE 0.9% FLUSH 10 ML FLUSH IV FLUSH SCH ×2 (09:35→22:03)
[2017-11-10] MEDS: DOCUSATE SODIUM 50 MG/SENNA 8.6 MG TAB PO SCH ×2 (09:35→22:03)
[2017-11-10] MEDS: ARTIFICIAL TEARS OPTH SOLN 15 ML BTL EACH EYE SCH ×3 (09:35→18:03)
[2017-11-10] MEDS ORDERED: EPINEPHrine HCL (1:10,000) 1 MG/10 ML SYRINGE ONE (10:51)
[2017-11-10] MEDS ORDERED: DOPamine INJ PREMIX 500 ML ONE (10:53)
--- NOTE | 2017-11-10 11:43 | HHI.CCPN ---
Subjective Remarks/Hospital Course 57 year old male presents with a history of altered mentation that it been present for approximately 2 hours prior to ambulance services arrival according to the patient's significant other. The patient on arrival was noted to be altered, repeatedly saying that he "fell out". The patient on ambulance services arrival was noted to have a systolic blood pressure of 53. He was admitted here October 26, 2017 with a GI bleed and diagnosis of gastric ulcer per endoscopy findings ( 10/27/[address] Strickland found clean based ulcer, portal gastropathy). At that time he left AGAINST MEDICAL ADVICE. He also has a history of prior cerebrovascular accident with residual left-sided weakness and hypertension, as well as ischemic cardiomyopathy with ejection fraction of 30%. He underwent cardiac catheterization in August 2017 with a placement of bare -metal stent to the ostial proximal right coronary artery. An EKG was reportedly done prior to arrival that showed a right bundle branch block. There also appeared to be ST segment elevation in inferior leads. An EKG was repeated on arrival and the patient was a STEMI alert due to ST segment elevation in 2, 3, and aVF. In the emergency department he was altered unable to provide any meaningful history and was intubated by ED attending for an airway protection. His hemoglobin was found to be 5.4 and emergent release blood transfusion was initiated. The case was discussed with the electrical and radio aircraft mechanic on-call, however due to significant anemia and hemodynamic instability the patient is not a candidate for emergent cardiac catheterization. Also his ST changes are most likely due to severe anemia. 11/11/17: I was called emergently to the bedside as patient became bradycardic to 30's and no recordable blood pressure.. Levophed was increased to 20 mcg/m and BP 70/40, epinephrine was given with systolic blood pressure now about 120s. Repeat EKG confirms ST elevations in the inferior leads with reciprocal changes. Troponin elevated at 2. I discussed with Dr. Sibley and Dr. Pulliam. Plan for emergent EGD, as Dr. Sibley wants clearance for antiplatelet therapy. If GI clears proceed with cath Objective Vital Signs Date Time Temp Pulse Resp B/P (MAP) Pulse Ox O2 Delivery O2 Flow Rate FiO2 11/10/17 08:00 98.4 60 15 108/66 (80) 100 104/64 (77) 11/10/17 07:43 60 11/10/17 02:17 Ventilator 11/10/17 00:46 4.00 Intake and Output 11/10/17 11/10/17 11/11/17 08:00 16:00 00:00 Intake Total 4425 ml Output Total 600 ml Balance 3825 ml Result Diagram: 11/10/17 0636 Other Results Laboratory Tests Test 11/10/17 00:20 11/10/17 02:10 11/10/17 03:27 11/10/17 11:06 Blood Gas Puncture Site RT FEMORAL RT FEMORAL DWAYNE RICE Blood Gas Patient Temperature 98.6 98.6 98.6 98.6 Blood Gas HCO3 18 mmol/L (22-26) 17 mmol/L (22-26) 15 mmol/L (22-26) 19 mmol/L (22-26) Blood Gas Base Excess -4.0 mmol/L (-2-2) -8.1 mmol/L (-2-2) -11.0 mmol/L (-2-2) -7.2 mmol/L (-2-2) Blood Gas Oxygen Saturation 96 % (90-100) 98 % (90-100) 97 % (90-100) 96 % ( 90-100) Arterial Blood pH 7.53 (7.380-7.420) 7.33 (7.380-7.420) 7.26 (7.380-7.420) 7.25 (7.380-7.420) Arterial Blood Partial Pressure CO2 22 mmHg (38-42) 33 mmHg (38-42) 34 mmHg (38-42) 45 mmHg (38-42) Arterial Blood Partial Pressure O2 126 mmHG (61-120) 523 mmHG (61-120) 247 mmHg (61-120) 152 mmHg (61-120) Arterial Blood Oxygen Content 6.6 Vol % (12.0-20.0) 10.7 Vol % (12.0-20.0) 9.6 Vol % (12.0-20.0) 11.5 Vol % (12.0-20.0) Arterial Blood Carboxyhemoglobin 3.4 % (0-4) 2.2 % (0-4) 1.5 % (0-4) 0.6 % (0-4) Arterial Blood Methemoglobin 0.3 % (0-2) 0.5 % (0-2) 1.3 % (0-2) 1.4 % (0-2) Blood Gas Hemoglobin 4.6 G/DL (12.0-16.0) 6.7 G/DL (12.0-16.0) 6.6 G/DL (12.0-16.0) 8.2 G/DL (12.0-16.0) Oxygen Delivery Device NASAL CANNULA VENTILATOR VENTILATOR VENT Blood Gas Liter Flow 4 L/M Blood Gas Ventilator Setting SEE [facility]15/1.0/860 Blood Gas Inspired Oxygen 100 % 60 % 60 % Imaging Last [address] 11/10/17 0022 Signed Impressions: Service Date/Time: Friday, November 10, 2017 00:22 - CONCLUSION: 1. Interval development of right highest convexity parietal hypodensity which could represent a enlarged sulcus. Since this is a new finding since 10/30/17, a consider further characterization with MRI to evaluate for subacute infarction. 2. Stable right mid and low parietal encephalomalacia. Joaquin Bravo MD Chest X-Ray 11/10/17 0019 Signed Impressions: Service Date/Time: Friday, November 10, 2017 00:28 - CONCLUSION: The lungs are clear. Joaquin Bravo MD Chest X-Ray 11/10/17 0000 Signed Impressions: Service Date/Time: Friday, November 10, 2017 02:03 - CONCLUSION: 1. Small residual infiltrate right base. 2. Lines and tubes in good position. Joaquin Bravo MD Objective Remarks GENERAL: Obese middle-aged male, lying in bed, sedated and intubated, critically ill in shock HEENT: Normocephalic. Atraumatic. Pupils equal, round, reactive, conjugate. Mucous membranes are moist NECK: Trachea is midline. No JVD CHEST: Equal chest rise. Mildly tachypneic. Endotracheally intubated CARDIOVASCULAR: Bradycardic to 30s, irregularly irregular rhythm. BP went down to 70/40, improved with epi push ABDOMEN: Soft, nontender, nondistended. No guarding. MUSCULOSKELETAL: Pulses 2+. 3+ peripheral edema NEUROLOGICAL: RASS -2. Sedated and intubated. On lightening sedation patient wakes up and follows commands A/P Assessment and Plan Acute Gastrointestinal bleed EGD 10/27/17 clean based ulcer, portal gastropathy - Nothing by mouth - Intubated for airway protection - Protonix IV push, change to GTT. Start octreotide infusion - Gastroenterology consultation-discussed with GI for emergency EGD - Emergent blood transfusion, give additional 2 units - IV fluids resuscitation Acute coronary syndrome/Inferior STEMI Severe bradycardia Cardiogenic in hemorrhagic shock - ST elevations in inferior leads, troponin [address] elevation DC - Per Dr. Sibley need clearance from GI for cardiac catheterization and antiplatelet use - Dr. Heath to do EGD in next hour - Emergent blood transfusion - Monitor trends and EKG - Unable to start antiplatelet or anticoagulation due to active GI bleed at this time - Cardiology -discussed with Dr. Sibley - Currently on Levophed at 20 mcg/m, vasopressin at 0.04 IU - Start dopamine and 5 g per KG per minute, titrated to keep hydrated more than 50 - Aggressive IV fluids resuscitation - Blood transfusions - Flowtrack, Centerline/a line Acute Respiratory failure - Intubated for an airway protection - No weaning until neurologically and hemodynamically improved - Vent bundle - CXR and ABG daily Altered mental status - CT head negative - Supportive care Metabolic acidosis - Due to blood loss - Sodium bicarbonate IV infusion - Frequent ABGs Hyperglycemia - Insulin sliding scale Congestive heart failure - No acute exacerbation - Telemetry DVT GI prophylaxis - Teds SCDs - No pharmacological DVT prophylaxis due to active GI bleed - Protonix gtt Critical Care: Additional critical care time was 45 minutes including multiple discussions with cardiology and GI Claudia Dooley MD Nov 10, 2017 11:43
[2017-11-10 11:48] LABS: HEMATOCRIT 26.7 % (39.0-51.0); HEMOGLOBIN 8.3 GM/DL (13.0-17.0); MEAN CELL VOLUME 84.1 FL (80.0-100.0); MEAN CORPUSCULAR HEMOGLOBIN 26.2 PG (27.0-34.0); MEAN CORPUSCULAR HGB CONC 31.2 % (32.0-36.0); MEAN PLATELET VOLUME 7.6 FL (7.0-11.0); PLATELET COUNT 667 TH/MM3 (150-450); RED BLOOD COUNT 3.17 MIL/MM3 (4.50-5.90); RED CELL DISTRIBUTION WIDTH 22.9 % (11.6-17.2); WHITE BLOOD COUNT 20.9 TH/MM3 (4.0-11.0)
[2017-11-10 11:53] LABS: INTERNATIONAL NORMALIZED RATIO 1.3 RATIO; PROTHROMBIN TIME - PATIENT 13.2 SEC (9.8-11.6)
[2017-11-10 12:05] LABS: BICARBONATE 23.3 MEQ/L (21.0-32.0); CALCIUM 6.7 MG/DL (8.5-10.1); CREATININE 2.07 MG/DL (0.60-1.30); DIRECT BILIRUBIN ADULT 0.2 MG/DL (0.0-0.2); INDIRECT BILIRUBIN 0.2 MG/DL (0.0-0.8); MAGNESIUM 2.2 MG/DL (1.5-2.5); TOTAL BILIRUBIN ADULT 0.4 MG/DL (0.2-1.0); TOTAL PROTEIN 5.9 GM/DL (6.4-8.2)
[2017-11-10 12:37] LABS: CALCIUM-PROTEIN CORRECTED 7.3 MG/DL (8.5-10.1); TROPONIN I 6.77 NG/ML (0.02-0.05)
[2017-11-10] MEDS ORDERED: MIDAZOLAM HCL 5 MG/ML VIAL (1 ML) ONE (13:24)
--- NOTE | 2017-11-10 13:30 | GIPROC ---
[facility] [address] [facility]. [facility], [address] EGD PROCEDURE REPORT EXAM DATE: 11/10/2017 PATIENT NAME: Eamon Boo MR #: [id number] BIRTHDATE: 1960 ATTENDING: Jarod Orellana MD ORDER #: [id number] DESKIDDING MACHINE OPERATOR: Dea Musa and Inez Mixon STATUS: inpatient INDICATIONS: The patient is a 57 yr old male here for an EGD due to acute post hemorrhagic anemia PROCEDURE PERFORMED: EGD, diagnostic MEDICATIONS: Per Anesthesia and None. TOPICAL ANESTHETIC: CONSENT: The patient understands the risks and benefits of the procedure and understands that these risks include, but are not limited to: sedation, allergic reaction, infection, perforation and/or bleeding. Alternative means of evaluation and treatment include, among others: physical exam, x-rays, and/or surgical intervention. The patient elects to proceed with this endoscopic procedure. medical equipment was checked for proper function. Hand hygiene and appropriate measures for infection prevention was taken. After the risks, benefits and alternatives of the procedure were thoroughly explained, Informed consent was verified, confirmed and timeout was successfully executed by the treatment team. The patient was anesthetized with topical anesthesia and the Pentax EG-[id number] endoscope was introduced through the mouth and advanced to the second portion of the duodenum. Retroflexed views revealed no abnormalities The gastroscope was then slowly withdrawn and removed. ESOPHAGUS: There was LA Class C esophagitis noted. Mid esophagus. STOMACH: A single non-bleeding and shallow ulcer ranging between 3-7mm in size with a pigmented spot was found in the gastric antrum. DUODENUM: The duodenal mucosa appeared normal in the bulb and second portion of the duodenum. ADVERSE EVENTS: There were no complications. IMPRESSIONS: 1. There was LA Class C esophagitis noted 2. Single ulcer ranging between 3-7mm in size was found in the gastric antrum 3. Normal duodenal mucosa in the bulb and second portion of the duodenum 4. Retroflexed views revealed no abnormalities RECOMMENDATIONS: 1. Anti-reflux regimen 2. Continue PPI PATIENT CONDITION: stable DISPOSITION: Inpatient REPEAT EXAM: Return 3 months as needed for EGD Jarod Orellana MD eSigned: Jarod Orellana MD 11/10/2017 1:29 PM cc: PATIENT NAME: Eamon Boo MR#: [id number]
[2017-11-10] MEDS: ASPIRIN 81 MG CHEW TAB CHEW SCH (13:45)
[2017-11-10] MEDS ORDERED: SODIUM BICARBONATE 8.4% SOLN 50 MEQ/50 ML VIAL IV PUSH ONE (14:00)
[2017-11-10] MEDS ORDERED: EPINEPHrine HCL (1:1000) 1 MG/ML VIAL IV PUSH ONE (14:00)
[2017-11-10] MEDS ORDERED: SODIUM CHLOR 0.9% 1000 ML INJ 2,000 ML IV ONE (14:00)
[2017-11-10] MEDS: HEPARIN-D5W 25,000 U/250 ML 250 ML IV PRN (14:32)
[2017-11-10] MEDS: DOPamine 800 MG/D5W PREMIX 500 ML IV PRN (14:53)
[2017-11-10] MEDS ORDERED: PEG (High)/E-LYTE SOLN 4000 ML BTL PO ONE (16:00)
[2017-11-10] MEDS: CLOPIDOGREL 75 MG TAB PO SCH (17:57)
[2017-11-10 18:00] LABS: HEMATOCRIT 30.6 % (39.0-51.0); MEAN CELL VOLUME 82.2 FL (80.0-100.0); MEAN CORPUSCULAR HEMOGLOBIN 26.9 PG (27.0-34.0); MEAN CORPUSCULAR HGB CONC 32.7 % (32.0-36.0); MEAN PLATELET VOLUME 7.6 FL (7.0-11.0); PLATELET COUNT 583 TH/MM3 (150-450); RED BLOOD COUNT 3.72 MIL/MM3 (4.50-5.90); RED CELL DISTRIBUTION WIDTH 21.5 % (11.6-17.2); WHITE BLOOD COUNT 19.3 TH/MM3 (4.0-11.0)
--- NOTE | 2017-11-10 20:33 | EKG ---
Date Performed: 11/10/2017 Time Performed: 00:15:00 PTAGE: 57 years EKG: UNCERTAIN REGULAR RHYTHM RIGHT BUNDLE BRANCH BLOCK LEFT ANTERIOR FASCICULAR BLOCK LEFT VENT RICULAR HYPERTROPHY AND ST-T CHANGE SIGNFICANT BASELINE ARTIFACT CONSIDER REPEAT EKG ABNORMAL ECG NO PREVIOUS TRACING DOCTOR: Trixie Urban Interpretating Date/Time 11/10/2017 20:32:02
--- NOTE | 2017-11-10 20:36 | EKG ---
Date Performed: 11/10/2017 Time Performed: 06:58:48 PTAGE: 57 years EKG: SUPRAVENTRICULAR RHYTHM POSSIBLE RIGHT VENTRICULAR CONDUCTION DELAY MARKED ST ELEVATION, CO NSIDER INFERIOR INJURY MARKED ST ELEVATION, CONSIDER ANTEROSEPTAL INJURY ACUTE OK Compared to PREVIOUS TRACING , the patient appears to be having an acute inferior and anterior OK Cli nical correlation is recommended PREVIOUS TRACIN10/31/2017 09.27 DOCTOR: Trixie Urban Interpretating Date/Time 11/10/2017 20:34:44
--- NOTE | 2017-11-10 20:38 | EKG ---
Date Performed: 11/10/2017 Time Performed: 11:18:18 PTAGE: 57 years EKG: Possible atrial flutter. rSr'(V1) - probable normal variant Inferior T wave changes are non specific Low QRS voltages in precordial leads Compared to previous tracing, the anterior ST changes h ave improved. The inferior changes are consistent with an evolving inferior IN Abnormal ECG NO PREVIOUS TRACING DOCTOR: Trixie Urban Interpretating Date/Time 11/10/2017 20:36:54
[2017-11-10 21:48] LABS: HEMATOCRIT 30.2 % (39.0-51.0); HEMOGLOBIN 10.3 GM/DL (13.0-17.0)
[2017-11-10] MEDS: ATORVASTATIN 80 MG TAB PO SCH (22:03)
[2017-11-10 22:21] LABS: INTERNATIONAL NORMALIZED RATIO 1.3 RATIO; PROTHROMBIN TIME - PATIENT 13.5 SEC (9.8-11.6)
[2017-11-11] VITALS (19 sets, daily range): BP systolic 82–111; BP diastolic 63–81; PULSE 56–102; RESP 15–18; TEMP 97.8–99.2; O2SAT 92–100
[2017-11-11] MEDS ORDERED: RASS Change Order XX ONE (02:15)
[2017-11-11] MEDS ORDERED: AMIODARONE INJ 150 MG in DEXTROSE 5% IN WATER 100ML INJ 100 ML IV ONE ×2 (02:53)
--- NOTE | 2017-11-11 02:54 | HHI.PR ---
Subjective Remarks 30 seconds of V. fib, amiodarone infusion initiated Objective Vital Signs Date Time Temp Pulse Resp B/P (MAP) Pulse Ox O2 Delivery O2 Flow Rate FiO2 11/11/17 02:00 74 11/11/17 00:00 56 11/11/17 00:00 98.3 56 15 107/72 (84) 100 11/10/17 23:27 100 100 11/10/17 22:05 53 102/61 11/10/17 22:00 52 11/10/17 20:13 100 90 11/10/17 20:00 98.0 52 16 94/59 (71) 100 11/10/17 20:00 52 11/10/17 20:00 52 105/55 11/10/17 19:00 53 92/57 11/10/17 19:00 53 92/57 11/10/17 18:00 55 11/10/17 16:04 100 100 11/10/17 16:00 98 11/10/17 16:00 98.4 98 16 164/90 (114) 100 123/76 (92) 11/10/17 14:53 30 70/40 11/10/17 14:51 96 124/82 11/10/17 14:00 105 11/10/17 12:00 98.6 72 16 123/69 (87) 100 120/65 (83) 11/10/17 12:00 72 11/10/17 11:59 100 60 11/10/17 10:00 52 11/10/17 08:00 98.4 60 15 108/66 (80) 100 104/64 (77) 11/10/17 08:00 60 11/10/17 07:43 97 60 11/10/17 07:00 60 11/10/17 06:00 61 11/10/17 05:30 61 109/47 11/10/17 04:36 61 94/53 11/10/17 04:34 62 96/58 11/10/17 04:12 97 60 11/10/17 04:00 97.1 59 94/52 (66) 100 94/52 (66) 11/10/17 04:00 59 11/10/17 03:41 97.1 59 19 118/65 100 I/O 11/10/17 11/10/17 11/10/17 11/11/1711/11/18 1/23/18 07:00 15:00 23:00 07:00 15:00 23:00 Intake Total 4425 ml 475 ml 2200 ml Output Total 600 ml 350 ml Balance 3825 ml 475 ml 1850 ml Intake IV Total 3180 ml 2100 ml Packed Cells 1200 ml 400 ml Blood Product IV Normal Saline Flush 45 ml 75 ml Other 100 ml Output Urine Total 50 ml 350 ml Gastric Drainage Total 550 ml # Bowel Movements 0 0 Result Diagram: 11/10/17212911/10/17 1105 Neil Cifuentes MD Nov 11, 2017 2:54 am
[2017-11-11] MEDS: SODIUM BICARBONATE 8.4% INJ 150 MEQ in DEXTROSE 5% IN WATE 1000ML INJ 1,000 ML IV SCH ×4 (03:00→16:50)
[2017-11-11] MEDS ORDERED: AMIODARONE INJ 450 MG in DEXTROSE 5% IN WATE(EXCEL) INJ 241 ML IV PRN ×2 (03:03)
[2017-11-11] MEDS ORDERED: AMIODARONE INJ 450 MG in SODIUM CHLOR 0.9% (EXCEL) INJ 250 ML IV PRN (03:15)
[2017-11-11] MEDS: RESP: ALBUTEROL 2.5 MG/IPRATROPIUM 0.5 MG NEB (SCH) INH ×4 (03:26→20:51)
[2017-11-11] MEDS: CHLORHEXIDINE GLUCONATE 2 % 1 PACK (2 CLOTHS) TOP SCH (04:00)
[2017-11-11] MEDS: OCTREOTIDE INJ 500 MCG in SODIUM CHLORID 0.9% 500 ML INJ 499.5 ML IV SCH ×2 (04:00→23:36)
[2017-11-11] MEDS: PANTOPRAZOLE INJ 80 MG in SODIUM CHLORIDE 0.9% INJ 100 ML IV SCH ×4 (04:00→23:36)
[2017-11-11 04:35] LABS: AUTOMATED NEUTROPHIL # 13.9 TH/MM3 (1.8-7.7); BASOPHIL # 0.1 TH/MM3 (0-0.2); BASOPHIL % 0.5 % (0.0-2.0); HEMATOCRIT 30.5 % (39.0-51.0); LYMPH % 11.3 % (9.0-44.0); MEAN CELL VOLUME 81.6 FL (80.0-100.0); MEAN CORPUSCULAR HEMOGLOBIN 26.7 PG (27.0-34.0); MEAN CORPUSCULAR HGB CONC 32.8 % (32.0-36.0); MEAN PLATELET VOLUME 7.5 FL (7.0-11.0); MONO % 8.2 % (0.0-8.0); MONOCYTE # 1.4 TH/MM3 (0-0.9); PLATELET COUNT 611 TH/MM3 (150-450); RED BLOOD COUNT 3.74 MIL/MM3 (4.50-5.90); RED CELL DISTRIBUTION WIDTH 22.7 % (11.6-17.2); WHITE BLOOD COUNT 17.3 TH/MM3 (4.0-11.0)
[2017-11-11 04:41] LABS: INTERNATIONAL NORMALIZED RATIO 1.3 RATIO; PROTHROMBIN TIME - PATIENT 13.5 SEC (9.8-11.6)
[2017-11-11] MEDS ORDERED: EPINEPHrine HCL (1:10,000) 1 MG/10 ML SYRINGE IV ONE (05:00)
[2017-11-11 05:04] LABS: BICARBONATE 28.6 MEQ/L (21.0-32.0); CALCIUM 6.8 MG/DL (8.5-10.1); CREATININE 2.04 MG/DL (0.60-1.30); MAGNESIUM 1.9 MG/DL (1.5-2.5); PHOSPHORUS 3.1 MG/DL (2.5-4.9); TOTAL BILIRUBIN ADULT 0.6 MG/DL (0.2-1.0); TOTAL PROTEIN 5.9 GM/DL (6.4-8.2)
[2017-11-11 05:06] LABS: CALCIUM-PROTEIN CORRECTED 7.4 MG/DL (8.5-10.1)
[2017-11-11] MEDS: MIDAZOLAM 100 MG/NS 100 ML DRIP Premix IV PRN (05:19)
--- NOTE | 2017-11-11 06:07 | RADRPT ---
EXAM DATE/TIME: 11/11/2017 04:32 [facility] COMPARISON: CHEST SINGLE AP, November 10, 2017, 2:03. INDICATIONS : Short of breath. MEDICAL HISTORY : Hypertension. Hypercholesterolemia. Myocardial infarction. Stroke SURGICAL HISTORY : None. ENCOUNTER: Subsequent ACUITY: 2 days PAIN SCORE: 0/10 LOCATION: Bilateral chest FINDINGS: ET tube tip is well above the is[place]. Gastric tube traverses the [id number]. Right internal jugu lar catheter tip projects at the cavoatrial junction. Persistent small infiltrate in the right lower lung. There is new consolidation involving the left lower lobe with loss of delineation of the enti re left hemidiaphragm. CONCLUSION: There is new lobar consolidation or atelectasis left lower lung. Stable small infiltrate right lung base. Joaquin Bravo MD on November 11, 2017 at 6:05 Board Certified Radiologist. This report was verified electronically.
[2017-11-11 06:47] LABS: BANDS 11 % (0-6); CORRECTED NUCLEATED RBC 25 /100 WBC (0-0); LYMPHOCYTES 5 % (9-44); MONOCYTES 4 % (0-8); NEUTROPHIL # MANUAL DIFF 15.7 TH/MM3 (1.8-7.7); NUCLEATED RED BLOOD CELL 25 (0-0); POLYS (SEG NEUTROPHILS) 80 % (16-70)
[2017-11-11 06:49] LABS: KERATOCYTES OCC (NORMAL)
[2017-11-11] MEDS: DOPamine 800 MG/D5W PREMIX 500 ML IV PRN (06:57)
[2017-11-11] MEDS ORDERED: MAGNESIUM SULFATE 1 GM PREMIX 100 ML ONE (07:00)
[2017-11-11] MEDS ORDERED: MAGNESIUM SULFATE 1 GM PREMIX 100 ML IV ONE (07:15)
[2017-11-11] MEDS ORDERED: CALCIUM CHLORIDE INJ 2 GM in DEXTROSE 5% IN WATER 100ML INJ 100 ML IV ONE ×2 (07:30)
--- NOTE | 2017-11-11 07:36 | HHI.CCPN ---
Subjective Remarks/Hospital Course 57 year old male presents with a history of altered mentation that it been present for approximately 2 hours prior to ambulance services arrival according to the patient's significant other. The patient on arrival was noted to be altered, repeatedly saying that he "fell out". The patient on ambulance services arrival was noted to have a systolic blood pressure of 53. He was admitted here October 26, 2017 with a GI bleed and diagnosis of gastric ulcer per endoscopy findings ( 10/27/[address] Strickland found clean based ulcer, portal gastropathy). At that time he left AGAINST MEDICAL ADVICE. He also has a history of prior cerebrovascular accident with residual left-sided weakness and hypertension, as well as ischemic cardiomyopathy with ejection fraction of 30%. He underwent cardiac catheterization in August 2017 with a placement of bare -metal stent to the ostial proximal right coronary artery. An EKG was reportedly done prior to arrival that showed a right bundle branch block. There also appeared to be ST segment elevation in inferior leads. An EKG was repeated on arrival and the patient was a STEMI alert due to ST segment elevation in 2, 3, and aVF. In the emergency department he was altered unable to provide any meaningful history and was intubated by ED attending for an airway protection. His hemoglobin was found to be 5.4 and emergent release blood transfusion was initiated. The case was discussed with the gymnastics instructor on-call, however due to significant anemia and hemodynamic instability the patient is not a candidate for emergent cardiac catheterization. Also his ST changes are most likely due to severe anemia. 11/11/17: I was called emergently to the bedside as patient became bradycardic to 30's and no recordable blood pressure.. Levophed was increased to 20 mcg/m and BP 70/40, epinephrine was given with systolic blood pressure now about 120s. Repeat EKG confirms ST elevations in the inferior leads with reciprocal changes. Troponin elevated at 2. I discussed with Dr. Sibley and Dr. Pulliam. Plan for emergent EGD, as Dr. Sibley wants clearance for antiplatelet therapy. If GI clears proceed with cath 11/12/17: Remains critically ill, had 1 min of Torsade overnight, self converted to NSR, received 150 mg Amio IV. Remains on Dopamine 6 mcg/kg/min, Levophed 2 mcg/min and vasopressin. EGD 1/22 clean based ulcer, no active bleed. Hb 10, without evidence of active bleed. Currently on Aspirin, Plavix and IV Heparin. Troponin peaked at 34. Discussed with Dr. Sibley. He will see today and evaluate for cath Objective Vital Signs Date Time Temp Pulse Resp B/P (MAP) Pulse Ox O2 Delivery O2 Flow Rate FiO2 11/11/17 07:18 100 100 11/11/17 06:57 62 99/67 11/11/17 04:00 97.8 16 11/10/17 02:17 Ventilator 11/10/17 00:46 4.00 Intake and Output 11/11/17 11/11/17 11/12/17 08:00 16:00 00:00 Intake Total 132 ml Balance 132 ml Result Diagram: 11/11/1739911/11/17399 Other Results Laboratory Tests Test 11/10/17 11:06 Blood Gas Puncture Site DWAYNE Blood Gas Patient Temperature 98.6 Blood Gas HCO3 19 mmol/L (22-26) Blood Gas Base Excess -7.2 mmol/L (-2-2) Blood Gas Oxygen Saturation 96 % (90-100) Arterial Blood pH 7.25 (7.380-7.420) Arterial Blood Partial Pressure CO2 45 mmHg (38-42) Arterial Blood Partial Pressure O2 152 mmHg (61-120) Arterial Blood Oxygen Content 11.5 Vol % (12.0-20.0) Arterial Blood Carboxyhemoglobin 0.6 % (0-4) Arterial Blood Methemoglobin 1.4 % (0-2) Blood Gas Hemoglobin 8.2 G/DL (12.0-16.0) Oxygen Delivery Device VENT Blood Gas Ventilator Setting PRVC/550/15/1.0/8/60 Blood Gas Inspired Oxygen 60 % Imaging Last [address] 11/10/17 002 Signed Impressions: Service Date/Time: Friday, November 10, 2017 00:22 - CONCLUSION: 1. Interval development of right highest convexity parietal hypodensity which could represent a enlarged sulcus. Since this is a new finding since 10/30/17, a consider further characterization with MRI to evaluate for subacute infarction. 2. Stable right mid and low parietal encephalomalacia. Joaquin Bravo MD Chest X-Ray 11/10/17 0019 Signed Impressions: Service Date/Time: Friday, November 10, 2017 00:28 - CONCLUSION: The lungs are clear. Joaquin Bravo MD Chest X-Ray 11/10/17 0000 Signed Impressions: Service Date/Time: Friday, November 10, 2017 02:03 - CONCLUSION: 1. Small residual infiltrate right base. 2. Lines and tubes in good position. Joaquin Bravo MD Objective Remarks GENERAL: Obese middle-aged male, lying in bed, sedated and intubated, critically ill in shock HEENT: Normocephalic. Atraumatic. Pupils equal, round, reactive, conjugate. Mucous membranes are moist NECK: Trachea is midline. No JVD CHEST: Equal chest rise. Mildly tachypneic. Endotracheally intubated. Basilar crackles CARDIOVASCULAR: HR irregular, IN 60's. Systolic murmur at apex. On Dopamine, vaso and Levophed ABDOMEN: Soft, nontender, distended. No guarding. MUSCULOSKELETAL: Pulses 2+. 2+ peripheral edema NEUROLOGICAL: Sedated and intubated. Opens eyes to stimulation, shakes his head , moves extremities A/P Assessment and Plan Neuro: Metabolic encephalopathy - Versed for sedation - Daily sedation vacation as tolerated - CT head negative CVS: Acute coronary syndrome/Inferior STEMI Severe bradycardia Cardiogenic in hemorrhagic shock VTAC/Torsade - ST elevations in inferior leads, troponin [address] elevation MN - Continue Aspirin, Plavix and heparin gtt - Trop peaked at 34 - Cardiology -discussed with Dr. Sibley multiple times. He will evaluate today again for possible cath - Currently on Levophed at 2mcg/m, vasopressin at 0.04 IU, Dopamine 6 mcg/kg/min - Cannot use beta ludy or SILVA I due to shoc. Cannot use statin due high liver enz - Aggressive IV fluids resuscitation - Blood transfusions to keep Hb >8 - Flowtrack, Centerline/a line RESP: Acute Respiratory failure LLL infiltrate - Intubated for an airway protection - No weaning until neurologically and hemodynamically improved - Vent bundle, DuoNeb - CXR and ABG daily - Empiric Zosyn GI/HEME: Acute Gastrointestinal bleed EGD 10/27/17 clean based ulcer, portal gastropathy - Nothing by mouth except meds - EGD -11/10 clean based gastric ulcer without active bleed - Protonix IV GTT. DC octreotide infusion - Coloscopy today if stable - Blood and blood products as needed : Acute on chronic kidney disease Metabolic acidosis - Due to blood loss - Sodium bicarbonate IV infusion - Frequent ABGs - IV Fluid as above Endo: Hyperglycemia - Insulin sliding scale ID Probable LLL pneumonia - Empiric Zosyn, sputum cx DVT GI prophylaxis - Teds SCDs - IV Heparin - Protonix gtt Critical Care: Critical care time was 40 minutes including multiple discussions with cardiology and GI Claudia Dooley MD Nov 11, 2017 07:36
[2017-11-11] MEDS: CHLORHEXIDINE 0.12% (ORAL KIT) 15 ML CUP MT SCH ×2 (08:00→20:00)
[2017-11-11] MEDS: ASPIRIN 81 MG CHEW TAB CHEW SCH (08:48)
[2017-11-11] MEDS: ARTIFICIAL TEARS OPTH SOLN 15 ML BTL EACH EYE SCH ×3 (08:48→17:57)
[2017-11-11] MEDS: CLOPIDOGREL 75 MG TAB PO SCH (08:49)
[2017-11-11] MEDS: SODIUM CHLORIDE 0.9% FLUSH 10 ML FLUSH IV FLUSH SCH ×2 (08:49→20:08)
[2017-11-11] MEDS: DOCUSATE SODIUM 50 MG/SENNA 8.6 MG TAB PO SCH ×2 (08:49→20:08)
[2017-11-11] MEDS: PIPERACIL-TAZO 3.375 GM PREMIX 50 ML IV SCH ×2 (08:59→16:50)
[2017-11-11] MEDS: INSULIN NovoLIN REGULAR SUPPLEMENTAL SCALE SQ SCH ×4 (09:30→20:08)
[2017-11-11] MEDS ORDERED: DIATRIZOATE MEGLUM/DIATRIZOATE SOD 9 ML CUP PO ONE (09:56)
--- NOTE | 2017-11-11 11:14 | RADRPT ---
EXAM DATE/TIME: 11/11/2017 10:09 [facility] COMPARISON: No previous studies available for comparison. INDICATIONS : Distention. MEDICAL HISTORY : Cerebrovascular disease. Myocardial infarction. Hypertension SURGICAL HISTORY : None. ENCOUNTER: Subsequent ACUITY: 2 days PAIN SCORE: Non-responsive. LOCATION: Bilateral abdomen. FINDINGS: NG tip is in the stomach. Mild ileus. No free air identified. Basal airspace disease in the lungs, le ft greater than right. CONCLUSION: 1. Mild ileus. NG tube in the stomach. Ward Sibley MD on November 11, 2017 at 11:11 Board Certified Radiologist. This report was verified electronically.
--- NOTE | 2017-11-11 13:49 | PD.CARD.PN ---
Subjective Subjective Remarks sedated, intubated, critically ill Objective Medications Current Medications Medications (Trade) Dose Ordered Sig/Carline Route Start Time Stop Time Status Last Admin Fentanyl Citrate 250 ml @ 10 mls/hr TITRATE PRN IV 11/10/17 01:30 11/10/17 02:08 (Lipitor) 80 mg HS PO 11/10/17 21:00 11/10/17 22:03 (NS Flush) 2 ml UNSCH PRN IV FLUSH 11/10/17 01:45 (NS Flush) 2 ml BID IV FLUSH 11/10/17 09:00 11/11/17 08:49 (Tylenol) 650 mg Q6H PRN PO 11/10/17 01:45 (Morphine Inj) 2 mg Q2H PRN IV PUSH 11/10/17 01:45 (Versed Inj) 2 mg Q1H PRN IV PUSH 11/10/17 01:45 (Tears Naturale Opth Soln) 1 drop TID EACH EYE 11/10/17 09:00 11/11/17 08:48 (Zofran Inj) 4 mg Q6H PRN IV PUSH 11/10/17 01:45 (Duoneb Neb) 1 ampule Q6HR NEB INH 11/10/17 04:00 11/11/17 07:27 (Duoneb Neb) 1 ampule Q2HR NEB PRN INH 11/10/17 01:45 11/10/17 04:20 Miscellaneous Information 1 Q361D XX 11/10/17 01:45 (Chlorhexidine 2% Cloth) 3 pack Taper DAILY@04 TOP 11/10/17 04:00 11/06/18 03:59 (Chlorhexidine 2% Cloth) 3 pack UNSCH PRN TOP 11/10/17 01:45 (Naomy-Colace) 1 tab BID PO 11/10/17 09:00 11/11/17 08:49 (Milk Of Magnesia Liq) 30 ml Q12H PRN PO 11/10/17 01:45 (Senokot) 17.2 mg Q12H PRN PO 11/10/17 01:45 (Dulcolax Supp) 10 mg DAILY PRN RECTAL 11/10/17 01:45 (Lactulose Liq) 30 ml DAILY PRN PO 11/10/17 01:45 (Peridex 0.12% Liq) 15 ml BID@08,20 MT 11/10/17 08:00 11/11/17 08:00 Norepinephrine Bitartrate 4 mg/ Sodium Chloride 250 ml @ 7.5 mls/hr TITRATE PRN IV 11/10/17 02:45 11/10/17 14:51 (Brethine Inj) 1 mg UNSCH PRN SQ 11/10/17 02:45 Sodium Bicarbonate 150 meq/Dextrose 1,150 ml @ 100 mls/hr [id number] IV 11/10/17 04:00 11/11/17 03:00 (D50w (Vial) Inj) 50 ml UNSCH PRN IV PUSH 11/10/17 04:45 (Glucagon Inj) 1 mg UNSCH PRN OTHER 11/10/17 04:45 (NovoLIN R SUPPLEMENTAL SCALE) 1 ACHS SLIDING SCALE SQ 11/10/17 08:00 11/11/17 09:30 Octreotide Acetate 500 mcg/ Sodium Chloride 500 ml @ 25 mls/hr Q20H IV 11/10/17 08:00 11/10/17 09:31 Dopamine HCl/ Dextrose 500 ml @ 12.938 mls/ hr TITRATE PRN IV 11/10/17 14:00 11/11/17 06:57 (Aspirin Chew) 81 mg DAILY CHEW 11/10/17 13:45 11/11/17 08:48 Heparin Sodium/ Dextrose 250 ml @ 10 mls/hr TITRATE PRN IV 11/10/17 14:00 11/10/17 14:32 Midazolam HCl 100 ml @ 2 mls/hr TITRATE PRN IV 11/10/17 14:00 11/11/17 05:19 (Plavix) 75 mg DAILY PO 11/10/17 18:00 11/11/17 08:49 Pantoprazole Sodium 80 mg/ Sodium Chloride 100 ml @ 10 mls/hr Q10H IV 11/11/17 04:00 11/11/17 04:00 Vasopressin 40 units/Dextrose 100 ml @ 1.5 mls/hr Q24H IV 11/11/17 02:15 Amiodarone HCl 450 mg/Sodium Chloride 259 ml @ 33.33 mls/ hr Q7H47M PRN IV 11/11/17 03:15 Piperacillin Sod/ Tazobactam Sod 50 ml @ 100 mls/hr Q8H IV 11/11/17 09:00 11/11/17 08:59 Vital Signs / I&O Vital Signs Date Time Temp Pulse Resp B/P (MAP) Pulse Ox O2 Delivery O2 Flow Rate FiO2 11/11/17 13:30 92 100 11/11/17 13:16 92 100 11/11/17 10:00 102 11/11/17 09:51 100 100 11/11/17 08:00 95 11/11/17 08:00 95 16 111/76 (88) 95 106/79 (88) 11/11/17 07:53 69 98/69 11/11/17 07:18 100 100 11/11/17 06:57 62 99/67 11/11/17 06:57 67 100/69 11/11/17 06:00 73 11/11/17 04:00 61 11/11/17 04:00 97.8 61 16 110/81 (91) 100 104/69 (81) 11/11/17 03:26 100 100 11/11/17 02:53 64 98/71 11/11/17 02:00 74 11/11/17 00:00 56 11/11/17 00:00 98.3 56 15 107/72 (84) 100 11/10/17 23:27 100 100 11/10/17 22:05 53 102/61 11/10/17 22:00 52 11/10/17 20:13 100 90 11/10/17 20:00 98.0 52 16 94/59 (71) 100 11/10/17 20:00 52 11/10/17 20:00 52 105/55 11/10/17 19:00 53 92/57 11/10/17 19:00 53 92/57 11/10/17 18:00 55 11/10/17 16:04 100 100 11/10/17 16:00 98 11/10/17 16:00 98.4 98 16 164/90 (114) 100 123/76 (92) 11/10/17 14:53 30 70/40 11/10/17 14:51 96 124/82 11/10/17 14:00 105 I/O 11/10/17 11/10/17 11/10/17 11/11/17 11/11/17 11/11/17 07:00 15:00 23:00 07:00 15:00 23:00 Intake Total 4425 ml 475 ml 2625 ml 1804 ml 270 ml Output Total 600 ml 350 ml 200 ml Balance 3825 ml 475 ml 2275 ml 1604 ml 270 ml Intake IV Total 3180 ml 2100 ml 1804 ml 270 ml Packed Cells 1200 ml 400 ml 400 ml Blood Product IV Normal Saline Flush 45 ml 75 ml 25 ml Other 100 ml Output Urine Total 50 ml 350 ml 200 ml Gastric Drainage Total 550 ml # Bowel Movements 0 0 0 Physical Exam GENERAL: Well-nourished, well-developed patient. SKIN: Warm and dry. HEAD: Normocephalic. EYES: No scleral icterus. No injection or drainage. NECK: Supple, trachea midline. No JVD or lymphadenopathy. CARDIOVASCULAR: Regular rate and rhythm without murmurs, gallops, or rubs. RESPIRATORY: Breath sounds equal bilaterally. No accessory muscle use. GASTROINTESTINAL: Abdomen soft, distended. EXTREMITIES: No cyanosis, or +edema. Laboratory Laboratory Tests Test 11/10/17 17:30 11/10/17 21:30 11/11/17 00:25 11/11/17 04:00 White Blood Count 19.3 TH/MM3 17.3 TH/MM3 Red Blood Count 3.72 MIL/MM3 3.74 MIL/MM3 Hemoglobin 10.0 GM/DL 10.3 GM/DL 10.0 GM/DL Hematocrit 30.6 % 30.2 % 30.5 % Mean Corpuscular Volume 82.2 FL 81.6 FL Mean Corpuscular Hemoglobin 26.9 PG 26.7 PG Mean Corpuscular Hemoglobin Concent 32.7 % 32.8 % Red Cell Distribution Width 21.5 % 22.7 % Platelet Count 583 TH/MM3 611 TH/MM3 Mean Platelet Volume 7.6 FL 7.5 FL Prothrombin Time 13.5 SEC 13.5 SEC Prothromb Time International Ratio 1.3 RATIO 1.3 RATIO Activated Partial Thromboplast Time 44.3 SEC 53.2 SEC Troponin I 33.80 NG/ML Neutrophils (%) (Auto) 80.0 % Lymphocytes (%) (Auto) 11.3 % Monocytes (%) (Auto) 8.2 % Eosinophils (%) (Auto) 0.0 % Basophils (%) (Auto) 0.5 % Neutrophils # (Auto) 13.9 TH/MM3 Lymphocytes # (Auto) 2.0 TH/MM3 Monocytes # (Auto) 1.4 TH/MM3 Eosinophils # (Auto) 0.0 TH/MM3 Basophils # (Auto) 0.1 TH/MM3 CBC Comment AUTO DIFF Differential Total Cells Counted 100 Neutrophils % (Manual) 80 % Band Neutrophils % 11 % Lymphocytes % 5 % Monocytes % 4 % Neutrophils # (Manual) 15.7 TH/MM3 Nucleated Red Blood Cells 25 /100 WBC Differential Comment FINAL DIFF MANUAL Platelet Estimate HIGH Platelet Morphology Comment NORMAL Polychromasia 2.0 % Keratocytes OCC Blood Urea Nitrogen 25 MG/DL Creatinine 2.04 MG/DL Random Glucose 192 MG/DL Total Protein 5.9 GM/DL Albumin 2.0 GM/DL Calcium Level 6.8 MG/DL Phosphorus Level 3.1 MG/DL Magnesium Level 1.9 MG/DL Alkaline Phosphatase 66 U/L Aspartate Amino Transf (AST/SGOT) 363 U/L Alanine Aminotransferase (ALT/SGPT) 68 U/L Total Bilirubin 0.6 MG/DL Sodium Level 138 MEQ/L Potassium Level 5.7 MEQ/L Chloride Level 101 MEQ/L Carbon Dioxide Level 28.6 MEQ/L Anion Gap 8 MEQ/L Estimat Glomerular Filtration Rate 41 ML/MIN Protein Corrected Calcium 7.4 MG/DL Test 11/11/17 08:05 11/11/17 10:40 Blood Gas Puncture Site ART LINE Blood Gas Patient Temperature 98.6 Blood Gas HCO3 27 mmol/L Blood Gas Base Excess 2.8 mmol/L Blood Gas Oxygen Saturation 92 % Arterial Blood pH 7.40 Arterial Blood Partial Pressure CO2 45 mmHg Arterial Blood Partial Pressure O2 72 mmHg Arterial Blood Oxygen Content 12.3 Vol % Arterial Blood Carboxyhemoglobin 0.9 % Arterial Blood Methemoglobin 1.1 % Blood Gas Hemoglobin 9.5 G/DL Oxygen Delivery Device VENTILATOR Blood Gas Ventilator Setting Blood Gas Inspired Oxygen 100 % Hemoglobin 9.5 GM/DL Potassium Level 4.6 MEQ/L Imaging Last 24 hours Impressions Chest X-Ray 11/11/17 0600 Signed Impressions: Service Date/Time: Saturday, November 11, 2017 04:32 - CONCLUSION: There is new lobar consolidation or atelectasis left lower lung. Stable small infiltrate right lung base. Joaquin Bravo MD Abdomen X-Ray 11/11/17 0000 Signed Impressions: Service Date/Time: Saturday, November 11, 2017 10:09 - CONCLUSION: 1. Mild ileus. NG tube in the stomach. Ward Sibley MD Assessment and Plan Problem List: (1) GI bleed ICD Codes: K92.2 - Gastrointestinal hemorrhage, unspecified Status: Acute Plan: 57 y/o M admitted with hypovolemic shock in the setting of GIB. Still intubated, pressors being wean off. Trop elevated, admission EKG inferior STEMI however due severe Anemia and strong hx of GIB he was not taken to the cath. Overnight episode of TdP. This AM ABD distended no bowel movement despite [place]. EGD results noted. Hg down to 9.5. Schedule for Colonoscopy today. Not candidate for LHC/PCI given bleeding. Recommendations 1. Cont medical management for CAD as tolerated by BP and HR 2. ASA, Plavix, heparin when stable from GI standpoint 3. GIB management per GI 4. Wean pressors at tolerated 5. Avoid electrolytes abnormalities 6. Repeat 12 Lead EKG (2) HTN (hypertension) ICD Codes: I10 - Essential (primary) hypertension Status: Chronic (3) CAD (coronary artery disease) ICD Codes: I25.10 - Atherosclerotic heart disease of [place] coronary artery without angina pectoris (4) Anemia ICD Codes: D64.9 - Anemia, unspecified Status: Acute (5) Hypotension ICD Codes: I95.9 - Hypotension, unspecified Status: Acute Problem Qualifiers (1) GI bleed: Qualified Codes: K92.2 - Gastrointestinal hemorrhage, unspecified (2) Anemia: Qualified Codes: D50.0 - Iron deficiency anemia secondary to blood loss ( chronic) (3) Hypotension: Qualified Codes: I95.9 - Hypotension, unspecified Dhiraj Copeland MD Nov 11, 2017 13:49
--- NOTE | 2017-11-11 14:12 | RADRPT ---
EXAM DATE/TIME: 11/11/2017 13:30 [facility] COMPARISON: No previous studies available for comparison. INDICATIONS : Distention. ORAL CONTRAST: Prescribed oral contrast ingested. RADIATION DOSE: 24.04 CTDIvol (mGy) MEDICAL HISTORY : Cerebrovascular disease. Hypertension. SURGICAL HISTORY : Non-responsive. ENCOUNTER: Initial ACUITY: 1 day PAIN SCALE: 0/10 LOCATION: Bilateral Abdomen TECHNIQUE: Volumetric scanning of the abdomen and pelvis was performed. Using automated exposure control and ad justment of the mA and/or kV according to patient size, radiation dose was kept as low as reasonably achievable to obtain optimal diagnostic quality images. DICOM format image data is available electro nically for review and comparison. FINDINGS: There small bilateral pleural effusions with dependent consolidation in both lungs. Heart size enlarg ed. Right central line in superior vena cava. NG enters stomach. No acute findings in the liver, spleen, adrenals, kidneys or pancreas. Bowel loops on the left side are mildly distended up to 3.2 cm. Bowel loops in the right lower quadra nt are decompressed. Findings are most characteristic of a partial small bowel obstruction. Etiology unclear. A catheter present in decompressed bladder. Mild anasarca. CONCLUSION: 1. Mildly dilated loops of small bowel proximally with distal decompression most characteristic of a partial small bowel obstruction. No free air. Trace free fluid. Mild anasarca. 2. Small bilateral pleural effusions with dependent consolidation in both lungs. 3. NG and mildly distended stomach. Ward Sibley MD on November 11, 2017 at 14:02 Board Certified Radiologist. This report was verified electronically.
[2017-11-11] MEDS: VASOPRESSIN INJ 40 UNITS in DEXTROSE 5% IN WATER 100ML INJ 98 ML IV SCH ×2 (16:52)
[2017-11-11] MEDS: HEPARIN-D5W 25,000 U/250 ML 250 ML IV PRN (16:54)
--- NOTE | 2017-11-11 17:55 | HHI.GIFU ---
GI Follow-up Note Consult Follow-up Subjective: Patient laying in bed comfortably, no new complaints except sedated and intubated Objective: PHYSICAL EXAMINATION: Vitals signs stable No fever HEENT: Pupils round and reactive to light; normocephalic; atraumatic; no jaundice. Throat is clear. NECK: Neck is supple, no JVD, no lymphadenopathy. CHEST: Chest is clear to auscultation and percussion. CARDIAC: Regular rate and rhythm with no murmur gallop or rubs. ABDOMEN: Soft, nondistended, nontender; no hepatosplenomegaly; bowel sounds are present in all four quadrants. EXTREMITIES: No clubbing, cyanosis, or edema. SKIN: Normal; no rash; no jaundice. 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 Available Data (labs, X- Rays, Procedues) : Vital Signs Date Time Temp Pulse Resp B/P (MAP) Pulse Ox O2 Delivery O2 Flow Rate FiO2 11/11/17 16:52 67 96/62 11/11/17 16:08 100 100 11/11/17 16:00 68 11/11/17 16:00 98.5 68 16 98/66 (77) 100 104/68 (80) 11/11/17 14:00 70 11/11/17 13:30 92 100 11/11/17 13:16 92 100 11/11/17 12:00 98.4 67 16 99/63 (75) 98 82/66 (71) 11/11/17 12:00 67 11/11/17 10:00 102 Last Impressions Chest X-Ray 11/11/17 0600 Signed Impressions: Service Date/Time: Saturday, November 11, 2017 04:32 - CONCLUSION: There is new lobar consolidation or atelectasis left lower lung. Stable small infiltrate right lung base. Joaquin Bravo MD Abdomen/Pelvis CT 11/11/17 0000 Signed Impressions: Service Date/Time: Saturday, November 11, 2017 13:30 - CONCLUSION: 1. Mildly dilated loops of small bowel proximally with distal decompression most characteristic of a partial small bowel obstruction. No free air. Trace free fluid. Mild anasarca. 2. Small bilateral pleural effusions with dependent consolidation in both lungs. 3. NG and mildly distended stomach. Ward Sibley MD Abdomen X-Ray 11/11/17 0000 Signed Impressions: Service Date/Time: Saturday, November 11, 2017 10:09 - CONCLUSION: 1. Mild ileus. NG tube in the stomach. Ward Sibley MD Head CT 11/10/17 0022 Signed Impressions: Service Date/Time: Friday, November 10, 2017 00:22 - CONCLUSION: 1. Interval development of right highest convexity parietal hypodensity which could represent a enlarged sulcus. Since this is a new finding since 10/30/17, a consider further characterization with MRI to evaluate for subacute infarction. 2. Stable right mid and low parietal encephalomalacia. Joaquin Bravo MD Laboratory Tests Test 11/10/17 00:20 11/10/17 01:10 11/10/17 02:10 11/10/17 02:51 White Blood Count 15.9 TH/MM3 Red Blood Count 2.17 MIL/MM3 Hemoglobin 5.1 GM/DL Bedside Hemoglobin 5.8 G/DL Hematocrit 17.2 % Bedside Hematocrit 17.0 % Mean Corpuscular Volume 79.0 FL Mean Corpuscular Hemoglobin 23.6 PG Mean Corpuscular Hemoglobin Concent 29.9 % Red Cell Distribution Width 22.2 % Platelet Count 732 TH/MM3 Mean Platelet Volume 7.7 FL Neutrophils (%) (Auto) 60.5 % Lymphocytes (%) (Auto) 28.9 % Monocytes (%) (Auto) 9.1 % Eosinophils (%) (Auto) 1.0 % Basophils (%) (Auto) 0.5 % Neutrophils # (Auto) 9.6 TH/MM3 Lymphocytes # (Auto) 4.6 TH/MM3 Monocytes # (Auto) 1.4 TH/MM3 Eosinophils # (Auto) 0.2 TH/MM3 Basophils # (Auto) 0.1 TH/MM3 CBC Comment AUTO DIFF Differential Total Cells Counted 100 Neutrophils % (Manual) 70 % Lymphocytes % 22 % Monocytes % 4 % Eosinophils % 3 % Neutrophils # (Manual) 11.3 TH/MM3 Metamyelocytes 1 % Nucleated Red Blood Cells 7 /100 WBC Differential Comment FINAL DIFF MANUAL Platelet Estimate HIGH Platelet Morphology Comment NORMAL Polychromasia 5.2 % Ovalocytes 1+ Acanthocytes OCC Keratocytes OCC Prothrombin Time 12.0 SEC Prothromb Time International Ratio 1.2 RATIO Activated Partial Thromboplast Time 24.7 SEC Blood Gas Puncture Site RT FEMORAL RT FEMORAL Blood Gas Patient Temperature 98.6 98.6 Blood Gas HCO3 18 mmol/L 17 mmol/L Blood Gas Base Excess -4.0 mmol/L -8.1 mmol/L Blood Gas Oxygen Saturation 96 % 98 % Arterial Blood pH 7.53 7.33 Arterial Blood Partial Pressure CO2 22 mmHg 33 mmHg Arterial Blood Partial Pressure O2 126 mmHG 523 mmHG Arterial Blood Oxygen Content 6.6 Vol % 10.7 Vol % Arterial Blood Carboxyhemoglobin 3.4 % 2.2 % Arterial Blood Methemoglobin 0.3 % 0.5 % Blood Gas Hemoglobin 4.6 G/DL 6.7 G/DL Oxygen Delivery Device NASAL CANNULA VENTILATOR Blood Gas Liter Flow 4 L/M Bedside Sodium 142 MMOL/L Bedside Potassium 3.8 MMOL/L Bedside Chloride 103 MMOL/L Bedside Blood Urea Nitrogen 19 MG/DL Bedside Creatinine 1.0 MG/DL Bedside Glucose 224 MG/DL Calcium Level 7.7 MG/DL Magnesium Level 2.1 MG/DL Total Creatine Kinase 63 U/L Troponin I 0.12 NG/ML 0.20 NG/ML B-Type Natriuretic Peptide 104 PG/ML Urine Color YELLOW Urine Turbidity CLEAR Urine pH 6.5 Urine Specific [place] 1.016 Urine Protein NEG mg/dL Urine Glucose (UA) NEG mg/dL Urine Ketones NEG mg/dL Urine Occult Blood NEG Urine Nitrite NEG Urine Bilirubin NEG Urine Urobilinogen LESS THAN 2.0 MG/DL Urine Leukocyte Esterase NEG Urine RBC 1 /hpf Urine WBC 1 /hpf Urine Renal Epithelial Cells 8 /hpf Urine Bacteria RARE /hpf Urine Hyaline Casts 3 /lpf Microscopic Urinalysis Comment CATH-CULTURE IND Blood Gas Ventilator Setting Blood Gas Inspired Oxygen 100 % Test 11/10/17 02:55 11/10/17 03:27 11/10/17 06:36 11/10/17 11:05 Nasal Screen MRSA (PCR) MRSA NOT DETECTED Blood Gas Puncture Site DWAYNE Blood Gas Patient Temperature 98.6 Blood Gas HCO3 15 mmol/L Blood Gas Base Excess -11.0 mmol/L Blood Gas Oxygen Saturation 97 % Arterial Blood pH 7.26 Arterial Blood Partial Pressure CO2 34 mmHg Arterial Blood Partial Pressure O2 247 mmHg Arterial Blood Oxygen Content 9.6 Vol % Arterial Blood Carboxyhemoglobin 1.5 % Arterial Blood Methemoglobin 1.3 % Blood Gas Hemoglobin 6.6 G/DL Oxygen Delivery Device VENTILATOR Blood Gas Ventilator Setting SEE COMMENT Blood Gas Inspired Oxygen 60 % Hemoglobin 8.3 GM/DL 8.3 GM/DL Hematocrit 25.7 % 26.7 % Troponin I 1.80 NG/ML 6.77 NG/ML White Blood Count 20.9 TH/MM3 Red Blood Count 3.17 MIL/MM3 Mean Corpuscular Volume 84.1 FL Mean Corpuscular Hemoglobin 26.2 PG Mean Corpuscular Hemoglobin Concent 31.2 % Red Cell Distribution Width 22.9 % Platelet Count 667 TH/MM3 Mean Platelet Volume 7.6 FL Prothrombin Time 13.2 SEC Prothromb Time International Ratio 1.3 RATIO Activated Partial Thromboplast Time 25.6 SEC Blood Urea Nitrogen 24 MG/DL Creatinine 2.07 MG/DL Random Glucose 168 MG/DL Total Protein 5.9 GM/DL Albumin 2.0 GM/DL Calcium Level 6.7 MG/DL Magnesium Level 2.2 MG/DL Alkaline Phosphatase 71 U/L Aspartate Amino Transf (AST/SGOT) 108 U/L Alanine Aminotransferase (ALT/SGPT) 28 U/L Total Bilirubin 0.4 MG/DL Direct Bilirubin 0.2 MG/DL Sodium Level 143 MEQ/L Potassium Level 5.3 MEQ/L Chloride Level 108 MEQ/L Carbon Dioxide Level 23.3 MEQ/L Anion Gap 12 MEQ/L Estimat Glomerular Filtration Rate 40 ML/MIN Lactic Acid Level 7.1 mmol/L Protein Corrected Calcium 7.3 MG/DL Indirect Bilirubin 0.2 MG/DL Total Creatine Kinase 345 U/L Creatine Kinase MB 52.5 NG/ML Creatine Kinase MB % 15.2 % Test 11/10/17 11:06 11/10/17 17:30 11/10/17 21:30 11/11/17 00:25 Blood Gas Puncture Site DWAYNE Blood Gas Patient Temperature 98.6 Blood Gas HCO3 19 mmol/L Blood Gas Base Excess -7.2 mmol/L Blood Gas Oxygen Saturation 96 % Arterial Blood pH 7.25 Arterial Blood Partial Pressure CO2 45 mmHg Arterial Blood Partial Pressure O2 152 mmHg Arterial Blood Oxygen Content 11.5 Vol % Arterial Blood Carboxyhemoglobin 0.6 % Arterial Blood Methemoglobin 1.4 % Blood Gas Hemoglobin 8.2 G/DL Oxygen Delivery Device VENT Blood Gas Ventilator Setting PRVC/550/15/1.0/860 Blood Gas Inspired Oxygen 60 % White Blood Count 19.3 TH/MM3 Red Blood Count 3.72 MIL/MM3 Hemoglobin 10.0 GM/DL 10.3 GM/DL Hematocrit 30.6 % 30.2 % Mean Corpuscular Volume 82.2 FL Mean Corpuscular Hemoglobin 26.9 PG Mean Corpuscular Hemoglobin Concent 32.7 % Red Cell Distribution Width 21.5 % Platelet Count 583 TH/MM3 Mean Platelet Volume 7.6 FL Prothrombin Time 13.5 SEC Prothromb Time International Ratio 1.3 RATIO Activated Partial Thromboplast Time 44.3 SEC Troponin I 33.80 NG/ML Test 11/11/17 04:00 11/11/17 08:05 11/11/17 10:40 11/11/17 16:45 White Blood Count 17.3 TH/MM3 Red Blood Count 3.74 MIL/MM3 Hemoglobin 10.0 GM/DL 9.5 GM/DL 9.4 GM/DL Hematocrit 30.5 % Mean Corpuscular Volume 81.6 FL Mean Corpuscular Hemoglobin 26.7 PG Mean Corpuscular Hemoglobin Concent 32.8 % Red Cell Distribution Width 22.7 % Platelet Count 611 TH/MM3 Mean Platelet Volume 7.5 FL Neutrophils (%) (Auto) 80.0 % Lymphocytes (%) (Auto) 11.3 % Monocytes (%) (Auto) 8.2 % Eosinophils (%) (Auto) 0.0 % Basophils (%) (Auto) 0.5 % Neutrophils # (Auto) 13.9 TH/MM3 Lymphocytes # (Auto) 2.0 TH/MM3 Monocytes # (Auto) 1.4 TH/MM3 Eosinophils # (Auto) 0.0 TH/MM3 Basophils # (Auto) 0.1 TH/MM3 CBC Comment AUTO DIFF Differential Total Cells Counted 100 Neutrophils % (Manual) 80 % Band Neutrophils % 11 % Lymphocytes % 5 % Monocytes % 4 % Neutrophils # (Manual) 15.7 TH/MM3 Nucleated Red Blood Cells 25 /100 WBC Differential Comment FINAL DIFF MANUAL Platelet Estimate HIGH Platelet Morphology Comment NORMAL Polychromasia 2.0 % Keratocytes OCC Prothrombin Time 13.5 SEC Prothromb Time International Ratio 1.3 RATIO Activated Partial Thromboplast Time 53.2 SEC Blood Urea Nitrogen 25 MG/DL Creatinine 2.04 MG/DL Random Glucose 192 MG/DL Total Protein 5.9 GM/DL Albumin 2.0 GM/DL Calcium Level 6.8 MG/DL Phosphorus Level 3.1 MG/DL Magnesium Level 1.9 MG/DL Alkaline Phosphatase 66 U/L Aspartate Amino Transf (AST/SGOT) 363 U/L Alanine Aminotransferase (ALT/SGPT) 68 U/L Total Bilirubin 0.6 MG/DL Sodium Level 138 MEQ/L Potassium Level 5.7 MEQ/L 4.6 MEQ/L Chloride Level 101 MEQ/L Carbon Dioxide Level 28.6 MEQ/L Anion Gap 8 MEQ/L Estimat Glomerular Filtration Rate 41 ML/MIN Protein Corrected Calcium 7.4 MG/DL Blood Gas Puncture Site ART LINE Blood Gas Patient Temperature 98.6 Blood Gas HCO3 27 mmol/L Blood Gas Base Excess 2.8 mmol/L Blood Gas Oxygen Saturation 92 % Arterial Blood pH 7.40 Arterial Blood Partial Pressure CO2 45 mmHg Arterial Blood Partial Pressure O2 72 mmHg Arterial Blood Oxygen Content 12.3 Vol % Arterial Blood Carboxyhemoglobin 0.9 % Arterial Blood Methemoglobin 1.1 % Blood Gas Hemoglobin 9.5 G/DL Oxygen Delivery Device VENTILATOR Blood Gas Ventilator Setting Blood Gas Inspired Oxygen 100 % ASSESSMENT/PLAN: Seen and examined, noresponse to laxatives overnight. No bleeding reported. Abdomen significantly more distended. Also had runs of V tach. Colonoscopy on hold. No evidence of bleeding. Can use heparin/ASA as needed. CT scans reviewed. ? colonoscopy. It was a pleasure seeing Eamon Boo. Thank you for this consult. Entered by: Jarod Jenkins MD Nov 11, 2017 17:55
[2017-11-11] MEDS: ATORVASTATIN 80 MG TAB PO SCH (20:08)
[2017-11-12] VITALS (20 sets, daily range): BP systolic 84–150; BP diastolic 52–97; PULSE 75–96; RESP 15–17; TEMP 98.2–100.4; O2SAT 65–100
[2017-11-12] MEDS: PIPERACIL-TAZO 3.375 GM PREMIX 50 ML IV SCH ×3 (00:52→17:29)
[2017-11-12] MEDS: MIDAZOLAM 100 MG/NS 100 ML DRIP Premix IV PRN (02:02)
[2017-11-12] MEDS: SODIUM BICARBONATE 8.4% INJ 150 MEQ in DEXTROSE 5% IN WATE 1000ML INJ 1,000 ML IV SCH ×4 (02:03→13:30)
[2017-11-12] MEDS: RESP: ALBUTEROL 2.5 MG/IPRATROPIUM 0.5 MG NEB (SCH) INH ×4 (03:14→21:14)
[2017-11-12] MEDS: CHLORHEXIDINE GLUCONATE 2 % 1 PACK (2 CLOTHS) TOP SCH (04:00)
--- NOTE | 2017-11-12 04:30 | RADRPT ---
EXAM DATE/TIME: 11/12/2017 03:15 [facility] COMPARISON: CHEST SINGLE AP, November 11, 2017, 4:32. INDICATIONS : Shortness of breath. MEDICAL HISTORY : Hypercholesterolemia. Myocardial infarction. Stroke. Cerebrovascular disease. Hypertension SURGICAL HISTORY : None. ENCOUNTER: Subsequent ACUITY: 2 weeks PAIN SCORE: Non-responsive. LOCATION: Bilateral chest FINDINGS: ET, right IJ, and gastric tubes stable in position. There is persistent consolidation left mid and l ower lung with loss of delineation of the entire left hemidiaphragm. Small right basilar infiltrate is stable. CONCLUSION: Persistent left lower lobe consolidation and small right lower lung infiltrate. Joaquin Bravo MD on November 12, 2017 at 4:27 Board Certified Radiologist. This report was verified electronically.
[2017-11-12] MEDS: DOPamine 800 MG/D5W PREMIX 500 ML IV PRN (05:36)
[2017-11-12 05:39] LABS: BASOPHIL # 0.1 TH/MM3 (0-0.2); BASOPHIL % 0.5 % (0.0-2.0); EOSINOPHIL % 0.2 % (0.0-4.0); HEMATOCRIT 27.7 % (39.0-51.0); HEMOGLOBIN 8.9 GM/DL (13.0-17.0); LYMPH % 16.8 % (9.0-44.0); LYMPHOCYTE # 2.5 TH/MM3 (1.0-4.8); MEAN CORPUSCULAR HGB CONC 32.1 % (32.0-36.0); MEAN PLATELET VOLUME 7.1 FL (7.0-11.0); MONO % 8.9 % (0.0-8.0); MONOCYTE # 1.3 TH/MM3 (0-0.9); NEUT % 73.6 % (16.0-70.0); PLATELET COUNT 547 TH/MM3 (150-450); RED BLOOD COUNT 3.42 MIL/MM3 (4.50-5.90); RED CELL DISTRIBUTION WIDTH 23.1 % (11.6-17.2)
[2017-11-12 06:08] LABS: ALBUMIN 1.9 GM/DL (3.4-5.0); ALKALINE PHOSPHATASE 58 U/L (45-117); ALT (GPT) 201 U/L (12-78); AST (GOT) 602 U/L (15-37); BLOOD UREA NITROGEN 26 MG/DL (7-18); CALCIUM 7.5 MG/DL (8.5-10.1); CHLORIDE 97 MEQ/L (98-107); CREATININE 1.65 MG/DL (0.60-1.30); GLOMERULAR FILTRATION RATE 52 ML/MIN (>89); GLUCOSE,RANDOM 143 MG/DL (74-106); MAGNESIUM 2.1 MG/DL (1.5-2.5); SODIUM (NA) 139 MEQ/L (136-145); TOTAL BILIRUBIN ADULT 0.7 MG/DL (0.2-1.0); TOTAL PROTEIN 5.6 GM/DL (6.4-8.2)
[2017-11-12 07:13] LABS: BANDS 11 % (0-6); BASOPHILS 1 % (0-2); CORRECTED NUCLEATED RBC 7 /100 WBC (0-0); LYMPHOCYTES 9 % (9-44); METAMYELOCYTES 2 % (0-1); MONOCYTES 7 % (0-8); NEUTROPHIL # MANUAL DIFF 12.5 TH/MM3 (1.8-7.7); NUCLEATED RED BLOOD CELL 7 (0-0); POLYS (SEG NEUTROPHILS) 70 % (16-70)
[2017-11-12 07:14] LABS: OVALOCYTES 1+ (NORMAL)
[2017-11-12] MEDS: CHLORHEXIDINE 0.12% (ORAL KIT) 15 ML CUP MT SCH ×2 (08:00→20:00)
[2017-11-12] MEDS: SODIUM CHLORIDE 0.9% FLUSH 10 ML FLUSH IV FLUSH SCH ×2 (09:00→20:18)
[2017-11-12] MEDS: VASOPRESSIN INJ 40 UNITS in DEXTROSE 5% IN WATER 100ML INJ 98 ML IV SCH ×2 (09:00)
[2017-11-12] MEDS: ARTIFICIAL TEARS OPTH SOLN 15 ML BTL EACH EYE SCH ×3 (09:00→18:00)
[2017-11-12] MEDS: ASPIRIN 81 MG CHEW TAB CHEW SCH (09:09)
[2017-11-12] MEDS: DOCUSATE SODIUM 50 MG/SENNA 8.6 MG TAB PO SCH ×2 (09:09→20:18)
[2017-11-12] MEDS: CLOPIDOGREL 75 MG TAB PO SCH (09:09)
[2017-11-12] MEDS: INSULIN NovoLIN REGULAR SUPPLEMENTAL SCALE SQ SCH ×4 (09:10→20:28)
--- NOTE | 2017-11-12 09:22 | HHI.CCPN ---
Subjective Remarks/Hospital Course 57 year old male presents with a history of altered mentation that it been present for approximately 2 hours prior to ambulance services arrival according to the patient's significant other. The patient on arrival was noted to be altered, repeatedly saying that he "fell out". The patient on ambulance services arrival was noted to have a systolic blood pressure of 53. He was admitted here October 26, 2017 with a GI bleed and diagnosis of gastric ulcer per endoscopy findings ( 10/27/[address] Strickland found clean based ulcer, portal gastropathy). At that time he left AGAINST MEDICAL ADVICE. He also has a history of prior cerebrovascular accident with residual left-sided weakness and hypertension, as well as ischemic cardiomyopathy with ejection fraction of 30%. He underwent cardiac catheterization in August 2017 with a placement of bare -metal stent to the ostial proximal right coronary artery. An EKG was reportedly done prior to arrival that showed a right bundle branch block. There also appeared to be ST segment elevation in inferior leads. An EKG was repeated on arrival and the patient was a STEMI alert due to ST segment elevation in 2, 3, and aVF. In the emergency department he was altered unable to provide any meaningful history and was intubated by ED attending for an airway protection. His hemoglobin was found to be 5.4 and emergent release blood transfusion was initiated. The case was discussed with the group exercise instructor on-call, however due to significant anemia and hemodynamic instability the patient is not a candidate for emergent cardiac catheterization. Also his ST changes are most likely due to severe anemia. 11/10/17: I was called emergently to the bedside as patient became bradycardic to 30's and no recordable blood pressure.. Levophed was increased to 20 mcg/m and BP 70/40, epinephrine was given with systolic blood pressure now about 120s. Repeat EKG confirms ST elevations in the inferior leads with reciprocal changes. Troponin elevated at 2. I discussed with Dr. Sibley and Dr. Pulliam. Plan for emergent EGD, as Dr. Sibley wants clearance for antiplatelet therapy. If GI clears proceed with cath 11/11/17: Remains critically ill, had 1 min of Torsade overnight, self converted to NSR, received 150 mg Amio IV. Remains on Dopamine 6 mcg/kg/min, Levophed 2 mcg/min and vasopressin. EGD 11/10 clean based ulcer, no active bleed. Hb 10, without evidence of active bleed. Currently on Aspirin, Plavix and IV Heparin. Troponin peaked at 34. Discussed with Dr. Sibley. He will see today and evaluate for cath 11/12: No ventricular arrhythmias reported overnight. Remains on dopamine at 6 g per KG per minute and vasopressin at 0.04 international units, GI not planning on colonoscopy due to no evidence of active lower GI bleed. We'll discuss with Dr. Sibley about plan for cardiac catheterization-his notes recommending medical management. Urine output 750 mL in 24 hours Objective Vital Signs Date Time Temp Pulse Resp B/P (MAP) Pulse Ox O2 Delivery O2 Flow Rate FiO2 11/12/17 08:00 99.2 96 15 136/84 (101) 100 131/83 (99) 11/12/17 07:33 50 11/10/17 02:17 Ventilator 11/10/17 00:46 4.00 Intake and Output 11/12/17 11/12/17 11/13/17 08:00 16:00 00:00 Intake Total 1740 ml Output Total 800 ml Balance 940 ml Result Diagram: 11/12/17 0515 11/12/17 0515 Other Results Microbiology Date/Time Source Procedure Growth Status 11/10/17 01:10 Urine Catheterized Urine Urine Culture - Final NO GROWTH IN 48 HOURS. Complete Imaging Last [address] 11/10/17 0022 Signed Impressions: Service Date/Time: Friday, November 10, 2017 00:22 - CONCLUSION: 1. Interval development of right highest convexity parietal hypodensity which could represent a enlarged sulcus. Since this is a new finding since 10/30/17, a consider further characterization with MRI to evaluate for subacute infarction. 2. Stable right mid and low parietal encephalomalacia. Joaquin Bravo MD Chest X-Ray 11/10/17 0019 Signed Impressions: Service Date/Time: Friday, November 10, 2017 00:28 - CONCLUSION: The lungs are clear. Joaquin Bravo MD Chest X-Ray 11/10/17 0000 Signed Impressions: Service Date/Time: Friday, November 10, 2017 02:03 - CONCLUSION: 1. Small residual infiltrate right base. 2. Lines and tubes in good position. Joaquin Bravo MD Objective Remarks GENERAL: Obese middle-aged male, lying in bed, sedated and intubated, critically ill in shock HEENT: Normocephalic. Atraumatic. Pupils equal, round, reactive, conjugate. Orotracheally intubated NECK: Trachea is midline. No JVD CHEST: Equal chest rise. Mildly tachypneic. Basilar crackles CARDIOVASCULAR: HR irregular, 90/mt. Systolic murmur at apex. On Dopamine, vaso ABDOMEN: Soft, nontender, distended. No guarding. MUSCULOSKELETAL: Pulses 2+. 2+ peripheral edema NEUROLOGICAL: Sedated and intubated. Opens eyes to stimulation, intermittently follows commands on sedation hold Urinary Catheter: Yes Assessment to: Continue Vascular Central Line Catheter: Yes Assessment to: Continue A/P Assessment and Plan Neuro: Metabolic encephalopathy - Versed for sedation - Daily sedation vacation as tolerated - CT head negative CVS: Acute coronary syndrome/Inferior STEMI Bradycardia Cardiogenic in hemorrhagic shock VTAC/Torsade - ST elevations in inferior leads, troponin [address] elevation [place] - Continue Aspirin, Plavix and heparin gtt - Trop peaked at 34 - Cardiology -discussed with Dr. Sibley multiple times. He is recommending medical management now with GI bleed on presentation and anemia - Currently on vasopressin at 0.04 IU, Dopamine 6 mcg/kg/min - Cannot use beta ludy or SILVA I due to shoc. Cannot use statin due high liver enz - DC IVF - Blood transfusions to keep Hb >8 - Flowtrack, Centerline/a line RESP: Acute Respiratory failure LLL infiltrate - Intubated for an airway protection - Start SBT - Vent bundle, DuoNeb - CXR and ABG daily - Empiric Zosyn GI/HEME: Acute Gastrointestinal bleed EGD 10/27/17 clean based ulcer, portal gastropathy Ileus - Nothing by mouth except meds. Start tube feeds when cleared by GI - EGD -11/10 clean based gastric ulcer without active bleed - Protonix IV GTT. DCd octreotide infusion 11/11 - Coloscopy postponed indefinitely for GI - Blood and blood products as needed - CT abd/pel 11/11: Ileus. Start Reglan 10 mg IV every 8 hours from 11/12/17 : Acute on chronic kidney disease Metabolic acidosis - DC Sodium bicarbonate IV infusion - ABG as needed Endo: Hyperglycemia - Insulin sliding scale ID Probable LLL pneumonia - Empiric Zosyn, sputum cx DVT GI prophylaxis - Teds SCDs - IV Heparin - Protonix gtt Critical Care: Critical care time was 40 minutes including multiple discussions with cardiology and GI Claudia Dooley MD Nov 12, 2017 09:22
[2017-11-12] MEDS: PANTOPRAZOLE INJ 80 MG in SODIUM CHLORIDE 0.9% INJ 100 ML IV SCH ×2 (10:13→20:17)
[2017-11-12] MEDS: METOCLOPRAMIDE HCL 10 MG/2 ML VIAL IV PUSH SCH ×3 (12:46→20:19)
--- NOTE | 2017-11-12 13:01 | PD.CARD.PN ---
Subjective Subjective Remarks sedated, intubated, critically ill Objective Medications Current Medications Medications (Trade) Dose Ordered Sig/Carline Route Start Time Stop Time Status Last Admin Fentanyl Citrate 250 ml @ 10 mls/hr TITRATE PRN IV 11/10/17 01:30 11/10/17 02:08 (Lipitor) 80 mg HS PO 11/10/17 21:00 11/11/17 20:08 (NS Flush) 2 ml UNSCH PRN IV FLUSH 11/10/17 01:45 (NS Flush) 2 ml BID IV FLUSH 11/10/17 09:00 11/12/17 09:00 (Tylenol) 650 mg Q6H PRN PO 11/10/17 01:45 (Morphine Inj) 2 mg Q2H PRN IV PUSH 11/10/17 01:45 (Versed Inj) 2 mg Q1H PRN IV PUSH 11/10/17 01:45 (Tears Naturale Opth Soln) 1 drop TID EACH EYE 11/10/17 09:00 11/12/17 09:00 (Zofran Inj) 4 mg Q6H PRN IV PUSH 11/10/17 01:45 (Duoneb Neb) 1 ampule Q6HR NEB INH 11/10/17 04:00 11/12/17 07:32 (Duoneb Neb) 1 ampule Q2HR NEB PRN INH 11/10/17 01:45 11/10/17 04:20 Miscellaneous Information 1 Q361D XX 11/10/17 01:45 (Chlorhexidine 2% Cloth) 3 pack Taper DAILY@04 TOP 11/10/17 04:00 11/06/18 03:59 11/12/17 04:00 (Chlorhexidine 2% Cloth) 3 pack UNSCH PRN TOP 11/10/17 01:45 (Naomy-Colace) 1 tab BID PO 11/10/17 09:00 11/12/17 09:09 (Milk Of Magnesia Liq) 30 ml Q12H PRN PO 11/10/17 01:45 (Senokot) 17.2 mg Q12H PRN PO 11/10/17 01:45 (Dulcolax Supp) 10 mg DAILY PRN RECTAL 11/10/17 01:45 (Lactulose Liq) 30 ml DAILY PRN PO 11/10/17 01:45 11/11/17 23:35 (Peridex 0.12% Liq) 15 ml BID@08,20 MT 11/10/17 08:00 11/12/17 08:00 Norepinephrine Bitartrate 4 mg/ Sodium Chloride 250 ml @ 7.5 mls/hr TITRATE PRN IV 11/10/17 02:45 11/10/17 14:51 (Brethine Inj) 1 mg UNSCH PRN SQ 11/10/17 02:45 Sodium Bicarbonate 150 meq/Dextrose 1,150 ml @ 100 mls/hr [id number] IV 11/10/17 04:00 11/12/17 02:03 (D50w (Vial) Inj) 50 ml UNSCH PRN IV PUSH 11/10/17 04:45 (Glucagon Inj) 1 mg UNSCH PRN OTHER 11/10/17 04:45 (NovoLIN R SUPPLEMENTAL SCALE) 1 ACHS SLIDING SCALE SQ 11/10/17 08:00 11/12/17 09:10 Octreotide Acetate 500 mcg/ Sodium Chloride 500 ml @ 25 mls/hr Q20H IV 11/10/17 08:00 11/10/17 09:31 Dopamine HCl/ Dextrose 500 ml @ 12.938 mls/ hr TITRATE PRN IV 11/10/17 14:00 11/12/17 05:36 (Aspirin Chew) 81 mg DAILY CHEW 11/10/17 13:45 11/12/17 09:09 Heparin Sodium/ Dextrose 250 ml @ 10 mls/hr TITRATE PRN IV 11/10/17 14:00 11/11/17 16:54 Midazolam HCl 100 ml @ 2 mls/hr TITRATE PRN IV 11/10/17 14:00 11/12/17 02:02 (Plavix) 75 mg DAILY PO 11/10/17 18:00 11/12/17 09:09 Pantoprazole Sodium 80 mg/ Sodium Chloride 100 ml @ 10 mls/hr Q10H IV 11/11/17 04:00 11/12/17 10:13 Vasopressin 40 units/Dextrose 100 ml @ 1.5 mls/hr Q24H IV 11/11/17 02:15 11/11/17 16:52 Amiodarone HCl 450 mg/Sodium Chloride 259 ml @ 33.33 mls/ hr [id number] PRN IV 11/11/17 03:15 Piperacillin Sod/ Tazobactam Sod 50 ml @ 100 mls/hr Q8H IV 11/11/17 09:00 11/12/17 09:10 (Reglan Inj) 10 mg Q8HR IV PUSH 11/12/17 11:00 11/12/17 12:46 Vital Signs / I&O Vital Signs Date Time Temp Pulse Resp B/P (MAP) Pulse Ox O2 Delivery O2 Flow Rate FiO2 11/12/17 11:16 100 35 11/12/17 10:00 93 11/12/17 08:55 79 83/52 11/12/17 08:45 94 128/81 11/12/17 08:00 99.2 96 15 136/84 (101) 100 131/83 (99) 11/12/17 08:00 95 11/12/17 08:00 95 87/55 (66) 84/52 (63) 11/12/17 07:33 100 50 11/12/17 07:00 93 112/73 11/12/17 06:00 94 11/12/17 05:36 93 122/80 11/12/17 05:35 94 121/80 11/12/17 05:35 94 121/80 11/12/17 04:20 100 60 11/12/17 04:00 100.4 92 15 119/78 (92) 65 123/78 (93) 11/12/17 04:00 92 11/12/17 03:12 99 70 11/12/17 02:00 93 11/12/17 00:23 99 80 11/12/17 00:00 99.1 93 17 118/77 (91) 99 118/80 (93) 11/12/17 00:00 93 11/11/17 22:00 92 11/11/17 20:41 94 100 11/11/17 20:00 97 11/11/17 20:00 99.2 97 18 103/76 (85) 100 110/77 (88) 11/11/17 20:00 97 110/77 11/11/17 20:00 97 110/77 11/11/17 18:00 100 11/11/17 16:52 67 96/62 11/11/17 16:08 100 100 11/11/17 16:00 68 11/11/17 16:00 98.5 68 16 98/66 (77) 100 104/68 (80) 11/11/17 14:00 70 11/11/17 13:30 92 100 11/11/17 13:16 92 100 I/O 11/11/17 11/11/17 11/11/17 11/12/17 11/12/17 11/12/17 07:00 15:00 23:00 07:00 15:00 23:00 Intake Total 1804 ml 270 ml 450 ml 1796 ml 252 ml Output Total 200 ml 1650 ml 800 ml Balance 1604 ml 270 ml -1200 ml 996 ml 252 ml Intake Oral 400 ml IV Total 1804 ml 270 ml 50 ml 1796 ml 252 ml Output Urine Total 200 ml 250 ml 500 ml Gastric Drainage Total 1400 ml 300 ml # Bowel Movements 0 0 1 Physical Exam GENERAL: Well-nourished, well-developed patient. SKIN: Warm and dry. HEAD: Normocephalic. EYES: No scleral icterus. No injection or drainage. NECK: Supple, trachea midline. No JVD or lymphadenopathy. CARDIOVASCULAR: Regular rate and rhythm without murmurs, gallops, or rubs. RESPIRATORY: Breath sounds equal bilaterally. No accessory muscle use. GASTROINTESTINAL: Abdomen soft, distended. EXTREMITIES: No cyanosis, or +edema. Laboratory Laboratory Tests Test 11/11/17 16:45 11/11/17 23:00 11/12/17 05:15 Hemoglobin 9.4 GM/DL 9.2 GM/DL 8.9 GM/DL White Blood Count 15.0 TH/MM3 Red Blood Count 3.42 MIL/MM3 Hematocrit 27.7 % Mean Corpuscular Volume 81.0 FL Mean Corpuscular Hemoglobin 26.0 PG Mean Corpuscular Hemoglobin Concent 32.1 % Red Cell Distribution Width 23.1 % Platelet Count 547 TH/MM3 Mean Platelet Volume 7.1 FL Neutrophils (%) (Auto) 73.6 % Lymphocytes (%) (Auto) 16.8 % Monocytes (%) (Auto) 8.9 % Eosinophils (%) (Auto) 0.2 % Basophils (%) (Auto) 0.5 % Neutrophils # (Auto) 11.0 TH/MM3 Lymphocytes # (Auto) 2.5 TH/MM3 Monocytes # (Auto) 1.3 TH/MM3 Eosinophils # (Auto) 0.0 TH/MM3 Basophils # (Auto) 0.1 TH/MM3 CBC Comment AUTO DIFF Differential Total Cells Counted 100 Neutrophils % (Manual) 70 % Band Neutrophils % 11 % Lymphocytes % 9 % Monocytes % 7 % Basophils % 1 % Neutrophils # (Manual) 12.5 TH/MM3 Metamyelocytes 2 % Nucleated Red Blood Cells 7 /100 WBC Differential Comment FINAL DIFF MANUAL Platelet Estimate HIGH Platelet Morphology Comment NORMAL Polychromasia 3.0 % Ovalocytes 1+ Activated Partial Thromboplast Time 48.2 SEC Blood Urea Nitrogen 26 MG/DL Creatinine 1.65 MG/DL Random Glucose 143 MG/DL Total Protein 5.6 GM/DL Albumin 1.9 GM/DL Calcium Level 7.5 MG/DL Magnesium Level 2.1 MG/DL Alkaline Phosphatase 58 U/L Aspartate Amino Transf (AST/SGOT) 602 U/L Alanine Aminotransferase (ALT/SGPT) 201 U/L Total Bilirubin 0.7 MG/DL Sodium Level 139 MEQ/L Potassium Level 3.9 MEQ/L Chloride Level 97 MEQ/L Carbon Dioxide Level 33.0 MEQ/L Anion Gap 9 MEQ/L Estimat Glomerular Filtration Rate 52 ML/MIN Imaging Last 24 hours Impressions Chest X-Ray 11/12/17 0600 Signed Impressions: Service Date/Time: Sunday, November 12, 2017 03:15 - CONCLUSION: Persistent left lower lobe consolidation and small right lower lung infiltrate. Joaquin Bravo MD Assessment and Plan Problem List: (1) GI bleed ICD Codes: K92.2 - Gastrointestinal hemorrhage, unspecified Status: Acute Plan: 57 y/o M admitted with hypovolemic shock in the setting of GIB. Still intubated, pressors being wean off. Trop elevated, admission EKG inferior STEMI however due severe Anemia and strong hx of GIB he was not taken to the cath. H& H trending down despite transfusion. Not candidate for LHC/PCI given bleeding. Recommendations 1. Cont medical management for CAD as tolerated by BP and HR 2. ASA, Plavix, heparin when stable from GI standpoint 3. GIB management per GI 4. Wean pressors at tolerated 5. Avoid electrolytes abnormalities 6. Repeat 12 Lead EKG (2) HTN (hypertension) ICD Codes: I10 - Essential (primary) hypertension Status: Chronic (3) CAD (coronary artery disease) ICD Codes: I25.10 - Atherosclerotic heart disease of robinson coronary artery without angina pectoris (4) Anemia ICD Codes: D64.9 - Anemia, unspecified Status: Acute (5) Hypotension ICD Codes: I95.9 - Hypotension, unspecified Status: Acute Problem Qualifiers (1) GI bleed: Qualified Codes: K92.2 - Gastrointestinal hemorrhage, unspecified (2) Anemia: Qualified Codes: D50.0 - Iron deficiency anemia secondary to blood loss ( chronic) (3) Hypotension: Qualified Codes: I95.9 - Hypotension, unspecified Dhiraj Copeland MD Nov 12, 2017 13:01
--- NOTE | 2017-11-12 13:57 | HHI.GIFU ---
Subjective Remarks No rectal bleeding at this time. Pt on vent. (Claudia Noonan BIOINFORMATICS ANALYST) Objective Vitals I&O Vital Signs Date Time Temp Pulse Resp B/P (MAP) Pulse Ox O2 Delivery O2 Flow Rate FiO2 11/12/17 12:00 93 11/12/17 12:00 93 109/74 (86) 111/72 (85) 11/12/17 12:00 35 11/12/17 12:00 93 11/12/17 12:00 99.9 93 15 138/87 (104) 98 146/89 (108) 11/12/17 11:16 100 35 11/12/17 10:00 93 11/12/17 08:55 79 83/52 11/12/17 08:45 94 128/81 11/12/17 08:00 99.2 96 15 136/84 (101) 100 131/83 (99) 11/12/17 08:00 95 11/12/17 08:00 95 87/55 (66) 84/52 (63) 11/12/17 07:33 100 50 11/12/17 07:00 93 112/73 11/12/17 06:00 94 11/12/17 05:36 93 122/80 11/12/17 05:35 94 121/80 11/12/17 05:35 94 121/80 11/12/17 04:20 100 60 11/12/17 04:00 100.4 92 15 119/78 (92) 65 123/78 (93) 11/12/17 04:00 92 11/12/17 03:12 99 70 11/12/17 02:00 93 11/12/17 00:23 99 80 11/12/17 00:00 99.1 93 17 118/77 (91) 99 118/80 (93) 11/12/17 00:00 93 11/11/17 22:00 92 11/11/17 20:41 94 100 11/11/17 20:00 97 11/11/17 20:00 99.2 97 18 103/76 (85) 100 110/77 (88) 11/11/17 20:00 97 110/77 11/11/17 20:00 97 110/77 11/11/17 18:00 100 11/11/17 16:52 67 96/62 11/11/17 16:08 100 100 11/11/17 16:00 68 11/11/17 16:00 98.5 68 16 98/66 (77) 100 104/68 (80) 11/11/17 14:00 70 I/O 11/11/17 11/11/17 11/11/17 11/12/17 11/12/17 11/12/17 07:00 15:00 23:00 07:00 15:00 23:00 Intake Total 1804 ml 270 ml 450 ml 1796 ml 252 ml Output Total 200 ml 1650 ml 800 ml Balance 1604 ml 270 ml -1200 ml 996 ml 252 ml Intake Oral 400 ml IV Total 1804 ml 270 ml 50 ml 1796 ml 252 ml Output Urine Total 200 ml 250 ml 500 ml Gastric Drainage Total 1400 ml 300 ml # Bowel Movements 0 0 1 Laboratory Laboratory Tests Test 11/11/17 16:45 11/11/17 23:00 11/12/17 05:15 Hemoglobin 9.4 9.2 8.9 White Blood Count 15.0 Red Blood Count 3.42 Hematocrit 27.7 Mean Corpuscular Volume 81.0 Mean Corpuscular Hemoglobin 26.0 Mean Corpuscular Hemoglobin Concent 32.1 Red Cell Distribution Width 23.1 Platelet Count 547 Mean Platelet Volume 7.1 Neutrophils (%) (Auto) 73.6 Lymphocytes (%) (Auto) 16.8 Monocytes (%) (Auto) 8.9 Eosinophils (%) (Auto) 0.2 Basophils (%) (Auto) 0.5 Neutrophils # (Auto) 11.0 Lymphocytes # (Auto) 2.5 Monocytes # (Auto) 1.3 Eosinophils # (Auto) 0.0 Basophils # (Auto) 0.1 CBC Comment AUTO DIFF Differential Total Cells Counted 100 Neutrophils % (Manual) 70 Band Neutrophils % 11 Lymphocytes % 9 Monocytes % 7 Basophils % 1 Neutrophils # (Manual) 12.5 Metamyelocytes 2 Nucleated Red Blood Cells 7 Differential Comment FINAL DIFF MANUAL Platelet Estimate HIGH Platelet Morphology Comment NORMAL Polychromasia 3.0 Ovalocytes 1+ Activated Partial Thromboplast Time 48.2 Blood Urea Nitrogen 26 Creatinine 1.65 Random Glucose 143 Total Protein 5.6 Albumin 1.9 Calcium Level 7.5 Magnesium Level 2.1 Alkaline Phosphatase 58 Aspartate Amino Transf (AST/SGOT) 602 Alanine Aminotransferase (ALT/SGPT) 201 Total Bilirubin 0.7 Sodium Level 139 Potassium Level 3.9 Chloride Level 97 Carbon Dioxide Level 33.0 Anion Gap 9 Estimat Glomerular Filtration Rate 52 Date/Time Source Procedure Growth Status 11/10/17 14:35 Blood Peripheral Aerobic Blood Culture - Preliminary NO GROWTH IN 2 DAYS Resulted 11/10/17 14:35 Blood Peripheral Anaerobic Blood Culture - Preliminary NO GROWTH IN 2 DAYS Resulted 11/11/17 08:30 Sputum Endotracheal Gram Stain - Final Resulted 11/11/17 08:30 Sputum Endotracheal Sputum Culture Pending Resulted 11/10/17 01:10 Urine Catheterized Urine Urine Culture - Final NO GROWTH IN 48 HOURS. Complete Imaging Last Impressions Chest X-Ray 11/12/17 0600 Signed Impressions: Service Date/Time: Sunday, November 12, 2017 03:15 - CONCLUSION: Persistent left lower lobe consolidation and small right lower lung infiltrate. Joaquin Bravo MD Abdomen/Pelvis CT 11/11/17 0000 Signed Impressions: Service Date/Time: Saturday, November 11, 2017 13:30 - CONCLUSION: 1. Mildly dilated loops of small bowel proximally with distal decompression most characteristic of a partial small bowel obstruction. No free air. Trace free fluid. Mild anasarca. 2. Small bilateral pleural effusions with dependent consolidation in both lungs. 3. NG and mildly distended stomach. Ward Sibley MD Abdomen X-Ray 11/11/17 0000 Signed Impressions: Service Date/Time: Saturday, November 11, 2017 10:09 - CONCLUSION: 1. Mild ileus. NG tube in the stomach. Ward Sibley MD Head CT 11/10/17 0022 Signed Impressions: Service Date/Time: Friday, November 10, 2017 00:22 - CONCLUSION: 1. Interval development of right highest convexity parietal hypodensity which could represent a enlarged sulcus. Since this is a new finding since 10/30/17, a consider further characterization with MRI to evaluate for subacute infarction. 2. Stable right mid and low parietal encephalomalacia. Joaquin Bravo MD Physical Exam HEENT: atraumatic; no jaundice. intubated CHEST: CTA CARDIAC: RRR ABDOMEN: Soft,protuberant, no hepatosplenomegaly; bowel sounds faint EXTREMITIES: No clubbing, cyanosis, or edema. SKIN: Normal; no rash; no jaundice. 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 had EGD 10/27/17 found clean based ulcer, portal gastropathy, no visible active bleeding but blood seen in oropharynx. s/p EGD 11/10/17 found class C esophagitis, ulcer gastric antrum. plan was for colonoscopy put pt didn't tolerate prep, colonoscopy on hold for now, no obvious bleeding - abd distention - PSBO vs ileus. CT suggestive PSBO, KUB showing mild ileus. on reglan - anemia - Hgb 5.1 on admission, improved to 8.6 s/p 3 x PRBC. 2/2 above. In august hgb was 12. hgb mild decrease - respiratory failure, AMS, CHF, ACS, hypotension per CCM, cardiology following PLAN - continue reglan - ok for anticoagulation - monitor HH - ppi - transfuse as needed - bowel rest - EGD 3 months - supportive care pt seen by myself and Dr Orellana and this note is written on his behalf (Claudia Noonan) Physician Comments Seen and examined with RONNIE, no active bleeding. Colonoscopy on hold. Anesthesia has refused to sedate pt for any procedures due to significant comorbidities. Anticoagulate as needed. Discussed with Dr. Dooley. Colonoscopy if absolutely needed. Dr. Yates to follow. (Jarod Orellana MD) Claudia Noonan Nov 12, 2017 13:57 Jarod Orellana MD Nov 12, 2017 14:28
[2017-11-12] MEDS: HEPARIN-D5W 25,000 U/250 ML 250 ML IV PRN (16:19)
--- NOTE | 2017-11-12 18:08 | ECHRPT ---
Indication: DE CONCLUSIONS The left ventricular systolic function is mildly reduced with an estimated ejection fraction of 45%. Normal left ventricular size. Mild concentric left ventricular hypertrophy. Trace mitral valve regurgitation. There is trace tricuspid valve regurgitation. The estimated pulmonary arterial pressure is 21 mmHg. A small left sided pleural effusion is noted. BP: 98 / 69 HR: 69 Rhythm: Sinus MEASUREMENTS (Male / Female) Normal Values Technical Quality:Poor 2D ECHO LV Diastolic Diameter PLAX 4.4 cm 4.2 - 5.9 / 3.9 - 5.3 cm LV Systolic Diameter PLAX 3.7 cm IVS Diastolic Thickness 1.3 cm 0.6 - 1.0 / 0.6 - 0.9 cm LVPW Diastolic Thickness 1.3 cm 0.6 - 1.0 / 0.6 - 0.9 cm LV Relative Wall Thickness 0.6 RV Internal Dim ED PLAX 3.2 cm LVOT Diameter 1.9 cm M-MODE Aortic Root Diameter MM 3.8 cm AV Cusp Separation MM 1.9 cm DOPPLER AV Peak Velocity 121.0 cm/s AV Peak Gradient 5.9 mmHg LVOT Peak Velocity 88.4 cm/s LVOT Peak Gradient 3.1 mmHg AV Area Cont Eq pk 2.1 cm MV Area PHT 4.7 cm Mitral E Point Velocity 64.7 cm/s Mitral A Point Velocity 37.0 cm/s Mitral E to A Ratio 1.7 LV E' Lateral Velocity 7.5 cm/s Mitral E to LV E' Lateral Ratio 8.6 LV E' Septal Velocity 5.3 cm/s Mitral E to LV E' Septal Ratio 12.3 TR Peak Velocity 166.0 cm/s TR Peak Gradient 11.0 mmHg Right Atrial Pressure 10.0 mmHg Pulmonary Artery Systolic Pressu 21.0 mmHg Right Ventricular Systolic Press 21.0 mmHg PV Peak Velocity 71.9 cm/s PV Peak Gradient 2.1 mmHg FINDINGS LEFT VENTRICLE The left ventricular systolic function is mildly reduced with an estimated ejection fraction of 45%. Normal left ventricular size. Mild concentric left ventricular hypertrophy. There is mild diffuse global hypokinesis. RIGHT VENTRICLE Normal right ventricular size and systolic function. LEFT ATRIUM The left atrial size is normal. RIGHT ATRIUM The right atrial size is normal. ATRIAL SEPTUM Normal atrial septal thickness without atrial level shunting by limited color doppler interrogation. AORTA The aortic root and proximal ascending aorta are normal in size on limited imaging. MITRAL VALVE Structurally normal mitral valve. Trace mitral valve regurgitation. AORTIC VALVE Trileaflet aortic valve. No aortic valve stenosis or regurgitation. TRICUSPID VALVE Structurally normal tricuspid valve. There is trace tricuspid valve regurgitation. The estimated pulmonary arterial pressure is 21 mmHg. PULMONARY VALVE No pulmonary valve regurgitation or stenosis. VESSELS The inferior vena cava is normal in size. PERICARDIUM A small left sided pleural effusion is noted. Huber Topete MD, FACC (Electronically Signed) Final Date:12 November 2017 18:07
[2017-11-12] MEDS: OCTREOTIDE INJ 500 MCG in SODIUM CHLORID 0.9% 500 ML INJ 499.5 ML IV SCH (20:00)
[2017-11-12] MEDS: ATORVASTATIN 80 MG TAB PO SCH (20:18)
[2017-11-13] VITALS (17 sets, daily range): BP systolic 94–122; BP diastolic 59–83; PULSE 68–79; RESP 15–22; TEMP 98–99.7; O2SAT 92–100
[2017-11-13] MEDS: VASOPRESSIN INJ 40 UNITS in DEXTROSE 5% IN WATER 100ML INJ 98 ML IV SCH ×4 (01:28→23:30)
[2017-11-13] MEDS: PIPERACIL-TAZO 3.375 GM PREMIX 50 ML IV SCH ×3 (01:28→17:36)
[2017-11-13] MEDS: DOPamine 800 MG/D5W PREMIX 500 ML IV PRN ×2 (01:28→19:40)
[2017-11-13] MEDS: CHLORHEXIDINE GLUCONATE 2 % 1 PACK (2 CLOTHS) TOP SCH (01:29)
[2017-11-13] MEDS: RESP: ALBUTEROL 2.5 MG/IPRATROPIUM 0.5 MG NEB (SCH) INH ×4 (03:30→19:43)
--- NOTE | 2017-11-13 05:02 | RADRPT ---
EXAM DATE/TIME: 11/13/2017 03:42 [facility] COMPARISON: CHEST SINGLE AP, November 12, 2017, 3:15. INDICATIONS : Shortness of breath, possible pulmonary disease. MEDICAL HISTORY : Hypercholesterolemia. Myocardial infarction. Cerebrovascular disease. Diabetes Hypertension Stro ke SURGICAL HISTORY : None. ENCOUNTER: Subsequent ACUITY: 2 weeks PAIN SCORE: Non-responsive. LOCATION: Bilateral chest FINDINGS: ET tube tip well above the [place]. Gastric tube traverses the [id number]. Right IJ catheter tip projects over the distal superior vena cava. There is persistent dense consolidation left mid and lo wer lung with loss of delineation of the left heart border and left hemidiaphragm. Increasing diffus e hazy opacities in the right lower lung close loss with linear right hemidiaphragm stop CONCLUSION: 1. Persistent left mid and lower lung consolidation. 2. Increasing opacities in the right lung suggesting either increasing airspace disease, increasing p leural effusion, or a combination of both. Joaquin Bravo MD on November 13, 2017 at 4:59 Board Certified Radiologist. This report was verified electronically.
[2017-11-13] MEDS: METOCLOPRAMIDE HCL 10 MG/2 ML VIAL IV PUSH SCH ×3 (05:44→21:16)
[2017-11-13] MEDS: PANTOPRAZOLE INJ 80 MG in SODIUM CHLORIDE 0.9% INJ 100 ML IV SCH ×2 (05:44→15:30)
[2017-11-13 06:30] LABS: AUTOMATED NEUTROPHIL # 11.5 TH/MM3 (1.8-7.7); BASOPHIL # 0.1 TH/MM3 (0-0.2); BASOPHIL % 0.6 % (0.0-2.0); EOSINOPHIL % 0.1 % (0.0-4.0); HEMATOCRIT 26.9 % (39.0-51.0); HEMOGLOBIN 8.9 GM/DL (13.0-17.0); LYMPH % 13.2 % (9.0-44.0); MEAN CORPUSCULAR HEMOGLOBIN 26.3 PG (27.0-34.0); MEAN CORPUSCULAR HGB CONC 32.9 % (32.0-36.0); MEAN PLATELET VOLUME 7.2 FL (7.0-11.0); MONO % 9.1 % (0.0-8.0); MONOCYTE # 1.4 TH/MM3 (0-0.9); PLATELET COUNT 569 TH/MM3 (150-450); RED BLOOD COUNT 3.37 MIL/MM3 (4.50-5.90); RED CELL DISTRIBUTION WIDTH 23.8 % (11.6-17.2)
[2017-11-13 06:56] LABS: ALBUMIN 1.9 GM/DL (3.4-5.0); AST (GOT) 370 U/L (15-37); BICARBONATE 34.1 MEQ/L (21.0-32.0); BLOOD UREA NITROGEN 28 MG/DL (7-18); CALCIUM 7.9 MG/DL (8.5-10.1); CHLORIDE 94 MEQ/L (98-107); CREATININE 1.36 MG/DL (0.60-1.30); GLOMERULAR FILTRATION RATE 65 ML/MIN (>89); GLUCOSE,RANDOM 131 MG/DL (74-106); MAGNESIUM 2.3 MG/DL (1.5-2.5); SODIUM (NA) 136 MEQ/L (136-145)
[2017-11-13 06:57] LABS: ALT (GPT) 174 U/L (12-78)
[2017-11-13 06:59] LABS: ALKALINE PHOSPHATASE 58 U/L (45-117)
[2017-11-13] MEDS: INSULIN NovoLIN REGULAR SUPPLEMENTAL SCALE SQ SCH ×4 (08:00→19:46)
[2017-11-13 08:17] LABS: BANDS 9 % (0-6); CORRECTED NUCLEATED RBC 11 /100 WBC (0-0); LYMPHOCYTES 6 % (9-44); MONOCYTES 7 % (0-8); NEUTROPHIL # MANUAL DIFF 13.1 TH/MM3 (1.8-7.7); NUCLEATED RED BLOOD CELL 11 (0-0); POLYS (SEG NEUTROPHILS) 78 % (16-70)
[2017-11-13 08:18] LABS: POLYCHROMASIA 2.1 % (0.0-1.9)
[2017-11-13] MEDS: CLOPIDOGREL 75 MG TAB PO SCH (08:31)
[2017-11-13] MEDS: ARTIFICIAL TEARS OPTH SOLN 15 ML BTL EACH EYE SCH ×3 (08:31→17:36)
[2017-11-13] MEDS: DOCUSATE SODIUM 50 MG/SENNA 8.6 MG TAB PO SCH ×2 (08:31→21:16)
[2017-11-13] MEDS: ASPIRIN 81 MG CHEW TAB CHEW SCH (08:31)
[2017-11-13] MEDS: SODIUM CHLORIDE 0.9% FLUSH 10 ML FLUSH IV FLUSH PRN (08:32)
[2017-11-13] MEDS: SODIUM CHLORIDE 0.9% FLUSH 10 ML FLUSH IV FLUSH SCH ×2 (08:32→20:43)
[2017-11-13] MEDS: CHLORHEXIDINE 0.12% (ORAL KIT) 15 ML CUP MT SCH ×2 (08:32→19:40)
--- NOTE | 2017-11-13 11:32 | HHI.GIFU ---
Subjective Remarks Pt resting in bed, intubated on vent. Fiance at bedside. No bleeding at this time. Objective Vitals I&O Vital Signs Date Time Temp Pulse Resp B/P (MAP) Pulse Ox O2 Delivery O2 Flow Rate FiO2 11/13/17 08:07 35 11/13/17 07:58 92 35 11/13/17 06:00 71 11/13/17 04:00 76 115/77 (90) 118/74 (89) 11/13/17 04:00 76 11/13/17 04:00 98.3 76 115/77 (90) 100 118/74 (89) 11/13/17 03:30 100 35 11/13/17 02:00 75 11/13/17 01:28 78 124/70 11/13/17 01:28 78 124/70 11/13/17 00:00 79 118/83 (95) 122/77 (92) 11/13/17 00:00 79 11/13/17 00:00 98.0 79 15 118/83 (95) 100 122/77 (92) 11/12/17 23:46 100 35 11/12/17 22:00 75 11/12/17 21:14 100 35 11/12/17 20:35 59 80/55 11/12/17 20:00 79 11/12/17 20:00 79 145/97 (113) 150/89 (109) 11/12/17 20:00 98.2 79 145/97 (113) 100 150/89 (109) 11/12/17 18:00 75 11/12/17 17:30 87 97/63 11/12/17 16:00 83 102/71 (81) 100/67 (78) 11/12/17 16:00 99.4 85 15 102/71 (81) 100 100/67 (78) 11/12/17 16:00 85 11/12/17 15:15 93 110/72 11/12/17 15:11 100 35 11/12/17 14:00 93 11/12/17 12:00 93 11/12/17 12:00 93 109/74 (86) 111/72 (85) 11/12/17 12:00 35 11/12/17 12:00 94 111/72 11/12/17 12:00 93 11/12/17 12:00 99.9 93 15 138/87 (104) 98 146/89 (108) I/O 11/12/17 11/12/17 11/12/17 11/13/17 11/13/17 11/13/17 06:59 14:59 22:59 06:59 14:59 22:59 Intake Total 1796 ml 252 ml 724.9 ml 750 ml Output Total 800 ml 620 ml Balance 996 ml 252 ml 724.9 ml 130 ml IV Total 1796 ml 252 ml 724.9 ml 750 ml Output Urine Total 500 ml 600 ml Gastric Drainage Total 300 ml 20 ml # Bowel Movements 1 1 Laboratory Laboratory Tests Test 11/12/17 15:00 11/12/17 21:35 11/13/17 06:00 Hemoglobin 8.8 8.7 8.9 White Blood Count 15.0 Red Blood Count 3.37 Hematocrit 26.9 Mean Corpuscular Volume 80.0 Mean Corpuscular Hemoglobin 26.3 Mean Corpuscular Hemoglobin Concent 32.9 Red Cell Distribution Width 23.8 Platelet Count 569 Mean Platelet Volume 7.2 Neutrophils (%) (Auto) 77.0 Lymphocytes (%) (Auto) 13.2 Monocytes (%) (Auto) 9.1 Eosinophils (%) (Auto) 0.1 Basophils (%) (Auto) 0.6 Neutrophils # (Auto) 11.5 Lymphocytes # (Auto) 2.0 Monocytes # (Auto) 1.4 Eosinophils # (Auto) 0.0 Basophils # (Auto) 0.1 CBC Comment AUTO DIFF Differential Total Cells Counted 100 Neutrophils % (Manual) 78 Band Neutrophils % 9 Lymphocytes % 6 Monocytes % 7 Neutrophils # (Manual) 13.1 Nucleated Red Blood Cells 11 Differential Comment FINAL DIFF MANUAL Platelet Estimate HIGH Platelet Morphology Comment NORMAL Polychromasia 2.1 Activated Partial Thromboplast Time 40.1 Blood Urea Nitrogen 28 Creatinine 1.36 Random Glucose 131 Total Protein 6.0 Albumin 1.9 Calcium Level 7.9 Magnesium Level 2.3 Alkaline Phosphatase 58 Aspartate Amino Transf (AST/SGOT) 370 Alanine Aminotransferase (ALT/SGPT) 174 Total Bilirubin 1.0 Sodium Level 136 Potassium Level 3.6 Chloride Level 94 Carbon Dioxide Level 34.1 Anion Gap 8 Estimat Glomerular Filtration Rate 65 Date/Time Source Procedure Growth Status 11/10/17 14:35 Blood Peripheral Aerobic Blood Culture - Preliminary NO GROWTH IN 3 DAYS Resulted 11/10/17 14:35 Blood Peripheral Anaerobic Blood Culture - Preliminary NO GROWTH IN 3 DAYS Resulted 11/11/17 08:30 Sputum Endotracheal Gram Stain - Final Complete 11/11/17 08:30 Sputum Endotracheal Sputum Culture - Final HEAVY GROWTH NORMAL RESPIRATORY BAILEY Complete 11/10/17 01:10 Urine Catheterized Urine Urine Culture - Final NO GROWTH IN 48 HOURS. Complete Imaging Last Impressions Chest X-Ray 11/13/17 0600 Signed Impressions: Service Date/Time: October 03:42 - CONCLUSION: 1. Persistent left mid and lower lung consolidation. 2. Increasing opacities in the right lung suggesting either increasing airspace disease, increasing pleural effusion, or a combination of both. Joaquin Bravo MD Abdomen/Pelvis CT 11/11/17 0000 Signed Impressions: Service Date/Time: Saturday, November 11, 2017 13:30 - CONCLUSION: 1. Mildly dilated loops of small bowel proximally with distal decompression most characteristic of a partial small bowel obstruction. No free air. Trace free fluid. Mild anasarca. 2. Small bilateral pleural effusions with dependent consolidation in both lungs. 3. NG and mildly distended stomach. Ward Sibley MD Abdomen X-Ray 11/11/17 0000 Signed Impressions: Service Date/Time: Saturday, November 11, 2017 10:09 - CONCLUSION: 1. Mild ileus. NG tube in the stomach. Ward Sibley MD Head CT 11/10/17 0022 Signed Impressions: Service Date/Time: Friday, November 10, 2017 00:22 - CONCLUSION: 1. Interval development of right highest convexity parietal hypodensity which could represent a enlarged sulcus. Since this is a new finding since 10/30/17, a consider further characterization with MRI to evaluate for subacute infarction. 2. Stable right mid and low parietal encephalomalacia. Joaquin Bravo MD Physical Exam HEENT: atraumatic; no jaundice. intubated CHEST: CTA CARDIAC: RRR ABDOMEN: Soft,protuberant, no hepatosplenomegaly; bowel sounds faint EXTREMITIES: No clubbing, cyanosis, or edema. SKIN: Normal; no rash; no jaundice. [employer]: sedated on vent Assessment and Plan Plan ASSESSMENT - GIB, gastric ulcer - rectal bleeding, poss UGIB as well. had EGD 10/27/17 found clean based ulcer, portal gastropathy, no visible active bleeding but blood seen in oropharynx. s/p EGD 11/10/17 found class C esophagitis, ulcer gastric antrum. plan was for colonoscopy put pt didn't tolerate prep, colonoscopy on hold for now and d/t pt comorbidities not candidate for anesthesia no obvious bleeding at this time. - abd distention - PSBO vs ileus. CT suggestive PSBO, KUB showing mild ileus. on reglan - anemia - Hgb 5.1 on admission, improved to 8.6 s/p 3 x PRBC. 2/2 above. In august hgb was 12. HH stable since yesterday but overall trending down - respiratory failure, AMS, CHF, ACS, hypotension per CCM, cardiology following PLAN - no colonoscopy unless emergent - continue reglan - ok for anticoagulation - monitor HH - ppi - transfuse as needed - EGD 3 months - supportive care pt seen by myself and Dr Yates and this note is written on his behalf Claudia Noonan Nov 13, 2017 11:32
[2017-11-13] MEDS: OCTREOTIDE INJ 500 MCG in SODIUM CHLORID 0.9% 500 ML INJ 499.5 ML IV SCH (16:00)
--- NOTE | 2017-11-13 17:35 | HHI.CCPN ---
Subjective Remarks/Hospital Course 57 year old male presents with a history of altered mentation that it been present for approximately 2 hours prior to ambulance services arrival according to the patient's significant other. The patient on arrival was noted to be altered, repeatedly saying that he "fell out". The patient on ambulance services arrival was noted to have a systolic blood pressure of 53. He was admitted here October 26, 2017 with a GI bleed and diagnosis of gastric ulcer per endoscopy findings ( 10/27/[address] Strickland found clean based ulcer, portal gastropathy). At that time he left AGAINST MEDICAL ADVICE. He also has a history of prior cerebrovascular accident with residual left-sided weakness and hypertension, as well as ischemic cardiomyopathy with ejection fraction of 30%. He underwent cardiac catheterization in August 2017 with a placement of bare -metal stent to the ostial proximal right coronary artery. An EKG was reportedly done prior to arrival that showed a right bundle branch block. There also appeared to be ST segment elevation in inferior leads. An EKG was repeated on arrival and the patient was a STEMI alert due to ST segment elevation in 2, 3, and aVF. In the emergency department he was altered unable to provide any meaningful history and was intubated by ED attending for an airway protection. His hemoglobin was found to be 5.4 and emergent release blood transfusion was initiated. The case was discussed with the control panel operator on-call, however due to significant anemia and hemodynamic instability the patient is not a candidate for emergent cardiac catheterization. Also his ST changes are most likely due to severe anemia. 11/10/17: I was called emergently to the bedside as patient became bradycardic to 30's and no recordable blood pressure.. Levophed was increased to 20 mcg/m and BP 70/40, epinephrine was given with systolic blood pressure now about 120s. Repeat EKG confirms ST elevations in the inferior leads with reciprocal changes. Troponin elevated at 2. I discussed with Dr. Sibley and Dr. Pulliam. Plan for emergent EGD, as Dr. Sibley wants clearance for antiplatelet therapy. If GI clears proceed with cath 11/11/17: Remains critically ill, had 1 min of Torsade overnight, self converted to NSR, received 150 mg Amio IV. Remains on Dopamine 6 mcg/kg/min, Levophed 2 mcg/min and vasopressin. EGD 11/10 clean based ulcer, no active bleed. Hb 10, without evidence of active bleed. Currently on Aspirin, Plavix and IV Heparin. Troponin peaked at 34. Discussed with Dr. Siblye. He will see today and evaluate for cath 11/12: No ventricular arrhythmias reported overnight. Remains on dopamine at 6 g per KG per minute and vasopressin at 0.04 international units, GI not planning on colonoscopy due to no evidence of active lower GI bleed. We'll discuss with Dr. Sibley about plan for cardiac catheterization-his notes recommending medical management. Urine output 750 mL in 24 hours 11/13: Remains intubated critically ill. Remains on 6 g per KG per minute of dopamine, and vasopressin.. Will wean to DC vasopressin. Chest x-ray shows increasing bilateral effusions. Start diuresis with IV Lasix. Hemoglobin trended down slightly-per Dr. Sibley. Continue medical management with DAPT and IV heparin. Ileus clinically improving with patient having bowel movements now Objective Vital Signs Date Time Temp Pulse Resp B/P (MAP) Pulse Ox O2 Delivery O2 Flow Rate FiO2 11/13/17 16:00 40 11/13/17 15:53 98 11/13/17 14:00 72 11/13/17 12:00 96/64 (75) 114/72 (86) 11/13/17 12:00 99.7 21 11/10/17 02:17 Ventilator 11/10/17 00:46 4.00 Intake and Output 11/13/17 11/13/17 11/13/17 07:59 15:59 23:59 Intake Total 750 ml 170 ml 84 ml Output Total 620 ml Balance 130 ml 170 ml 84 ml Result Diagram: 11/13/17 0600 11/13/17 0600 Other Results Microbiology Date/Time Source Procedure Growth Status 11/11/17 08:30 Sputum Endotracheal Gram Stain - Final Complete 11/11/17 08:30 Sputum Endotracheal Sputum Culture - Final HEAVY GROWTH NORMAL RESPIRATORY BAILEY Complete Imaging Last [address] 11/10/17 0022 Signed Impressions: Service Date/Time: Friday, November 10, 2017 00:22 - CONCLUSION: 1. Interval development of right highest convexity parietal hypodensity which could represent a enlarged sulcus. Since this is a new finding since 10/30/17, a consider further characterization with MRI to evaluate for subacute infarction. 2. Stable right mid and low parietal encephalomalacia. Joaquin Bravo MD Chest X-Ray 11/10/17 0019 Signed Impressions: Service Date/Time: Friday, November 10, 2017 00:28 - CONCLUSION: The lungs are clear. Joaquin Bravo MD Chest X-Ray 11/10/17 0000 Signed Impressions: Service Date/Time: Friday, November 10, 2017 02:03 - CONCLUSION: 1. Small residual infiltrate right base. 2. Lines and tubes in good position. Joaquin Bravo MD Objective Remarks GENERAL: Obese middle-aged male, lying in bed, sedated and intubated, critically ill in shock HEENT: Normocephalic. Atraumatic. Pupils equal, round, reactive, conjugate. Orotracheally intubated NECK: Trachea is midline. No JVD CHEST: Equal chest rise. Mildly tachypneic. Basilar crackles CARDIOVASCULAR: HR irregular, 90/mt. Systolic murmur at apex. On Dopamine, vaso ABDOMEN: Soft, nontender, distended. No guarding. Having BM MUSCULOSKELETAL: Pulses 2+. 2+ peripheral edema NEUROLOGICAL: Sedated and intubated. Opens eyes to stimulation, intermittently follows commands on sedation hold A/P Assessment and Plan Neuro: Metabolic encephalopathy - Versed for sedation.Follows commands on sedation hold. No evidence of anoxic brain injury - Daily sedation vacation as tolerated - CT head negative CVS: Acute coronary syndrome/Inferior STEMI Bradycardia Cardiogenic and hemorrhagic shock VTAC/Torsade - ST elevations in inferior leads, troponin [address] elevation MA - Continue Aspirin, Plavix and heparin gtt. Trop peaked at 34 - Cardiology -discussed with Dr. Sibley multiple times. He is recommending medical management now with GI bleed on presentation and anemia - Currently on vasopressin at 0.04 IU, Dopamine 6 mcg/kg/min - Cannot use beta ludy or SILVA I due to shoc. Cannot use statin due high liver enz - Start IV Lasix 40 mg every 12 with IV albumin - Blood transfusions to keep Hb >8 - Flowtrack, Centerline/a line - Echo 11/12 LVEF 45% RESP: Acute Respiratory failure LLL infiltrate Bilateral pleural effusions - Intubated for an airway protection - Daily spontaneous breathing trials. No extubation due to low tidal volumes, continue pressor requirement - Vent bundle, DuoNeb -- Empiric Zosyn, sputum culture negative to date GI/HEME: Acute Gastrointestinal bleed EGD 10/27/17 clean based ulcer, portal gastropathy Ileus - Nothing by mouth except meds. Start tube feeds when cleared by GI. Having bowel movements - EGD -11/10 clean based gastric ulcer without active bleed - Protonix IV GTT. DCd octreotide infusion 11/11 - Coloscopy postponed indefinitely for GI - Blood and blood products as needed - CT abd/pel 11/11: Ileus. Reglan 10 mg IV every 8 hours : Acute on chronic kidney disease Metabolic acidosis - IV LAsix as above - ABG as needed Endo: Hyperglycemia - Insulin sliding scale ID Probable LLL pneumonia - Empiric Zosyn, sputum blood cx neg to date DVT GI prophylaxis - Teds SCDs - IV Heparin - Protonix gtt Critical Care: Critical care time was 35 minutes including multiple discussions with cardiology and GI Claudia Dooley MD Nov 13, 2017 17:35
[2017-11-13] MEDS: FUROSEMIDE 40 MG/4 ML VIAL IV PUSH SCH (18:45)
[2017-11-13] MEDS: ALBUMIN 25% INJ 100 ML IV SCH (18:45)
[2017-11-13] MEDS: HEPARIN-D5W 25,000 U/250 ML 250 ML IV PRN (18:46)
[2017-11-13] MEDS ORDERED: POTASSIUM CHLORIDE 20 MEQ CONTROLLED RELEASE TAB PO SCH (21:00)
[2017-11-13] MEDS: ATORVASTATIN 80 MG TAB PO SCH (21:16)
[2017-11-14] VITALS (25 sets, daily range): BP systolic 88–127; BP diastolic 56–95; PULSE 68–100; RESP 18; TEMP 98.3–99.9; O2SAT 92–100
[2017-11-14] MEDS: PANTOPRAZOLE INJ 80 MG in SODIUM CHLORIDE 0.9% INJ 100 ML IV SCH ×3 (01:32→20:37)
[2017-11-14] MEDS: PIPERACIL-TAZO 3.375 GM PREMIX 50 ML IV SCH ×3 (01:32→18:00)
[2017-11-14] MEDS: RESP: ALBUTEROL 2.5 MG/IPRATROPIUM 0.5 MG NEB (SCH) INH (02:42)
[2017-11-14] MEDS: CHLORHEXIDINE GLUCONATE 2 % 1 PACK (2 CLOTHS) TOP SCH ×2 (03:15→19:20)
[2017-11-14] MEDS: ALBUMIN 25% INJ 100 ML IV SCH ×2 (04:46→18:00)
[2017-11-14] MEDS: METOCLOPRAMIDE HCL 10 MG/2 ML VIAL IV PUSH SCH ×3 (04:46→22:00)
--- NOTE | 2017-11-14 05:39 | RADRPT ---
EXAM DATE/TIME: 11/14/2017 04:01 [facility] COMPARISON: CHEST SINGLE AP, November 13, 2017, 3:42. INDICATIONS : Evaluate for pneumonia- Respiratory failure MEDICAL HISTORY : Diabetes mellitus type II. Hypertension Hypercholesterolemia. Myocardial infarction. Cerebrovasc ular disease., Stroke SURGICAL HISTORY : None. ENCOUNTER: Subsequent ACUITY: 2 weeks PAIN SCORE: Non-responsive. LOCATION: Bilateral chest FINDINGS: The ET tube, NG tube, and right internal jugular central line are well placed. The heart size is enla rged. There is diffuse increased density seen bilaterally. There is silhouetting of the hemidiaphragm s bilaterally. CONCLUSION: Diffuse increased density seen throughout the chest bilaterally likely related to bilateral effusions with some superimposed potential edema. The heart size is enlarged. Miah Romero MD on November 14, 2017 at 5:36 Board Certified Radiologist. This report was verified electronically.
[2017-11-14 07:16] LABS: AUTOMATED NEUTROPHIL # 11.4 TH/MM3 (1.8-7.7); BASOPHIL # 0.1 TH/MM3 (0-0.2); BASOPHIL % 0.6 % (0.0-2.0); EOSINOPHIL # 0.1 TH/MM3 (0-0.4); EOSINOPHIL % 0.4 % (0.0-4.0); HEMATOCRIT 24.3 % (39.0-51.0); LYMPH % 15.2 % (9.0-44.0); LYMPHOCYTE # 2.3 TH/MM3 (1.0-4.8); MEAN CELL VOLUME 79.5 FL (80.0-100.0); MEAN CORPUSCULAR HEMOGLOBIN 26.2 PG (27.0-34.0); MEAN PLATELET VOLUME 7.3 FL (7.0-11.0); MONO % 9.2 % (0.0-8.0); MONOCYTE # 1.4 TH/MM3 (0-0.9); NEUT % 74.6 % (16.0-70.0); PLATELET COUNT 522 TH/MM3 (150-450); RED BLOOD COUNT 3.06 MIL/MM3 (4.50-5.90); RED CELL DISTRIBUTION WIDTH 24.2 % (11.6-17.2); WHITE BLOOD COUNT 15.2 TH/MM3 (4.0-11.0)
[2017-11-14 07:25] LABS: ALBUMIN 2.1 GM/DL (3.4-5.0); AST (GOT) 188 U/L (15-37); BICARBONATE 35.4 MEQ/L (21.0-32.0); BLOOD UREA NITROGEN 32 MG/DL (7-18); CHLORIDE 94 MEQ/L (98-107); CREATININE 1.39 MG/DL (0.60-1.30); GLOMERULAR FILTRATION RATE 64 ML/MIN (>89); GLUCOSE,RANDOM 99 MG/DL (74-106); SODIUM (NA) 136 MEQ/L (136-145)
[2017-11-14 07:27] LABS: ALT (GPT) 115 U/L (12-78)
[2017-11-14 07:29] LABS: ALKALINE PHOSPHATASE 62 U/L (45-117); TOTAL BILIRUBIN ADULT 1.3 MG/DL (0.2-1.0); TOTAL PROTEIN 6.2 GM/DL (6.4-8.2)
[2017-11-14] MEDS: INSULIN NovoLIN REGULAR SUPPLEMENTAL SCALE SQ SCH ×4 (08:00→20:35)
[2017-11-14 08:45] LABS: BANDS 8 % (0-6); CORRECTED NUCLEATED RBC 8 /100 WBC (0-0); LYMPHOCYTES 9 % (9-44); MONOCYTES 5 % (0-8); NEUTROPHIL # MANUAL DIFF 13.1 TH/MM3 (1.8-7.7); NUCLEATED RED BLOOD CELL 8 (0-0); POLYS (SEG NEUTROPHILS) 78 % (16-70)
[2017-11-14] MEDS: CHLORHEXIDINE 0.12% (ORAL KIT) 15 ML CUP MT SCH ×2 (08:55→19:20)
[2017-11-14] MEDS: ASPIRIN 81 MG CHEW TAB CHEW SCH (08:57)
[2017-11-14] MEDS: SODIUM CHLORIDE 0.9% FLUSH 10 ML FLUSH IV FLUSH SCH ×2 (08:57→20:37)
[2017-11-14] MEDS: ARTIFICIAL TEARS OPTH SOLN 15 ML BTL EACH EYE SCH ×3 (08:57→18:00)
[2017-11-14] MEDS: SODIUM CHLORIDE 0.9% FLUSH 10 ML FLUSH IV FLUSH PRN (08:57)
[2017-11-14] MEDS: DOCUSATE SODIUM 50 MG/SENNA 8.6 MG TAB PO SCH ×2 (08:58→20:37)
[2017-11-14] MEDS: FUROSEMIDE 40 MG/4 ML VIAL IV PUSH SCH ×2 (08:58→18:00)
[2017-11-14] MEDS: POTASSIUM CHLORIDE 20 MEQ PWD PACKET PO SCH ×2 (08:58→20:37)
[2017-11-14] MEDS: CLOPIDOGREL 75 MG TAB PO SCH (08:58)
[2017-11-14] MEDS ORDERED: POTASSIUM CHLOR 20 MEQ PREMIX 100 ML IV PRN ×2 (10:30)
[2017-11-14] MEDS ORDERED: POTASSIUM CHLOR 40 MEQ PREMIX 100 ML IV PRN (10:30)
[2017-11-14] MEDS ORDERED: SODIUM PHOSPHATE INJ 30 MMOL in SODIUM CHLOR 0.9% 250 ML INJ 240 ML IV PRN (10:30)
[2017-11-14] MEDS ORDERED: MAGNESIUM SULFATE INJ 4 GM in SODIUM CHLORIDE 0.9% INJ 92 ML IV PRN (10:30)
[2017-11-14] MEDS ORDERED: MAGNESIUM SULFATE INJ 2 GM in SODIUM CHLORIDE 0.9% INJ 96 ML IV PRN (10:30)
[2017-11-14] MEDS ORDERED: POTASSIUM PHOSPHATE MONOBASIC 500 MG TAB PO PRN (10:30)
[2017-11-14] MEDS ORDERED: MAGNESIUM OXIDE 400 MG TAB PO PRN (10:30)
[2017-11-14] MEDS ORDERED: POTASSIUM CHLORIDE 25 MEQ EFFERVESCENT TAB PO PRN (10:30)
[2017-11-14] MEDS ORDERED: POTASSIUM PHOSPHATE MONOBASIC 500 MG TAB PO/TUBE PRN (10:30)
[2017-11-14] MEDS ORDERED: POTASSIUM PHOSPHATE INJ 30 MMOL in SODIUM CHLOR 0.9% 250 ML INJ 250 ML IV PRN (10:30)
[2017-11-14] MEDS: POTASSIUM CHLOR 40 MEQ PREMIX 100 ML IV PRN ×2 (10:45→14:56)
--- NOTE | 2017-11-14 10:52 | HHI.CCPN ---
Subjective Remarks/Hospital Course 57 year old male presents with a history of altered mentation that it been present for approximately 2 hours prior to ambulance services arrival according to the patient's significant other. The patient on arrival was noted to be altered, repeatedly saying that he "fell out". The patient on ambulance services arrival was noted to have a systolic blood pressure of 53. He was admitted here October 26, 2017 with a GI bleed and diagnosis of gastric ulcer per endoscopy findings ( 10/27/[address] Strickland found clean based ulcer, portal gastropathy). At that time he left AGAINST MEDICAL ADVICE. He also has a history of prior cerebrovascular accident with residual left-sided weakness and hypertension, as well as ischemic cardiomyopathy with ejection fraction of 30%. He underwent cardiac catheterization in August 2017 with a placement of bare -metal stent to the ostial proximal right coronary artery. An EKG was reportedly done prior to arrival that showed a right bundle branch block. There also appeared to be ST segment elevation in inferior leads. An EKG was repeated on arrival and the patient was a STEMI alert due to ST segment elevation in 2, 3, and aVF. In the emergency department he was altered unable to provide any meaningful history and was intubated by ED attending for an airway protection. His hemoglobin was found to be 5.4 and emergent release blood transfusion was initiated. The case was discussed with the carpenter assembler on-call, however due to significant anemia and hemodynamic instability the patient is not a candidate for emergent cardiac catheterization. Also his ST changes are most likely due to severe anemia. 11/10/17: I was called emergently to the bedside as patient became bradycardic to 30's and no recordable blood pressure.. Levophed was increased to 20 mcg/m and BP 70/40, epinephrine was given with systolic blood pressure now about 120s. Repeat EKG confirms ST elevations in the inferior leads with reciprocal changes. Troponin elevated at 2. I discussed with Dr. Sibley and Dr. Pulliam. Plan for emergent EGD, as Dr. Sibley wants clearance for antiplatelet therapy. If GI clears proceed with cath 11/11/17: Remains critically ill, had 1 min of Torsade overnight, self converted to NSR, received 150 mg Amio IV. Remains on Dopamine 6 mcg/kg/min, Levophed 2 mcg/min and vasopressin. EGD 1/22 clean based ulcer, no active bleed. Hb 10, without evidence of active bleed. Currently on Aspirin, Plavix and IV Heparin. Troponin peaked at 34. Discussed with Dr. Sibley. He will see today and evaluate for cath 11/12: No ventricular arrhythmias reported overnight. Remains on dopamine at 6 g per KG per minute and vasopressin at 0.04 international units, GI not planning on colonoscopy due to no evidence of active lower GI bleed. We'll discuss with Dr. Sibley about plan for cardiac catheterization-his notes recommending medical management. Urine output 750 mL in 24 hours 11/13: Remains intubated critically ill. Remains on 6 g per KG per minute of dopamine, and vasopressin.. Will wean to DC vasopressin. Chest x-ray shows increasing bilateral effusions. Start diuresis with IV Lasix. Hemoglobin trended down slightly-per Dr. Sibley. Continue medical management with DAPT and IV heparin. Ileus clinically improving with patient having bowel movements now 11/14: remains intubated. remains on dopamine and with a CI of 2.0 on flowtrack, suggestive of ongoing cardiogenic shock. remains in afib. hgb 8.9-->8.0, but per GI, still manage conservatively at this point. still appears volume overloaded and CXR with significant pulmonary edema. Objective Vital Signs Date Time Temp Pulse Resp B/P (MAP) Pulse Ox O2 Delivery O2 Flow Rate FiO2 11/14/17 10:00 95 11/14/17 09:00 95/57 (70) 96 101/62 (75) 11/14/17 08:35 35 11/14/17 08:00 98.8 11/13/17 16:00 15 Intake and Output 11/14/17 11/14/17 11/15/17 08:00 16:00 00:00 Intake Total 100 ml Output Total 500 ml Balance -400 ml Result Diagram: 11/14/17 0611/14/17599 Imaging Last Impressions Chest X-Ray 11/14/17599 Signed Impressions: Service Date/Time: Tuesday, November 14, 2017 04:01 - CONCLUSION: Diffuse increased density seen throughout the chest bilaterally likely related to bilateral effusions with some superimposed potential edema. The heart size is enlarged. Miah Romero MD Abdomen/Pelvis CT 11/11/17 0000 Signed Impressions: Service Date/Time: Saturday, November 11, 2017 13:30 - CONCLUSION: 1. Mildly dilated loops of small bowel proximally with distal decompression most characteristic of a partial small bowel obstruction. No free air. Trace free fluid. Mild anasarca. 2. Small bilateral pleural effusions with dependent consolidation in both lungs. 3. NG and mildly distended stomach. Ward Sibley MD Abdomen X-Ray 11/11/17 0000 Signed Impressions: Service Date/Time: Saturday, November 11, 2017 10:09 - CONCLUSION: 1. Mild ileus. NG tube in the stomach. Ward Sibley MD Head CT 11/10/17 0022 Signed Impressions: Service Date/Time: Friday, November 10, 2017 00:22 - CONCLUSION: 1. Interval development of right highest convexity parietal hypodensity which could represent a enlarged sulcus. Since this is a new finding since 10/30/17, a consider further characterization with MRI to evaluate for subacute infarction. 2. Stable right mid and low parietal encephalomalacia. Joaquin Bravo MD Objective Remarks GENERAL: Obese middle-aged male, lying in bed, sedated and intubated, critically ill in shock HEENT: Normocephalic. Atraumatic. Pupils equal, round, reactive, conjugate. Orotracheally intubated NECK: Trachea is midline. No JVD CHEST: Equal chest rise. Mildly tachypneic. Basilar crackles CARDIOVASCULAR: HR irregular, 90/mt. On Dopamine. by FlowTrack CI 2.0 ABDOMEN: Soft, nontender, distended. No guarding. MUSCULOSKELETAL: Pulses 2+. 2+ peripheral edema NEUROLOGICAL: Sedated and intubated. Opens eyes to stimulation, follows commands. Bedside Critical care echo 11/14: grossly preserved LV function, moderate RV dysfunction, dilated IVC without respiratory variation. no pericardial effusion. A/P Assessment and Plan Assessment: 57yM with baseline NYHA Class IV CHF symptoms likely secondary to combination of systolic and diastolic heart failure who originally presented 10/26 with shortness of breath, shock secondary to severe anemia and active GI bleed secondary to peptic ulcer. Discussions at that time were that the patient wanted to be DNR/DNI which is appropriate given his NYHA classification and baseline severe cardiac symtpoms. At that point he left AMA on 11/03 and re- presented on 11/05 with RCA STEMI and recurrent active GI bleeding. Given the clinical scenario and that he was off DAPT for a week in the setting of GI bleed , but with recent BMS to RCA in 08/2017, likely the RCA STEMI could reflect in- stent thrombosis secondary to necessary holding of anticoagulation from recurrent active GI bleeding. Clinically, now he remains in cardiogenic shock on dopamine with cardiac index < 2.5. Volume overload likely more secondary to cardiac dysfunction and possibly RV dysfunction secondary to RCA infarct, but clinically causing pulmonary edema and secondary end-organ damage. will need to pursue active diuresis despite GI bleed and ongoing organ failure. Very difficult position to be in-- cardiology feels patient is too unstable with risk of bleeding to intervene on RCA infarct, and given cardiac instability, GI treating any additional bleeding conservatively at this point. Very poor long- term prognosis. Will consult palliative care: patient wanted to be DNR and did not want intubation on 10/26: unclear per notes if he wanted to change his mind on re-admission, but his end-stage chronic medical problems persist and are now complicated by two life-threatening competing medical problems. He will likely from this combination of illnesses, and palliative services are appropriate. For now, goals remain aggressive and he remains very critically ill. Will continue vasopressors, inotropes, active forced diuresis, and attempts at separation from mechanical ventilation. Neuro: Metabolic encephalopathy - off all sedation.Follows commands on sedation hold. No evidence of anoxic brain injury - Daily sedation vacation as tolerated - CT head negative CVS: Acute coronary syndrome/Inferior STEMI Atrial fibrillation Cardiogenic shock VTAC/Torsade - resolved. - ST elevations in inferior leads, troponin [address] elevation MD: very possibly in-stent thrombosis from BMS to RCA in 08/2017 given his recent holding of DAPT for GI bleed - Continue Aspirin, Plavix and heparin gtt. Trop peaked at 34 - Cardiology -discussed with Dr. Sibley multiple times. He is recommending medical management now with GI bleed on presentation and anemia. will continue daily discussions. if not a candidate for coronary intervention, given baseline NYHA Class IV symptoms, would be more palliative appropriate. - continue dopamine. titrate for map > 65 mmHg and attempt to keep CI close to 2.5. may be difficult given baseline CHF. - Cannot use beta ludy or SILVA I due to shoc. Cannot use statin due high liver enz - increase lasix to 80mg iv with albumin. goal net -2L/24h. - Blood transfusions to keep Hb >8 - Flowtrack, Centerline/a line - Echo 11/12 LVEF 45% RESP: Acute hypoxic Respiratory failure LLL infiltrate Bilateral pleural effusions Acute pulmonary edema - Daily spontaneous breathing trials. failed yesterday for low tidal volumes and tachypnea. will attempt again today. likely will fail until we get pulmonary edema under control. diuresis as above. - Vent bundle, DuoNeb -- Empiric Zosyn, sputum culture negative to date: planned stop date 11/17 (7 day empiric course) GI/HEME: Acute Gastrointestinal bleed EGD 10/27/17 clean based ulcer, portal gastropathy Ileus - Nothing by mouth except meds. Start tube feeds when cleared by GI. Having bowel movements - EGD -11/10 clean based gastric ulcer without active bleed - Protonix IV GTT. DCd octreotide infusion 11/11 - Coloscopy postponed indefinitely for GI - Blood and blood products as needed - CT abd/pel 11/11: Ileus. Reglan 10 mg IV every 8 hours : Acute on chronic kidney disease- resolving. Metabolic acidosis- resolved. - IV Lasix as above - ABG as needed Endo: Hyperglycemia - Insulin sliding scale ID Probable LLL pneumonia - Empiric Zosyn, sputum blood cx neg to date: stop date 11/17 (7 day empiric course) DVT GI prophylaxis - Teds SCDs - IV Heparin - Protonix gtt Dispo: remain in ICU. very critically ill. remains in shock. palliative now involved. Critical Care: Critical care time was 39 minutes exclusive of separately billable procedures. Prieto Mackay MD Nov 14, 2017 10:52
[2017-11-14] MEDS ORDERED: ALBUMIN 25% INJ 100 ML IV ONE (11:00)
[2017-11-14] MEDS ORDERED: FUROSEMIDE 100 MG/10 ML VIAL IV PUSH ONE (11:00)
--- NOTE | 2017-11-14 13:07 | PD.CONS ---
Consult Service Palliative Care Consult Requested By Dr. Mackay Primary Care Physician No Primary Care Physician Reason for Consultation a. To assist with evaluation and management of symptoms including:Shortness of breath, altered mental status b. To assist medical decision maker(s) with: better understanding of current medical conditions; weighing benefits/burdens of medical treatment options; making medical treatment decisions. HPI History of Present Illness Mr Boo is a 57 years old male who has a past medical history of cerebrovascular accidents, GI bleed, hypertension, hyperlipidemia, atrial fibrillation, and congestive heart failure. Patient presented to the ER on 11/10 via EMS with altered mental status which was reported to be have started 2 hours prior to ambulance arrival. Patient was found to have a systolic blood pressure of 53 when the ambulance arrived. Patient was recently admitted to [facility] on October 26, 2017 for GI bleed and Afib with RVR. During his last hospital visit, on 10/26/17 it is documented that patient did not want to be coded , did not want CPR or defibrillation or to be intubated and placed on a mechanical ventilator. Patient was made a DNR. Patient left against medical advice during his last hospital admission prior to having a colonoscopy . ER Course: * Vital signs: Temperature 97.2, pulse 70, respirations 14, BP 89/53, O2 saturation 99% on room air. * EKG showed acute ST segment elevation AK involving the inferior leads- STEMI alert called * Laboratory workup revealed WBC 15.9, hemoglobin 5.1, hematocrit 17.2, platelet count 732, AST 108, ALT 28, Troponin 6.77, CK-MB 52.5, * Chest X Ray revealed clear lungs. * Head CT revealed interval development of right highest convexity parietal hypodensity which could represent an enlarged sulcus. * ABG results- pH 7.53, pCO2 22, pO2 126, HCO3 18, Hgb 4.6 on 4L NC * Patient was intubated in ER for airway protection * Emergent release blood initiated- patient received 5 units PRBC in total. Cardiology notified of STEMI alert. Patient was not a candidate for emergent cardiac catheterization due to low hemoglobin and patient was hemodynamically unstable. Cardiology Dr. Copeland consulted recommending medical management. GI Dr. Orellana consulted 11/10/17. Patient underwent EGD-and a clean-based gastric ulcer was noted with no active bleeding. Colonoscopy postponed indefinitely due to hemodynamic instability. Abdomen/pelvis CT on 11/11/17 revealed a partial small bowel obstruction, no free air, mild anasarca and small bilateral pleural effusions with dependent consolidation in both lungs. Clinical course was complicated with arrhythmias, hypotension requiring pressors and respiratory failure. Patient seen and examined in his room on [facility]. Patient awake, intubated on mechanical ventilation with no sedation. Patient able to follow simple commands with all 4 extremities. Patient is trying to mouth some words and biting on ETT. Patient gesturing with his right hand to "pull out ETT" after soft restraint was loosened. Explained to patient the importance of ETT. Patient nodding head, for "yes" when asked if he wanted endotracheal tube removed. Patient is currently on CPAP and per bedside nurse patient has been on CPAP for approximately 6 hours. Low-grade temp of 99.9F orally. SBP 80s to low 100s. Pressors have been weaned off. O2 saturation low 90s to high 90s on 35% FiO2. Telephone conversation with patient`s son. Obtained psychosocial history and family history. Updated patient`s son on patient`s current medical status inclusive of past medical history of NYHA Class IV Congestive heart failure, CVAs, atrial fibrillation, GI bleed and hypertension. Addressed code status, discussed risks, benefits and limitations of CPR even ongoing multiple comorbidities and even recent hospitalization. Patient's son stated that he wants patient to be a full code and have everything done for him. Explained to patient's son, his father's indication of wanting to be a DNR during his last visit when he was coherent. Patient's son stated that his father is young and he feels that more can be done for him despite my explanation of patient's ongoing comorbidities. Patient's son blames his father for leaving AGAINST MEDICAL ADVICE last hospitalization, he believes that patient would probably not be in this position had he stayed in the hospital. Explained to patient`s son, that when patient is able to medically extubated and is oriented to self, place, time and situation as well as showing ability to make decisions for himself, medical staff will readdress goals of care and patient`s wishes regarding medical care. Patient`s significant other Noy Cadena arrived to visit with patient in room. Obtained patient's prior functional status at home and contact information for patient`s sister and brother. Noy Cadena who has been living with patient for the past 30 years stated that during patient`s last hospitalization, patient expressed in front of the physician in ER and her that he wanted to be a DNR and does not want CPR, defibrillation, and intubation if his "heart would stop. " She said, "unfortunately this time when he came back he was confused and he ended up on a machine". Introduced hospice philosophy and benefits. Patient`s significant other voiced that patient will most likely want to transition to comfort care only. 1600hrs: Patient is now extubated to [place] and O2 saturation currently 97%. Patient examined by Dr. Mackay, Dr. Alvarez. Present in the room are 2 medical students and 2 bedside RNs. Patient oriented to self, place, time and situation. Patient is able to answer even complex questions correctly. Patient also wants to transition to hospice. When asked who he wants to make medical decisions for him in the event that he is incapacitated patient designated Nyo Cadena his significant other for 30 years and his son as the alternate HCS. Verbally witnessed by Dr. Antonio Dumont, and bedside RN Julia. Attempted to call Noy to update her on patient`s status with no success, left a voice message to call back. Telephone conversation with patient`s son. Patient `s son is not in agreement of his father`s decision, explained to him that at his point patient is now extubated and has showed 2 physicians that he is able to make his own medical decisions. Also updated him that, patient has designated his significant other Noy Cadena as his health care surrogate and son as the alternate HCS. Palliative care contact information provided. Case discussed with Dr. Mackay and bedside RN Julia. . Function/Cognitive Trajectory Patient lived at home with significant other and was independent of his ADLs although she mentioned that patient as been having increased shortness of breath in the past few days prior to hospitalization to a point of not being able to lay down in bed. . Review of Systems ROS Limitations: Intubated Constitutional: COMPLAINS OF: Fatigue, Change in appetite Eyes: DENIES: Eye inflammation Ears, nose, mouth, throat: DENIES: Nasal discharge Respiratory: COMPLAINS OF: Shortness of breath Cardiovascular: COMPLAINS OF: Lower Extremity Edema, DENIES: Chest pain Gastrointestinal: COMPLAINS OF: Constipation Hematologic/Lymphatics: COMPLAINS OF: Bruising, History of transfusions Neurologic: COMPLAINS OF: Localized weakness Psychiatric: COMPLAINS OF: Confusion Other ROS: ROS obtained from EMR and clinical observation. . Past Family Social History Coded Allergies: No Known Allergies (Verified Allergy, Unknown, 09/13/17) Past Medical History Hypertension Cerebrovascular accidents 2 -has residual left sided weakness Hyperlipidemia Atrial fibrillation NYHA Class IV Congestive heart failure with nonischemic cardiomyopathy, EF of 30 -35%. GI bleed . Past Surgical History Cardiac catheterization with stent placement 09/15/2017. . Reported Medications Lipitor (Atorvastatin Calcium) 80 Mg Tab 80 Mg PO HS Torsemide 5 Mg Tab 10 Mg PO BID@,18 Tgt Aspirin (Aspirin) 81 Mg Chw 81 Mg PO DAILY Ramipril 2.5 Mg Cap 2.5 Mg PO DAILY Diltiazem CD 24 HR 240 Mg Caper 240 Mg PO DAILY Lopressor (Metoprolol Tartrate) 50 Mg Tab 50 Mg PO Q8HR Plavix (Clopidogrel Bisulfate) 75 Mg Tab 75 Mg PO DAILY Eliquis (Apixaban) 5 Mg Tab 5 Mg PO BID . Current Medications Medications (Trade) Dose Ordered Sig/Carline Route Start Time Stop Time Status Last Admin Fentanyl Citrate 250 ml @ 10 mls/hr TITRATE PRN IV 11/10/17 01:30 11/10/17 02:08 (Lipitor) 80 mg HS PO 11/10/17 21:00 11/13/17 21:16 (NS Flush) 2 ml UNSCH PRN IV FLUSH 11/10/17 01:45 11/14/17 08:57 (NS Flush) 2 ml BID IV FLUSH 11/10/17 09:00 11/14/17 08:57 (Tylenol) 650 mg Q6H PRN PO 11/10/17 01:45 (Morphine Inj) 2 mg Q2H PRN IV PUSH 11/10/17 01:45 (Tears Naturale Opth Soln) 1 drop TID EACH EYE 11/10/17 09:00 11/14/17 08:57 (Zofran Inj) 4 mg Q6H PRN IV PUSH 11/10/17 01:45 (Duoneb Neb) 1 ampule Q2HR NEB PRN INH 11/10/17 01:45 11/10/17 04:20 Miscellaneous Information 1 Q361D XX 11/10/17 01:45 (Chlorhexidine 2% Cloth) 3 pack Taper DAILY@04 TOP 11/10/17 04:00 11/06/18 03:59 11/14/17 03:15 (Chlorhexidine 2% Cloth) 3 pack UNSCH PRN TOP 11/10/17 01:45 (Naomy-Colace) 1 tab BID PO 11/10/17 09:00 11/14/17 08:58 (Milk Of Magnesia Liq) 30 ml Q12H PRN PO 11/10/17 01:45 (Senokot) 17.2 mg Q12H PRN PO 11/10/17 01:45 (Dulcolax Supp) 10 mg DAILY PRN RECTAL 11/10/17 01:45 (Lactulose Liq) 30 ml DAILY PRN PO 11/10/17 01:45 11/11/17 23:35 (Peridex 0.12% Liq) 15 ml BID@08,20 MT 11/10/17 08:00 11/14/17 08:55 (Brethine Inj) 1 mg UNSCH PRN SQ 11/10/17 02:45 (D50w (Vial) Inj) 50 ml UNSCH PRN IV PUSH 11/10/17 04:45 (Glucagon Inj) 1 mg UNSCH PRN OTHER 11/10/17 04:45 (NovoLIN R SUPPLEMENTAL SCALE) 1 ACHS SLIDING SCALE SQ 11/10/17 08:00 11/12/17 09:10 Dopamine HCl/ Dextrose 500 ml @ 12.938 mls/ hr TITRATE PRN IV 11/10/17 14:00 11/13/17 19:40 (Aspirin Chew) 81 mg DAILY CHEW 11/10/17 13:45 11/14/17 08:57 Heparin Sodium/ Dextrose 250 ml @ 10 mls/hr TITRATE PRN IV 11/10/17 14:00 11/13/17 18:46 (Plavix) 75 mg DAILY PO 11/10/17 18:00 11/14/17 08:58 Pantoprazole Sodium 80 mg/ Sodium Chloride 100 ml @ 10 mls/hr Q10H IV 11/11/17 04:00 11/14/17 11:19 Piperacillin Sod/ Tazobactam Sod 50 ml @ 100 mls/hr Q8H IV 11/11/17 09:00 11/17/17 09:00 11/14/17 08:57 (Reglan Inj) 10 mg Q8HR IV PUSH 11/12/17 11:00 11/14/17 04:46 (Lasix Inj) 40 mg BID@,18 IV PUSH 11/13/17 18:30 11/14/17 08:58 Albumin Human 100 ml @ 60 mls/hr Q12H IV 11/13/17 18:30 11/14/17 04:46 (KCl Powder) 20 meq Q12HR PO 11/14/17 09:00 11/14/17 08:58 Potassium Chloride 100 ml @ 50 mls/hr Q2H PRN IV 11/14/17 10:30 11/14/17 10:45 Potassium Chloride 100 ml @ 50 mls/hr Q2H PRN IV 11/14/17 10:30 (K-Lyte Cl Eff) 50 meq UNSCH PRN PO 11/14/17 10:30 Potassium Chloride 100 ml @ 25 mls/hr UNSCH PRN IV 11/14/17 10:30 Potassium Chloride 100 ml @ 50 mls/hr Q2H PRN IV 11/14/17 10:30 Magnesium Sulfate 4 gm/Sodium Chloride 100 ml @ 50 mls/hr UNSCH PRN IV 11/14/17 10:30 (Mag-Ox) 800 mg UNSCH PRN PO 11/14/17 10:30 Magnesium Sulfate 2 gm/Sodium Chloride 100 ml @ 50 mls/hr UNSCH PRN IV 11/14/17 10:30 (K-Phos) 2,000 mg Q4H PRN PO 11/14/17 10:30 Sodium Phosphate 30 mmol/Sodium Chloride 250 ml @ 42 mls/hr UNSCH PRN IV 11/14/17 10:30 (K-Phos) 2,000 mg UNSCH PRN PO/TUBE 11/14/17 10:30 Potassium Phosphate 30 mmol/ Sodium Chloride 260 ml @ 42 mls/hr UNSCH PRN IV 11/14/17 10:30 Albumin Human 100 ml @ 60 mls/hr ONCE ONCE IV 11/14/17 11:00 11/14/17 12:39 11/14/17 11:18 Family History Mother- of complications from cardiac disease Father- -unknown cause Brother- in use 40s . Substance Use Tobacco: Smokes 1 pack per day tobacco Alcohol: Drinks alcohol Prescription med abuse: None reported Illicits: None reported . Psychosocial History Patient was born in [place], [place] and raised in [place], [place]. 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 Patient was once and is . He has 1 adult son from his marriage. Patient did not serve in the . Patient currently resides with his significant other of 30 years -Noy Cadena. Patient his 1 living sister and 1 living brother. . Spiritual/Cultural Factors Patient is Mu-Ism . Health Care Surrogate: Copy in medical record Date completed: 11/14/2017 . Health Care Surrogate(s): Health Care Surrogate -Significant other- Noy CadenaKjmqig-[phone] Alternate Health Care Surrogate -Son-Eamon Mcknight Jr [phone] . Today's verbally stated goals: Patient does not want to continue with aggressive treatment, he wants to transition to comfort care only. Patient wants hospice services. . Ethical and Legal Issues None identified at this time. . Physical Exam Vital Signs Date Time Temp Pulse Resp B/P (MAP) Pulse Ox O2 Delivery O2 Flow Rate FiO2 11/14/17 10:52 95 115/69 11/14/17 10:00 95 11/14/17 09:00 91 95/57 (70) 96 101/62 (75) 11/14/17 08:35 35 11/14/17 08:28 94 35 11/14/17 08:00 40 11/14/17 08:00 100 99/66 (77) 102/63 (76) 11/14/17 08:00 98.8 100 99/66 (77) 94 102/63 (76) 11/14/17 08:00 100 11/14/17 08:00 100 102/63 11/14/17 07:00 98 110/72 (85) 95 11/14/17 06:00 92 11/14/17 04:02 100 35 11/14/17 04:00 40 11/14/17 04:00 99.3 96 103/61 (75) 96 108/68 (81) 11/14/17 04:00 96 11/14/17 04:00 96 103/61 (75) 108/68 (81) 11/14/17 02:00 90 11/14/17 00:09 100 35 11/14/17 00:00 71 98/57 (71) 111/67 (82) 11/14/17 00:00 71 11/14/17 00:00 98.7 71 98/57 (71) 96 111/67 (82) 11/14/17 00:00 40 11/13/17 22:00 71 11/13/17 20:00 99.0 74 101/59 (73) 96 116/68 (84) 11/13/17 20:00 74 11/13/17 20:00 40 11/13/17 20:00 74 101/59 (73) 116/68 (84) 11/13/17 19:43 99 35 11/13/17 19:40 70 115/80 11/13/17 18:00 73 11/13/17 16:00 99.4 73 15 96/59 (71) 96 107/68 (81) 11/13/17 16:00 72 96/64 (75) 114/72 (86) 11/13/17 16:00 73 11/13/17 16:00 40 11/13/17 15:53 98 35 11/13/17 15:52 40 11/13/17 14:00 72 11/13/17 12:00 72 11/13/17 12:00 72 96/64 (75) 114/72 (86) 11/13/17 12:00 99.7 72 21 96/64 (75) 96 114/72 (86) 11/13/17 12:00 40 11/14/17 11/15/17 19:00 07:00 Intake Total 489 ml Balance 489 ml IV Total 489 ml Exam CONSTITUTIONAL/GENERAL: This is an adequately nourished patient, in no apparent distress. TUBES/LINES/DRAINS:ETT, Central line, FC, arterial line, SCDs, bilateral soft restraints SKIN: No jaundice, rashes, or lesions. Ecchymoses on upper extremities. No wounds seen anteriorly. Skin temperature appropriate. Not diaphoretic. HEAD: Atraumatic. Normocephalic. EYES: Pupils equal and round and reactive. Extraocular motions intact. No scleral icterus. No injection or drainage. Fundi not examined. ENT: Hearing grossly normal. Nose without bleeding or purulent drainage. Moist oral mucosa. Right nare NG tube clamped NECK: Trachea midline. Supple, nontender. CARDIOVASCULAR: Regular rate and rhythm without murmurs, gallops, or rubs. No JVD. Peripheral pulses symmetric. RESPIRATORY/CHEST: Symmetric, unlabored respirations. Clear to auscultation. Breath sounds equal bilaterally. No wheezes, rales, or rhonchi. On CPAP trial GASTROINTESTINAL: Abdomen soft, non-tender, nondistended. No guarding. Bowel sounds present. GENITOURINARY: Without palpable bladder distension. Love catheter in place. MUSCULOSKELETAL: Extremities without clubbing, cyanosis. No joint tenderness or effusion noted. No calf tenderness. No mottling or clubbing. +2 Edema to bilateral lower extremities and bilateral upper extremities NEUROLOGICAL: Awake and alert, intubated on mechanical ventilator with sedation .Motor and sensory grossly within normal limits. Follows simple commands. Moves all extremities. PSYCHIATRIC: No obvious anxiety/depression. no apparent hallucinations or other psychotic thought process. Diagnostic Tests Laboratory Laboratory Tests Test 11/11/17 16:45 11/11/17 23:00 11/12/17 05:15 11/12/17 15:00 Hemoglobin 9.4 GM/DL (13.0-17.0) 9.2 GM/DL (13.0-17.0) 8.9 GM/DL (13.0-17.0) 8.8 GM/DL (13.0-17.0) White Blood Count 15.0 TH/MM3 (4.0-11.0) Red Blood Count 3.42 MIL/MM3 (4.50-5.90) Hematocrit 27.7 % (39.0-51.0) Mean Corpuscular Volume 81.0 FL (80.0-100.0) Mean Corpuscular Hemoglobin 26.0 PG (27.0-34.0) Mean Corpuscular Hemoglobin Concent 32.1 % (32.0-36.0) Red Cell Distribution Width 23.1 % (11.6-17.2) Platelet Count 547 TH/MM3 (150-450) Mean Platelet Volume 7.1 FL (7.0-11.0) Neutrophils (%) (Auto) 73.6 % (16.0-70.0) Lymphocytes (%) (Auto) 16.8 % (9.0-44.0) Monocytes (%) (Auto) 8.9 % (0.0-8.0) Eosinophils (%) (Auto) 0.2 % (0.0-4.0) Basophils (%) (Auto) 0.5 % (0.0-2.0) Neutrophils # (Auto) 11.0 TH/MM3 (1.8-7.7) Lymphocytes # (Auto) 2.5 TH/MM3 (1.0-4.8) Monocytes # (Auto) 1.3 TH/MM3 (0-0.9) Eosinophils # (Auto) 0.0 TH/MM3 (0-0.4) Basophils # (Auto) 0.1 TH/MM3 (0-0.2) CBC Comment AUTO DIFF Differential Total Cells Counted 100 Neutrophils % (Manual) 70 % (16-70) Band Neutrophils % 11 % (0-6) Lymphocytes % 9 % (9-44) Monocytes % 7 % (0-8) Basophils % 1 % (0-2) Neutrophils # (Manual) 12.5 TH/MM3 (1.8-7.7) Metamyelocytes 2 % (0-1) Nucleated Red Blood Cells 7 /100 WBC (0-0) Differential Comment FINAL DIFF MANUAL Platelet Estimate HIGH (NORMAL) Platelet Morphology Comment NORMAL (NORMAL) Polychromasia 3.0 % (0.0-1.9) Ovalocytes 1+ (NORMAL) Activated Partial Thromboplast Time 48.2 SEC (24.3-30.1) Blood Urea Nitrogen 26 MG/DL (7-18) Creatinine 1.65 MG/DL (0.60-1.30) Random Glucose 143 MG/DL (74-106) Total Protein 5.6 GM/DL (6.4-8.2) Albumin 1.9 GM/DL (3.4-5.0) Calcium Level 7.5 MG/DL (8.5-10.1) Magnesium Level 2.1 MG/DL (1.5-2.5) Alkaline Phosphatase 58 U/L (45-117) Aspartate Amino Transf (AST/SGOT) 602 U/L (15-37) Alanine Aminotransferase (ALT/SGPT) 201 U/L (12-78) Total Bilirubin 0.7 MG/DL (0.2-1.0) Sodium Level 139 MEQ/L (136-145) Potassium Level 3.9 MEQ/L (3.5-5.1) Chloride Level 97 MEQ/L (98-107) Carbon Dioxide Level 33.0 MEQ/L (21.0-32.0) Anion Gap 9 MEQ/L (5-15) Estimat Glomerular Filtration Rate 52 ML/MIN (>89) Test 11/12/17 21:35 11/13/17 06:00 11/14/17 06:00 Hemoglobin 8.7 GM/DL (13.0-17.0) 8.9 GM/DL (13.0-17.0) 8.0 GM/DL (13.0-17.0) White Blood Count 15.0 TH/MM3 (4.0-11.0) 15.2 TH/MM3 (4.0-11.0) Red Blood Count 3.37 MIL/MM3 (4.50-5.90) 3.06 MIL/MM3 (4.50-5.90) Hematocrit 26.9 % (39.0-51.0) 24.3 % (39.0-51.0) Mean Corpuscular Volume 80.0 FL (80.0-100.0) 79.5 FL (80.0-100.0) Mean Corpuscular Hemoglobin 26.3 PG (27.0-34.0) 26.2 PG (27.0-34.0) Mean Corpuscular Hemoglobin Concent 32.9 % (32.0-36.0) 33.0 % (32.0-36.0) Red Cell Distribution Width 23.8 % (11.6-17.2) 24.2 % (11.6-17.2) Platelet Count 569 TH/MM3 (150-450) 522 TH/MM3 (150-450) Mean Platelet Volume 7.2 FL (7.0-11.0) 7.3 FL (7.0-11.0) Neutrophils (%) (Auto) 77.0 % (16.0-70.0) 74.6 % (16.0-70.0) Lymphocytes (%) (Auto) 13.2 % (9.0-44.0) 15.2 % (9.0-44.0) Monocytes (%) (Auto) 9.1 % (0.0-8.0) 9.2 % (0.0-8.0) Eosinophils (%) (Auto) 0.1 % (0.0-4.0) 0.4 % (0.0-4.0) Basophils (%) (Auto) 0.6 % (0.0-2.0) 0.6 % (0.0-2.0) Neutrophils # (Auto) 11.5 TH/MM3 (1.8-7.7) 11.4 TH/MM3 (1.8-7.7) Lymphocytes # (Auto) 2.0 TH/MM3 (1.0-4.8) 2.3 TH/MM3 (1.0-4.8) Monocytes # (Auto) 1.4 TH/MM3 (0-0.9) 1.4 TH/MM3 (0-0.9) Eosinophils # (Auto) 0.0 TH/MM3 (0-0.4) 0.1 TH/MM3 (0-0.4) Basophils # (Auto) 0.1 TH/MM3 (0-0.2) 0.1 TH/MM3 (0-0.2) CBC Comment AUTO DIFF AUTO DIFF Differential Total Cells Counted 100 100 Neutrophils % (Manual) 78 % (16-70) 78 % (16-70) Band Neutrophils % 9 % (0-6) 8 % (0-6) Lymphocytes % 6 % (9-44) 9 % (9-44) Monocytes % 7 % (0-8) 5 % (0-8) Neutrophils # (Manual) 13.1 TH/MM3 (1.8-7.7) 13.1 TH/MM3 (1.8-7.7) Nucleated Red Blood Cells 11 /100 WBC (0-0) 8 /100 WBC (0-0) Differential Comment FINAL DIFF MANUAL FINAL DIFF MANUAL Platelet Estimate HIGH (NORMAL) HIGH (NORMAL) Platelet Morphology Comment NORMAL (NORMAL) NORMAL (NORMAL) Polychromasia 2.1 % (0.0-1.9) 2.0 % (0.0-1.9) Activated Partial Thromboplast Time 40.1 SEC (24.3-30.1) 37.8 SEC (24.3-30.1) Blood Urea Nitrogen 28 MG/DL (7-18) 32 MG/DL (7-18) Creatinine 1.36 MG/DL (0.60-1.30) 1.39 MG/DL (0.60-1.30) Random Glucose 131 MG/DL (74-106) 99 MG/DL (74-106) Total Protein 6.0 GM/DL (6.4-8.2) 6.2 GM/DL (6.4-8.2) Albumin 1.9 GM/DL (3.4-5.0) 2.1 GM/DL (3.4-5.0) Calcium Level 7.9 MG/DL (8.5-10.1) 8.0 MG/DL (8.5-10.1) Magnesium Level 2.3 MG/DL (1.5-2.5) Alkaline Phosphatase 58 U/L (45-117) 62 U/L (45-117) Aspartate Amino Transf (AST/SGOT) 370 U/L (15-37) 188 U/L (15-37) Alanine Aminotransferase (ALT/SGPT) 174 U/L (12-78) 115 U/L (12-78) Total Bilirubin 1.0 MG/DL (0.2-1.0) 1.3 MG/DL (0.2-1.0) Sodium Level 136 MEQ/L (136-145) 136 MEQ/L (136-145) Potassium Level 3.6 MEQ/L (3.5-5.1) 3.1 MEQ/L (3.5-5.1) Chloride Level 94 MEQ/L (98-107) 94 MEQ/L (98-107) Carbon Dioxide Level 34.1 MEQ/L (21.0-32.0) 35.4 MEQ/L (21.0-32.0) Anion Gap 8 MEQ/L (5-15) 7 MEQ/L (5-15) Estimat Glomerular Filtration Rate 65 ML/MIN (>89) 64 ML/MIN (>89) Result Diagram: 11/14/17 0600 11/14/17599 Imaging Last Impressions Chest X-Ray 11/14/17599 Signed Impressions: Service Date/Time: Tuesday, November 14, 2017 04:01 - CONCLUSION: Diffuse increased density seen throughout the chest bilaterally likely related to bilateral effusions with some superimposed potential edema. The heart size is enlarged. Miah Romero MD Abdomen/Pelvis CT 11/11/17 0000 Signed Impressions: Service Date/Time: Saturday, November 11, 2017 13:30 - CONCLUSION: 1. Mildly dilated loops of small bowel proximally with distal decompression most characteristic of a partial small bowel obstruction. No free air. Trace free fluid. Mild anasarca. 2. Small bilateral pleural effusions with dependent consolidation in both lungs. 3. NG and mildly distended stomach. Ward Sibley MD Abdomen X-Ray 11/11/17 0000 Signed Impressions: Service Date/Time: Saturday, November 11, 2017 10:09 - CONCLUSION: 1. Mild ileus. NG tube in the stomach. Ward Sibley MD Head CT 11/10/17 0022 Signed Impressions: Service Date/Time: Friday, November 10, 2017 00:22 - CONCLUSION: 1. Interval development of right highest convexity parietal hypodensity which could represent a enlarged sulcus. Since this is a new finding since 10/30/17, a consider further characterization with MRI to evaluate for subacute infarction. 2. Stable right mid and low parietal encephalomalacia. Joaquin Bravo MD Procedures 11/10/17- intubation 11/10/17-central line placement 11/10/17-arterial line placement 11/10/17-EGD 11/14/17-medically extubated . Patient/Family Conference Family Conference Location: Bedside, Telephone Issues Discussed: * Palliative care role, purpose, approach * Additional medical, psychosocial, and spiritual history * Patients general health, functional status, and cognitive changes in the months leading up to the current hospitalization * Patient/family understanding of the current medical problems * Patient/family understanding of prognosis * Patients goals of care as best understood from advance directives and/or conversations and/or values * Current medical treatment options and benefits/burdens of those options * Likely scenarios comparing ongoing aggressive care with a transition to comfort measures only * Questions answered to the best of my ability * Introduced hospice philosophy and benefits * Palliative care contact information provided Assessment and Plan Disease Oriented Problem List: (1) Acute respiratory failure with hypoxia (2) Acute gastrointestinal bleeding (3) Acute coronary syndrome (4) Left lower lobe pneumonia (5) Anemia (6) Atrial fibrillation Symptom Scale: (1) Shortness of breath Comment: Patient has a history of CHF. Currently intubated. . (2) Altered mental status Comment: Multifactorial. Patient came into the ER with altered mentation. Hgb was 5.1 in ER . Pertinent Non-Medical Issues Psychosocial:Patient was born in [place], [place] and raised in [place], [place]. 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 Patient was once and is . He has 1 adult son from his marriage. Patient did not serve in the . Patient currently resides with his significant other of 30 years -Noy Cadena. Patient his 1 living sister and 1 living brother. Spiritual: Patient is Mu-Ism Legal: Patient verbally designated Noy Cadena as his HCS and son as alternate HCS Ethical issues impacting care: None identified at this time . Important Contacts Son-Eamon Mcknight Jr [phone] Significant other- Noy CadenaXmnfpo-[phone] . Prognosis Mr Boo is a 57 years old male who has a past medical history of cerebrovascular accidents, GI bleed, hypertension, hyperlipidemia, atrial fibrillation, and congestive heart failure. Clinical course was complicated with arrythmias, hypotension requiring pressors and respiratory failure. Given current ongoing comorbidities, patient remains at high risk for further complications, deterioration and decline. . Code Status: No Code Plan PLAN: Legal decision maker: Patient is currently able to participate in making his own medical decisions. In the event that patient is incapacitated, he has designated his significant other Noy Cadena is his healthcare surrogate and his son Eamon Mcknight Jr is his alternate healthcare surrogate Goals: Patient wants comfort oriented care and wants to transition to hospice CODE STATUS: No Code DNR SYMPTOMS: * Shortness of breath: Multifactorial. Patient has a history of CHF. Currently intubated on CPAP trial. Possible extubation today. FiO2 currently 35%. Patient receiving Furosemide 40 mg twice a day. Duonebs Q 2 HRS PRN for wheezing. No recommendations. * Altered mental status: Multifactorial. Patient came into the ER with altered mentation. Hgb was 5.1 in ER. Patient alert, following simple commands. Most likely resolved but we'll continue assessing after extubation. No recommendations. Palliative care will continue to follow the patient during hospital course as condition evolves, to assist patient/decision-maker with understanding of their medical conditions, weighing benefits/burdens of treatment options, for clarification of goals of treatment. Additionally will assist with any symptoms of palliative concern Thank you for the opportunity to participate in the care of Mr. Boo. Brody Cochran Nov 14, 2017 12:43
--- NOTE | 2017-11-14 13:08 | HHI.GIFU ---
Subjective Remarks BM 1 today Weaning dopamine drip Minimal arousing with verbal stimuli and tactile stimuli Atrial fib heart rate 97 Still has abdominal bloating but no abdominal pain or facial grimace with exam (Yumiko Lopez) Objective Vitals I&O Vital Signs Date Time Temp Pulse Resp B/P (MAP) Pulse Ox O2 Delivery O2 Flow Rate FiO2 11/14/17 12:00 35 11/14/17 12:00 99.9 77 120/69 (86) 92 115/95 (102) 11/14/17 12:00 77 11/14/17 12:00 77 120/69 (86) 115/95 (102) 11/14/17 11:47 97 35 11/14/17 11:00 93 89/65 (73) 102/62 (75) 11/14/17 10:52 95 115/69 11/14/17 10:00 95 11/14/17 10:00 95 88/57 (67) 96 95/59 (71) 11/14/17 09:00 91 95/57 (70) 96 101/62 (75) 11/14/17 08:35 35 11/14/17 08:28 94 35 11/14/17 08:00 40 11/14/17 08:00 100 99/66 (77) 102/63 (76) 11/14/17 08:00 98.8 100 99/66 (77) 94 102/63 (76) 11/14/17 08:00 100 11/14/17 08:00 100 102/63 11/14/17 07:00 98 110/72 (85) 95 11/14/17 06:00 92 11/14/17 04:02 100 35 11/14/17 04:00 40 11/14/17 04:00 99.3 96 103/61 (75) 96 108/68 (81) 11/14/17 04:00 96 11/14/17 04:00 96 103/61 (75) 108/68 (81) 11/14/17 02:00 90 11/14/17 00:09 100 35 11/14/17 00:00 71 98/57 (71) 111/67 (82) 11/14/17 00:00 71 11/14/17 00:00 98.7 71 98/57 (71) 96 111/67 (82) 11/14/17 00:00 40 11/13/17 22:00 71 11/13/17 20:00 99.0 74 101/59 (73) 96 116/68 (84) 11/13/17 20:00 74 11/13/17 20:00 40 11/13/17 20:00 74 101/59 (73) 116/68 (84) 11/13/17 19:43 99 35 11/13/17 19:40 70 115/80 11/13/17 18:00 73 11/13/17 16:00 99.4 73 15 96/59 (71) 96 107/68 (81) 11/13/17 16:00 72 96/64 (75) 114/72 (86) 11/13/17 16:00 73 11/13/17 16:00 40 11/13/17 15:53 98 35 11/13/17 15:52 40 11/13/17 14:00 72 I/O 11/13/17 11/13/17 11/13/17 11/14/17 11/14/17 11/14/17 06:59 14:59 22:59 06:59 14:59 22:59 Intake Total 750 ml 70 ml 1518 ml 100 ml 489 ml Output Total 620 ml 400 ml 500 ml Balance 130 ml 70 ml 1118 ml -400 ml 489 ml IV Total 750 ml 70 ml 1398 ml 100 ml 489 ml Other 120 ml Output Urine Total 600 ml 400 ml 500 ml Gastric Drainage Total 20 ml # Bowel Movements 1 1 1 Laboratory Laboratory Tests Test 11/14/17 06:00 White Blood Count 15.2 Red Blood Count 3.06 Hemoglobin 8.0 Hematocrit 24.3 Mean Corpuscular Volume 79.5 Mean Corpuscular Hemoglobin 26.2 Mean Corpuscular Hemoglobin Concent 33.0 Red Cell Distribution Width 24.2 Platelet Count 522 Mean Platelet Volume 7.3 Neutrophils (%) (Auto) 74.6 Lymphocytes (%) (Auto) 15.2 Monocytes (%) (Auto) 9.2 Eosinophils (%) (Auto) 0.4 Basophils (%) (Auto) 0.6 Neutrophils # (Auto) 11.4 Lymphocytes # (Auto) 2.3 Monocytes # (Auto) 1.4 Eosinophils # (Auto) 0.1 Basophils # (Auto) 0.1 CBC Comment AUTO DIFF Differential Total Cells Counted 100 Neutrophils % (Manual) 78 Band Neutrophils % 8 Lymphocytes % 9 Monocytes % 5 Neutrophils # (Manual) 13.1 Nucleated Red Blood Cells 8 Differential Comment FINAL DIFF MANUAL Platelet Estimate HIGH Platelet Morphology Comment NORMAL Polychromasia 2.0 Activated Partial Thromboplast Time 37.8 Blood Urea Nitrogen 32 Creatinine 1.39 Random Glucose 99 Total Protein 6.2 Albumin 2.1 Calcium Level 8.0 Alkaline Phosphatase 62 Aspartate Amino Transf (AST/SGOT) 188 Alanine Aminotransferase (ALT/SGPT) 115 Total Bilirubin 1.3 Sodium Level 136 Potassium Level 3.1 Chloride Level 94 Carbon Dioxide Level 35.4 Anion Gap 7 Estimat Glomerular Filtration Rate 64 Date/Time Source Procedure Growth Status 11/10/17 14:35 Blood Peripheral Aerobic Blood Culture - Preliminary NO GROWTH IN 4 DAYS Resulted 11/10/17 14:35 Blood Peripheral Anaerobic Blood Culture - Preliminary NO GROWTH IN 4 DAYS Resulted 11/11/17 08:30 Sputum Endotracheal Gram Stain - Final Complete 11/11/17 08:30 Sputum Endotracheal Sputum Culture - Final HEAVY GROWTH NORMAL RESPIRATORY BAILEY Complete 11/10/17 01:10 Urine Catheterized Urine Urine Culture - Final NO GROWTH IN 48 HOURS. Complete Imaging Last Impressions Chest X-Ray 11/14/17 0600 Signed Impressions: Service Date/Time: Tuesday, November 14, 2017 04:01 - CONCLUSION: Diffuse increased density seen throughout the chest bilaterally likely related to bilateral effusions with some superimposed potential edema. The heart size is enlarged. Miah Romero MD Abdomen/Pelvis CT 11/11/17 0000 Signed Impressions: Service Date/Time: Saturday, November 11, 2017 13:30 - CONCLUSION: 1. Mildly dilated loops of small bowel proximally with distal decompression most characteristic of a partial small bowel obstruction. No free air. Trace free fluid. Mild anasarca. 2. Small bilateral pleural effusions with dependent consolidation in both lungs. 3. NG and mildly distended stomach. Ward Sibley MD Abdomen X-Ray 11/11/17 0000 Signed Impressions: Service Date/Time: Saturday, November 11, 2017 10:09 - CONCLUSION: 1. Mild ileus. NG tube in the stomach. Ward Sibley MD Head CT 11/10/17 0022 Signed Impressions: Service Date/Time: Friday, November 10, 2017 00:22 - CONCLUSION: 1. Interval development of right highest convexity parietal hypodensity which could represent a enlarged sulcus. Since this is a new finding since 10/30/17, a consider further characterization with MRI to evaluate for subacute infarction. 2. Stable right mid and low parietal encephalomalacia. Joaquin Bravo MD Physical Exam HEENT: atraumatic; no jaundice. intubated CHEST: Diminished breath sounds CARDIAC: Atrial fibrillation heart rate 97, irregular ABDOMEN: Soft,protuberant, no hepatosplenomegaly; bowel sounds faint EXTREMITIES: No clubbing, cyanosis, or edema. SKIN: Pale; no rash; no jaundice. 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 had EGD 10/27/17 found clean based ulcer, portal gastropathy, no visible active bleeding but blood seen in oropharynx. s/p EGD 11/10/17 found class C esophagitis, ulcer gastric antrum. Currently the patient cannot tolerate any type of colonoscopy secondary to anesthesia and or tolerate prep. - abd distention -continues - anemia - hemoglobin currently 8 appears to be stable with no active bleed Patient continues to be critical, being managed in the intensive care, full code full aggressive care LFTs decreasing today 188/115, mild increase in bilirubin 1.3 PLAN - Nothing by mouth for now - continue Reglan 10 mg IV every 8 - monitor HH and labs - ppi IV drip - transfuse as needed - EGD 3 months if warranted and patient recovers - supportive care pt seen by myself and Dr Yates, this note is written on his behalf (Yumiko Lopez) Plan Patient was seen and examined, agree with above-noted, no significant new problem he is off dopamine, on BiPAP with possible extubation if he tolerated (Param Yates MD) Yumiko Lopez Nov 14, 2017 13:08 Param Yates MD Nov 14, 2017 15:43
[2017-11-14] MEDS: HEPARIN-D5W 25,000 U/250 ML 250 ML IV PRN (19:32)
[2017-11-14] MEDS: ATORVASTATIN 80 MG TAB PO SCH (20:37)
[2017-11-15] VITALS (19 sets, daily range): BP systolic 104–132; BP diastolic 64–91; PULSE 75–100; RESP 16; TEMP 98–98.9; O2SAT 92–100
[2017-11-15] MEDS: PIPERACIL-TAZO 3.375 GM PREMIX 50 ML IV SCH ×3 (01:34→17:36)
[2017-11-15] MEDS: METOCLOPRAMIDE HCL 10 MG/2 ML VIAL IV PUSH SCH ×3 (05:02→22:00)
[2017-11-15] MEDS: ALBUMIN 25% INJ 100 ML IV SCH ×2 (05:02→17:36)
[2017-11-15 05:04] LABS: HEMATOCRIT 22.9 % (39.0-51.0); HEMOGLOBIN 7.4 GM/DL (13.0-17.0); MEAN CORPUSCULAR HEMOGLOBIN 25.9 PG (27.0-34.0); MEAN CORPUSCULAR HGB CONC 32.4 % (32.0-36.0); MEAN PLATELET VOLUME 7.1 FL (7.0-11.0); PLATELET COUNT 515 TH/MM3 (150-450); RED BLOOD COUNT 2.86 MIL/MM3 (4.50-5.90); RED CELL DISTRIBUTION WIDTH 24.9 % (11.6-17.2); WHITE BLOOD COUNT 15.3 TH/MM3 (4.0-11.0)
[2017-11-15 05:48] LABS: BICARBONATE 32.4 MEQ/L (21.0-32.0); CALCIUM 8.3 MG/DL (8.5-10.1); CREATININE 1.49 MG/DL (0.60-1.30)
[2017-11-15] MEDS: PANTOPRAZOLE INJ 80 MG in SODIUM CHLORIDE 0.9% INJ 100 ML IV SCH ×2 (05:55→16:15)
[2017-11-15] MEDS: INSULIN NovoLIN REGULAR SUPPLEMENTAL SCALE SQ SCH ×4 (08:00→21:00)
[2017-11-15] MEDS: CHLORHEXIDINE 0.12% (ORAL KIT) 15 ML CUP MT SCH ×2 (08:00→20:00)
[2017-11-15] MEDS: CLOPIDOGREL 75 MG TAB PO SCH (08:20)
[2017-11-15] MEDS: SODIUM CHLORIDE 0.9% FLUSH 10 ML FLUSH IV FLUSH SCH ×2 (08:20→21:06)
[2017-11-15] MEDS: FUROSEMIDE 40 MG/4 ML VIAL IV PUSH SCH ×2 (08:20→17:36)
[2017-11-15] MEDS: ASPIRIN 81 MG CHEW TAB CHEW SCH (08:20)
[2017-11-15] MEDS: DOCUSATE SODIUM 50 MG/SENNA 8.6 MG TAB PO SCH ×2 (08:21→21:06)
[2017-11-15] MEDS: ARTIFICIAL TEARS OPTH SOLN 15 ML BTL EACH EYE SCH ×3 (08:21→17:38)
[2017-11-15] MEDS: POTASSIUM CHLORIDE 20 MEQ PWD PACKET PO SCH ×2 (08:21→21:00)
--- NOTE | 2017-11-15 15:33 | HHI.GIFU ---
Subjective Remarks No abdominal pain O2 per nasal cannula Love catheter shows orange clear urine Hemoglobin 7.4, decreased from 8. NG tube clamped (Yumiko Lopez) Objective Vitals I&O Vital Signs Date Time Temp Pulse Resp B/P (MAP) Pulse Ox O2 Delivery O2 Flow Rate FiO2 11/15/17 14:00 83 11/15/17 13:00 87 11/15/17 12:00 98.0 86 115/70 (85) 96 108/73 (85) 11/15/17 12:00 86 11/15/17 11:00 100 11/15/17 10:00 90 11/15/17 09:00 80 11/15/17 08:00 98.0 96 104/65 (78) 97 114/64 (81) 11/15/17 08:00 96 104/65 (78) 114/64 (81) 11/15/17 08:00 96 11/15/17 07:40 93 Nasal Cannula 4.00 11/15/17 07:00 93 11/15/17 07:00 99 Nasal Cannula 4.00 11/15/17 06:00 84 11/15/17 04:00 98.2 85 16 117/66 (83) 98 132/75 (94) 11/15/17 04:00 85 11/15/17 04:00 85 117/66 (83) 132/75 (94) 11/15/17 02:00 75 11/15/17 00:00 92 11/15/17 00:00 98.9 92 111/67 (82) 95 131/73 (92) 11/15/17 00:00 92 111/67 (82) 131/73 (92) 11/14/17 22:00 73 11/14/17 20:00 76 11/14/17 20:00 76 113/56 (75) 127/72 (90) 11/14/17 20:00 98.3 76 18 113/56 (75) 99 127/72 (90) 11/14/17 19:11 96 Nasal Cannula 3.00 11/14/17 19:00 99 Nasal Cannula 4.00 11/14/17 18:00 68 11/14/17 18:00 68 104/64 (77) 100 11/14/17 17:00 75 97/58 (71) 96 11/14/17 16:00 99.3 92 109/71 (84) 99 115/72 (86) 11/14/17 16:00 92 11/14/17 16:00 92 109/71 (84) 115/72 (86) 11/14/17 15:40 98 Nasal Cannula 4 36 11/14/17 15:37 100 Nasal Cannula 4.00 I/O 11/14/17 11/14/17 11/14/17 11/15/17 11/15/17 11/15/17 07:00 15:00 23:00 07:00 15:00 23:00 Intake Total 100 ml 689 ml 911.3 ml 150 ml Output Total 500 ml 1450 ml 650 ml Balance -400 ml 689 ml -538.7 ml -500 ml IV Total 100 ml 689 ml 911.3 ml 150 ml Output Urine Total 500 ml 1450 ml 650 ml # Bowel Movements 1 2 1 Laboratory Laboratory Tests Test 11/14/17 21:00 11/15/17 04:30 Activated Partial Thromboplast Time 36.4 41.8 White Blood Count 15.3 Red Blood Count 2.86 Hemoglobin 7.4 Hematocrit 22.9 Mean Corpuscular Volume 80.0 Mean Corpuscular Hemoglobin 25.9 Mean Corpuscular Hemoglobin Concent 32.4 Red Cell Distribution Width 24.9 Platelet Count 515 Mean Platelet Volume 7.1 Blood Urea Nitrogen 32 Creatinine 1.49 Random Glucose 87 Calcium Level 8.3 Sodium Level 139 Potassium Level 3.4 Chloride Level 97 Carbon Dioxide Level 32.4 Anion Gap 10 Estimat Glomerular Filtration Rate 59 Date/Time Source Procedure Growth Status 11/10/17 14:35 Blood Peripheral Aerobic Blood Culture - Final NO GROWTH IN 5 DAYS Complete 11/10/17 14:35 Blood Peripheral Anaerobic Blood Culture - Final NO GROWTH IN 5 DAYS Complete 11/11/17 08:30 Sputum Endotracheal Gram Stain - Final Complete 11/11/17 08:30 Sputum Endotracheal Sputum Culture - Final HEAVY GROWTH NORMAL RESPIRATORY BAILEY Complete 11/10/17 01:10 Urine Catheterized Urine Urine Culture - Final NO GROWTH IN 48 HOURS. Complete Imaging Last Impressions Chest X-Ray 11/14/17 0600 Signed Impressions: Service Date/Time: Tuesday, November 14, 2017 04:01 - CONCLUSION: Diffuse increased density seen throughout the chest bilaterally likely related to bilateral effusions with some superimposed potential edema. The heart size is enlarged. Miah Romero MD Abdomen/Pelvis CT 11/11/17 0000 Signed Impressions: Service Date/Time: Saturday, November 11, 2017 13:30 - CONCLUSION: 1. Mildly dilated loops of small bowel proximally with distal decompression most characteristic of a partial small bowel obstruction. No free air. Trace free fluid. Mild anasarca. 2. Small bilateral pleural effusions with dependent consolidation in both lungs. 3. NG and mildly distended stomach. Ward Sibley MD Abdomen X-Ray 11/11/17 0000 Signed Impressions: Service Date/Time: Saturday, November 11, 2017 10:09 - CONCLUSION: 1. Mild ileus. NG tube in the stomach. Ward Sibley MD Head CT 11/10/17 0022 Signed Impressions: Service Date/Time: Friday, November 10, 2017 00:22 - CONCLUSION: 1. Interval development of right highest convexity parietal hypodensity which could represent a enlarged sulcus. Since this is a new finding since 10/30/17, a consider further characterization with MRI to evaluate for subacute infarction. 2. Stable right mid and low parietal encephalomalacia. Joaquin Bravo MD Physical Exam HEENT: atraumatic; no jaundice. intubated CHEST: Diminished breath sounds CARDIAC: Atrial fibrillation heart rate 97, irregular ABDOMEN: Taut, nontender no hepatosplenomegaly; bowel sounds positive today more so upper and lower, NGT clamped EXTREMITIES: No clubbing, cyanosis, or edema. SKIN: Pale; no rash; no jaundice. 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 had EGD 10/27/17 found clean based ulcer, portal gastropathy, no visible active bleeding but blood seen in oropharynx. s/p EGD 11/10/17 found class C esophagitis, ulcer gastric antrum. Consider colonoscopy in the future since patient is off ventilator and progressing. - abd taut, bowel sounds more active today. NG T clamped - anemia - hemoglobin currently 7.4 which is decreased from 8 over the past 24 hours Weaned off ventilator to O2 nasal cannula , full code full aggressive care LFTs decreasing today 188/115, mild increase in bilirubin 1.3 PLAN - Repeat abdominal x-ray/KUB for resolution of ileus. If progress and may DC NG tube, and trial clear liquids very slowly - continue Reglan 10 mg IV every 8 - monitor HH and labs, recheck CBC in the morning -Change Protonix drip to IV Protonix -Consider transfuse as needed - EGD 3 months - supportive care, patient is transitioning out of intensive care, hospice consult has been written per critical care attending (Yumiko Lopez) Plan Patient was seen and examined, agree with above-noted, he was extubated is tolerating some diet, deny any abdominal pain he is going home, continued PPI, follow up as needed from GI as an inpatient or as an outpatient in 3 months for possible upper endoscopy (Param Yates MD) Yumiko Lopez Nov 15, 2017 15:33 Param Yates MD Nov 15, 2017 20:26
--- NOTE | 2017-11-15 15:58 | HHI.CCPN ---
Subjective Remarks/Hospital Course 57 year old male presents with a history of altered mentation that it been present for approximately 2 hours prior to ambulance services arrival according to the patient's significant other. The patient on arrival was noted to be altered, repeatedly saying that he "fell out". The patient on ambulance services arrival was noted to have a systolic blood pressure of 53. He was admitted here October 26, 2017 with a GI bleed and diagnosis of gastric ulcer per endoscopy findings ( 10/27/[address] Strickland found clean based ulcer, portal gastropathy). At that time he left AGAINST MEDICAL ADVICE. He also has a history of prior cerebrovascular accident with residual left-sided weakness and hypertension, as well as ischemic cardiomyopathy with ejection fraction of 30%. He underwent cardiac catheterization in August 2017 with a placement of bare -metal stent to the ostial proximal right coronary artery. An EKG was reportedly done prior to arrival that showed a right bundle branch block. There also appeared to be ST segment elevation in inferior leads. An EKG was repeated on arrival and the patient was a STEMI alert due to ST segment elevation in 2, 3, and aVF. In the emergency department he was altered unable to provide any meaningful history and was intubated by ED attending for an airway protection. His hemoglobin was found to be 5.4 and emergent release blood transfusion was initiated. The case was discussed with the distillery miller on-call, however due to significant anemia and hemodynamic instability the patient is not a candidate for emergent cardiac catheterization. Also his ST changes are most likely due to severe anemia. 11/10/17: I was called emergently to the bedside as patient became bradycardic to 30's and no recordable blood pressure.. Levophed was increased to 20 mcg/m and BP 70/40, epinephrine was given with systolic blood pressure now about 120s. Repeat EKG confirms ST elevations in the inferior leads with reciprocal changes. Troponin elevated at 2. I discussed with Dr. Sibley and Dr. Pulliam. Plan for emergent EGD, as Dr. Sibley wants clearance for antiplatelet therapy. If GI clears proceed with cath 11/11/17: Remains critically ill, had 1 min of Torsade overnight, self converted to NSR, received 150 mg Amio IV. Remains on Dopamine 6 mcg/kg/min, Levophed 2 mcg/min and vasopressin. EGD 1/22 clean based ulcer, no active bleed. Hb 10, without evidence of active bleed. Currently on Aspirin, Plavix and IV Heparin. Troponin peaked at 34. Discussed with Dr. Sibley. He will see today and evaluate for cath 11/12: No ventricular arrhythmias reported overnight. Remains on dopamine at 6 g per KG per minute and vasopressin at 0.04 international units, GI not planning on colonoscopy due to no evidence of active lower GI bleed. We'll discuss with Dr. Sibley about plan for cardiac catheterization-his notes recommending medical management. Urine output 750 mL in 24 hours 11/13: Remains intubated critically ill. Remains on 6 g per KG per minute of dopamine, and vasopressin.. Will wean to DC vasopressin. Chest x-ray shows increasing bilateral effusions. Start diuresis with IV Lasix. Hemoglobin trended down slightly-per Dr. Sibley. Continue medical management with DAPT and IV heparin. Ileus clinically improving with patient having bowel movements now 11/14: remains intubated. remains on dopamine and with a CI of 2.0 on flowtrack, suggestive of ongoing cardiogenic shock. remains in afib. hgb 8.9-->8.0, but per GI, still manage conservatively at this point. still appears volume overloaded and CXR with significant pulmonary edema. 11/15: extubated yesterday. patient clearly states DNR/DNI. still no procedural interventions possible. patient remained extubated on 3L nc. patient yesterday requested hospice. today patient too somnolent to consent to hospice. Son and patient's healthcare decision maker discussed and now want to change goals to aggressive, despite patient's clear wishes yesterday. Objective Vital Signs Date Time Temp Pulse Resp B/P (MAP) Pulse Ox O2 Delivery O2 Flow Rate FiO2 11/15/17 14:00 83 11/15/17 12:00 98.0 115/70 (85) 96 108/73 (85) 11/15/17 07:40 Nasal Cannula 4.00 11/15/17 04:00 16 11/14/17 15:40 36 Intake and Output 11/15/17 11/15/17 11/15/17 07:59 15:59 23:59 Intake Total 150 ml Output Total 650 ml Balance -500 ml Result Diagram: 11/15/17 0430 11/15/17 0430 Imaging Last Impressions Chest X-Ray 11/14/17 0600 Signed Impressions: Service Date/Time: Tuesday, November 14, 2017 04:01 - CONCLUSION: Diffuse increased density seen throughout the chest bilaterally likely related to bilateral effusions with some superimposed potential edema. The heart size is enlarged. Miah Romero MD Abdomen/Pelvis CT 11/11/17 0000 Signed Impressions: Service Date/Time: Saturday, November 11, 2017 13:30 - CONCLUSION: 1. Mildly dilated loops of small bowel proximally with distal decompression most characteristic of a partial small bowel obstruction. No free air. Trace free fluid. Mild anasarca. 2. Small bilateral pleural effusions with dependent consolidation in both lungs. 3. NG and mildly distended stomach. Ward Sibley MD Abdomen X-Ray 11/11/17 0000 Signed Impressions: Service Date/Time: Saturday, November 11, 2017 10:09 - CONCLUSION: 1. Mild ileus. NG tube in the stomach. Ward Sibley MD Head CT 11/10/17 0022 Signed Impressions: Service Date/Time: Friday, November 10, 2017 00:22 - CONCLUSION: 1. Interval development of right highest convexity parietal hypodensity which could represent a enlarged sulcus. Since this is a new finding since 10/30/17, a consider further characterization with MRI to evaluate for subacute infarction. 2. Stable right mid and low parietal encephalomalacia. Joaquin Bravo MD Objective Remarks GENERAL: Obese middle-aged male, lying in bed HEENT: Normocephalic. Atraumatic. Pupils equal, round, reactive, conjugate. NECK: Trachea is midline. No JVD CHEST: Equal chest rise. Mildly tachypneic. nc o2 CARDIOVASCULAR: HR irregular, 90/mt. ABDOMEN: Soft, nontender, distended. No guarding. MUSCULOSKELETAL: Pulses 2+. 2+ peripheral edema NEUROLOGICAL: RASS -1/-2. follows commands intermittently. somnolent but arousable. A/P Assessment and Plan Assessment: 57yM with baseline NYHA Class IV CHF symptoms likely secondary to combination of systolic and diastolic heart failure who originally presented 10/26 with shortness of breath, shock secondary to severe anemia and active GI bleed secondary to peptic ulcer. Discussions at that time were that the patient wanted to be DNR/DNI which is appropriate given his NYHA classification and baseline severe cardiac symtpoms. At that point he left AMA on 11/03 and re- presented on 11/05 with RCA STEMI and recurrent active GI bleeding. Given the clinical scenario and that he was off DAPT for a week in the setting of GI bleed , but with recent BMS to RCA in 08/2017, likely the RCA STEMI could reflect in- stent thrombosis secondary to necessary holding of anticoagulation from recurrent active GI bleeding. Clinically, now he remains in cardiogenic shock on dopamine with cardiac index < 2.5. Volume overload likely more secondary to cardiac dysfunction and possibly RV dysfunction secondary to RCA infarct, but clinically causing pulmonary edema and secondary end-organ damage. will need to pursue active diuresis despite GI bleed and ongoing organ failure. Very difficult position to be in-- cardiology feels patient is too unstable with risk of bleeding to intervene on RCA infarct, and given cardiac instability, GI treating any additional bleeding conservatively at this point. Very poor long- term prognosis. Patient clearly stated yesterday after extubation that he was interested in hospice and wanted to be DNR/DNI. Today, the patient is unfortunately unable to clearly express his ongoing wishes and signed consents for hospice. The patient's medical decision-maker talked with the son who has previously wanted aggressive care, and they together now do not want hospice involved at this time and want to pursue ongoing aggressive care. As explained prior, we really do not have any more aggressive options to offer due to his multiple competing acute medical problems. The patient remains DNR/DNI per his expressed wishes both on prior admission and again yesterday which is confirmed with the patient himself when he was capacitated. I really do not have any other therapies to offer him from an intensive care standpoint. I agree with ongoing diuresis. Without intervention for his additional inferior STEMI and his GI bleed, he is likely from this series of acute medical problems. He is remained on nasal cannula overnight and continues to be stable on this today. We will transfer to stepdown unit and consult Hospitalist services for continued management. Neuro: Metabolic encephalopathy more somnolent today. hold sedating meds. - Daily sedation vacation as tolerated - CT head negative CVS: Acute coronary syndrome/Inferior STEMI Atrial fibrillation Cardiogenic shock VTAC/Torsade - resolved. - ST elevations in inferior leads, troponin [address] elevation DC: very possibly in-stent thrombosis from BMS to RCA in 08/2017 given his recent holding of DAPT for GI bleed - Continue Aspirin, Plavix and heparin gtt. Trop peaked at 34 - Cardiology -discussed with Dr. Sibley multiple times. He is recommending medical management now with GI bleed on presentation and anemia. will continue daily discussions. if not a candidate for coronary intervention, given baseline NYHA Class IV symptoms, would be more palliative appropriate. - continue dopamine. titrate for map > 65 mmHg and attempt to keep CI close to 2.5. may be difficult given baseline CHF. - Cannot use beta ludy or SILVA I due to shoc. Cannot use statin due high liver enz - lasix to 80mg iv with albumin. goal net -2L/24h. - Blood transfusions to keep Hb >8 - d/c flotrack. - Echo 11/12 LVEF 45% RESP: Acute hypoxic Respiratory failure - improving. LLL infiltrate Bilateral pleural effusions Acute pulmonary edema - aggressive pulmonary toilet. - wean o2 by nc for goal spo2 > 90% - Vent bundle, DuoNeb -- Empiric Zosyn, sputum culture negative to date: planned stop date 11/17 (7 day empiric course) GI/HEME: Acute Gastrointestinal bleed EGD 10/27/17 clean based ulcer, portal gastropathy Ileus - Nothing by mouth except meds. Having bowel movements - EGD -11/10 clean based gastric ulcer without active bleed - Protonix IV GTT. DCd octreotide infusion 11/11 - Coloscopy postponed indefinitely for GI - Blood and blood products as needed - CT abd/pel 11/11: Ileus. Reglan 10 mg IV every 8 hours : Acute on chronic kidney disease- resolving. Metabolic acidosis- resolved. - IV Lasix as above - ABG as needed Endo: Hyperglycemia - Insulin sliding scale ID Probable LLL pneumonia - Empiric Zosyn, sputum blood cx neg to date: stop date 11/17 (7 day empiric course) DVT GI prophylaxis - Teds SCDs - IV Heparin - Protonix gtt Dispo: transfer out of ICU. per the patient's wishes, remains DNR. Prieto Mackay MD Nov 15, 2017 15:58
--- NOTE | 2017-11-15 16:40 | RADRPT ---
EXAM DATE/TIME: 11/15/2017 15:47 [facility] COMPARISON: ABDOMEN KUB ONLY, November 11, 2017, 10:09. INDICATIONS : Ileus. MEDICAL HISTORY : Diabetes mellitus type II. Hypertension Hypercholesterolemia. Myocardial infarction. Cerebrovascular disease., Stroke SURGICAL HISTORY : None. ENCOUNTER: Subsequent ACUITY: 2 weeks PAIN SCORE: 0/10 LOCATION: Bilateral Abdomen. FINDINGS: 2 AP supine views of the abdomen. Scattered gas in nondilated colon. Nasogastric tube tip is in the m idesophagus. No abnormal abdominal calcification. CONCLUSION: Bowel gas pattern within normal limits. Nasogastric tube tip is in the midesophagus. Edward Terry MD on November 15, 2017 at 16:37 Board Certified Radiologist. This report was verified electronically.
[2017-11-15] MEDS: HEPARIN-D5W 25,000 U/250 ML 250 ML IV PRN (17:56)
[2017-11-15] MEDS: ATORVASTATIN 80 MG TAB PO SCH (21:06)
[2017-11-16] VITALS (20 sets, daily range): BP systolic 125–153; BP diastolic 66–90; PULSE 82–99; TEMP 98.3–99.9; O2SAT 97–100
[2017-11-16] MEDS: PIPERACIL-TAZO 3.375 GM PREMIX 50 ML IV SCH ×2 (00:25→08:07)
[2017-11-16] MEDS: PANTOPRAZOLE INJ 80 MG in SODIUM CHLORIDE 0.9% INJ 100 ML IV SCH ×2 (01:51→12:31)
[2017-11-16] MEDS: CHLORHEXIDINE GLUCONATE 2 % 1 PACK (2 CLOTHS) TOP SCH (04:00)
[2017-11-16] MEDS: METOCLOPRAMIDE HCL 10 MG/2 ML VIAL IV PUSH SCH (05:31)
[2017-11-16] MEDS: ALBUMIN 25% INJ 100 ML IV SCH (05:32)
[2017-11-16 05:59] LABS: HEMATOCRIT 23.7 % (39.0-51.0); HEMOGLOBIN 7.6 GM/DL (13.0-17.0); MEAN CORPUSCULAR HEMOGLOBIN 25.9 PG (27.0-34.0); MEAN PLATELET VOLUME 7.2 FL (7.0-11.0); PLATELET COUNT 532 TH/MM3 (150-450); RED BLOOD COUNT 2.93 MIL/MM3 (4.50-5.90); RED CELL DISTRIBUTION WIDTH 24.3 % (11.6-17.2)
[2017-11-16 06:17] LABS: BICARBONATE 33.2 MEQ/L (21.0-32.0); CALCIUM 8.5 MG/DL (8.5-10.1); CREATININE 1.38 MG/DL (0.60-1.30)
[2017-11-16] MEDS: CHLORHEXIDINE 0.12% (ORAL KIT) 15 ML CUP MT SCH (08:00)
[2017-11-16] MEDS: INSULIN NovoLIN REGULAR SUPPLEMENTAL SCALE SQ SCH ×2 (08:00→12:00)
[2017-11-16] MEDS: FUROSEMIDE 40 MG/4 ML VIAL IV PUSH SCH (08:06)
[2017-11-16] MEDS: DOCUSATE SODIUM 50 MG/SENNA 8.6 MG TAB PO SCH (08:06)
[2017-11-16] MEDS: ASPIRIN 81 MG CHEW TAB CHEW SCH (08:06)
[2017-11-16] MEDS: CLOPIDOGREL 75 MG TAB PO SCH (08:06)
[2017-11-16] MEDS: SODIUM CHLORIDE 0.9% FLUSH 10 ML FLUSH IV FLUSH SCH (08:07)
[2017-11-16] MEDS: POTASSIUM CHLORIDE 20 MEQ PWD PACKET PO SCH (08:07)
[2017-11-16] MEDS: ARTIFICIAL TEARS OPTH SOLN 15 ML BTL EACH EYE SCH ×2 (08:08→13:00)
[2017-11-16] MEDS: HEPARIN-D5W 25,000 U/250 ML 250 ML IV PRN (13:32)
--- NOTE | 2017-11-16 13:50 | HHI.CCPN ---
Subjective Remarks/Hospital Course 57 year old male presents with a history of altered mentation that it been present for approximately 2 hours prior to ambulance services arrival according to the patient's significant other. The patient on arrival was noted to be altered, repeatedly saying that he "fell out". The patient on ambulance services arrival was noted to have a systolic blood pressure of 53. He was admitted here October 26, 2017 with a GI bleed and diagnosis of gastric ulcer per endoscopy findings ( 10/27/[address] Strickland found clean based ulcer, portal gastropathy). At that time he left AGAINST MEDICAL ADVICE. He also has a history of prior cerebrovascular accident with residual left-sided weakness and hypertension, as well as ischemic cardiomyopathy with ejection fraction of 30%. He underwent cardiac catheterization in August 2017 with a placement of bare -metal stent to the ostial proximal right coronary artery. An EKG was reportedly done prior to arrival that showed a right bundle branch block. There also appeared to be ST segment elevation in inferior leads. An EKG was repeated on arrival and the patient was a STEMI alert due to ST segment elevation in 2, 3, and aVF. In the emergency department he was altered unable to provide any meaningful history and was intubated by ED attending for an airway protection. His hemoglobin was found to be 5.4 and emergent release blood transfusion was initiated. The case was discussed with the foreign food specialty cook on-call, however due to significant anemia and hemodynamic instability the patient is not a candidate for emergent cardiac catheterization. Also his ST changes are most likely due to severe anemia. 11/10/17: I was called emergently to the bedside as patient became bradycardic to 30's and no recordable blood pressure.. Levophed was increased to 20 mcg/m and BP 70/40, epinephrine was given with systolic blood pressure now about 120s. Repeat EKG confirms ST elevations in the inferior leads with reciprocal changes. Troponin elevated at 2. I discussed with Dr. Sibley and Dr. Pulliam. Plan for emergent EGD, as Dr. Sibley wants clearance for antiplatelet therapy. If GI clears proceed with cath 11/11/17: Remains critically ill, had 1 min of Torsade overnight, self converted to NSR, received 150 mg Amio IV. Remains on Dopamine 6 mcg/kg/min, Levophed 2 mcg/min and vasopressin. EGD 1/22 clean based ulcer, no active bleed. Hb 10, without evidence of active bleed. Currently on Aspirin, Plavix and IV Heparin. Troponin peaked at 34. Discussed with Dr. Sibley. He will see today and evaluate for cath 11/12: No ventricular arrhythmias reported overnight. Remains on dopamine at 6 g per KG per minute and vasopressin at 0.04 international units, GI not planning on colonoscopy due to no evidence of active lower GI bleed. We'll discuss with Dr. Sibley about plan for cardiac catheterization-his notes recommending medical management. Urine output 750 mL in 24 hours 11/13: Remains intubated critically ill. Remains on 6 g per KG per minute of dopamine, and vasopressin.. Will wean to DC vasopressin. Chest x-ray shows increasing bilateral effusions. Start diuresis with IV Lasix. Hemoglobin trended down slightly-per Dr. Sibley. Continue medical management with DAPT and IV heparin. Ileus clinically improving with patient having bowel movements now 11/14: remains intubated. remains on dopamine and with a CI of 2.0 on flowtrack, suggestive of ongoing cardiogenic shock. remains in afib. hgb 8.9-->8.0, but per GI, still manage conservatively at this point. still appears volume overloaded and CXR with significant pulmonary edema. 11/15: extubated yesterday. patient clearly states DNR/DNI. still no procedural interventions possible. patient remained extubated on 3L nc. patient yesterday requested hospice. today patient too somnolent to consent to hospice. Son and patient's healthcare decision maker discussed and now want to change goals to aggressive, despite patient's clear wishes yesterday. 11/16: had full discussion with all family members: everyone now agrees per patient's expressed wishes (expressed again today) that patient would like hospice services. discussed with hospice. Objective Vital Signs Date Time Temp Pulse Resp B/P (MAP) Pulse Ox O2 Delivery O2 Flow Rate FiO2 11/16/17 12:00 90 11/16/17 12:00 99.5 153/90 (111) 100 143/82 (102) 11/16/17 07:22 Nasal Cannula 3.00 11/15/17 04:00 16 11/14/17 15:40 36 Intake and Output 1/28/18 1/28/18 1/29/18 08:00 16:00 00:00 Intake Total 300 ml Output Total 700 ml Balance -400 ml Result Diagram: 11/16/170 11/16/17 0410 Imaging Last Impressions Chest X-Ray 11/14/17 0600 Signed Impressions: Service Date/Time: Tuesday, November 14, 2017 04:01 - CONCLUSION: Diffuse increased density seen throughout the chest bilaterally likely related to bilateral effusions with some superimposed potential edema. The heart size is enlarged. Miah Romero MD Abdomen/Pelvis CT 11/11/17 0000 Signed Impressions: Service Date/Time: Saturday, November 11, 2017 13:30 - CONCLUSION: 1. Mildly dilated loops of small bowel proximally with distal decompression most characteristic of a partial small bowel obstruction. No free air. Trace free fluid. Mild anasarca. 2. Small bilateral pleural effusions with dependent consolidation in both lungs. 3. NG and mildly distended stomach. Ward Sibley MD Abdomen X-Ray 11/11/17 0000 Signed Impressions: Service Date/Time: Saturday, November 11, 2017 10:09 - CONCLUSION: 1. Mild ileus. NG tube in the stomach. Ward Sibley MD Head CT 11/10/17 0022 Signed Impressions: Service Date/Time: Friday, November 10, 2017 00:22 - CONCLUSION: 1. Interval development of right highest convexity parietal hypodensity which could represent a enlarged sulcus. Since this is a new finding since 10/30/17, a consider further characterization with MRI to evaluate for subacute infarction. 2. Stable right mid and low parietal encephalomalacia. Joaquin Bravo MD Objective Remarks GENERAL: Obese middle-aged male, lying in bed HEENT: Normocephalic. Atraumatic. Pupils equal, round, reactive, conjugate. NECK: Trachea is midline. No JVD CHEST: Equal chest rise. Mildly tachypneic. nc o2 CARDIOVASCULAR: HR irregular, 90/mt. ABDOMEN: Soft, nontender, distended. No guarding. MUSCULOSKELETAL: Pulses 2+. 2+ peripheral edema NEUROLOGICAL: RASS -1/-2. follows commands intermittently. somnolent but arousable. A/P Assessment and Plan Assessment: 57yM with baseline NYHA Class IV CHF symptoms likely secondary to combination of systolic and diastolic heart failure who originally presented 10/26 with shortness of breath, shock secondary to severe anemia and active GI bleed secondary to peptic ulcer. Discussions at that time were that the patient wanted to be DNR/DNI which is appropriate given his NYHA classification and baseline severe cardiac symtpoms. At that point he left AMA on 11/03 and re- presented on 11/05 with RCA STEMI and recurrent active GI bleeding. Given the clinical scenario and that he was off DAPT for a week in the setting of GI bleed , but with recent BMS to RCA in 08/2017, likely the RCA STEMI could reflect in- stent thrombosis secondary to necessary holding of anticoagulation from recurrent active GI bleeding. Clinically, now he remains in cardiogenic shock on dopamine with cardiac index < 2.5. Volume overload likely more secondary to cardiac dysfunction and possibly RV dysfunction secondary to RCA infarct, but clinically causing pulmonary edema and secondary end-organ damage. will need to pursue active diuresis despite GI bleed and ongoing organ failure. Very difficult position to be in-- cardiology feels patient is too unstable with risk of bleeding to intervene on RCA infarct, and given cardiac instability, GI treating any additional bleeding conservatively at this point. Very poor long- term prognosis. Patient clearly stated yesterday after extubation that he was interested in hospice and wanted to be DNR/DNI. Today, the patient is unfortunately unable to clearly express his ongoing wishes and signed consents for hospice. The patient's medical decision-maker talked with the son who has previously wanted aggressive care, and they together now do not want hospice involved at this time and want to pursue ongoing aggressive care. As explained prior, we really do not have any more aggressive options to offer due to his multiple competing acute medical problems. The patient remains DNR/DNI per his expressed wishes both on prior admission and again yesterday which is confirmed with the patient himself when he was capacitated. I really do not have any other therapies to offer him from an intensive care standpoint. I agree with ongoing diuresis. Without intervention for his additional inferior STEMI and his GI bleed, he is likely from this series of acute medical problems. to hospice today. Neuro: Metabolic encephalopathy more somnolent today. hold sedating meds. - Daily sedation vacation as tolerated - CT head negative CVS: Acute coronary syndrome/Inferior STEMI Atrial fibrillation Cardiogenic shock VTAC/Torsade - resolved. - ST elevations in inferior leads, troponin [address] elevation PA: very possibly in-stent thrombosis from BMS to RCA in 08/2017 given his recent holding of DAPT for GI bleed - Continue Aspirin, Plavix and heparin gtt. Trop peaked at 34 - Cardiology -discussed with Dr. Sibley multiple times. He is recommending medical management now with GI bleed on presentation and anemia. will continue daily discussions. if not a candidate for coronary intervention, given baseline NYHA Class IV symptoms, would be more palliative appropriate. - continue dopamine. titrate for map > 65 mmHg and attempt to keep CI close to 2.5. may be difficult given baseline CHF. - Cannot use beta ludy or SILVA I due to shoc. Cannot use statin due high liver enz - lasix to 80mg iv with albumin. goal net -2L/24h. - Blood transfusions to keep Hb >8 - d/c flotrack. - Echo 11/12 LVEF 45% RESP: Acute hypoxic Respiratory failure - improving. LLL infiltrate Bilateral pleural effusions Acute pulmonary edema - aggressive pulmonary toilet. - wean o2 by nc for goal spo2 > 90% - Vent bundle, DuoNeb -- Empiric Zosyn, sputum culture negative to date: planned stop date 11/17 (7 day empiric course) GI/HEME: Acute Gastrointestinal bleed EGD 10/27/17 clean based ulcer, portal gastropathy Ileus - Nothing by mouth except meds. Having bowel movements - EGD -11/10 clean based gastric ulcer without active bleed - Protonix IV GTT. DCd octreotide infusion 11/11 - Coloscopy postponed indefinitely for GI - Blood and blood products as needed - CT abd/pel 11/11: Ileus. Reglan 10 mg IV every 8 hours : Acute on chronic kidney disease- resolving. Metabolic acidosis- resolved. - IV Lasix as above - ABG as needed Endo: Hyperglycemia - Insulin sliding scale ID Probable LLL pneumonia - Empiric Zosyn, sputum blood cx neg to date: stop date 11/17 (7 day empiric course) DVT GI prophylaxis - Teds SCDs - IV Heparin - Protonix gtt Dispo: transfer out of ICU. per the patient's wishes, remains DNR. Prieto Mackay MD Nov 16, 2017 13:50
--- NOTE | 2017-11-16 19:04 | HHI.DS ---
Discharge Summary Admission Date Nov 10, 2017 at 01:08 Admitting Diagnosis STEMI, Anemia, hypotension Brief History 57 year old male presents with a history of altered mentation that it been present for approximately 2 hours prior to ambulance services arrival according to the patient's significant other. The patient on arrival was noted to be altered, repeatedly saying that he "fell out". The patient on ambulance services arrival was noted to have a systolic blood pressure of 53. He was admitted here October 26, 2017 with a GI bleed and diagnosis of gastric ulcer per endoscopy findings. At that time he left AGAINST MEDICAL ADVICE. He also has a history of prior cerebrovascular accident with residual left-sided weakness and hypertension, as well as ischemic cardiomyopathy with ejection fraction of 30%. He underwent cardiac catheterization in August 2017 with a placement of bare-metal stent to the ostial proximal right coronary artery. An EKG was reportedly done prior to arrival that showed a right bundle branch block. There also appeared to be ST segment elevation in inferior leads. An EKG was repeated on arrival and the patient was a STEMI alert due to ST segment elevation in 2, 3, and aVF. In the emergency department he was altered unable to provide any meaningful history and was intubated by ED attending for an airway protection. His hemoglobin was found to be 5.4 and emergent release blood transfusion was initiated. The case was discussed with the agribusiness internship on-call, however due to significant anemia and hemodynamic instability the patient is not a candidate for emergent cardiac catheterization. Also his ST changes are most likely due to severe anemia. CBC/BMP: 11/16/17 0410 11/16/17 0410 Significant Findings Laboratory Tests Test 11/14/17 06:00 11/14/17 13:34 11/14/17 15:00 11/14/17 21:00 White Blood Count 15.2 TH/MM3 (4.0-11.0) Red Blood Count 3.06 MIL/MM3 (4.50-5.90) Hemoglobin 8.0 GM/DL (13.0-17.0) Hematocrit 24.3 % (39.0-51.0) Mean Corpuscular Volume 79.5 FL (80.0-100.0) Mean Corpuscular Hemoglobin 26.2 PG (27.0-34.0) Red Cell Distribution Width 24.2 % (11.6-17.2) Platelet Count 522 TH/MM3 (150-450) Neutrophils (%) (Auto) 74.6 % (16.0-70.0) Monocytes (%) (Auto) 9.2 % (0.0-8.0) Neutrophils # (Auto) 11.4 TH/MM3 (1.8-7.7) Monocytes # (Auto) 1.4 TH/MM3 (0-0.9) Neutrophils % (Manual) 78 % (16-70) Band Neutrophils % 8 % (0-6) Neutrophils # (Manual) 13.1 TH/MM3 (1.8-7.7) Nucleated Red Blood Cells 8 /100 WBC (0-0) Platelet Estimate HIGH (NORMAL) Polychromasia 2.0 % (0.0-1.9) Activated Partial Thromboplast Time 37.8 SEC (24.3-30.1) 32.9 SEC (24.3-30.1) 36.4 SEC (24.3-30.1) Blood Urea Nitrogen 32 MG/DL (7-18) Creatinine 1.39 MG/DL (0.60-1.30) Total Protein 6.2 GM/DL (6.4-8.2) Albumin 2.1 GM/DL (3.4-5.0) Calcium Level 8.0 MG/DL (8.5-10.1) Aspartate Amino Transf (AST/SGOT) 188 U/L (15-37) Alanine Aminotransferase (ALT/SGPT) 115 U/L (12-78) Total Bilirubin 1.3 MG/DL (0.2-1.0) Potassium Level 3.1 MEQ/L (3.5-5.1) Chloride Level 94 MEQ/L (98-107) Carbon Dioxide Level 35.4 MEQ/L (21.0-32.0) Estimat Glomerular Filtration Rate 64 ML/MIN (>89) Blood Gas HCO3 32 mmol/L (22-26) Blood Gas Base Excess 8.4 mmol/L (-2-2) Arterial Blood pH 7.48 (7.380-7.420) Arterial Blood Partial Pressure CO2 44 mmHg (38-42) Arterial Blood Oxygen Content 10.1 Vol % (12.0-20.0) Blood Gas Hemoglobin 7.5 G/DL (12.0-16.0) Test 11/15/17 04:30 11/15/17 14:00 11/15/17 23:17 11/16/17 04:10 White Blood Count 15.3 TH/MM3 (4.0-11.0) 15.0 TH/MM3 (4.0-11.0) Red Blood Count 2.86 MIL/MM3 (4.50-5.90) 2.93 MIL/MM3 (4.50-5.90) Hemoglobin 7.4 GM/DL (13.0-17.0) 7.6 GM/DL (13.0-17.0) Hematocrit 22.9 % (39.0-51.0) 23.7 % (39.0-51.0) Mean Corpuscular Hemoglobin 25.9 PG (27.0-34.0) 25.9 PG (27.0-34.0) Red Cell Distribution Width 24.9 % (11.6-17.2) 24.3 % (11.6-17.2) Platelet Count 515 TH/MM3 (150-450) 532 TH/MM3 (150-450) Activated Partial Thromboplast Time 41.8 SEC (24.3-30.1) 38.3 SEC (24.3-30.1) 35.0 SEC (24.3-30.1) 33.0 SEC (24.3-30.1) Blood Urea Nitrogen 32 MG/DL (7-18) 33 MG/DL (7-18) Creatinine 1.49 MG/DL (0.60-1.30) 1.38 MG/DL (0.60-1.30) Calcium Level 8.3 MG/DL (8.5-10.1) Potassium Level 3.4 MEQ/L (3.5-5.1) Chloride Level 97 MEQ/L (98-107) Carbon Dioxide Level 32.4 MEQ/L (21.0-32.0) 33.2 MEQ/L (21.0-32.0) Estimat Glomerular Filtration Rate 59 ML/MIN (>89) 64 ML/MIN (>89) Test 11/16/17 13:00 Activated Partial Thromboplast Time 45.1 SEC (24.3-30.1) Hospital Course 57 year old male presents with a history of altered mentation that it been present for approximately 2 hours prior to ambulance services arrival according to the patient's significant other. The patient on arrival was noted to be altered, repeatedly saying that he "fell out". The patient on ambulance services arrival was noted to have a systolic blood pressure of 53. He was admitted here October 26, 2017 with a GI bleed and diagnosis of gastric ulcer per endoscopy findings ( 10/27/[address] Strickland found clean based ulcer, portal gastropathy). At that time he left AGAINST MEDICAL ADVICE. He also has a history of prior cerebrovascular accident with residual left-sided weakness and hypertension, as well as ischemic cardiomyopathy with ejection fraction of 30%. He underwent cardiac catheterization in August 2017 with a placement of bare -metal stent to the ostial proximal right coronary artery. An EKG was reportedly done prior to arrival that showed a right bundle branch block. There also appeared to be ST segment elevation in inferior leads. An EKG was repeated on arrival and the patient was a STEMI alert due to ST segment elevation in 2, 3, and aVF. In the emergency department he was altered unable to provide any meaningful history and was intubated by ED attending for an airway protection. His hemoglobin was found to be 5.4 and emergent release blood transfusion was initiated. The case was discussed with the agribusiness internship on-call, however due to significant anemia and hemodynamic instability the patient is not a candidate for emergent cardiac catheterization. Also his ST changes are most likely due to severe anemia. 11/10/17: I was called emergently to the bedside as patient became bradycardic to 30's and no recordable blood pressure.. Levophed was increased to 20 mcg/m and BP 70/40, epinephrine was given with systolic blood pressure now about 120s. Repeat EKG confirms ST elevations in the inferior leads with reciprocal changes. Troponin elevated at 2. I discussed with Dr. Sibley and Dr. Pulliam. Plan for emergent EGD, as Dr. Sibley wants clearance for antiplatelet therapy. If GI clears proceed with cath 11/11/17: Remains critically ill, had 1 min of Torsade overnight, self converted to NSR, received 150 mg Amio IV. Remains on Dopamine 6 mcg/kg/min, Levophed 2 mcg/min and vasopressin. EGD 11/10 clean based ulcer, no active bleed. Hb 10, without evidence of active bleed. Currently on Aspirin, Plavix and IV Heparin. Troponin peaked at 34. Discussed with Dr. Sibley. He will see today and evaluate for cath 11/12: No ventricular arrhythmias reported overnight. Remains on dopamine at 6 g per KG per minute and vasopressin at 0.04 international units, GI not planning on colonoscopy due to no evidence of active lower GI bleed. We'll discuss with Dr. Sibley about plan for cardiac catheterization-his notes recommending medical management. Urine output 750 mL in 24 hours 11/13: Remains intubated critically ill. Remains on 6 g per KG per minute of dopamine, and vasopressin.. Will wean to DC vasopressin. Chest x-ray shows increasing bilateral effusions. Start diuresis with IV Lasix. Hemoglobin trended down slightly-per Dr. Sibley. Continue medical management with DAPT and IV heparin. Ileus clinically improving with patient having bowel movements now 11/14: remains intubated. remains on dopamine and with a CI of 2.0 on flowtrack, suggestive of ongoing cardiogenic shock. remains in afib. hgb 8.9-->8.0, but per GI, still manage conservatively at this point. still appears volume overloaded and CXR with significant pulmonary edema. 11/15: extubated yesterday. patient clearly states DNR/DNI. still no procedural interventions possible. patient remained extubated on 3L nc. patient yesterday requested hospice. today patient too somnolent to consent to hospice. Son and patient's healthcare decision maker discussed and now want to change goals to aggressive, despite patient's clear wishes yesterday. 11/16: had full discussion with all family members: everyone now agrees per patient's expressed wishes (expressed again today) that patient would like hospice services. discussed with hospice. Pt Condition on Discharge: Guarded Discharge Disposition: Hospice/Med Facility Discharge Instructions DIET: Follow Instructions for: As Tolerated, No Restrictions Activities you can perform: Regular-No Restrictions Prieto Mackay MD Nov 16, 2017 19:04
== END 2017-11-16 23:32 | disposition hospice, inpatient (51) | DRG 207 ==
LOC: NEPC 00:08 → NEDA 01:08 → HIMN 02:40
PROVIDERS: ADMIT Internal Medicine Critical Care Medicine; ATTEND Internal Medicine Critical Care Medicine
PROC: 03HY32Z Insertion of Monitoring Device into Upper Artery, Percutaneous Approach (ICD-10-PCS; 2017-11-10)
PROC: 0BH17EZ Insertion of Endotracheal Airway into Trachea, Via Natural or Artificial Opening (ICD-10-PCS; 2017-11-10)
PROC: 0DJ08ZZ Inspection of Upper Intestinal Tract, Via Natural or Artificial Opening Endoscopic (ICD-10-PCS; 2017-11-10)
PROC: 02HV33Z Insertion of Infusion Device into Superior Vena Cava, Percutaneous Approach (ICD-10-PCS; 2017-11-10)
PROC: 30233N1 Transfusion of Nonautologous Red Blood Cells into Peripheral Vein, Percutaneous Approach (ICD-10-PCS; 2017-11-10)
PROC: 5A1955Z Respiratory Ventilation, Greater than 96 Consecutive Hours (ICD-10-PCS; principal; 2017-11-10 13:17)
DX: J96.01 Acute respiratory failure with hypoxia (principal); I21.19 ST elevation (STEMI) myocardial infarction involving other coronary artery of inferior wall; J18.9 Pneumonia, unspecified organism; G93.41 Metabolic encephalopathy; I47.2 Ventricular tachycardia; I95.9 Hypotension, unspecified; R57.0 Cardiogenic shock; R57.8 Other shock; I13.0 Hypertensive heart and chronic kidney disease with heart failure and stage 1 through stage 4 chronic kidney disease, or unspecified chronic kidney disease; E87.2 Acidosis; I50.40 Unspecified combined systolic (congestive) and diastolic (congestive) heart failure; R57.1 Hypovolemic shock; I49.01 Ventricular fibrillation; K92.2 Gastrointestinal hemorrhage, unspecified; I69.354 Hemiplegia and hemiparesis following cerebral infarction affecting left non-dominant side; K56.7 Ileus, unspecified; I48.91 Unspecified atrial fibrillation; F17.210 Nicotine dependence, cigarettes, uncomplicated; D50.0 Iron deficiency anemia secondary to blood loss (chronic); I25.5 Ischemic cardiomyopathy; E78.5 Hyperlipidemia, unspecified; I45.10 Unspecified right bundle-branch block; R73.9 Hyperglycemia, unspecified; I25.10 Atherosclerotic heart disease of native coronary artery without angina pectoris; K31.89 Other diseases of stomach and duodenum; K20.9 Esophagitis, unspecified; N18.9 Chronic kidney disease, unspecified; K25.9 Gastric ulcer, unspecified as acute or chronic, without hemorrhage or perforation; Z51.5 Encounter for palliative care; Z66 Do not resuscitate; Z79.82 Long term (current) use of aspirin; Z95.5 Presence of coronary angioplasty implant and graft
CPT/HCPCS: 31500; 36430; 36600; 70450; 71045; 74018; 74176; 80048; 80053; 80076; 81001; 82310; 82550; 82552; 82805; 83605; 83735; 83880; 84100; 84132; 84155; 84484; 85007; 85014; 85018; 85027; 85610; 85730; 86850; 86900; 86901; 86920; 87040; 87070; 87086; 87205; 87641; 93005; 93306; 94002; 94003; 94640; 94664; 96374; 96375; C9113; C9132; J0171; J0282; J0330; J0461; J1120; J1265; J1644; J1940; J2250; J2354; J2543; J2765; J3010; J3430; J3475; J3480; J7030; J7040; J7050; J7070; P9016; P9047; Q9963